=== PATIENT | female | born 1935 | race Caucasian/White ===

== ENCOUNTER → 2018-03-28 12:28 | Outpatient (CLI) | payer OTHER, SELFPAY ==
[2018-03-28 12:54] LABS: Add Manual Diff / Slide Review NO; Basophils Percent Auto 0.5 % (0-2); Eosinophils Percent Auto 1.3 % (2-4); Hemoglobin 13.3 g/dL (12.0-16.0); Lymphocytes Percent Auto 29.6 % (25-40); Mean Corpuscular HGB Conc 34.1 % (30-36); Mean Corpuscular Hemoglobin 32.7 PG (26-34); Mean Corpuscular Volume 95.9 fL (80-100); Monocytes Percent Auto 9.9 % (3-14); Neutrophils Absolute Auto 3600 /uL (3000-5900); Neutrophils Percent Auto 58.7 % (50-75); Platelet Count 241 X10^3/uL (150-400); Red Blood Cell Count 4.06 X10^6/uL (4.0-5.2); Red Cell Distribution Width 13.9 % (11.6-14.8); White Blood Cell Count 6.1 X10^3/uL (4.5-11.0)
[2018-03-28 12:57] LABS: Alanine Aminotransferase 25 IU/L (9-52); Albumin 4.3 g/dL (3.5-5.0); Albumin Globulin Ratio 1.3 (1.0-2.8); Alkaline Phosphatase 89 U/L (38-126); Aspartate Aminotransferase 22 IU/L (14-36); Bilirubin Total 0.4 mg/dL (0.2-1.3); Blood Urea Nitrogen 27 mg/dL (7-17); Calcium 9.9 mg/dL (8.4-10.2); Carbon Dioxide 32 mmol/L (22-32); Chloride 104 mmol/L (98-107); Globulin 3.4 g/dL (1.7-4.1); Glucose 102 mg/dL (80-110); HEMOLYSIS < 15 (0-50); Potassium 5.2 mmol/L (3.4-5.1); Sodium 144 mmol/L (137-145); Total Protein 7.7 g/dL (6.3-8.2)
[2018-03-28 13:58] LABS: Thyroid Stimulating Hormone 2.31 uIU/mL (0.47-4.68)
== END ==
PROVIDERS: Family Provider Family Medicine; PCP Family Medicine; Visit Provider Internal Medicine
DX: K92.1 Melena (principal); R53.1 Weakness; R03.0 Elevated blood-pressure reading, without diagnosis of hypertension
CPT/HCPCS: 36415; 80053; 84443; 85025

== ENCOUNTER → 2018-04-04 16:51 | Outpatient (CLI) | payer OTHER, SELFPAY ==
[2018-04-04 19:26] LABS: Occult Blood 1 Negative (Negative)
[2018-04-04 19:27] LABS: Occult Blood 2 Negative (Negative); Occult Blood 3 Negative (Negative)
== END ==
PROVIDERS: PCP Family Medicine; Visit Provider Internal Medicine
DX: R53.1 Weakness (principal); K92.1 Melena
CPT/HCPCS: 82270

== ENCOUNTER 2018-08-29 14:44 | Emergency (ER) | payer OTHER, SELFPAY ==
[2018-08-29 14:46] VITALS: BP 135/80; PULSE 67; RESP 16; O2SAT 98; BMI 31.5
--- NOTE | 2018-08-29 14:51 | DI.RAD.S_ITS ---
PROCEDURE: XR SHOULDER LT MIN 2V INDICATIONS: injury and pain. TECHNIQUE: 3 views of the shoulder were acquired. COMPARISON: [facility], CT, CHEST ABDOMEN PELVIS WITH CONTRAST, 03/09/2008, 8:51. [facility], CR, CHEST 1 VIEW, 03/18/2011, 22:22. [facility], CR, CHEST 1 VIEW, 07/24/2013, 11:22. FINDINGS: Bones: There is a long-standing structural abnormality at the left shoulder with shortening of the left clavicle with a superior angulation of the left clavicle interfacing with a cephalad directed coracoid process either representing a congenital anomaly versus sequela of old trauma. No suspicious bony lesions. Visualized ribs appear intact. Soft tissues: No suspicious soft tissue calcifications. IMPRESSION: No acute trauma found. 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 Dictated by: Mil Mandel M.D. on 08/29/2018 at 15:31 Approved by: Mil Mandel M.D. on 08/29/2018 at 15:34
--- NOTE | 2018-08-29 15:40 | ED.FALL ---
HPI - Fall General Chief Complaint: Fall Stated Complaint: Fall last Weds, hit head Time Seen by Provider: 08/29/18 15:29 Source: patient Mode of arrival: ambulatory Limitations: no limitations History of Present Illness HPI Narrative: Patient is an 82-year-old female here for evaluation of left shoulder injury. She states that she fell several days ago while walking up flight of stairs caring a couple cans of food. She states she just lost her balance and fell back and landed on her left shoulder. States she did not hit her head. No loss of consciousness. She is not on anticoagulation. She reports that she was able to get up afterwards and walk around. Since then she has had pain in her left shoulder. 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 She states that she has no numbness or tingling left upper extremity just that she has difficulty lifting her left arm. Related Data Home Medications Medication Instructions Recorded Confirmed acyclovir 400 mg tablet 400 mg PO BID 02/11/18 07/28/18 cholecalciferol (vitamin D3) 2,000 2,000 unit PO DAILY 03/28/18 07/28/18 unit capsule prednisolone acetate 1 % eye EYE-RIGHT ml 03/28/18 07/28/18 drops,suspension Previous Rx's Medication Instructions Recorded triamcinolone acetonide 0.1 % 1 applictn TOP DAILY #30 gram 04/07/18 topical cream docusate sodium 100 mg capsule 100 mg PO BID #60 cap 04/10/18 polyethylene glycol 3350 17 gram 17 gram PO DAILY #30 each 04/10/18 oral powder packet Allergies Allergy/AdvReac Type Severity Reaction Status Date / Time No Known Drug Allergies Allergy Unknown Verified 08/29/18 14:46 Review of Systems Constitutional Denies fever(s), Reports frequent falls and Denies headache(s) ENT Ears, Nose, Mouth, and Throat: Denies dysphagia, Denies vertigo, Denies dizziness and Denies headache(s) Cardiovascular Denies chest pain and Denies dyspnea Respiratory Denies dyspnea Gastrointestinal Gastrointestinal: Denies abdominal pain, Denies change in bowel habits and Denies dysphagia Genitourinary Denies dysuria Musculoskeletal Denies tingling Comments: Does report bilateral lower extremity weakness but this is not new Integumentary/Breasts Denies lesions and Denies rash Neurologic Denies vertigo, Denies dizziness, Reports frequent falls, Denies headache(s), Denies tingling and Denies paresthesias Hematologic/Lymphatic Denies easy bleeding Exam Initial Vital Signs Initial Vital Signs: Vital Signs Pulse Rate 67 08/29/18 14:46 Respiratory Rate 16 08/29/18 14:46 Blood Pressure 135/80 08/29/18 14:46 Pulse Oximetry 98 08/29/18 14:46 Const General: cooperative, healthy appearing, comfortable, well developed, well groomed and No acute distress Orientation: alert, awake and oriented x3 HENMT Head: normal to inspection, normocephalic and atraumatic Eyes Pupils: PERRL Resp Effort & Inspection: normal respiratory effort Auscultation: clear to auscultation bilaterally Cardio Rate: regular rate Rhythm: regular rhythm Pulses: radial pulses present GI Inspection: non-distended Palpation: soft, No firm and No tender Back/Spine/Pelvis Cervical Spine: No cervical spinal tenderness and No step off deformity Skin Lesions: no lesions Rashes: no rashes Neuro Cognition: normal cognition Speech: speech normal Gait: normal gait Sensory Exam: no sensory deficits noted Extrem Other: Left wrist left elbow unremarkable. Patient with minimal tenderness to palpation over the left shoulder. Does have some tenderness to palpation over the supraspinatus muscle of the left upper back. Passively patient has no pain with range of motion left shoulder. She is unable to hold her arm at a 90 degree angle. Has a very difficult time abducting her arm. PFSH Medical History Abnormality of heart beat (Chronic 2013) Frequent UTI (Chronic 2011) Urinary incontinence (Chronic 2009) Anemia (Resolved 1979) Cataract (Resolved 2014) Chicken pox (Resolved) Colon polyps (Resolved 2013) Fibroids (Resolved 1974) Fractures (Resolved 1966) History of heavy periods (Resolved 1972) Measles (Resolved) Mononucleosis (Resolved 1958) Mumps (Resolved) Rubella (Resolved) Ulcerative colitis (Resolved) Surgical History Anesthesia (Resolved) History of bilateral tubal ligation (Resolved 1962) History of cataract removal with insertion of prosthetic lens (Resolved 2014) Status post appendectomy (Resolved 1962) Status post breast biopsy (Resolved) Status post colonoscopy (Resolved 08/26/14) Status post right oophorectomy (Resolved 1979) Status post vaginal hysterectomy (Resolved 1979) Family History Brother Renal cancer Father Heart disease Hypertension Grandfather Stroke Mother Colon cancer Grandmother Cancer Stroke Sister Parkinson's disease Grandmother Pneumonia Family/Other Leukemia Social History Smoking Status: Never smoker Course Orders Ordered: ED Orders 08/29/18 14:51 XR shoulder LT min 2V Stat Vital Signs - 8 hr 08/29/18 14:46 Pulse Rate 67 Respiratory Rate 16 Blood Pressure 135/80 Pulse Oximetry 98 MDM - Fall Imaging Data X-ray left shoulder: Radiologist's impression: [address] [address] XRay Report Signed Patient: Katherin Parker [facility]#: [id number] : 5Acct:[id number] Age/Sex: 82 / FDate of Service: 08/29/18 Loc: ED Accession Number: [id number] Procedure: XR shoulder LT min 2V Ordering Provider: Angel Luis Figueroa D.O. PROCEDURE: XR SHOULDER LT MIN 2V INDICATIONS: injury and pain. TECHNIQUE: 3 views of the shoulder were acquired. COMPARISON: [facility], CT, CHEST ABDOMEN PELVIS WITH CONTRAST, 03/09/2008, 8:51. [facility], CR, CHEST 1 VIEW, 03/18/2011, 22:22. [facility], CR, CHEST 1 VIEW, 07/24/2013, 11:22. FINDINGS: Bones: There is a long-standing structural abnormality at the left shoulder with shortening of the left clavicle with a superior angulation of the left clavicle interfacing with a cephalad directed coracoid process either representing a congenital anomaly versus sequela of old trauma. No suspicious bony lesions. Visualized ribs appear intact. Soft tissues: No suspicious soft tissue calcifications. IMPRESSION: No acute trauma found. 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 Dictated by: Mil Mandel M.D. on 08/29/2018 at 15:31 Approved by: Mil Mandel M.D. on 08/29/2018 at 15:[address] [facility] Narrative Medical decision making narrative: No acute fractures on the x-ray the left shoulder. Patient is neurovascularly intact. Does not appear to be any other injury from the fall 4 days ago. Will hold on any further radiologic studies. Patient does have a difficult time holding her arm at a 90 degree angle and starting with abduction of the left arm. She does have tenderness palpation over the supraspinatus muscle. I suspect a rotator cuff injury. No indication to emergently contact Orthopedics. She was given exercises that she could do to try to prevent frozen shoulder. She instructed she needed to contact her primary care doctor to discuss further evaluation to include possible physical therapy and MRI. Patient was given return precautions. Her is at bedside for these discussions. They expressed understanding and agreement this plan. Discharge Plan Departure Patient Disposition: Home Clinical Impression: Injury of left shoulder Discharge Date/Time: 08/29/18 16:22 Interventions: ED Discharge Assessment Last Done: 08/29/18 16:22 Instructions: DI for Rotator Cuff Injury Activity Restrictions/Additional Instructions: after you're exam today have a strong suspicion that you have a rotator cuff injury of your left shoulder. I do recommend that you contact your primary care doctor to discuss the indications for a referral to have an MRI and/or evaluation by physical therapy. You are only limited in your activity by the discomfort that you are having. I do recommend that you try to stay as mobile as possible to avoid stiffening of the left shoulder. Return to the emergency department for any new or worsening symptoms Prescriptions: No Action acyclovir 400 mg tablet 400 mg PO BID RF: 0 triamcinolone acetonide 0.1 % cream 1 applictn TOP DAILY Qty: 30 RF: 0 polyethylene glycol 3350 [Miralax] 17 gram powder in packet 17 gram PO DAILY Qty: 30 RF: 6 docusate sodium [Dulcolax Stool Softener (dss)] 100 mg capsule 100 mg PO BID Qty: 60 RF: 6 cholecalciferol (vitamin D3) 2,000 unit capsule 2,000 unit PO DAILY RF: 0 prednisolone acetate 1 % drops,suspension EYE-RIGHT RF: 0
== END 2018-08-29 16:22 | disposition home or self-care (01) ==
PROVIDERS: Emergency Provider Emergency Medicine; PCP Family Medicine
DX: S49.92XA Unspecified injury of left shoulder and upper arm, initial encounter (principal); W01.0XXA Fall on same level from slipping, tripping and stumbling without subsequent striking against object, initial encounter
CPT/HCPCS: 73030; 99282; 99283

== ENCOUNTER → 2018-09-06 12:38 | Outpatient (CLI) | payer OTHER, SELFPAY ==
--- NOTE | 2018-09-06 12:40 | DI.MRI.S_ITS ---
PROCEDURE: MR SHOULDER LT WO CON INDICATIONS: left shoulder injury/pain TECHNIQUE: Noncontrast oblique coronal T2 fast spin echo with fat saturation, oblique sagittal T1 spin echo and T2 fast spin echo with fat saturation, axial T1 spin echo and T2 fast spin echo with fat saturation through the shoulder. COMPARISON: None. FINDINGS: Image quality: Excellent. Rotator cuff: There is full-thickness rupture of distal supraspinatus and anterior to mid fibers of infraspinatus tendon at their insertions on the greater tuberosity of humeral head with approximately 2.9 cm medial retraction of torn tendon fibers to the level of acromioclavicular joint. Tendinosis and moderately articular surface partial-thickness tear involving the posterior fibers of distal infraspinatus is seen. Tendinosis and low to moderate grade intrasubstance partial-thickness tear involving distal subscapularis is seen. Sagittal images demonstrate moderate supraspinatus and infraspinatus muscle atrophy. Bones and bursae: No bone marrow contusions or fractures. 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 Mild to moderate glenohumeral joint osteophytes is also seen. The acromion demonstrates conventional anatomy, without an os acromiale. Moderate amount of glenohumeral joint effusion a subacromial subdeltoid bursal fluid is noted. No gross loose body. Capsule and soft tissues: In the absence of intra-articular contrast, there is suggestion of focal superior anterior labral tear at 12 to 1:00 position. The glenohumeral ligaments appear intact. The long head of the biceps tendon demonstrates normal location and morphology. The rotator interval appears normal, without fibrosis. The coracohumeral ligament is normal in thickness. IMPRESSION: 1. Full-thickness rupture of distal supraspinatus and anterior to mid fibers of distal infraspinatus at their insertions on greater tuberosity of humeral head with 2.9 cm medial retraction of torn tendon fibers to the level of acromioclavicular joint. Tendinosis and moderate grade articular surface partial-thickness tear involving posterior fibers of distal supraspinatus. Tendinosis and moderate grade intrasubstance partial-thickness involving distal subscapularis. 2. Moderate supraspinatus and infraspinatus muscle atrophy. 3. 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 Moderate amount of joint effusion, no gross loose body. 4. Suggestion of focal superior anterior labral tear at 12 to 1:00 position. Dictated by: Barney Tse M.D. on 09/08/2018 at 8:09 Approved by: Barney Tse M.D. on 09/08/2018 at 8:13
== END ==
PROVIDERS: PCP Family Medicine; Visit Provider Family Medicine
DX: S46.012A Strain of muscle(s) and tendon(s) of the rotator cuff of left shoulder, initial encounter (principal); M25.512 Pain in left shoulder; M19.012 Primary osteoarthritis, left shoulder; M25.412 Effusion, left shoulder
CPT/HCPCS: 73221

== ENCOUNTER 2018-10-25 10:40 | Emergency (ER) | payer OTHER, SELFPAY ==
[2018-10-25 10:46] VITALS: BP 182/117; PULSE 90; RESP 14; TEMP 36.7; O2SAT 99; BMI 31.1
[2018-10-25 11:46] LABS: Bacteria Urine Moderate (10-30); RBC Urine 1-5/HPF (0-5/HPF); WBC Urine >100/HPF (0-5/HPF)
[2018-10-25 11:47] LABS: Culture Indicated Urine Specimen Cultured
--- NOTE | 2018-10-25 12:13 | ED_ITS ---
HPI - Female Genitourinary <Wendy Gilbert PA-C - Last Filed: 10/25/18 17:10> General Chief complaint: Urogenital-Female Stated complaint: THINKS SHES HAVING A REACTION TO A MEDICATION Time Seen by Provider: 10/25/18 12:30 Source: patient Mode of arrival: ambulatory Limitations: no limitations History of Present Illness HPI Narrative: This 82-year-old female who has a history of recurrent UTI comes in today due to feeling like she has another 1. She states that she went to the walk-in clinic 5 days ago thinking that she might have the start of an infection because she had some intermittent dysuria, but states that her urinalysis was negative there. She states that over the last couple of days, she has had more persistent dysuria and also urinary urgency. She states that she thinks she might have had 1 episode of visible hematuria last night, but she had eaten beets the night before, so not sure whether related. No other episodes. She states her urine has looked cloudy. She denies vomiting or nausea. She denies new flank pain or fever. She states that this feels similar to her previous urinary infections. Related Data Home Medications Medication Instructions Recorded Confirmed acyclovir 400 mg tablet 400 mg PO BID 02/11/18 07/28/18 cholecalciferol (vitamin D3) 2,000 2,000 unit PO DAILY 03/28/18 07/28/18 unit capsule prednisolone acetate 1 % eye EYE-RIGHT ml 03/28/18 07/28/18 drops,suspension Previous Rx's Medication Instructions Recorded triamcinolone acetonide 0.1 % 1 applictn TOP DAILY #30 gram 04/07/18 topical cream docusate sodium 100 mg capsule 100 mg PO BID #60 cap 04/10/18 polyethylene glycol 3350 17 gram 17 gram PO DAILY #30 each 04/10/18 oral powder packet sulfamethoxazole-trimethoprim 1 tab PO BID 5 Days #10 tab 10/25/18 [Bactrim DS] Allergies Allergy/AdvReac Type Severity Reaction Status Date / Time No Known Drug Allergies Allergy Unknown Verified 10/25/18 10:52 Review of Systems <Wendy Gilbert PA-C - Last Filed: 10/25/18 17:10> Review of Systems ROS Unobtainable: All systems reviewed & are unremarkable except as noted in HPI and below Exam <ALFRED Servin Last Filed: 10/25/18 17:10> Narrative Exam Narrative: GENERAL APPEARANCE: Patient sitting comfortably, in no distress. LUNGS: Clear to auscultation bilaterally. HEART: Rate and rhythm regular without murmur, normal S1 and S2, no S3 or S4. ABDOMEN: Soft, NT, ND, +BS x 4 quadrants, no CVAT. EXTREMITIES: Trace bimalleolar edema bilaterally, no calf tenderness Initial Vital Signs Initial Vital Signs: Vital Signs Temperature 98.1 F 10/25/18 10:46 Pulse Rate 90 10/25/18 10:46 Respiratory Rate 14 10/25/18 10:46 Blood Pressure 182/117 H 10/25/18 10:46 Pulse Oximetry 99 10/25/18 10:46 <Angel Luis Figueroa DO - Last Filed: 10/25/18 17:39> Initial Vital Signs Initial Vital Signs: Vital Signs Temperature 98.1 F 10/25/18 10:46 Pulse Rate 90 10/25/18 10:46 Respiratory Rate 14 10/25/18 10:46 Blood Pressure 182/117 H 10/25/18 10:46 Pulse Oximetry 99 10/25/18 10:46 Course <ALFRED Servin Last Filed: 10/25/18 17:10> Orders Ordered: ED Orders 10/25/18 11:12 Urine Culture Stat Urine Microscopic Stat Vital Signs - 8 hr 10/25/18 10:46 10/25/18 13:21 Temperature 98.1 F Pulse Rate 90 68 Respiratory Rate 14 20 Blood Pressure 182/117 H 120/78 Pulse Oximetry 99 <DO Cindy Sotomayor Last Filed: 10/25/18 17:39> Orders Ordered: ED Orders 10/25/18 11:12 Urine Culture Stat Urine Microscopic Stat Vital Signs - 8 hr 10/25/18 10:46 10/25/18 13:21 Temperature 98.1 F Pulse Rate 90 68 Respiratory Rate 14 20 Blood Pressure 182/117 H 120/78 Pulse Oximetry 99 MDM - Female Genitourinary <ALFRED Servin Last Filed: 10/25/18 17:10> Lab Data Attestation: I reviewed the patient's lab results. Lab Results 10/25/18 Range/Units 11:12 Urine RBC 1-5/hpf (0-5/HPF) Urine WBC >100/hpf H (0-5/HPF) Urine Bacteria Moderate (10-30) H (None) Ur Culture Indicated? Specimen cultured Urine Dip Bedside Urine Glucose Negative Bedside Urine Bilirubin - Negative Bedside Urine Ketone - Negative Urine Specific [place] 1.010 Bedside Urine Occult Blood + Bedside Urine pH 6.0 Bedside Urine Protein - Negative Bedside Urine Urobilinogen - Negative Bedside Urine Nitrite - Negative Bedside Urine Leukocytes +++ 500 Esterase <Angel Luis Figueroa, DO - Last Filed: 10/25/18 17:39> Lab Data Lab Results 10/25/18 Range/Units 11:12 Urine RBC 1-5/hpf (0-5/HPF) Urine WBC >100/hpf H (0-5/HPF) Urine Bacteria Moderate (10-30) H (None) Ur Culture Indicated? Specimen cultured Urine Dip Bedside Urine Glucose Negative Bedside Urine Bilirubin - Negative Bedside Urine Ketone - Negative Urine Specific [place] 1.010 Bedside Urine Occult Blood + Bedside Urine pH 6.0 Bedside Urine Protein - Negative Bedside Urine Urobilinogen - Negative Bedside Urine Nitrite - Negative Bedside Urine Leukocytes +++ 500 Esterase Discharge Plan Departure Patient Disposition: Home Clinical Impression: Urinary tract infection Discharge Date/Time: 10/25/18 13:22 Interventions: ED Discharge Assessment Last Done: 10/25/18 13:21 Instructions: DI for Urinary Tract Infection (UTI) Activity Restrictions/Additional Instructions: Please return if you have any acutely worsening symptoms over the weekend such as new fever, vomiting, or new pain in your kidney areas. You should follow-up with your primary care provider after your infection is resolved to repeat a urinalysis since there was a little bit of blood in your urine and also possible blood that you saw at home. I have sent in a prescription for Bactrim (sulfa antibiotic) since you have taken this many times in the past. Your urine will be sent for culture and this should be back in a couple of days, so please be sure to call and follow up with your PCP if you are not feeling better in the next 2-3 days. You can take your urinary pain reliever that you already have at home (pyridium) if you need. Prescriptions: New sulfamethoxazole-trimethoprim [Bactrim DS] 800-160 mg tablet 1 tab PO BID 5 Days Qty: 10 RF: 0 No Action acyclovir 400 mg tablet 400 mg PO BID RF: 0 triamcinolone acetonide 0.1 % cream 1 applictn TOP DAILY Qty: 30 RF: 0 polyethylene glycol 3350 [Miralax] 17 gram powder in packet 17 gram PO DAILY Qty: 30 RF: 6 docusate sodium [Dulcolax Stool Softener (dss)] 100 mg capsule 100 mg PO BID Qty: 60 RF: 6 cholecalciferol (vitamin D3) 2,000 unit capsule 2,000 unit PO DAILY RF: 0 prednisolone acetate 1 % drops,suspension EYE-RIGHT RF: 0 Referrals: Armaan Evans MD [Primary Care Provider] - <Angel Luis Figueroa DO - Last Filed: 10/25/18 17:39> Cosign ED Attending Cosdipikaature Attestation: I was available for consultation during this patient's emergency department encounter
[2018-10-25 13:21] VITALS: BP 120/78; PULSE 68; RESP 20
== END 2018-10-25 13:22 | disposition home or self-care (01) ==
PROVIDERS: Emergency Medicine; Emergency Provider Internal Medicine; PCP Family Medicine
DX: N39.0 Urinary tract infection, site not specified (principal)
CPT/HCPCS: 81003; 81015; 87077; 87086; 87186; 99282; 99283

== ENCOUNTER → 2018-11-25 14:05 | Outpatient (CLI) | payer OTHER, SELFPAY ==
[2018-11-25 14:12] LABS: RBC Urine None Seen (0-5/HPF)
[2018-11-25 14:36] LABS: Bilirubin Urine UA NEGATIVE (NEGATIVE); Color Urine UA YELLOW; Glucose Urine UA NEGATIVE (Negative); Ketones Urine UA NEGATIVE (NEGATIVE); Leukocyte Esterase Urine UA 2+ (NEGATIVE); Nitrite Urine UA NEGATIVE (Negative); Occult Blood Urine UA NEGATIVE (Negative); Protein Urine UA NEGATIVE (Negative); Urobilinogen Urine UA 0.2 E.U./dL (0.2)
[2018-11-25 14:51] LABS: Appearance Urine UA Slightly Cloudy; Squamous Epithelial Cell Urine 0-1 /HPF; WBC Urine >100/HPF (0-5/HPF)
[2018-11-25 14:52] LABS: Amorphous Sediment Urine 1+; Bacteria Urine Few (2-10); Culture Indicated Urine Specimen Cultured; Mucus Urine 1+ (Negative)
== END ==
PROVIDERS: PCP Family Medicine; Visit Provider Family Medicine
DX: R30.0 Dysuria (principal)
CPT/HCPCS: 81001; 87077; 87086; 87186

== ENCOUNTER → 2019-01-15 08:10 | Outpatient (CLI) | payer OTHER, SELFPAY ==
--- NOTE | 2019-01-15 08:11 | DI.MRI.S_ITS ---
PROCEDURE: MR HEAD/BRAIN WO CON INDICATIONS: memory impairment TECHNIQUE: Non-contrast axial T1 spin echo, axial T2 fast spin echo, sagittal and axial FLAIR, coronal T2 fast spin echo, axial gradient echo, axial diffusion and ADC through the brain. COMPARISON: [facility], MR, STROKE PROTOCOL, 05/24/2017, 7:58. [facility], MR, BRAIN WITHOUT CONTRAST, 11/05/2014, 8:25. FINDINGS: Image quality: Excellent. CSF spaces: Ventricles appear symmetric in size and shape. Basal cisterns are patent. No extra-axial fluid collections. Brain: No intracranial bleeds or mass effects. There is cerebral volume loss for age. There are periventricular and deep white matter chronic small vessel ischemic changes. Brainstem appears normal. Diffusion-weighted images show no acute ischemic insults. No chronic ischemic insults. Normal intravascular flow voids are present. Skull and face: Calvarial bone marrow is normal in signal. Orbits are normal. Note is made of bilateral lens replacements. Sinuses: Sinuses and mastoids are clear. IMPRESSION: Normal intracranial study for age, with note made of brain parenchymal volume loss and chronic small vessel ischemic change. Dictated by: Brandyn Alexander M.D. on 01/15/2019 at 8:30 Approved by: Brandyn Alexander M.D. on 01/15/2019 at 8:32
== END ==
PROVIDERS: PCP Family Medicine; Visit Provider Family Medicine
DX: R41.3 Other amnesia (principal)
CPT/HCPCS: 70551

== ENCOUNTER → 2019-04-20 16:40 | Outpatient (CLI) | payer OTHER, SELFPAY ==
[2019-04-20 16:56] LABS: RBC Urine None Seen (0-5/HPF); WBC Urine None Seen (0-5/HPF)
[2019-04-20 18:07] LABS: Appearance Urine UA CLEAR; Bilirubin Urine UA NEGATIVE (NEGATIVE); Glucose Urine UA NEGATIVE (Negative); Ketones Urine UA NEGATIVE (NEGATIVE); Leukocyte Esterase Urine UA NEGATIVE (NEGATIVE); Nitrite Urine UA NEGATIVE (Negative); Occult Blood Urine UA NEGATIVE (Negative); Protein Urine UA NEGATIVE (Negative); Specific Gravity Urine UA <=1.005 (1.000-1.035); Urobilinogen Urine UA 0.2 E.U./dL (0.2); pH Urine UA 5.5 (4.5-8.0)
[2019-04-20 18:10] LABS: Color Urine UA Straw
[2019-04-20 18:26] LABS: Bacteria Urine Moderate (10-30); Culture Indicated Urine Cult Not Indicated
== END ==
PROVIDERS: PCP Family Medicine; Visit Provider Family Medicine
DX: R32 Unspecified urinary incontinence (principal); R39.15 Urgency of urination
CPT/HCPCS: 81001

== ENCOUNTER → 2019-04-22 10:40 | Outpatient (CLI) | payer OTHER, SELFPAY | PROVIDERS: PCP Family Medicine; Visit Provider Family Medicine | DX: R35.0 Frequency of micturition (principal); R82.90 Unspecified abnormal findings in urine | CPT/HCPCS: 87077; 87086; 87186 ==

== ENCOUNTER → 2019-08-12 13:12 | Outpatient (CLI) | payer OTHER, SELFPAY ==
[2019-08-12 14:04] LABS: Add Manual Diff / Slide Review NO; Basophils Absolute Auto 0 /uL (0-100); Basophils Percent Auto 0.6 % (0-2); Eosinophils Absolute Auto 200 /uL (0-450); Eosinophils Percent Auto 2.9 % (2-4); Hematocrit 39.3 % (36-46); Hemoglobin 13.1 g/dL (12.0-16.0); Lymphocytes Absolute Auto 2000 /uL (1100-4500); Lymphocytes Percent Auto 28.7 % (25-40); Mean Corpuscular HGB Conc 33.4 % (30-36); Mean Corpuscular Hemoglobin 31.1 PG (26-34); Mean Corpuscular Volume 93.3 fL (80-100); Monocytes Absolute Auto 600 /uL (0-900); Monocytes Percent Auto 8.4 % (3-14); Neutrophils Absolute Auto 4100 /uL (1500-7000); Neutrophils Percent Auto 59.4 % (50-75); Platelet Count 282 X10^3/uL (150-400); Red Blood Cell Count 4.21 X10^6/uL (4.0-5.2); Red Cell Distribution Width 12.4 % (11.6-14.8); White Blood Cell Count 6.9 X10^3/uL (4.5-11.0)
[2019-08-12 14:31] LABS: Alanine Aminotransferase 26 IU/L (<35); Albumin 4.2 g/dL (3.5-5.0); Albumin Globulin Ratio 1.4 (1.0-2.8); Alkaline Phosphatase 106 U/L (38-126); Aspartate Aminotransferase 35 IU/L (14-36); BUN Creatinine Ratio 28.9 (6-22); Bilirubin Total 0.7 mg/dL (0.2-1.3); Blood Urea Nitrogen 26 mg/dL (7-17); Calcium 9.8 mg/dL (8.4-10.2); Carbon Dioxide 28 mmol/L (22-32); Chloride 103 mmol/L (98-107); Cholesterol 206 mg/dL (140-199); Estimated Glomerular Filt Rate 59.7 mL/min (>60); Globulin 3.1 g/dL (1.7-4.1); Glucose 95 mg/dL (80-110); HDL Cholesterol 68 mg/dL (40-60); HEMOLYSIS 28 (0-50); LDL Cholesterol Calculated 116 mg/dL (<100); Potassium 4.4 mmol/L (3.4-5.1); Sodium 141 mmol/L (137-145); Total Protein 7.3 g/dL (6.3-8.2); Triglycerides 111 mg/dL (35-150)
[2019-08-12 15:00] LABS: Thyroid Stimulating Hormone 2.63 uIU/mL (0.47-4.68)
== END ==
PROVIDERS: Family Provider Family Medicine; PCP Family Medicine; Visit Provider Hospitalist
DX: R53.1 Weakness (principal)
CPT/HCPCS: 36415; 80053; 80061; 84443; 85025

== ENCOUNTER → 2019-08-26 09:02 | Outpatient (CLI) | payer OTHER, SELFPAY ==
--- NOTE | 2019-08-26 09:03 | DI.MRI.S_ITS ---
PROCEDURE: MR STROKE Pre- and post-contrast brain MRI, non-contrast brain MR angiogram, pre- and postcontrast neck MR angiogram INDICATIONS: slurred speech , aspiration TECHNIQUE: Brain: Noncontrast axial T1 spin echo, axial T2 fast spin echo, sagittal and axial FLAIR, coronal T2 fast spin echo, axial gradient echo, axial diffusion and ADC through the brain. After the administration of contrast, axial 3D VIBE of the cranial vasculature and brain. Brain MRA: Non-contrast 3-D time of flight MR angiogram, with multiple obpmhgx-nwjonqond-mpdfkubpzu (MIP) reformats performed. Neck MRA: Axial and sagittal TruFISP through the neck. Coronal dynamic MR angiogram during administration of contrast in the arterial and venous phases, with 3-dimenstional etdlreh-zkkxeayqb-gorewqviat (MIP) reformats constructed from subtraction images. COMPARISON: [facility], MR, MR HEAD/BRAIN WO CON, 01/15/2019, 8:27. [facility], MR, STROKE PROTOCOL, 05/24/2017, 7:58. [facility], MR, BRAIN WITHOUT CONTRAST, 11/05/2014, 8:25. FINDINGS: Image quality: Excellent. BRAIN: CSF spaces: Ventricles are normal in size and shape. Basal cisterns are patent. No extra-axial fluid collections. Brain: No intracranial bleeds or mass effects. Russell-white matter interface is normal. Diffusion weighted images show no acute ischemic insults. Brainstem appears normal. Normal intravascular flow voids are present. No abnormal intracranial enhancement. Skull and face: Calvarial marrow signal is normal. Orbits appear normal. Note is made of bilateral lens replacements. Sinuses: Sinuses and mastoids are clear. BRAIN MR ANGIOGRAM: Anterior circulation: Intracranial internal carotid arteries are normal in size and enhancement. There is a hypoplastic to left A1 segment, with a corresponding robust right A1 segment. This is considered to be a normal developmental variant of the [place], of typically no clinical consequence. The flow within the paired anterior cerebral arteries is otherwise normal and symmetric. The flow within the middle cerebral arteries is normal and symmetric. The anterior communicating artery is seen. No stenoses, occlusions, or aneurysms. Posterior circulation: The left vertebral artery is dominant to the right. The right vertebral artery largely terminates in the right posterior inferior cerebellar artery and does not clearly join with the left vertebral artery to form the basilar artery. There is a normal appearing basilar artery. There is a prominent right posterior communicating artery seen, with an accompanying diminutive right P1 segment. This is attributed to a type origin of the right posterior cerebral artery, which is considered to be a normal developmental variant of typically no clinical consequence. The flow within the posterior cerebral arteries is normal and symmetric. No stenoses, occlusions, or aneurysms. NECK MR ANGIOGRAM: Carotids: Great vessels demonstrate a conventional anatomy as they arise from the aortic arch. The origins of the common carotid arteries appear patent. However, there is at least 50% stenosis seen involving the origin of the left common carotid artery, as on series 32 images 54 and 55. The calibers and courses of both common carotid arteries are normal. The bifurcation regions appear normal bilaterally. The internal carotid arteries demonstrate normal course and caliber. Posterior circulation: The origins of the vertebral arteries appear patent. More superior portions of both vertebral arteries demonstrate normal course. The left vertebral artery is dominant to the right. The right vertebral artery largely terminates in the right posterior inferior cerebellar artery. It does not clearly join with the left vertebral artery to form the basilar artery. The basilar artery is unremarkable. Miscellaneous: Subclavian arteries appear patent. Pre-contrast images through the neck show no soft tissue abnormalities. IMPRESSION: BRAIN MRI: Generalized atrophy and chronic small vessel ischemic change can be seen. No findings of acute or subacute infarction can be seen. No masses or abnormal enhancement can be seen. BRAIN MR ANGIOGRAM: Stable intracranial MR angiogram, with note made of g[place] anomalies with a hypoplastic left A1 segment and a type origin of the right posterior cerebral artery. NECK MR ANGIOGRAM: There is at least a 50% stenosis involving the origin of the left common carotid artery. No hemodynamically significant stenosis of the internal carotid arteries can be seen. No significant vertebral artery abnormalities are seen. It is noted that the right vertebral artery largely terminates in the right posterior inferior cerebellar artery and does not clearly join with the left vertebral artery to form the basilar artery. Dictated by: Brandyn Alexander M.D. on 08/26/2019 at 9:45 Approved by: Brandyn Alexander M.D. on 08/26/2019 at 9:53
== END ==
PROVIDERS: PCP Family Medicine; Visit Provider Hospitalist
DX: R47.81 Slurred speech (principal); I65.22 Occlusion and stenosis of left carotid artery
CPT/HCPCS: 70548; 70553; A9579

== ENCOUNTER 2019-12-21 12:30 | Outpatient (RCR) | payer OTHER, SELFPAY ==
--- NOTE | 2019-08-24 13:43 | ST.OPIE ---
Visit Care Team Role Provider Type Armaan Evans MD Primary Care Provider Physician Specialty: Family Practice Address: [address] [place] [address], [id number] Email: [email or web address] Susie Altamirano MD Attending Provider Physician Specialty: Internal Medicine Address: [address] [place] [address], [id number] Email: Speech-Language Pathology Initial Evaluation FALAFEL CART COOK Clinical Swallow Evaluation Start: 08/24/19 10:17 Freq: Status: Active Protocol: Document 08/24/19 10:18 SHAWNEE (Rec: 08/24/19 10:29 [email or web address] [id number]) Clinical Swallow Evaluation Session Time Visit Start Time 10:30 Visit Stop Time 11:30 Total Visit Minutes 60 Visit Information Plan of Care Dates 08.24.19 - 11.24.18 Insurance Information Medicare Referral Referring Physician Dr. Susie Altamirano Reason for Referral Dysphagia, Slurred Speech Setting Assessment Location Outpatient Care Visit Type Note Type Initial Evaluation Next Note Type Next Note Type Treatment Note Patient Information Identification Type Name,ID Card History Pt is an 83-yr-old female with >3 mo hx of slurred speech and recent onset of coughing when swallowing liquids only, particularly water and hot tea . The pt has a daughter who has frontal temporal degeneration, Aphasia type. The pt expressed to Dr. Evans concern that she may have the same thing. MRI was performed on 01/15/19 secondary to this concern and complaints of memory decline. MRI revealed normal intracranial study for age, with note made of brain parenchymal volume loss and chronic small velles ischemic change. Due to extensive slurred speech, however, there is a question of a small stroke and another MRI is scheduled for 08.26.19. Pt was referred to Speech Pathology for further evaluation of both oral motor speech and swallow difficulties. Dr. Altamirano did recommend to pt at last clinic visit to consume nectar-thick liquids and employ chin tuck to reduce risk of aspiration. 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 She states that, as a result, her right eyelid does not open as much as her left eye, which was observed. Subjective Observations The pt arrived on time with her , who did not attend evaluation. Pt provided case history supplemental to medical records. Evaluation Liquids Trialed Thin,[place] Solids Trialed Puree,Mechanical Soft,Regular Administration Type Cup Single Sip,Cup Consecutive Sips,Self-Feeding Oral Impairment WFL Oral Strategies Upright at 90 degrees Oral Phase Comments Oral Peripheral Exam: Mild right side facial weakness characterized by reduced labial retraction/elevation and buccal tone. All other features were symmetrical. Pt has natural dentition with many capped molars, in good condition for age. Soft palate elevates upon phonation. Mildly reduced hyolaryngeal elevation/excursion upon palpation. Oral Phase: WNL. Addequate mastication, bolus formation and a/p propulsion. Swallow trigger appears timely. No oral residue observed with all trials. Pharyngeal Impairment Mildly Impaired Pharyngeal Strategies Sitting Upright (90 deg),Turn Head Right,Small Bites and Sips Pharyngeal Phase Comments Trials: Thin liquid in single sips with and without chin tuck and head turn to right; NTL in single and consecutive swallows without compensatory strategies; applesauce, diced fruit in nectar, and dry caro cracker, all without compensatory strategies. Pt exhibited immediate cough with thin liquid in 2/3 trials without use of compensatory strategies. No overt s/sx observed with thin liquids with use of chin tuck x2 and with head turn to right x4 trials, nor with single and consecutive sips of NTL, and all solid trials. Pt's voice remained constant throughout trials. Findings Dysphagia Type Mild Pharyngeal Dysphagia Rehabilitation Potential Excellent Impressions Pt presents with mild pharyngeal dysphagia characterized by coughing with thin liquids when no compensatory strategies are used. Given presence of mild facial droop and benefit from head turn to right with swallow, suspect pt may have had small stroke or TIA affecting muscle strength on right side. It will be good to have MRI performed this week to assess. The pt benefited from both chin tuck and head turn to right and performed strategies easily. She also benefited from thickening of liquids to nectar thickness. Recommended to pt either to consume NTLs or to employ chin tuck or right head turn if consuming thin liquids. Also recommended dysphagia therapy targeting strengthening of oral and pharyngeal muscles to reduce risk of aspiration and if possible, reduce facial weakness. The pt's oral motor speech was perceived to be mildly dysarthric, characterized by imprecise articulation and elongated vowels; however, she remained 100% intelligible throughout the evaluation and self-employed strategies such as slowing down her speech. She stated she also is better understood when facing her conversation partners, and so she attempts to do this. Feedback was provided RE these strategies as well as benefits of slightly exaggerating speech to improve both articulation and others' abilities to read her lips when she speaks. She verbalized understanding and agreement with this and also reported that her speech does not bother her, and improving it was not a goal of Speech Therapy for her. Finally, when asked about her memory and other cognitive- linguistic skills, the pt reported experiencing memory impairments that are normal for people her age, and expressed no significant concern. Therefore, it was agreed that Speech Pathology services would target only dysphagia at this time. Diet Recommendations Liquids Order Thin Diet Order Regular Medication Recommendations As Tolerated Comments Thin liquids with chin tuck or head turn to right; otherwise , [place]-thick Aspiration Precautions Recommended Precautions Upright at 90 Degrees,Small Bites/Sips,Chin Tuck,Right Head Turn Additional Precautions Single sips only if consuming thin liquids. Treatment Plan Placement Recommendations after Home Discharge Therapy Recommendations Continued education and training in compensatory swallow strategies; training in swallow exercises and establishment of HEP. Dysphagia Goals 1. The pt will use compensatory swallow strategies (i.e., single sips with chin tuck or head turn to right) when consuming thin liquids to reduce risk of aspiration and maintain least restrictive diet. 2. The pt will perform swallow exercises independently to increase strength, coordination, and ROM of swallow musculature to reduce risk of aspiration. 3. The pt will tolerate least restrictive diet without overt s/sx of aspiration.
--- NOTE | 2019-11-02 17:41 | ST.OPTN ---
Visit Care Team Role Provider Type Armaan Evans MD Primary Care Provider Physician Address: [address] [place] [address], [id number] Susie Altamirano MD Attending Provider Non-Staff Address: [address] [place] [address], [id number] FORMULA TECHNICIAN Treatment Note FORMULA TECHNICIAN Treatment Note Start: 08/24/19 10:17 Freq: Status: Active Protocol: Document 11/02/19 14:24 SHAWNEE (Rec: 11/02/19 14:25 [email or web address] [id number]) Speech Pathology Treatment Note Session Time Visit Start Time 13:30 Visit Stop Time 14:15 Total Visit Minutes 45 Visit Information Visit Number 12/[id number] Plan of Care Dates 08.24.19 - 11.24.18 Insurance Information Dysphagia, Slurred Speech Setting Treatment Setting Outpatient Care Visit Type Note Type Treatment Note Next Note Type Next Note Type Treatment Note General Information General Information Pt is an 83-yr-old female with >3 mo hx of slurred speech and recent onset of coughing when swallowing liquids only, particularly water and hot tea . The pt has a daughter who has frontal temporal degeneration, Aphasia type. The pt expressed to Dr. Evans concern that she may have the same thing. MRI was performed on 01/15/19 secondary to this concern and complaints of memory decline. MRI revealed normal intracranial study for age, with note made of brain parenchymal volume loss and chronic small velles ischemic change. Due to extensive slurred speech, however, there is a question of a small stroke and another MRI is scheduled for 08.26.19. Pt was referred to Speech Pathology for further evaluation of both oral motor speech and swallow difficulties. Dr. Altamirano did recommend to pt at last clinic visit to consume nectar-thick liquids and employ chin tuck to reduce risk of aspiration. 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 She states that, as a result, her right eyelid does not open as much as her left eye, which was observed. Subjective Observations/Patient Presentation Pt arrived with who did not attend session. She has not been seen since Sep 15 d/t clinician and pt illnesses. The pt reported having seen a Neurologist, who denied diagnosis of PSP d/t the pt's ability to move eyes and head in all directions and with normal eye gaze. She was unable to provide the pt with a definitive diagnosis for her symptoms. The pt reported inconsistent compliance with swallow HEP but did note significant reduction in coughing with oral intake, reduced to occasional events. Chief Complaint(s) Speech,Swallowing,Voice Additional Areas of Concern Vocal loudness Patient Knowledge/Awareness of FORMULA TECHNICIAN Role Good in Treatment Objective Short Term Goals Ongoping education and training in compensatory swallow strategies; training in swallow exercises and establishment of HEP. Evaluation of speech intelligibility/dysarthria symptoms. Goals to be determined pending results. Nursing Home Goals 1. The pt will use compensatory swallow strategies (i.e., single sips with chin tuck or head turn to right) when consuming thin liquids to reduce risk of aspiration and maintain least restrictive diet. 2. The pt will perform swallow exercises independently to increase strength, coordination, and ROM of swallow musculature to reduce risk of aspiration. 3. The pt will tolerate least restrictive diet without overt s/sx of aspiration. Treatment Activities The pt had questions related to swallow exercises and their functional purposes. Re- education was provided, both orally and with visual and animated demonstration aids. The pt was unable to perform Aman as prescribed; therefore, modifications to laryngeal elevation exercises were made including lifting and holding pieces of paper through straw to elicit hyolaryngeal elevation via sucking postures. Effortful swallow was added as exercise, and diadochokinetic tasks were added as oral motor/ speech articulation exercise. The pt performed or returned demonstration of all exercises and all questions were answered. Instructions for HEP were provided in writing. Assessment Patient Response to Treatment Good Rehab Potential Good Impairments Identified Dysarthria,Dysphagia Progress Towards Goals Good Progress Assessment of Overall Progress Improving Assessment of Improvement The pt is making progress with swallow safety, as demonstrated by reduced coughing with liquid intake. She has been inconsistent in HEP practice but verbalized understanding of importance and intention to increase consistency. She continues with mildly dysarthric speech, though remains 100% intelligible. Reviewed with Patient Goals,Progress Being Made,Home Exercise Program Patient/Caregiver Understanding Excellent Plan Treatment Emphasis Next Session Speech intelligibility and voice/loudness exercises Therapeutic Contents Client Education,Compensatory Swallowing Training,Home Exercise Program, Intelligibility,Oral Motor Training,Swallowing/Feeding, Voice Training Additional Areas of Treatment Considering family hx of PD and FTD, may consider LSVT- Loud tx Provided Patient/Caregiver Instruction Home Exercise Program,Plan of Care,Questions/Concerns Therapy Recommendations Continue with Current Program
--- NOTE | 2019-11-30 16:12 | ST.OPTN ---
Visit Care Team Role Provider Type Armaan Evans MD Primary Care Provider Physician Address: [address] [place] [address], [id number] Susie Altamirano MD Attending Provider Non-Staff Address: [address] [place] [address], [id number] IT CONSULTING DIRECTOR Treatment Note IT CONSULTING DIRECTOR Treatment Note Start: 08/24/19 10:17 Freq: Status: Active Protocol: Document 11/30/19 13:24 SHAWNEE (Rec: 11/30/19 16:12 [email or web address] [id number]) Speech Pathology Treatment Note Session Time Visit Start Time 13:30 Visit Stop Time 14:15 Total Visit Minutes 45 Visit Information Visit Number 01/14 Plan of Care Dates 11/30/19 - 02/21/20 Insurance Information Dysphagia, Slurred Speech Setting Treatment Setting Outpatient Care Visit Type Note Type Progress Note Next Note Type Next Note Type Treatment Note General Information General Information Pt is an 83-yr-old female with >3 mo hx of slurred speech and recent onset of coughing when swallowing liquids only, particularly water and hot tea . The pt has a daughter who has frontal temporal degeneration, Aphasia type. The pt expressed to Dr. Evans concern that she may have the same thing. MRI was performed on 01/15/19 secondary to this concern and complaints of memory decline. MRI revealed normal intracranial study for age, with note made of brain parenchymal volume loss and chronic small velles ischemic change. Due to extensive slurred speech, however, there is a question of a small stroke and another MRI is scheduled for 08.26.19. Pt was referred to Speech Pathology for further evaluation of both oral motor speech and swallow difficulties. Dr. Altamirano did recommend to pt at last clinic visit to consume nectar-thick liquids and employ chin tuck to reduce risk of aspiration. 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 She states that, as a result, her right eyelid does not open as much as her left eye, which was observed. UPDATE 11/02/19: The pt reported having seen a Neurologist, who denied diagnosis of PSP d/t the pt's ability to move eyes and head in all directions and with normal eye gaze. She was unable to provide the pt with a definitive diagnosis for her symptoms. Subjective Observations/Patient Presentation Pt arrived on time. Reported improved swallow with only occasional small coughs after large consumptions of thin liquids. Has no complaints with swallowing solids. States she is consuming all the foods/liquids she desires to, although she has not had alcohol or hot beverages since and fall, respecively, d/t swallow difficulties at those times. She reported performing swallow exercises once every 1 -2 days, not more because she forgets to. The pt also c/o running out of breath as she reads aloud each night. Chief Complaint(s) Speech,Swallowing,Voice Additional Areas of Concern Vocal loudness Patient Knowledge/Awareness of IT CONSULTING DIRECTOR Role Good in Treatment Objective Short Term Goals Ongoping education and training in compensatory swallow strategies; training in swallow exercises and establishment of HEP. Evaluation of speech intelligibility/dysarthria symptoms. Goals to be determined pending results. Manager Lighting Goals 1. The pt will use compensatory swallow strategies (i.e., single sips with chin tuck or head turn to right) when consuming thin liquids to reduce risk of aspiration and maintain least restrictive diet. 2. The pt will perform swallow exercises independently to increase strength, coordination, and ROM of swallow musculature to reduce risk of aspiration. 3. The pt will tolerate least restrictive diet without overt s/sx of aspiration. Treatment Activities Consulted with pt RE strategies to remember to complete swallow exercises. Agreed to placing written note on table next to her living room chair. Recommended she perform exercises during commercials while watching TV. She was agreeable to this. Assessed pt's swallow safety with trials of thin liquids taken in single and consecutive sips, applesauce with and without soda cracker added, diced peaches/mixed texture, and dry cracker with and without liquid wash. She exhibited minimal cough x1 upon speaking after swallowing consecutive sips of liquid. No other overt s/sx of aspiration were observed. Assessed pt's breath support for speech via sustained phonation (42.8 sec, WNL) and in conversation and reading tasks. Pt exhibited adequate breath for speech; however, reduced coordination on exhalation was observed as demonstrated by the pt consistently exhaling residual air during pauses in speech. This indicates that she has adequate breath but not using it efficiently, with the effect of sensing a shortness of breath. Skilled education and feedback was provided. Initiated training in breath support for optimal voicing and speech production. Educated pt in subsystems of voice and in need to reduce laryngeal tension for optimal voice. Trained pt in yawn sigh and then with extended phonation. Pt initially exhibited intermittent but frequent strain in voice over duration of phonation, which was nearly eliminated with use of yawn- sigh technique. Pt instructed to notice engagement of expiratory muscles while performing sustained phonation and reading tasks at home and to keep an open throat to avoid tense vocal quality. She verbalized understanding. Assessment Patient Response to Treatment Good Rehab Potential Good Impairments Identified Dysarthria,Dysphagia Progress Towards Goals Good Progress Assessment of Overall Progress Improving Assessment of Improvement The pt has made excellent progress with swallow safety and demonstrated WFL with oral trials today. Pt demonstrated MPT above normal limits (normal = 15-25 sec) but reduced control of breath for speech, exhibited by frequent release of residual breath at natural pauses in speech. Additionally , she exhibited frequent intermittent vocal strain in sustained phonation. She was receptive and responsive to education and initial training to reduce laryngeal tension and redirect power of voice to expiratory muscles. Needs reinforcement. Reviewed with Patient Goals,Progress Being Made,Home Exercise Program Patient/Caregiver Understanding Excellent Plan Comment 1x every 3 wks d/t pt travel distance Treatment Emphasis Next Session Speech intelligibility and voice/loudness exercises Therapeutic Contents Client Education,Compensatory Swallowing Training,Home Exercise Program, Intelligibility,Oral Motor Training,Swallowing/Feeding, Voice Training Additional Areas of Treatment Considering family hx of PD and FTD, may consider LSVT- Loud tx Provided Patient/Caregiver Instruction Home Exercise Program,Plan of Care,Questions/Concerns Therapy Recommendations Continue with Current Program
--- NOTE | 2019-12-21 14:30 | ST.OPTN ---
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 ENGINE OPERATOR Treatment Note Start: 08/24/19 10:17 Freq: Status: Active Protocol: Document 12/21/19 13:27 SHAWNEE (Rec: 12/21/19 13:31 [email or web address] [email or web address]) Speech Pathology Treatment Note Session Time Visit Start Time 12:42 Visit Stop Time 13:15 Total Visit Minutes 33 Visit Information Visit Number 02/[id number] Plan of Care Dates 11/30/19 - 02/21/20 Insurance Information Dysphagia, Slurred Speech Setting Treatment Setting Outpatient Care Visit Type Note Type Progress Note Next Note Type Next Note Type Treatment Note General Information General Information Pt is an 83-yr-old female with >3 mo hx of slurred speech and recent onset of coughing when swallowing liquids only, particularly water and hot tea . The pt has a daughter who has frontal temporal degeneration, Aphasia type. The pt expressed to Dr. Evans concern that she may have the same thing. MRI was performed on 01/15/19 secondary to this concern and complaints of memory decline. MRI revealed normal intracranial study for age, with note made of brain parenchymal volume loss and chronic small velles ischemic change. Due to extensive slurred speech, however, there is a question of a small stroke and another MRI is scheduled for 08.26.19. Pt was referred to Speech Pathology for further evaluation of both oral motor speech and swallow difficulties. Dr. Altamirano did recommend to pt at last clinic visit to consume nectar-thick liquids and employ chin tuck to reduce risk of aspiration. 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 She states that, as a result, her right eyelid does not open as much as her left eye, which was observed. UPDATE 11/02/19: The pt reported having seen a Neurologist, who denied diagnosis of PSP d/t the pt's ability to move eyes and head in all directions and with normal eye gaze. She was unable to provide the pt with a definitive diagnosis for her symptoms. Subjective Observations/Patient Presentation Pt arrived on time. Informed she and her have recently recovered from colds, during which she did not perform HEP tasks regularly. She now feels that her swallow has gotten worse with liquids , but states her speech has improved. After the last session, she gave a speech at her birthday libertarian and received feedback from a friend that she sounded back to normal. Chief Complaint(s) Speech,Swallowing,Voice Additional Areas of Concern Vocal loudness Patient Knowledge/Awareness of REFRIGERATION ENGINE OPERATOR Role Good in Treatment Objective Short Term Goals Ongoping education and training in compensatory swallow strategies; training in swallow exercises and establishment of HEP. Evaluation of speech intelligibility/dysarthria symptoms. Goals to be determined pending results. Alf Goals 1. The pt will use compensatory swallow strategies (i.e., single sips with chin tuck or head turn to right) when consuming thin liquids to reduce risk of aspiration and maintain least restrictive diet. 2. The pt will perform swallow exercises independently to increase strength, coordination, and ROM of swallow musculature to reduce risk of aspiration. 3. The pt will tolerate least restrictive diet without overt s/sx of aspiration. Treatment Activities Discussed with pt the likelihood of declined muscle strength and subsequent worsening of swallow function related to recent illness and decreased exercise. Pt agreed. Pt performed swallow exercises following written instructions. Pt performed diadochokinetic tasks with good precision and rhythm with exception of /t/, which was inconsistently precise. Trained pt in repetition of alveolar phonemes /t/, /d/, /l/, /s/, and /z/. Initially, pt engaged elevation and depression via jaw movements. Instructed pt to elevate tongue tip only and provided mirror for visual biofeedback, which was helpful . Exercises added to HEP tasks. Pt consumed 1 sip of thin water from cup at end of session, which resulted in mild cough. Assessment Patient Response to Treatment Good Rehab Potential Good Impairments Identified Dysarthria,Dysphagia Progress Towards Goals Good Progress Assessment of Overall Progress Improving Assessment of Improvement Cough with thin liquid noted. Pt demonstrating good understanding and ability to perform exercises. Speech noted to be imprecise with alveoler phonemes. HEP tasks addapted to include lingual elevation speech task exercises. Pt verbalized and demonstrated good understanding of all information and training. Reviewed with Patient Goals,Progress Being Made,Home Exercise Program Patient/Caregiver Understanding Excellent Plan Comment 1x every 3 wks d/t pt travel distance Treatment Emphasis Next Session Speech intelligibility and voice/loudness exercises Therapeutic Contents Client Education,Compensatory Swallowing Training,Home Exercise Program, Intelligibility,Oral Motor Training,Swallowing/Feeding, Voice Training Additional Areas of Treatment Considering family hx of PD and FTD, may consider LSVT- Loud tx Provided Patient/Caregiver Instruction Home Exercise Program,Plan of Care,Questions/Concerns Therapy Recommendations Continue with Current Program
--- NOTE | 2020-07-12 14:15 | ST.OPDS ---
Visit Care Team Role Provider Type Armaan Evans MD Primary Care Provider Physician Address: [address] [place] [address], [id number] Susie Altamirano MD Attending Provider Non-Staff Address: [address] [place] [address], [id number] TIMBER SPRINKLER Treatment Note TIMBER SPRINKLER Treatment Note Start: 08/24/19 10:17 Freq: Status: Active Protocol: Document 07/12/20 14:11 SHAWNEE (Rec: 07/12/20 14:14 [email or web address] [email or web address]) Speech Pathology Treatment Note Visit Information Plan of Care Dates 11/30/19 - 02/21/20 Insurance Information Dysphagia, Slurred Speech Setting Treatment Setting Outpatient Care Visit Type Note Type Discharge Summary General Information General Information Pt is an 83-yr-old female with >3 mo hx of slurred speech and recent onset of coughing when swallowing liquids only, particularly water and hot tea . The pt has a daughter who has frontal temporal degeneration, Aphasia type. The pt expressed to Dr. Evans concern that she may have the same thing. MRI was performed on 01/15/19 secondary to this concern and complaints of memory decline. MRI revealed normal intracranial study for age, with note made of brain parenchymal volume loss and chronic small velles ischemic change. Due to extensive slurred speech, however, there is a question of a small stroke and another MRI is scheduled for 08.26.19. Pt was referred to Speech Pathology for further evaluation of both oral motor speech and swallow difficulties. Dr. Altamirano did recommend to pt at last clinic visit to consume nectar-thick liquids and employ chin tuck to reduce risk of aspiration. 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 She states that, as a result, her right eyelid does not open as much as her left eye, which was observed. UPDATE 11/02/19: The pt reported having seen a Neurologist, who denied diagnosis of PSP d/t the pt's ability to move eyes and head in all directions and with normal eye gaze. She was unable to provide the pt with a definitive diagnosis for her symptoms. Subjective Observations/Patient Presentation Pt was last seen 12/21/19. Since then this outpatient clinic was temporarily closed d/t COVID-19 pandemic. Upon reopening, the pt expressed desire to delay return to skilled intervention and has not since pursued re- establishment of care. She will be discharged at this time. Chief Complaint(s) Speech,Swallowing,Voice Additional Areas of Concern Vocal loudness Objective Short Term Goals Ongoing education and training in compensatory swallow strategies; training in swallow exercises and establishment of HEP. Evaluation of speech intelligibility/dysarthria symptoms. Goals to be determined pending results. Penitentiary Goals 1. The pt will use compensatory swallow strategies (i.e., single sips with chin tuck or head turn to right) when consuming thin liquids to reduce risk of aspiration and maintain least restrictive diet. 2. The pt will perform swallow exercises independently to increase strength, coordination, and ROM of swallow musculature to reduce risk of aspiration. 3. The pt will tolerate least restrictive diet without overt s/sx of aspiration. Plan Therapy Recommendations Discharge from Speech Therapy
== END 2020-07-25 09:10 ==
LOC: SP 12:30
PROVIDERS: PCP Family Medicine; Visit Provider Hospitalist
DX: R13.10 Dysphagia, unspecified (principal); R47.81 Slurred speech
CPT/HCPCS: 92507; 92526; 92610

== ENCOUNTER → 2020-01-27 16:33 | Outpatient (CLI) | payer OTHER, SELFPAY ==
[2020-01-27 20:04] LABS: Blood Urea Nitrogen 27 mg/dL (7-17); Calcium 9.6 mg/dL (8.4-10.2); Carbon Dioxide 29 mmol/L (22-32); Chloride 104 mmol/L (98-107); Estimated Glomerular Filt Rate 48.2 mL/min (>60); Glucose 124 mg/dL (80-110); HEMOLYSIS < 15 (0-50); Potassium 4.2 mmol/L (3.4-5.1); Sodium 140 mmol/L (137-145)
== END ==
PROVIDERS: PCP Family Medicine; Referring Provider Family Medicine; Visit Provider Family Medicine
DX: N28.9 Disorder of kidney and ureter, unspecified (principal); R03.0 Elevated blood-pressure reading, without diagnosis of hypertension
CPT/HCPCS: 36415; 80048

== ENCOUNTER → 2020-04-20 15:07 | Outpatient (CLI) | payer OTHER, SELFPAY ==
--- NOTE | 2020-04-20 15:08 | DI.RAD.S_ITS ---
This blank DEXA report has been sent in error by the PACS system. The correct and complete report will be forthcoming in 1-2 days. Thank you for your patience and understanding. Dictated by: Michael Hathaway M.D. on 04/20/2020 at 15:51 Approved by: Michael Hathaway M.D. on 04/20/2020 at 15:52
== END ==
PROVIDERS: PCP Family Medicine; Referring Provider Family Medicine; Visit Provider Family Medicine
DX: M85.851 Other specified disorders of bone density and structure, right thigh (principal); Z78.0 Asymptomatic menopausal state
CPT/HCPCS: 77080

== ENCOUNTER → 2020-08-23 11:20 | Outpatient (CLI) | payer OTHER, SELFPAY ==
[2020-08-23 11:49] LABS: RBC Urine None Seen (0-5/HPF)
[2020-08-23 12:38] LABS: Bacteria Urine Many (>30); Culture Indicated Urine Specimen Cultured; WBC Urine 5-10/HPF (0-5/HPF)
== END ==
PROVIDERS: PCP Family Medicine; Referring Provider Family Medicine; Visit Provider Family Medicine
DX: R30.0 Dysuria (principal)
CPT/HCPCS: 81015; 87077; 87086; 87186

== ENCOUNTER 2020-08-27 16:03 | Emergency (ER) | payer OTHER, SELFPAY ==
[2020-08-27 16:13] VITALS: BP 197/86; PULSE 82; RESP 18; TEMP 36.6; O2SAT 98; BMI 31.8
--- NOTE | 2020-08-27 16:25 | ED.FEMALEGU ---
HPI - Female Genitourinary <Higinio Gordon TREMAINE - Last Filed: 08/27/20 20:05> General Chief complaint: Urogenital-Female Stated complaint: states UTI, feels weak, afraid its the medication Time Seen by Provider: 08/27/20 16:07 Source: patient Mode of arrival: Ambulatory Limitations: no limitations History of Present Illness HPI Narrative: This is a 84 year female, Nonsmoker, who thinks has a medical history significant for supranuclear palsy presents to ED with daughter with chief complain of generalized weakness after started antibiotic medication Septra DS and taken 3 doses so far for UTI. Patient reports she had odorous urine and urgency for about a month and had left a urine sample at the lab 3 days go. Daughter reports patient has history of frequent UTI but patient states this is her 1st UTI for this year. Patient reports had bed reaction after the Cipro with gait difficulty and this time she was prescribed with Septra DS. Patient denies any pain what so ever in chest, abdomen, flank. Patient denies nausea or vomiting. She denies fever or chills. Patient reports improving odorous urine at this time. Patient has some dysphagia and balance difficulty but this is not new and contributes to supranuclear palsy. Is not on blood thinner. Patient reports has been hydrating and eating well. Related Data Home Medications Medication Instructions Recorded Confirmed cholecalciferol (vitamin D3) 50 2,000 unit PO DAILY 03/28/18 04/05/20 mcg (2,000 unit) capsule melatonin 5 mg capsule 5 mg PO BEDTIME PRN cap 07/31/19 04/05/20 Previous Rx's Medication Instructions Recorded triamcinolone acetonide 0.1 % 1 applictn TOP DAILY #30 gram 04/07/18 topical cream In step wheeled walker with seat #1 ea 05/12/19 sulfamethoxazole 800 1 tab PO BID #20 tab 08/24/20 mg-trimethoprim 160 mg tablet cephalexin [Keflex] 250 mg PO Q8H #12 cap 08/27/20 Allergies Allergy/AdvReac Type Severity Reaction Status Date / Time ciprofloxacin [From Cipro] Allergy Severe Weakness Verified 08/27/20 16:17 sulfamethoxazole AdvReac Intermediate Weakness Verified 08/28/20 16:10 [From Septra] trimethoprim [From Septra] AdvReac Intermediate Weakness Verified 08/28/20 16:10 cherries Allergy Mild itching/swe Uncoded 04/05/20 16:45 lling Review of Systems <TREMAINE Deras - Last Filed: 08/27/20 20:05> Review of Systems Narrative: General: Reports generalized weakness. Denies fever, chills, malaise, sweats. HEENT: Denies sinus pain, ear pain, sore throat, difficulty swallowing, dizziness. Respiratory: Denies dyspnea, cough, wheezing, hemoptysis, sputum. Cardiovascular: Denies chest pain, palpitations, orthopnea, edema. Gastrointestinal: Denies nausea, vomiting, abdominal pain, diarrhea, constipation, melena. : Denies dysuria, frequency, incontinence, hematuria, urinary retention, (+)R urgency and improving odorous urine. Musculoskeletal: See HPI Skin: Denies rash, skin lesions, or other. Neurologic: See HPI Psychiatric: No concerning psychosocial issues. 12-point review of systems is negative except for those stated above. Patient History <TREMAINE Deras - Last Filed: 08/27/20 20:05> Medical History Abnormality of heart beat (2013) Anemia (1979) Cataract (2014) Chicken pox Colon polyps (2013) Fibroids (1974) Fractures (1966) Frequent UTI (2011) History of heavy periods (1972) Measles Mononucleosis (1958) Mumps Rubella Skin rash Ulcerative colitis Urinary incontinence (2009) Surgical History Anesthesia History of bilateral tubal ligation (1962) History of cataract removal with insertion of prosthetic lens (2014) Status post appendectomy (1962) Status post breast biopsy Status post colonoscopy (08/26/14) Status post right oophorectomy (1979) Status post vaginal hysterectomy (1979) Family History Brother Renal cancer Father Heart disease Hypertension Grandfather Stroke Mother Colon cancer Grandmother Cancer Stroke Sister Parkinson's disease Grandmother Pneumonia Family/Other Leukemia alcohol intake frequency: 0-2 drinks per day Substance Use Type: does not use Exam <TREMAINE Deras - Last Filed: 08/27/20 20:05> Narrative Exam Narrative: GEN: Alert, oriented x 3, well appearing and nourished, and in no acute distress. Head: Normal cephalic, atraumatic. No scalp or temporal tenderness, palpable mass or rash. EYES: No subconjunctival hemorrhage, exudate and sclera non-icteric EOMI. ENT: Hearing grossly intact. Airway patent. Neck: Trachea in midline. No JVD, non-tender without lymphadenopathy. No masses or thyroid megaly. Supple, non-tender and no meningeal signs. CARDIAC: Normal regular rate and rhythm without murmurs, gallops, or rubs. No chest wall tenderness. No peripheral edema, cyanosis or pallor. Capillary refill is less than 2 seconds. RESPIRATORY: Lungs are clear to auscultate bilaterally. No cough, wheezes, rales, or rhonchi. No stridor, respiratory distress, increase work of breathing, or accessary muscle used. ABD: Abdomen soft, nontender and non-distended. No guarding or rebound tenderness to palpate. Bowel sounds are normal in all 4 quadrants. There is no palpable masses or organomegaly. EXT: Full painless ROM of all extremities with no loss of sensation, strength, effusion or edema. SKIN: Warm, dry, normal color for patient. No erythema, lesions or rash over visible areas. BACK: Nontender without deformity or crepitance. No flank tenderness. NEUROLOGICAL: Alert and oriented to place, time and person. Sensation and motor function intact bilaterally. No facial droops, dysphasia. Right eyelid lagging but reports not new findings. PSYCHIATRIC: Good judgement and reason, without hallucinations, abnormal affect or abnormal behaviors during the examination. Patient is not suicidal. Initial Vital Signs Initial Vital Signs: Vital Signs Temperature 97.8 F 08/27/20 16:13 Pulse Rate 82 08/27/20 16:13 Respiratory Rate 18 08/27/20 16:13 Blood Pressure 197/86 H 08/27/20 16:13 Pulse Oximetry 98 08/27/20 16:13 <Angel Luis Figueroa DO - Last Filed: 08/29/20 07:24> Initial Vital Signs Initial Vital Signs: Vital Signs Temperature 97.8 F 08/27/20 16:13 Pulse Rate 82 08/27/20 16:13 Respiratory Rate 18 08/27/20 16:13 Blood Pressure 197/86 H 08/27/20 16:13 Pulse Oximetry 98 08/27/20 16:13 Scores <TREMAINE Deras - Last Filed: 08/27/20 20:05> GCS Kenan coma scale eye opening: Spontaneous Kenan coma scale verbal response: Orientated Kenan coma scale motor response: Obey commands [place] coma scale total score: 15 qSOFA Altered Mental Status (GCS <15): No Respiratory rate greater than/equal to 22: No Systolic blood pressure less than or equal to 100: No qSOFA Total: 0 0-1 Not High Risk 1-3 High risk Course <TREMAINE Deras - Last Filed: 08/27/20 20:05> Orders Ordered: Discontinued Medications Cefazolin Sodium (Cephalexin 250 Mg Prepack) 1 bottle MISC SEEINSTR ONE Stop: 08/27/20 18:26 Last Admin: 08/27/20 18:42 Dose: 250 mg Documented by: ELAINEN Sodium Chloride (Normal Saline 0.9%) 500 mls @ 1,000 mls/hr IV BOLUS ONE Stop: 08/27/20 17:38 Last Infusion: 08/27/20 18:15 Dose: 0 mls/hr Documented by: Admin: 08/27/20 17:22 Dose: 1,000 mls/hr Documented by: MELISSA Vital Signs Vital signs: Vital Signs - 8 hr 08/27/20 16:13 08/27/20 17:00 08/27/20 18:52 Temperature 97.8 F Pulse Rate 82 70 61 Respiratory Rate 18 14 Blood Pressure 197/86 H 160/73 H 178/84 H Pulse Oximetry 98 96 98 <Angel Luis Figueroa DO - Last Filed: 08/29/20 07:24> Orders Ordered: Discontinued Medications Cefazolin Sodium (Cephalexin 250 Mg Prepack) 1 bottle MISC SEEINSTR ONE Stop: 08/27/20 18:26 Last Admin: 08/27/20 18:42 Dose: 250 mg Documented by: StevenGELEYN Sodium Chloride (Normal Saline 0.9%) 500 mls @ 1,000 mls/hr IV BOLUS ONE Stop: 08/27/20 17:38 Last Infusion: 08/27/20 18:15 Dose: 0 mls/hr Documented by: Admin: 08/27/20 17:22 Dose: 1,000 mls/hr Documented by: MELISSA Vital Signs Vital signs: Vital Signs - 8 hr 08/27/20 16:13 08/27/20 17:00 08/27/20 18:52 Temperature 97.8 F Pulse Rate 82 70 61 Respiratory Rate 18 14 Blood Pressure 197/86 H 160/73 H 178/84 H Pulse Oximetry 98 96 98 MDM - Female Genitourinary <TREMAINE Deras - Last Filed: 08/27/20 20:05> Differential Diagnosis Differential diagnosis: Likely urinary tract infection and other (sepsis, electrolyte imbalance, medication side effects, acute kidney injury, kidney infection) Medical Records Attestation: I reviewed the patient's medical records. Lab Data Attestation: I reviewed the patient's lab results. Result diagrams: 08/27/20 16:35 08/27/20 16:35 Labs: Lab Results 08/27/20 08/27/20 08/27/20 Range/Units 16:35 16:35 16:35 WBC 6.2 (4.5-11.0) X10^3/uL RBC 4.23 (4.0-5.2) X10^6/uL Hgb 13.5 (12.0-16.0) g/dL Hct 39.9 (36-46) % MCV 94.3 (80-100) fL MCH 32.0 (26-34) PG MCHC 33.9 (30-36) % RDW 12.9 (11.6-14.8) % Plt Count 230 (150-400) X10^3/uL Neut % (Auto) 53.4 (50-75) % Lymph % (Auto) 33.6 (25-40) % Bailey % (Auto) 10.9 (3-14) % Eos % (Auto) 1.5 L (2-4) % Baso % (Auto) 0.6 (0-2) % Neut # (Auto) 3300 (7617-4681) /uL Lymph # (Auto) 2100 (1634-1208) /uL Bailey # (Auto) 700 (0-900) /uL Eos # (Auto) 100 (0-450) /uL Baso # (Auto) 0 (0-100) /uL Sodium 140 (137-145) mmol/L Potassium 4.6 (3.4-5.1) mmol/L Chloride 107 (98-107) mmol/L Carbon Dioxide 26 (22-32) mmol/L BUN 25 H (7-17) mg/dL Creatinine 1.33 H (0.52-1.04) mg/dL Estimated GFR 37.9 L (>60) mL/min BUN/Creatinine Ratio 18.8 (6-22) Glucose 112 H (80-110) mg/dL Lactate (0.7-2.1) mmol/L Calcium 9.8 (8.4-10.2) mg/dL Procalcitonin < 0.05 (<0.5) ng/mL 08/27/20 Range/Units 16:35 WBC (4.5-11.0) X10^3/uL RBC (4.0-5.2) X10^6/uL Hgb (12.0-16.0) g/dL Hct (36-46) % MCV (80-100) fL MCH (26-34) PG MCHC (30-36) % RDW (11.6-14.8) % Plt Count (150-400) X10^3/uL Neut % (Auto) (50-75) % Lymph % (Auto) (25-40) % Bailey % (Auto) (3-14) % Eos % (Auto) (2-4) % Baso % (Auto) (0-2) % Neut # (Auto) (8495-4987) /uL Lymph # (Auto) (1749-3579) /uL Bailey # (Auto) (0-900) /uL Eos # (Auto) (0-450) /uL Baso # (Auto) (0-100) /uL Sodium (137-145) mmol/L Potassium (3.4-5.1) mmol/L Chloride (98-107) mmol/L Carbon Dioxide (22-32) mmol/L BUN (7-17) mg/dL Creatinine (0.52-1.04) mg/dL Estimated GFR (>60) mL/min BUN/Creatinine Ratio (6-22) Glucose (80-110) mg/dL Lactate 1.3 (0.7-2.1) mmol/L Calcium (8.4-10.2) mg/dL Procalcitonin (<0.5) ng/mL MDM Narrative Medical decision making narrative: This is a 84 year female who presents to emergency with chief complain of generalize weakness after she started antibiotic medications Septra DS for urinary tract infection and completed 3 doses so far. Patient denies any pain. She denies fever or chills. She reports is able to tolerate fluids and food without nausea and vomiting. She is afebrile with slightly elevated blood pressure upon arrival to ED which trended down. Patient reports odorous urine and urinary urgency is improving. Urine culture test from 08/23/20 in EHR showed E-Coli >100,000. No leukocytosis with WBC of 6.2 without elevated lactate or procalcitonin. BMP indicates decreased kidney function test of Cr of 1.33 with eGFR of 37.9. Past kidney function test range from 0.9-1.20 with eGFR of 48.2-59.7 and last eGFR on 01/27/20 as 48.2. Patient was hydrated with 500 mL of normal saline bolus before discharged to home. Changed Septra DS to Keflex 250 mg tid for next 5 days which is sensitivity to E-Coli origin UTI and it does not require renal dosing with eGFR >30. The patient advised to follow-up with PCP for recheck on UTI symptoms and to monitor kidney function test. Advise patient to monitor blood pressure about twice around same time of the day and to keep a record of this and to discuss with her PCP since patient has slightly elevated blood pressure in ED. patient's BP initially was 197/86 and range to 160/73 without symptoms. Findings, treatment plan, return precautions were discussed with patient and she and daughter verbalized understanding in agreement with the treatment plan. <Angel Luis Figueroa, DO - Last Filed: 08/29/20 07:24> Lab Data Labs: Lab Results 08/27/20 08/27/20 08/27/20 Range/Units 16:35 16:35 16:35 WBC 6.2 (4.5-11.0) X10^3/uL RBC 4.23 (4.0-5.2) X10^6/uL Hgb 13.5 (12.0-16.0) g/dL Hct 39.9 (36-46) % MCV 94.3 (80-100) fL MCH 32.0 (26-34) PG MCHC 33.9 (30-36) % RDW 12.9 (11.6-14.8) % Plt Count 230 (150-400) X10^3/uL Neut % (Auto) 53.4 (50-75) % Lymph % (Auto) 33.6 (25-40) % Bailey % (Auto) 10.9 (3-14) % Eos % (Auto) 1.5 L (2-4) % Baso % (Auto) 0.6 (0-2) % Neut # (Auto) 3300 (5755-5085) /uL Lymph # (Auto) 2100 (9887-6110) /uL Bailey # (Auto) 700 (0-900) /uL Eos # (Auto) 100 (0-450) /uL Baso # (Auto) 0 (0-100) /uL Sodium 140 (137-145) mmol/L Potassium 4.6 (3.4-5.1) mmol/L Chloride 107 (98-107) mmol/L Carbon Dioxide 26 (22-32) mmol/L BUN 25 H (7-17) mg/dL Creatinine 1.33 H (0.52-1.04) mg/dL Estimated GFR 37.9 L (>60) mL/min BUN/Creatinine Ratio 18.8 (6-22) Glucose 112 H (80-110) mg/dL Lactate (0.7-2.1) mmol/L Calcium 9.8 (8.4-10.2) mg/dL Procalcitonin < 0.05 (<0.5) ng/mL 08/27/20 Range/Units 16:35 WBC (4.5-11.0) X10^3/uL RBC (4.0-5.2) X10^6/uL Hgb (12.0-16.0) g/dL Hct (36-46) % MCV (80-100) fL MCH (26-34) PG MCHC (30-36) % RDW (11.6-14.8) % Plt Count (150-400) X10^3/uL Neut % (Auto) (50-75) % Lymph % (Auto) (25-40) % Bailey % (Auto) (3-14) % Eos % (Auto) (2-4) % Baso % (Auto) (0-2) % Neut # (Auto) (5783-0041) /uL Lymph # (Auto) (7671-2107) /uL Bailey # (Auto) (0-900) /uL Eos # (Auto) (0-450) /uL Baso # (Auto) (0-100) /uL Sodium (137-145) mmol/L Potassium (3.4-5.1) mmol/L Chloride (98-107) mmol/L Carbon Dioxide (22-32) mmol/L BUN (7-17) mg/dL Creatinine (0.52-1.04) mg/dL Estimated GFR (>60) mL/min BUN/Creatinine Ratio (6-22) Glucose (80-110) mg/dL Lactate 1.3 (0.7-2.1) mmol/L Calcium (8.4-10.2) mg/dL Procalcitonin (<0.5) ng/mL Discharge Plan Departure Patient Disposition: Home Clinical Impression: Generalized weakness, Decreased renal function Instructions: DI for Urinary Tract Infection (UTI), DI for Muscle Weakness Activity Restrictions/Additional Instructions: You have been diagnosed with [generalize weakness likely from Septra DS medication side effect, decreased renal function, recent UTI. Normal electrolytes. Slightly decreased renal function from her baseline. No indications for severe infection.]. What to do: *Take your medications as directed. Please take Keflex 250 mg 3 times a day for next 5 days. You are discharged to home with prepack from ED and the rest of the medication prescription has been transmitted to [facility]. *Follow up with your primary care provider in 2-3 days, call for an appointment. Let them know you were seen in the ED and that we asked you to be seen in follow up. *Return to ED if you have any new, worsening, or concerning symptoms, such as [chest pain, difficulty breathing, fever, back pain, unable to tolerate fluids, or any acute concerns]. Prescriptions: New cephalexin [Keflex] 250 mg capsule 250 mg PO Q8H Qty: 12 RF: 0 No Action triamcinolone acetonide 0.1 % cream 1 applictn TOP DAILY Qty: 30 RF: 0 (DME) In step wheeled walker with seat Qty: 1 RF: 0 sulfamethoxazole-trimethoprim [Bactrim DS] 800-160 mg tablet 1 tab PO BID Qty: 20 RF: 0 cholecalciferol (vitamin D3) 2,000 unit capsule 2,000 unit PO DAILY RF: 0 melatonin 5 mg capsule 5 mg PO BEDTIME PRNRF: 0 Referrals: Armaan Evans MD [Primary Care Provider] - <Angel Luis Figueroa DO - Last Filed: 08/29/20 07:24> Cosign ED Attending Cosignature Attestation: Dr Figueroa Co-Sign Statement: I was available for consultation during this patient's emergency department visit. This chart is signed by myself for administrative purposes only. I did not have direct contact with this patient during this visit. They were seen independently by the APC.
[2020-08-27 16:42] LABS: Add Manual Diff / Slide Review NO; Basophils Absolute Auto 0 /uL (0-100); Basophils Percent Auto 0.6 % (0-2); Eosinophils Absolute Auto 100 /uL (0-450); Eosinophils Percent Auto 1.5 % (2-4); Hematocrit 39.9 % (36-46); Hemoglobin 13.5 g/dL (12.0-16.0); Lymphocytes Absolute Auto 2100 /uL (1100-4500); Lymphocytes Percent Auto 33.6 % (25-40); Mean Corpuscular HGB Conc 33.9 % (30-36); Mean Corpuscular Volume 94.3 fL (80-100); Monocytes Absolute Auto 700 /uL (0-900); Monocytes Percent Auto 10.9 % (3-14); Neutrophils Absolute Auto 3300 /uL (1500-7000); Neutrophils Percent Auto 53.4 % (50-75); Platelet Count 230 X10^3/uL (150-400); Red Blood Cell Count 4.23 X10^6/uL (4.0-5.2); Red Cell Distribution Width 12.9 % (11.6-14.8); White Blood Cell Count 6.2 X10^3/uL (4.5-11.0)
[2020-08-27 17:00] VITALS: BP 160/73; PULSE 70; O2SAT 96
[2020-08-27 17:03] LABS: BUN Creatinine Ratio 18.8 (6-22); Blood Urea Nitrogen 25 mg/dL (7-17); Calcium 9.8 mg/dL (8.4-10.2); Carbon Dioxide 26 mmol/L (22-32); Chloride 107 mmol/L (98-107); Estimated Glomerular Filt Rate 37.9 mL/min (>60); Glucose 112 mg/dL (80-110); HEMOLYSIS 37 (0-50); Potassium 4.6 mmol/L (3.4-5.1); Sodium 140 mmol/L (137-145)
[2020-08-27 17:04] LABS: Lactate (Lactic Acid) 1.3 mmol/L (0.7-2.1)
[2020-08-27] MEDS: SODIUM CHLORIDE 0.9% 500 ML 1000 ML IV (17:22)
[2020-08-27 17:32] LABS: Procalcitonin < 0.05 ng/mL (<0.5)
[2020-08-27] MEDS: cephALEXin 250 MG PREPACK 1 BOTTLE MISC (18:42)
[2020-08-27 18:52] VITALS: BP 178/84; PULSE 61; RESP 14; O2SAT 98
== END 2020-08-27 18:54 | disposition home or self-care (01) ==
PROVIDERS: Emergency Provider Nurse Practitioner Family; PCP Family Medicine
DX: R53.1 Weakness (principal); N28.9 Disorder of kidney and ureter, unspecified; R79.89 Other specified abnormal findings of blood chemistry
CPT/HCPCS: 36415; 80048; 83605; 84145; 85025; 99283

== ENCOUNTER 2020-11-03 15:23 | Emergency (ER) | payer OTHER, SELFPAY ==
[2020-11-03] VITALS (11 sets, daily range): BP systolic 161–213; BP diastolic 79–100; PULSE 58–74; RESP 14–24; TEMP 36.9; O2SAT 95–97; BMI 30.1
[2020-11-03 17:02] LABS: Add Manual Diff / Slide Review NO; Basophils Absolute Auto 0 /uL (0-100); Basophils Percent Auto 0.4 % (0-2); Eosinophils Absolute Auto 100 /uL (0-450); Hematocrit 41.8 % (36-46); Hemoglobin 13.6 g/dL (12.0-16.0); Lymphocytes Absolute Auto 2700 /uL (1100-4500); Lymphocytes Percent Auto 43.1 % (25-40); Mean Corpuscular HGB Conc 32.6 % (30-36); Mean Corpuscular Hemoglobin 30.7 PG (26-34); Mean Corpuscular Volume 94.1 fL (80-100); Monocytes Absolute Auto 600 /uL (0-900); Monocytes Percent Auto 9.3 % (3-14); Neutrophils Absolute Auto 2900 /uL (1500-7000); Neutrophils Percent Auto 46.2 % (50-75); Platelet Count 249 X10^3/uL (150-400); Red Blood Cell Count 4.44 X10^6/uL (4.0-5.2); Red Cell Distribution Width 12.8 % (11.6-14.8); White Blood Cell Count 6.2 X10^3/uL (4.5-11.0)
[2020-11-03 17:07] LABS: Blood Urea Nitrogen 24 mg/dL (7-17); Calcium 9.9 mg/dL (8.4-10.2); Carbon Dioxide 29 mmol/L (22-32); Chloride 106 mmol/L (98-107); Estimated Glomerular Filt Rate 55.2 mL/min (>60); Glucose 104 mg/dL (80-110); HEMOLYSIS 41 (0-50); Potassium 4.6 mmol/L (3.4-5.1); Sodium 140 mmol/L (137-145)
--- NOTE | 2020-11-03 17:11 | DI.CT.S_ITS ---
PROCEDURE: CT CERVICAL SPINE WO CON INDICATIONS: mild neck pain TECHNIQUE: Noncontrast 3 mm thick sections acquired from the skull base to the T4 level. Sagittal and coronal reformats were then constructed. For radiation dose reduction, the following was used: automated exposure control, adjustment of mA and/or kV according to patient size. COMPARISON: [facility], CT, CT HEAD/BRAIN WO CON, 11/03/2020, 17:34. FINDINGS: Image quality: Excellent. Bones: No fractures or dislocations. Visualized superior ribs are intact. Moderate degenerative change in the cervical spine. Multilevel anterolisthesis. Deformity of the left clavicle from prior injury. Soft tissues: Prevertebral soft tissues are normal in thickness. No paravertebral hematomas. No apical pneumothoraces. Interstitial thickening is seen at the lung apices. IMPRESSION: No acute osseous abnormality. Dictated by: Lalito Goldstein M.D. on 11/03/2020 at 18:02 Approved by: Lalito Goldstein M.D. on 11/03/2020 at 18:06
--- NOTE | 2020-11-03 17:11 | DI.RAD.S_ITS ---
PROCEDURE: XR CHEST 1V INDICATIONS: fall down stairs TECHNIQUE: One view of the chest was acquired. COMPARISON: [facility], CR, XR SHOULDER LT MIN 2V, 08/29/2018, 15:05. [facility], CR, CHEST 1 VIEW, 07/24/2013, 11:22. [facility], CR, CHEST 1 VIEW, 03/18/2011, 22:22. FINDINGS: Surgical changes and devices: None. Lungs and pleura: Similar increased interstitial markings bilaterally. Minimal streaky opacity at the left lung base. No consolidative opacity. No pleural effusions or pneumothorax. Mediastinum: Mediastinal contours appear unchanged. Heart size is normal. Bones and chest wall: No suspicious bony lesions. Suspect remote injury at the left clavicle which appears unchanged. Overlying soft tissues appear unremarkable. IMPRESSION: No obvious displaced rib fractures identified. Minimal streaky opacity at the left lung base. Favor atelectasis. Remote injury to the left clavicle is unchanged. Suspect underlying fibrosis or interstitial lung disease similar to the prior exam. Dictated by: Lalito Goldstein M.D. on 11/03/2020 at 17:25 Approved by: Lalito Goldstein M.D. on 11/03/2020 at 17:29
--- NOTE | 2020-11-03 17:11 | DI.CT.S_ITS ---
PROCEDURE: CT HEAD/BRAIN WO CON INDICATIONS: fall down stairs, mild neck pain TECHNIQUE: Noncontrast 4.5 mm thick angled axial sections acquired from the foramen magnum to the vertex, with coronal and sagittal reformats. For radiation dose reduction, the following was used: automated exposure control, adjustment of mA and/or kV according to patient size. COMPARISON: [facility], MR, MR STROKE, 08/26/2019, 9:14. FINDINGS: Image quality: Excellent. CSF spaces: Basal cisterns are patent. No extra-axial fluid collections. Ventricles are normal in size and shape. Brain: No midline shift. No intracranial masses or hemorrhage. No area of hypodensity in a large vascular distribution to suggest acute infarction. Periventricular hypodensity consistent with chronic microvascular ischemic change. Age-related parenchymal loss. Skull and face: Calvarium and visualized facial bones are intact, without suspicious lesions. Sinuses: Visualized sinuses and mastoids are clear. IMPRESSION: No acute intracranial abnormality. Dictated by: Lalito Goldstein M.D. on 11/03/2020 at 17:59 Approved by: Lalito Goldstein M.D. on 11/03/2020 at 18:02
--- NOTE | 2020-11-03 17:15 | ED_ITS ---
HPI - Fall General Chief Complaint: Trauma Stated Complaint: head injury s/p fall backwards Time Seen by Provider: 11/03/20 15:51 Source: patient Mode of arrival: Ambulatory Limitations: no limitations History of Present Illness HPI Narrative: This is an 84-year-old female who states that she was closing the door to house reaching for her walker when she lost her balance and fell down the stairs that are right next to her front door. Patient states she fell down approximately 8 stairs, she states she sort of summer salted and did hit her head. She also hit her left hip. She states that she has had some tightness in her neck. She denies any loss of consciousness. She felt dazed initially but does not currently. She also felt dizzy initially afterwards but denies any dizziness currently. She back pain. She does have some tightness in her neck. She denies any nausea, no vomiting, no vision changes. Denies any headache. No chest pain or shortness of breath. Patient denies any urinary incontinence. No other GI or urinary symptoms. She denies any numbness, tingling or weakness. She does have a little bit discomfort behind the left thigh. Patient states that she was able to ambulate with her walker afterwards. She currently denies any significant pain and defers any pain medication. She states she takes no medications regularly. No aspirin or other thinners. She has a history of fr equent UTIs. She has been told her blood pressure was high in the past but typically 140-150 and her primary care told her she did not tolerate blood pressure medications well so they were not currently treating her hypertension. She has had hysterectomy, unilateral oophorectomy, possible appendectomy, bilateral tubal as well as repair of rectal and cystocele. No tobacco, alcohol or illicit. Nathan was her primary care and she is reestablishing with one of the nurse practitioners in the same practice. Related Data Home Medications Medication Instructions Recorded Confirmed cholecalciferol (vitamin D3) 50 2,000 unit PO DAILY 03/28/18 09/06/20 mcg (2,000 unit) capsule melatonin 5 mg capsule 5 mg PO BEDTIME PRN cap 07/31/19 09/06/20 Previous Rx's Medication Instructions Recorded triamcinolone acetonide 0.1 % 1 applictn TOP DAILY #30 gram 04/07/18 topical cream In step wheeled walker with seat #1 ea 05/12/19 sulfamethoxazole 800 1 tab PO BID #20 tab 08/24/20 mg-trimethoprim 160 mg tablet nitrofurantoin macrocrystal 50 mg 50 mg PO BEDTIME #90 cap 09/06/20 capsule nitrofurantoin monohyd/m-cryst 100 mg PO BID #14 cap 11/03/20 [Macrobid] Allergies Allergy/AdvReac Type Severity Reaction Status Date / Time ciprofloxacin [From Cipro] Allergy Severe Weakness Verified 11/03/20 15:35 sulfamethoxazole AdvReac Intermediate Weakness Verified 11/03/20 15:35 [From Septra] trimethoprim [From ] AdvReac Intermediate Weakness Verified 11/03/20 15:35 cherries Allergy Mild itching/swe Uncoded 09/06/20 16:18 lling Review of Systems Review of Systems ROS Unobtainable: All systems reviewed & are unremarkable except as noted in HPI and below Patient History Medical History Abnormality of heart beat (2013) Anemia (1979) Cataract (2014) Chicken pox Colon polyps (2013) Fibroids (1974) Fractures (1966) Frequent UTI (2011) History of heavy periods (1972) Measles Mononucleosis (1958) Mumps Rubella Skin rash Ulcerative colitis Urinary incontinence (2009) Surgical History Anesthesia History of bilateral tubal ligation (1962) History of cataract removal with insertion of prosthetic lens (2014) Status post appendectomy (1962) Status post breast biopsy Status post colonoscopy (08/26/14) Status post right oophorectomy (1979) Status post vaginal hysterectomy (1979) Family History Brother Renal cancer Father Heart disease Hypertension Grandfather Stroke Mother Colon cancer Grandmother Cancer Stroke Sister Parkinson's disease Grandmother Pneumonia Family/Other Leukemia Social History Smoking Status: Never smoker Smoking Status: Never smoker alcohol intake frequency: 0-2 drinks per day Substance Use Type: does not use Exam Narrative Exam Narrative: GEN: Patient appears in mild distress. HEAD: No evidence of trauma, no raccoon/Sanders sign. NECK: Nontender, painless range of motion, trachea midline In negative for Nexus criteria, there is no mid line tenderness, distracting injury, altered mental status, neuro deficit, recent EtOH. EYES: PERRLA, EOMI ENT: External inspection normal, trachea is midline, TM's are normal no hemotypanum, Nares are clear, no septal hematoma, no dental or oral injury, airway is normal and with normal occlusion, No bony tenderness RESP: Chest is nontender and has symmetric movement, no ecchymosis, breath sounds are normal no crackles, wheezes or rales CVS: Heart sounds are normal, no murmur noted, No JVD. ABG/GI: Nontender, soft, normal bowel sounds, no distention, no organomegaly, pelvic rock is negative NEURO: Oriented AOx3, neuro is grossly intact, sensation and motor is normal all 4 extremities moving, cranial nerves II through XII are intact, GCS is 15 PSYCH: Normal mood and affect SKIN: Intact, warm and dry, no crepitus and without decubitus BACK: No CVA tenderness, no vertebral tenderness, no step-off's, no crepitus EXT: Atraumatic, hips are nontender, no pedal edema, normal color and temperature, normal range of motion of extremities with normal tendon exam, 2+ pulses in all four extremities Initial Vital Signs Initial Vital Signs: Vital Signs Temperature 98.4 F 11/03/20 15:30 Pulse Rate 74 11/03/20 15:30 Respiratory Rate 15 11/03/20 15:30 Blood Pressure 213/100 H 11/03/20 15:30 Pulse Oximetry 96 11/03/20 15:30 Scores GCS Kenan coma scale eye opening: Spontaneous Kenan coma scale verbal response: Orientated Lamar coma scale motor response: Obey commands Lamar coma scale total score: 15 Course Orders Ordered: ED Orders 11/03/20 15:37 Basic Metabolic Panel Stat Complete Blood Count AUTO DIFF Stat Troponin I Stat 11/03/20 17:11 CT cervical spine wo con Stat CT head/brain wo con Stat XR chest 1V Stat 11/03/20 18:14 Urine Microscopic Stat Vital Signs Vital signs: Vital Signs - 8 hr 11/03/20 15:30 11/03/20 16:10 11/03/20 16:15 Temperature 98.4 F Pulse Rate 74 67 62 Respiratory Rate 15 23 20 Blood Pressure 213/100 H 161/80 H Pulse Oximetry 96 96 95 11/03/20 16:30 Temperature Pulse Rate 60 Respiratory Rate 20 Blood Pressure 168/86 H Pulse Oximetry 96 - Fall Lab Data Attestation: I reviewed the patient's lab results. Result diagrams: 11/03/20 15:37 11/03/20 15:37 Labs: Lab Results 11/03/20 11/03/20 Range/Units 15:37 15:37 WBC 6.2 (4.5-11.0) X10^3/uL RBC 4.44 (4.0-5.2) X10^6/uL Hgb 13.6 (12.0-16.0) g/dL Hct 41.8 (36-46) % MCV 94.1 (80-100) fL MCH 30.7 (26-34) PG MCHC 32.6 (30-36) % RDW 12.8 (11.6-14.8) % Plt Count 249 (150-400) X10^3/uL Neut % (Auto) 46.2 L (50-75) % Lymph % (Auto) 43.1 H (25-40) % Charlton % (Auto) 9.3 (3-14) % Eos % (Auto) 1.0 L (2-4) % Baso % (Auto) 0.4 (0-2) % Neut # (Auto) 2900 (3890-4904) /uL Lymph # (Auto) 2700 (1976-5397) /uL Charlton # (Auto) 600 (0-900) /uL Eos # (Auto) 100 (0-450) /uL Baso # (Auto) 0 (0-100) /uL Sodium 140 (137-145) mmol/L Potassium 4.6 (3.4-5.1) mmol/L Chloride 106 (98-107) mmol/L Carbon Dioxide 29 (22-32) mmol/L BUN 24 H (7-17) mg/dL Creatinine 0.96 (0.52-1.04) mg/dL Estimated GFR 55.2 L (>60) mL/min BUN/Creatinine Ratio 25.0 H (6-22) Glucose 104 (80-110) mg/dL Calcium 9.9 (8.4-10.2) mg/dL Troponin I < 0.012 (0.01-0.034) ng/mL Urine Dip Bedside Urine Glucose Negative Bedside Urine Bilirubin - Negative Bedside Urine Ketone - Negative Urine Specific Marion 1.020 Bedside Urine Occult Blood - Negative Bedside Urine pH 6 Bedside Urine Protein - Negative Bedside Urine Urobilinogen - Negative Bedside Urine Nitrite + Positive Bedside Urine Leukocytes - Negative Esterase Imaging Data CT scan - head: Radiologist's Impression: [address] [id number] Scan ReportSigned Patient: Katherin Parker [facility]#: [id number]: 5Acct:[id number]/Sex: 84 / FDate of Service: 11/03/20Loc: EDAccession Number: [id number] Procedure: CT head/brain wo con Ordering Provider: Ellie Begum D.O. PROCEDURE: CT HEAD/BRAIN WO CON INDICATIONS: fall down stairs, mild neck pain TECHNIQUE: Noncontrast 4.5 mm thick angled axial sections acquired from the foramen magnum to the vertex, with coronal and sagittal reformats. For radiation dose reduction, the following was used: automated exposure control, adjustment of mA and/or kV according to patient size. COMPARISON: [facility], , MR STROKE, 08/26/2019, 9:14. FINDINGS: Image quality: Excellent. CSF spaces: Basal cisterns are patent. No extra-axial fluid collections. Ventricles are normal in size and shape. Brain: No midline shift. No intracranial masses or hemorrhage. No area of hypodensity in a large vascular distribution to suggest acute infarction. Periventricular hypodensity consistent with chronic microvascular ischemic change. Age-related parenchymal loss. Skull and face: Calvarium and visualized facial bones are intact, without suspicious lesions. Sinuses: Visualized sinuses and mastoids are clear. IMPRESSION: No acute intracranial abnormality. Dictated by: Lalito Goldstein M.D. on 11/03/2020 at 17:59 Approved by: Lalito Goldstein M.D. on 11/03/2020 at 18:02 CT - cervical spine: Radiologist's Impression: [address] [id number] Scan ReportSigned Patient: Katherin Parker AMR#: [id number]: 5Acct:[id number]/Sex: 84 / FDate of Service: 11/03/20Loc: EDAccession Number: [id number] Procedure: CT cervical spine wo con Ordering Provider: Ellie Begum D.O. PROCEDURE: CT CERVICAL SPINE WO CON INDICATIONS: mild neck pain TECHNIQUE: Noncontrast 3 mm thick sections acquired from the skull base to the T4 level. Sagittal and coronal reformats were then constructed. For radiation dose reduction, the following was used: automated exposure control, adjustment of mA and/or kV according to patient size. COMPARISON: [facility], CT, CT HEAD/BRAIN WO CON, 11/03/2020, 17:34. FINDINGS: Image quality: Excellent. Bones: No fractures or dislocations. Visualized superior ribs are intact. Moderate degenerative change in the cervical spine. Multilevel anterolisthesis. Deformity of the left clavicle from prior injury. Soft tissues: Prevertebral soft tissues are normal in thickness. No paravertebral hematomas. No apical pneumothoraces. Interstitial thickening is seen at the lung apices. IMPRESSION: No acute osseous abnormality. Dictated by: Lalito Goldstein M.D. on 11/03/2020 at 18:02 Approved by: Lalito Goldstein M.D. on 11/03/2020 at 18:06 Chest x-ray: Radiologist's Impression: [address] [id number] ReportSigned Patient: Katherin Parker [facility]#: [id number]: 5Acct:[id number]/Sex: 84 / FDate of Service: 11/03/20Loc: EDAccession Number: [id number] Procedure: XR chest 1V Ordering Provider: Ellie Begum D.O. PROCEDURE: XR CHEST 1V INDICATIONS: fall down stairs TECHNIQUE: One view of the chest was acquired. COMPARISON: [facility], CR, XR SHOULDER LT MIN 2V, 08/29/2018, 15:05. [facility], CR, CHEST 1 VIEW, 07/24/2013, 11:22. [facility], CR, CHEST 1 VIEW, 03/18/2011, 22:22. FINDINGS: Surgical changes and devices: None. Lungs and pleura: Similar increased interstitial markings bilaterally. Minimal streaky opacity at the left lung base. No consolidative opacity. No pleural effusions or pneumothorax. Mediastinum: Mediastinal contours appear unchanged. Heart size is normal. Bones and chest wall: No suspicious bony lesions. Suspect remote injury at the left clavicle which appears unchanged. Overlying soft tissues appear unremarkable. IMPRESSION: No obvious displaced rib fractures identified. Minimal streaky opacity at the left lung base. Favor atelectasis. Remote injury to the left clavicle is unchanged. Suspect underlying fibrosis or interstitial lung disease similar to the prior exam. Dictated by: Lalito Goldstein M.D. on 11/03/2020 at 17:25 Approved by: Lalito Goldstein M.D. on 11/03/2020 at 17:29 ECG Data Attestation: I personally reviewed and interpreted this ECG as follows: Interpretation: Sinus rhythm, rate of 67 PR164 QRS 82 and QTC of 429. No significant ST elevation depression. Patient has Q-wave in 3 and AVF. Patient has prior EKG from to 11/02/2018 which appears similar. MDM Narrative Medical decision making narrative: This is an 84-year-old female who comes to the emergency department with complaint of fall/somersault down 8 stairs in her home. Patient states immediately afterwards she felt slightly dizzy she denies loss of consciousness. She is not on thinners but based on the extremity of her age we discussed head CT and she describes some mild neck pain but no midline vertebral pain. CT of C-spine was included. These are both negative patient has some mild posterior thigh pain but has full range of motion. She ambulated immediately after the accident and defers any pain medication. She did have so me dizziness after the event but denies any continuing. Her EKG and labs appear to be reassured with no acute findings on chest x-ray. poc urine was positive for nitrates. Patient is most fully susceptible to all antibiotics on her prior microbiology from recent urine cultures. She states she tolerates macrobid without issue. Discharge Plan Departure Patient Disposition: Home Clinical Impression: Left thigh pain, Fall from ground level, UTI (urinary tract infection) Instructions: How to Prevent Falls Activity Restrictions/Additional Instructions: Follow up with your physician in the next week for recheck. You will likely be more sore tomorrow. I would recommend taking Tylenol up to a 1000 mg as needed for pain. Macrobid was sent to [facility] in [place] for your UTI, take twice daily x 7 days. You may continue any home supplements that you take. Your head CT and C-spine do not show any acute bleed or fracture. Return to the emergency department for severe headaches, altered mental status, new weakness, difficulty with speech, vision changes, new chest pain shortness of breath, severe neck or back pain, new numbness, tingling or weakness in your extremities or other new or concerning symptoms. Prescriptions: New nitrofurantoin monohyd/m-cryst [Macrobid] 100 mg capsule 100 mg PO BID Qty: 14 RF: 0 No Action triamcinolone acetonide 0.1 % cream 1 applictn TOP DAILY Qty: 30 RF: 0 (DME) In step wheeled walker with seat Qty: 1 RF: 0 sulfamethoxazole-trimethoprim [Bactrim DS] 800-160 mg tablet 1 tab PO BID Qty: 20 RF: 0 cholecalciferol (vitamin D3) 2,000 unit capsule 2,000 unit PO DAILY RF: 0 melatonin 5 mg capsule 5 mg PO BEDTIME PRNRF: 0 nitrofurantoin macrocrystal [Macrodantin] 50 mg capsule 50 mg PO BEDTIME Qty: 90 RF: 8 Referrals: Armaan Evans MD [Primary Care Provider] -
[2020-11-03 17:19] LABS: Troponin I < 0.012 ng/mL (0.01-0.034)
[2020-11-03 18:49] LABS: RBC Urine None Seen (0-5/HPF); WBC Urine None Seen (0-5/HPF)
[2020-11-03 19:16] LABS: Bacteria Urine Many (>30); Culture Indicated Urine Specimen Cultured
== END 2020-11-03 19:03 | disposition home or self-care (01) ==
PROVIDERS: Emergency Provider Emergency Medicine; PCP Family Medicine
DX: M79.652 Pain in left thigh (principal); N39.0 Urinary tract infection, site not specified; S09.90XA Unspecified injury of head, initial encounter; M54.2 Cervicalgia; M54.9 Dorsalgia, unspecified; W10.9XXA Fall (on) (from) unspecified stairs and steps, initial encounter
CPT/HCPCS: 36415; 70450; 71045; 72125; 80048; 81003; 81015; 84484; 85025; 87077; 87086; 87186; 93005; 99284

== ENCOUNTER → 2020-11-13 13:00 | Outpatient (CLI) | payer OTHER, SELFPAY | PROVIDERS: PCP Registered Nurse; Visit Provider Physician Assistant | DX: N39.0 Urinary tract infection, site not specified (principal) | CPT/HCPCS: 87077; 87086; 87186 ==

== ENCOUNTER → 2021-01-23 16:29 | Outpatient (CLI) | payer OTHER, SELFPAY ==
[2021-01-23 17:41] LABS: Appearance Urine UA CLEAR; Bilirubin Urine UA NEGATIVE (NEGATIVE); Color Urine UA YELLOW; Glucose Urine UA NEGATIVE (Negative); Ketones Urine UA NEGATIVE (NEGATIVE); Leukocyte Esterase Urine UA NEGATIVE (NEGATIVE); Nitrite Urine UA NEGATIVE (Negative); Occult Blood Urine UA NEGATIVE (Negative); Protein Urine UA NEGATIVE (Negative); Urobilinogen Urine UA 0.2 E.U./dL (0.2)
[2021-01-23 20:43] LABS: Bacteria Urine Few (2-10); Culture Indicated Urine Cult Not Indicated; RBC Urine 0-1/HPF (0-5/HPF); WBC Urine 0-1/HPF (0-5/HPF)
[2021-02-15 08:55] LABS: Fecal Immunochemical Test Negative (Negative)
== END ==
PROVIDERS: PCP Registered Nurse; Referring Provider Family Medicine; Visit Provider Family Medicine
DX: N39.0 Urinary tract infection, site not specified (principal)
CPT/HCPCS: 81001; 82274; 87077; 87086; 87186

== ENCOUNTER → 2021-02-13 13:13 | Outpatient (CLI) | payer OTHER, SELFPAY ==
--- NOTE | 2021-02-13 | DI.MG.S_ITS ---
BILATERAL DIGITAL SCREENING MAMMOGRAM 3D/2D WITH CAD: 02/13/2021 CLINICAL: Routine screening. Comparison is made to exam dated: 07/29/2013 [facility]. There are scattered fibroglandular elements in both breasts. Current study was also evaluated with a Computer Aided Detection (CAD) system. No significant masses, calcifications, or other findings are seen in either breast. There has been no significant interval change. IMPRESSION: NEGATIVE There is no mammographic evidence of malignancy. A 1 year screening mammogram is recommended. This exam was interpreted at Station ID: [id number]. NOTE: For mammograms, a report in lay terms will be sent to the patient. Approximately 15% of breast malignancies will not be visualized mammographically. In the management of a palpable breast mass, a negative mammogram must not discourage biopsy of a clinically suspicious lesion. Electronically Signed By: Dhiraj aguilera/min:02/13/2021 13:54:03 letter sent: Normal Exam ACR BI-RADS Category 1: Negative [id number]
== END ==
PROVIDERS: PCP Registered Nurse; Referring Provider Registered Nurse; Visit Provider Registered Nurse
DX: Z12.31 Encounter for screening mammogram for malignant neoplasm of breast (principal)
CPT/HCPCS: 77063; 77067

== ENCOUNTER 2021-03-11 01:17 | Emergency (ER) | payer OTHER, SELFPAY ==
[2021-03-11 01:23] VITALS: PULSE 79; RESP 35; O2SAT 95
--- NOTE | 2021-03-11 01:26 | ED.ARRPALP ---
HPI - Arrhythmia/Palpitations General Stated Complaint: Afib Time Seen by Provider: 03/11/21 01:20 Source: patient and EMS Mode of arrival: EMS Limitations: no limitations History of Present Illness HPI narrative: 85-year-old female nonsmoker with history of UTIs, dysphagia, memory impairment presents by EMS for evaluation of a few hours of palpitations. She states that she is very concerned that she has AFib, however she has never been diagnosed with that and EMS transmits a tracing with frequent PVCs only. She denies any symptoms other than palpitations. She is not dizzy nor weak or lightheaded. She denies any chest pain or shortness of breath. She denies nausea, vomiting or diarrhea. She denies any fever or chills. She denies any recent dietary or medicine change MD complaint: skipped beats and palpitations Onset (ago): hour(s) Duration: intermittent Severity: mild Context: occurred during rest Associated symptoms: denies other symptoms Related Data Home Medications Medication Instructions Recorded Confirmed cholecalciferol (vitamin D3) 50 2,000 unit PO DAILY 03/28/18 01/23/21 mcg (2,000 unit) capsule melatonin 5 mg capsule 5 mg PO BEDTIME PRN cap 07/31/19 01/23/21 Previous Rx's Medication Instructions Recorded triamcinolone acetonide 0.1 % 1 applictn TOP DAILY #30 gram 04/07/18 topical cream In step wheeled walker with seat #1 ea 05/12/19 estradiol 1 g VAGINAL 2XW #42.5 g 01/18/21 cephalexin 500 mg capsule 500 mg PO BEDTIME #60 cap 02/01/21 cephalexin 500 mg capsule 500 mg PO TID #15 caplet 02/01/21 Allergies Allergy/AdvReac Type Severity Reaction Status Date / Time ciprofloxacin [From Cipro] Allergy Severe Weakness Verified 01/23/21 16:05 sulfamethoxazole AdvReac Intermediate Weakness Verified 01/23/21 16:05 [From Septra] trimethoprim [From Septra] AdvReac Intermediate Weakness Verified 01/23/21 16:05 cherries Allergy Mild itching/swe Uncoded 01/18/21 15:05 lling Review of Systems Constitutional Constitutional: Denies chills, Denies fatigue, Denies fever(s), Denies frequent falls, Denies lethargy and Denies weakness Eyes Eyes: Denies change in vision, Denies eye discharge, Denies irritation and Denies loss of vision ENT Ears, Nose, Mouth, and Throat: Denies change in voice, Denies dizziness, Denies neck pain, Denies sore throat and Denies throat swelling Cardiovascular Cardiovascular: Denies chest pain, Denies irregular heart rhythm, Denies lightheadedness, Denies palpitations, Denies dyspnea, Denies dyspnea on exertion and Denies orthopnea Respiratory Respiratory: Denies cough, Denies dyspnea, Denies dyspnea on exertion and Denies wheezing Gastrointestinal Gastrointestinal: Denies abdominal pain, Denies change in bowel habits, Denies diarrhea, Denies nausea and Denies vomiting Musculoskeletal Musculoskeletal: Denies neck pain and Denies numbness Integumentary/Breasts Skin/Breast: Denies pruritus, Denies erythema, Denies rash and Denies wounds Neurologic Neurologic: Denies behavioral changes, Denies confusion, Denies dizziness, Denies frequent falls, Denies loss of vision, Denies numbness and Denies weakness Psychiatric Psychiatric: Denies anxiety, Denies behavioral changes, Denies confusion, Denies depression, Denies homicidal ideation and Denies suicidal ideation Endocrine Endocrine: Denies fatigue, Denies flushing and Denies palpitations Hematologic/Lymphatic Hematologic/Lymphatic: Denies easy bruising Allergic/Immunologic Allergic/Immunologic: Denies urticaria, Denies throat swelling and Denies wheezing Patient History Medical History Abnormality of heart beat (2013) Anemia (1979) Cataract (2014) Chicken pox Colon polyps (2013) Fibroids (1974) Fractures (1966) Frequent UTI (2011) History of heavy periods (1972) Measles Mixed incontinence Mononucleosis (1958) Mumps Postmenopausal atrophic vaginitis Recurrent UTI (urinary tract infection) Rubella Skin rash Ulcerative colitis Urinary incontinence (2009) Surgical History Anesthesia H/O breast biopsy H/O tubal ligation H/O: hysterectomy History of appendectomy History of bilateral tubal ligation (1962) History of cataract removal with insertion of prosthetic lens (2014) History of knee replacement Status post appendectomy (1962) Status post breast biopsy Status post colonoscopy (08/26/14) Status post right oophorectomy (1979) Status post vaginal hysterectomy (1979) Family History Brother Renal cancer Father Heart disease Hypertension Grandfather Stroke Mother Colon cancer Grandmother Cancer Stroke Sister Parkinson's disease Grandmother Pneumonia Family/Other Leukemia Son Blood disease Social History marital status: details: Only 5 living children number of children: 6 Smoking Status: Never smoker alcohol intake: never caffeine: No Smoking Status: Never smoker alcohol intake frequency: 0-2 drinks per day Substance Use Type: does not use Exam Narrative Exam Narrative: GENERAL: [85] year old patient appears stated age. Well-developed patient, in mild distress. HEAD: Atraumatic. Normocephalic. EYES: Pupils equal round and reactive. Extraocular motions intact. No scleral icterus. No injection or drainage. ENT: Nose without bleeding, purulent drainage. Throat without erythema, tonsillar hypertrophy or exudate. Airway patent. NECK: Trachea midline. Non tender CARDIOVASCULAR: Regular rate and rhythm without murmurs, gallops, or rubs. RESPIRATORY: Clear to auscultation. Breath sounds equal bilaterally. No wheezes, rales, or rhonchi. GASTROINTESTINAL: Abdomen soft, non-tender, nondistended. EXTREMITIES: No edema or joint tenderness. BACK: Nontender without deformity or crepitance. No flank tenderness. NEURO: AOx3. SKIN: No rash or erythema of visible areas Initial Vital Signs Initial Vital Signs: Vital Signs Temperature 97.8 F 03/11/21 01:36 Pulse Rate 72 03/11/21 01:36 Respiratory Rate 20 03/11/21 01:36 Blood Pressure 155/73 H 03/11/21 01:36 Pulse Oximetry 98 03/11/21 01:36 Course Orders Ordered: ED Orders 03/11/21 01:25 Basic Metabolic Panel Stat Complete Blood Count AUTO DIFF Stat Magnesium Stat Thyroid Stimulating Hormone Stat Troponin & CK Cardiac Panel Stat EKG-12 Lead Stat Sodium Chloride (Normal Saline 0.9%) 1,000 mls @ 150 mls/hr IV CONT ARTURO Vital Signs Vital signs: Vital Signs - 8 hr 03/11/21 01:36 Temperature 97.8 F Pulse Rate 72 Respiratory Rate 20 Blood Pressure 155/73 H Pulse Oximetry 98 MDM - Arrhythmia/Palpitations Lab Data Result diagrams: 03/11/21 01:30 03/11/21 01:30 ECG Data Interpretation: EKG is normal sinus rhythm rate [74] and free of any signs of ischemia, few PVCs. No ST segmental elevation or depression. No T wave inversions Discharge Plan Departure Patient Disposition: Home Clinical Impression: Premature ventricular contraction Instructions: Premature Ventricular Beats Activity Restrictions/Additional Instructions: *You have been diagnosed with [palpitations due to PVCs] *What to do: *Please continue to take your regular medications as directed. [ ] New medication prescriptions sent to your pharmacy: [ ] [ ] New medication written as a paper prescription [ x] No new medications given *Please follow up with your primary care provider in 2-3 days, call for an appointment. Let them know you were seen in the Emergency Department and that we ask that you be seen in follow up. We will electronically transmit a record of today's note if your PCP is in our system *If you do not have a primary care provider please contact the [facility] Resource line at [phone]. They will ask some questions about your medical history and help get you set up with a doctor in the community. *Return to Emergency Department if you should have any new, worsening or concerning symptoms, such as [fever greater than 101 F, shaking chills, worsening pain, persistent vomiting or other bothersome symptoms] Prescriptions: No Action triamcinolone acetonide 0.1 % cream 1 applictn TOP DAILY Qty: 30 RF: 0 (DME) In step wheeled walker with seat Qty: 1 RF: 0 cephalexin 500 mg capsule 500 mg PO TID Qty: 15 RF: 0 cephalexin 500 mg capsule 500 mg PO BEDTIME Qty: 60 RF: 0 cholecalciferol (vitamin D3) 2,000 unit capsule 2,000 unit PO DAILY RF: 0 melatonin 5 mg capsule 5 mg PO BEDTIME PRNRF: 0 estradiol [Estrace] 0.01 % (0.1 mg/gram) cream 1 g vaginal 2XW Qty: 42.5 RF: 3 Referrals: Sherlyn Avalos ARNP [Primary Care Provider] -
[2021-03-11 01:30] VITALS: BP 155/73; PULSE 71; RESP 25; O2SAT 95
[2021-03-11 01:36] VITALS: BP 155/73; PULSE 72; RESP 20; TEMP 36.6; O2SAT 98; BMI 30.9
[2021-03-11] MEDS: SODIUM CHLORIDE 0.9% 1,000 ML 150 ML IV (01:44)
[2021-03-11 01:47] LABS: Hematocrit 39.5 % (36-46); Hemoglobin 13.1 g/dL (12.0-16.0); Mean Corpuscular HGB Conc 33.2 % (30-36); Mean Corpuscular Hemoglobin 31.3 PG (26-34); Platelet Count 218 X10^3/uL (150-400); Red Cell Distribution Width 12.5 % (11.6-14.8); White Blood Cell Count 7.2 X10^3/uL (4.5-11.0)
[2021-03-11 01:48] LABS: Blood Urea Nitrogen 26 mg/dL (7-17); Calcium 9.5 mg/dL (8.4-10.2); Carbon Dioxide 28 mmol/L (22-32); Chloride 104 mmol/L (98-107); Creatine Kinase 51 U/L (30-135); Estimated Glomerular Filt Rate 50.2 mL/min (>60); Glucose 102 mg/dL (80-110); HEMOLYSIS < 15 (0-50); Magnesium 2.2 mg/dL (1.6-2.3); Potassium 4.3 mmol/L (3.4-5.1); Sodium 139 mmol/L (137-145)
[2021-03-11 01:53] LABS: Add Manual Diff / Slide Review YES
[2021-03-11 02:00] VITALS: BP 148/75; PULSE 67; RESP 28; O2SAT 94
[2021-03-11 02:00] LABS: Troponin I < 0.012 ng/mL (0.01-0.034)
[2021-03-11 02:47] LABS: Thyroid Stimulating Hormone 5.68 uIU/mL (0.47-4.68)
[2021-03-11 03:44] LABS: Neutrophils Absolute Manual 3960 /uL (3000-5900); RBC Morphology Normal Morphology; Total Cells Counted 100
== END 2021-03-11 02:24 | disposition home or self-care (01) ==
PROVIDERS: Emergency Provider Emergency Medicine; PCP Registered Nurse
DX: I49.3 Ventricular premature depolarization (principal)
CPT/HCPCS: 36415; 80048; 82550; 83735; 84443; 84484; 85007; 85025; 93005; 99284

== ENCOUNTER 2021-03-11 22:52 | Emergency (ER) | payer OTHER, SELFPAY ==
[2021-03-11 23:00] VITALS: BP 186/86; PULSE 88; RESP 16; TEMP 36.6; O2SAT 97; BMI 30.9
--- NOTE | 2021-03-11 23:11 | ED.ARRPALP ---
HPI - Arrhythmia/Palpitations General Chief Complaint: Arrhythmia/Palpitations Stated Complaint: heart problems Time Seen by Provider: 03/11/21 23:05 Source: patient Mode of arrival: Wheelchair Limitations: no limitations History of Present Illness HPI narrative: 85-year-old woman with a history of memory impairment, frequent UTIs and evaluation for palpitations within the last 24 hours in the emergency department presents again with concerns for palpitations. Workup last night was reassuring. She was noted to have frequent PVCs. She woke up this morning and continued to be quite bothered by the PVCs and on arrival in the emergency room was in bigeminy a good portion of the time. She noticed that the palpitations were more severe when she was quiet and lying down to sleep for rest. Did not cause any pain, diaphoresis or dyspnea. 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 Related Data Home Medications Medication Instructions Recorded Confirmed cholecalciferol (vitamin D3) 50 2,000 unit PO DAILY 03/28/18 01/23/21 mcg (2,000 unit) capsule melatonin 5 mg capsule 5 mg PO BEDTIME PRN cap 07/31/19 01/23/21 Previous Rx's Medication Instructions Recorded triamcinolone acetonide 0.1 % 1 applictn TOP DAILY #30 gram 04/07/18 topical cream In step wheeled walker with seat #1 ea 05/12/19 estradiol 1 g VAGINAL 2XW #42.5 g 01/18/21 cephalexin 500 mg capsule 500 mg PO BEDTIME #60 cap 02/01/21 cephalexin 500 mg capsule 500 mg PO TID #15 caplet 02/01/21 metoprolol tartrate 25 mg PO BID PRN #60 tab 03/12/21 Allergies Allergy/AdvReac Type Severity Reaction Status Date / Time ciprofloxacin [From Cipro] Allergy Severe Weakness Verified 01/23/21 16:05 sulfamethoxazole AdvReac Intermediate Weakness Verified 01/23/21 16:05 [From Septra] trimethoprim [From ] AdvReac Intermediate Weakness Verified 01/23/21 16:05 cherries Allergy Mild itching/swe Uncoded 01/18/21 15:05 lling Review of Systems Review of Systems Narrative: Remainder of complete review of systems is otherwise unremarkable except for that included in the HPI. Patient History Medical History Anemia (1979) Cataract (2014) Chicken pox Colon polyps (2013) Fibroids (1974) Fractures (1966) Frequent UTI (2011) History of heavy periods (1972) Measles Mixed incontinence Mononucleosis (1958) Mumps Postmenopausal atrophic vaginitis Premature ventricular contraction Recurrent UTI (urinary tract infection) Rubella Skin rash Ulcerative colitis Urinary incontinence (2009) Surgical History Anesthesia H/O breast biopsy H/O tubal ligation H/O: hysterectomy History of appendectomy History of bilateral tubal ligation (1962) History of cataract removal with insertion of prosthetic lens (2014) History of knee replacement Status post appendectomy (1962) Status post breast biopsy Status post colonoscopy (08/26/14) Status post right oophorectomy (1979) Status post vaginal hysterectomy (1979) Family History Brother Renal cancer Father Heart disease Hypertension Grandfather Stroke Mother Colon cancer Grandmother Cancer Stroke Sister Parkinson's disease Grandmother Pneumonia Family/Other Leukemia Son Blood disease Social History marital status: details: Only 5 living children number of children: 6 Smoking Status: Never smoker alcohol intake: never caffeine: No Smoking Status: Never smoker alcohol intake frequency: 0-2 drinks per day Substance Use Type: does not use Exam Narrative Exam Narrative: General: Healthy appearing, in no acute distress. Well-nourished well-developed HEENT: Moist mucous membranes, normal sclera with reactive pupils, Neck: No JVD, supple Respiratory: Lungs are clear to auscultation, no wheezing no rales no rhonchi. Full and symmetrical air movement Cardiac: Regular rate and rhythm with an occasional irregular beat, no murmurs no bruits Abdomen: Soft, nontender, good bowel tones, no flank pain Skin: Warm and dry, no rashes Neurologic: Grossly neurologically intact with no obvious asymmetries or abnormalities Extremities: No trauma, well perfused Psych: Cooperative, appropriate insight and affect Initial Vital Signs Initial Vital Signs: Vital Signs Temperature 97.8 F 03/11/21 23:00 Pulse Rate 88 03/11/21 23:00 Respiratory Rate 16 03/11/21 23:00 Blood Pressure 186/86 H 03/11/21 23:00 Pulse Oximetry 97 03/11/21 23:00 Course Orders Ordered: ED Orders 03/11/21 23:25 Complete Blood Count AUTO DIFF Stat Comprehensive Metabolic Panel Stat Magnesium Stat Troponin I Stat Discontinued Medications Sodium Chloride (Normal Saline 0.9%) 1,000 mls @ 500 mls/hr IV BOLUS ONE Stop: 03/12/21 01:13 Last Infusion: 03/12/21 00:30 Dose: 0 mls/hr Documented by: Admin: 03/11/21 23:46 Dose: 500 mls/hr Documented by: YOLETTE Metoprolol Tartrate (Metoprolol Ir 25 Mg Tablet) 25 mg PO NOW ONE Stop: 03/11/21 23:15 Last Admin: 03/11/21 23:42 Dose: 25 mg Documented by: YOLETTE Vital Signs Vital signs: Vital Signs - 8 hr 03/11/21 23:00 03/12/21 00:14 Temperature 97.8 F Pulse Rate 88 67 Respiratory Rate 16 14 Blood Pressure 186/86 H 154/69 H Pulse Oximetry 97 98 MDM - Arrhythmia/Palpitations Medical Records Attestation: I reviewed the patient's medical records. Lab Data Attestation: I reviewed the patient's lab results. Result diagrams: 03/11/21 23:25 03/11/21 23:25 Labs: Lab Results 03/11/21 03/11/21 Range/Units 23:25 23:25 WBC 7.7 (4.5-11.0) X10^3/uL RBC 4.28 (4.0-5.2) X10^6/uL Hgb 13.5 (12.0-16.0) g/dL Hct 40.4 (36-46) % MCV 94.3 (80-100) fL MCH 31.6 (26-34) PG MCHC 33.5 (30-36) % RDW 12.7 (11.6-14.8) % Plt Count 202 (150-400) X10^3/uL Neut % (Auto) 57.6 (50-75) % Lymph % (Auto) 30.0 (25-40) % [place] % (Auto) 10.6 (3-14) % Eos % (Auto) 1.4 L (2-4) % Baso % (Auto) 0.4 (0-2) % Neut # (Auto) 4400 (4546-1594) /uL Lymph # (Auto) 2300 (3982-9299) /uL [place] # (Auto) 800 (0-900) /uL Eos # (Auto) 100 (0-450) /uL Baso # (Auto) 0 (0-100) /uL Sodium 141 (137-145) mmol/L Potassium 4.1 (3.4-5.1) mmol/L Chloride 105 (98-107) mmol/L Carbon Dioxide 30 (22-32) mmol/L BUN 26 H (7-17) mg/dL Creatinine 1.14 H (0.52-1.04) mg/dL Estimated GFR 45.2 L (>60) mL/min BUN/Creatinine Ratio 22.8 H (6-22) Glucose 146 H (80-110) mg/dL Calcium 9.6 (8.4-10.2) mg/dL Magnesium 2.1 (1.6-2.3) mg/dL Total Bilirubin 0.4 (0.2-1.3) mg/dL AST 28 (14-36) IU/L ALT 20 (<35) IU/L Alkaline Phosphatase 109 (38-126) U/L Troponin I < 0.012 (0.01-0.034) ng/mL Total Protein 7.6 (6.3-8.2) g/dL Albumin 4.0 (3.5-5.0) g/dL Globulin 3.6 (1.7-4.1) g/dL Albumin/Globulin Ratio 1.1 (1.0-2.8) ECG Data Interpretation: Sinus rhythm at a rate of 85 Frequent PVCs with extended periods of bigeminy No ischemic changes MDM Narrative Medical decision making narrative: 85-year-old woman presents with continued palpitations. All other symptoms are associated with PVCs and she is having them frequently enough that much of the time she is in bigeminy. Lab work last night was unremarkable and again tonight is also unremarkable. TSH is reassuring. No evidence of congestive heart failure or myocardial infarction. No evidence for infection for clinical suggestion of pulmonary embolism. In the emergency department today she is given 25 mg of oral metoprolol with significant decrease in the frequency of PVCs and almost complete resolution of the sensation of palpitations. When over the use of metoprolol and recommended as needed use for symptomatic PVCs up to 25 mg b.i.d.. Did encourage her to follow-up with her primary care physician within the next week to make sure that she was tolerating this medication well and no additional issues were identified. Discharge Plan Departure Patient Disposition: Home Clinical Impression: Frequent PVCs Instructions: Premature Ventricular Beats Activity Restrictions/Additional Instructions: Thank you for coming in tonight There is no evidence of a heart attack, kidney problems, liver functions, infection or other life-threatening issue. You are having very frequent premature ventricular contractions(PVCs). While this can be very annoying, it is not life-threatening In the emergency room you were given 25 mg of metoprolol and that significantly decreased this sensation and also the frequency of the PVCs. A prescription for this was transmitted to [employer] for you to brain picker tomorrow Metoprolol is a heart rate and a blood pressure medication. You can use this small dose up to twice a day as needed for the symptomatic palpitations. Please do follow-up with your primary care physician within a week or so to make sure that this medication is working for you. If you have worsening symptoms or concerns, please feel free to return to the ER Prescriptions: New metoprolol tartrate 25 mg tablet 25 mg PO BID PRN (Reason: symptomatic palpitations) Qty: 60 RF: 0 No Action triamcinolone acetonide 0.1 % cream 1 applictn TOP DAILY Qty: 30 RF: 0 (DME) In step wheeled walker with seat Qty: 1 RF: 0 cephalexin 500 mg capsule 500 mg PO TID Qty: 15 RF: 0 cephalexin 500 mg capsule 500 mg PO BEDTIME Qty: 60 RF: 0 cholecalciferol (vitamin D3) 2,000 unit capsule 2,000 unit PO DAILY RF: 0 melatonin 5 mg capsule 5 mg PO BEDTIME PRNRF: 0 estradiol [Estrace] 0.01 % (0.1 mg/gram) cream 1 g vaginal 2XW Qty: 42.5 RF: 3 Referrals: Sherlyn Avalos ARNP [Primary Care Provider] -
[2021-03-11 23:41] LABS: Alanine Aminotransferase 20 IU/L (<35); Albumin Globulin Ratio 1.1 (1.0-2.8); Alkaline Phosphatase 109 U/L (38-126); Aspartate Aminotransferase 28 IU/L (14-36); BUN Creatinine Ratio 22.8 (6-22); Bilirubin Total 0.4 mg/dL (0.2-1.3); Blood Urea Nitrogen 26 mg/dL (7-17); Calcium 9.6 mg/dL (8.4-10.2); Carbon Dioxide 30 mmol/L (22-32); Chloride 105 mmol/L (98-107); Estimated Glomerular Filt Rate 45.2 mL/min (>60); Globulin 3.6 g/dL (1.7-4.1); Glucose 146 mg/dL (80-110); HEMOLYSIS < 15 (0-50); Magnesium 2.1 mg/dL (1.6-2.3); Potassium 4.1 mmol/L (3.4-5.1); Sodium 141 mmol/L (137-145); Total Protein 7.6 g/dL (6.3-8.2)
[2021-03-11 23:42] LABS: Add Manual Diff / Slide Review NO; Basophils Absolute Auto 0 /uL (0-100); Basophils Percent Auto 0.4 % (0-2); Eosinophils Absolute Auto 100 /uL (0-450); Eosinophils Percent Auto 1.4 % (2-4); Hematocrit 40.4 % (36-46); Hemoglobin 13.5 g/dL (12.0-16.0); Lymphocytes Absolute Auto 2300 /uL (1100-4500); Mean Corpuscular HGB Conc 33.5 % (30-36); Mean Corpuscular Hemoglobin 31.6 PG (26-34); Mean Corpuscular Volume 94.3 fL (80-100); Monocytes Absolute Auto 800 /uL (0-900); Monocytes Percent Auto 10.6 % (3-14); Neutrophils Absolute Auto 4400 /uL (1500-7000); Neutrophils Percent Auto 57.6 % (50-75); Platelet Count 202 X10^3/uL (150-400); Red Blood Cell Count 4.28 X10^6/uL (4.0-5.2); Red Cell Distribution Width 12.7 % (11.6-14.8); White Blood Cell Count 7.7 X10^3/uL (4.5-11.0)
[2021-03-11] MEDS: METOPROLOL IR 25 MG TABLET PO (23:42)
[2021-03-11] MEDS: SODIUM CHLORIDE 0.9% 1,000 ML 500 ML IV (23:46)
[2021-03-11 23:52] LABS: Troponin I < 0.012 ng/mL (0.01-0.034)
[2021-03-12 00:14] VITALS: BP 154/69; PULSE 67; RESP 14; O2SAT 98
--- NOTE | 2021-03-14 10:41 | PC.NURSE ---
late entry: Instructed by Capri Kitchen to place late entry regarding pts post discharge fall. After discharge, pt was standing at the end of her bed with her cane and at her side. I left the room to get a wheel chair, I returned to find the pt on the floor. I got the TUBE BENDERGm Marie to help me get her in the chair. I did a head to toe exam with no findings and asked three separate times if she wanted the Dr to check her out. Pt refused to have the Dr look her over and she was wheeled out to her car and assisted to the back seat.
== END 2021-03-12 00:26 | disposition home or self-care (01) ==
PROVIDERS: Emergency Provider Emergency Medicine; PCP Registered Nurse
DX: I49.3 Ventricular premature depolarization (principal)
CPT/HCPCS: 36415; 80048; 80053; 82550; 83735; 84443; 84484; 85007; 85025; 93005; 96360; 96361; 99284

== ENCOUNTER → 2021-03-17 14:01 | Outpatient (CLI) | payer OTHER, SELFPAY ==
[2021-03-17 15:13] LABS: Free T3, Triiodothyronine Free 3.45 pg/mL (2.77-5.27); Free T4, Direct Thyroxine 1.01 ng/dL (0.78-2.19)
[2021-03-17 15:27] LABS: Thyroid Stimulating Hormone 2.56 uIU/mL (0.47-4.68)
== END ==
PROVIDERS: PCP Registered Nurse; Referring Provider Registered Nurse; Visit Provider Registered Nurse
DX: R89.9 Unspecified abnormal finding in specimens from other organs, systems and tissues (principal)
CPT/HCPCS: 36415; 84439; 84443; 84481

== ENCOUNTER → 2021-04-06 14:40 | Outpatient (CLI) | payer OTHER, SELFPAY ==
[2021-04-06 16:54] LABS: Alanine Aminotransferase 20 IU/L (<35); Albumin 4.2 g/dL (3.5-5.0); Albumin Globulin Ratio 1.3 (1.0-2.8); Alkaline Phosphatase 94 U/L (38-126); Aspartate Aminotransferase 29 IU/L (14-36); BUN Creatinine Ratio 21.8 (6-22); Bilirubin Total 0.5 mg/dL (0.2-1.3); Blood Urea Nitrogen 22 mg/dL (7-17); Calcium 9.6 mg/dL (8.4-10.2); Carbon Dioxide 30 mmol/L (22-32); Chloride 105 mmol/L (98-107); Globulin 3.2 g/dL (1.7-4.1); Glucose 84 mg/dL (80-110); HEMOLYSIS < 15 (0-50); Potassium 4.2 mmol/L (3.4-5.1); Sodium 141 mmol/L (137-145); Total Protein 7.4 g/dL (6.3-8.2)
== END ==
PROVIDERS: PCP Registered Nurse; Referring Provider Registered Nurse; Visit Provider Registered Nurse
DX: R60.0 Localized edema (principal)
CPT/HCPCS: 36415; 80053

== ENCOUNTER 2021-05-19 17:18 | Emergency (ER) | payer OTHER, SELFPAY ==
[2021-05-19] VITALS (10 sets, daily range): BP systolic 174–199; BP diastolic 83–94; PULSE 48–64; RESP 16; TEMP 35.7; O2SAT 96–98; BMI 31.5
--- NOTE | 2021-05-19 23:48 | ED_ITS ---
HPI - Wound/Laceration General Chief Complaint: Wound/Laceration Stated Complaint: Huge Abrasion on Bum Fall, Infection Time Seen by Provider: 05/19/21 23:42 Source: patient Mode of arrival: Wheelchair Limitations: no limitations History of Present Illness HPI narrative: Patient is a 85-year-old female who presents with left buttock injury 4 days ago. She said that she was trying to sit down in her wheelchair o alley is a knob on her wheelchair that cut through her pants underpants and her skin. She was doing okay but somebody look at it today and it was more red is actually quite bruised. She is not on any blood thinners. She has been able to ambulate as normal but it does hurt. No other injury during the fall Related Data Home Medications Medication Instructions Recorded Confirmed cholecalciferol (vitamin D3) 50 2,000 unit PO DAILY 03/28/18 04/20/21 mcg (2,000 unit) capsule melatonin 5 mg capsule 5 mg PO BEDTIME PRN cap 07/31/19 04/20/21 Previous Rx's Medication Instructions Recorded In step wheeled walker with seat #1 ea 05/12/19 estradiol (Estrace) 1 g VAGINAL 2XW #42.5 g 01/18/21 metoprolol tartrate 25 mg tablet 25 mg PO BID PRN #60 tab 03/12/21 cephalexin 500 mg capsule 500 mg PO BID 7 Days #14 cap 05/20/21 Allergies Allergy/AdvReac Type Severity Reaction Status Date / Time ciprofloxacin [From Cipro] Allergy Severe Weakness Verified 05/19/21 17:25 sulfamethoxazole AdvReac Intermediate Weakness Verified 05/19/21 17:25 [From Septra] trimethoprim [From Septra] AdvReac Intermediate Weakness Verified 05/19/21 17:25 cherries Allergy Mild itching/swe Uncoded 03/17/21 13:35 lling Review of Systems Review of Systems Narrative: GENERAL: Denies chills, fatigue, malaise, fever, sweats, travel HEENT: Denies sinus pain, ear pain, sore throat, difficulty swallowing, neck pain RESPIRATORY: Denies dyspnea, cough, wheezing, hemoptysis, sputum. CARDIOVASCULAR: Denies chest pain, palpitations, orthopnea, edema GASTROINTESTINAL: Denies nausea, vomiting, abdominal pain, diarrhea, constipation, melena. : Denies dysuria, frequency, incontinence, hematuria, urinary retention, flank pain. MUSCULOSKELETAL: Denies weakness, joint pain, or bony pain SKIN: See HPI NEUROLOGIC: Denies weakness, dizziness, headache, numbness, change in speech, confusion PSYCHIATRIC: No concerning psychosocial issues. 12 point review of systems is negative except for those stated above and HPI Patient History Medical History Abnormal laboratory test Anemia (1979) Cataract (2014) Chicken pox Colon polyps (2013) Edema of both lower legs Fatigue Fibroids (1974) Fractures (1966) Frequent UTI (2011) History of heavy periods (1972) Measles Mixed incontinence Mononucleosis (1958) Mumps Postmenopausal atrophic vaginitis Premature ventricular contraction Recurrent UTI (urinary tract infection) Rubella Skin rash Ulcerative colitis Urinary incontinence (2009) Surgical History Anesthesia H/O breast biopsy H/O tubal ligation H/O: hysterectomy History of appendectomy History of bilateral tubal ligation (1962) History of cataract removal with insertion of prosthetic lens (2014) History of knee replacement Status post appendectomy (1962) Status post breast biopsy Status post colonoscopy (08/26/14) Status post right oophorectomy (1979) Status post vaginal hysterectomy (1979) Family History Brother Renal cancer Father Heart disease Hypertension Grandfather Stroke Mother Colon cancer Grandmother Cancer Stroke Sister Parkinson's disease Grandmother Pneumonia Family/Other Leukemia Son Blood disease Social History marital status: details: Only 5 living children number of children: 6 Smoking Status: Never smoker alcohol intake: never caffeine: No Smoking Status: Never smoker alcohol intake frequency: 0-2 drinks per day Substance Use Type: does not use Exam Initial Vital Signs Initial Vital Signs: Vital Signs Temperature 96.2 F L 05/19/21 17:25 Pulse Rate 54 L 05/19/21 17:25 Respiratory Rate 16 05/19/21 17:25 Blood Pressure 174/83 H 05/19/21 17:25 Pulse Oximetry 96 05/19/21 17:25 GENERAL: Alert very pleasant 85-year-old female CARDIOVASCULAR: peripheral pulses in tact, cap refill <2 sec RESPIRATORY: No respiratory distress, speaks in full sentences without difficulty [ABDOMEN: Soft, nontender, no guarding or rebound] EXTREMITIES: Normal range of motion, no clubbing or edema. Neurovascularly intact NEUROLOGICAL: Cranial nerves II through XII grossly intact. Normal gait and speech. SKIN: Left buttock quite lateral is a contusion that seems to be healing in the center of that there is erythema with approximately 4x1 cm abrasion no drainage. There is another small area that is about 1 cm x 1 cm also no drainage Course Orders Ordered: Discontinued Medications Cefazolin Sodium (Cephalexin 250 Mg Prepack) 1 bottle MISC SEEINSTR ONE Stop: 05/20/21 00:06 Last Admin: 05/20/21 00:12 Dose: 1 bottle Documented by: BRITT Vital Signs Vital signs: Vital Signs - 8 hr 05/19/21 22:12 05/19/21 22:13 05/19/21 22:30 Pulse Rate 59 L 50 L Blood Pressure 196/86 H Pulse Oximetry 98 98 97 05/19/21 22:31 05/19/21 23:00 05/19/21 23:01 Pulse Rate 52 L 48 L 48 L Blood Pressure 191/88 H 176/88 H Pulse Oximetry 98 97 98 05/19/21 23:30 05/19/21 23:51 05/19/21 23:56 Pulse Rate 56 L 64 Blood Pressure 199/94 H Pulse Oximetry 96 98 Discharge Plan Departure Patient Disposition: Home Clinical Impression: Abrasion of skin Cellulitis Qualifiers: Site of cellulitis: buttock Qualified Code(s): L03.317 - Cellulitis of buttock Instructions: Cellulitis Activity Restrictions/Additional Instructions: *You have been diagnosed with cellulitis skin abrasion *What to do: At this time he may change the bandage every 2-3 days. Please continue to monitor for worsening redness or pain. Is antibiotic causes constipation please take a stool softener *Continue to take medications as directed Keflex 500 mg twice a day for 7--> SENT TO [facility] *Follow up with your primary care provider in 2-3 days *Return to ER if you should have increasing redness pus or drainage swelling or any new, worsening or concerning symptoms Prescriptions: New cephalexin 500 mg capsule 500 mg PO BID 7 Days Qty: 14 RF: 0 No Action (DME) In step wheeled walker with seat Qty: 1 RF: 0 cholecalciferol (vitamin D3) 2,000 unit capsule 2,000 unit PO DAILY RF: 0 melatonin 5 mg capsule 5 mg PO BEDTIME PRNRF: 0 metoprolol tartrate 25 mg tablet 25 mg PO BID PRN (Reason: symptomatic palpitations) Qty: 60 RF: 0 estradiol [Estrace] 0.01 % (0.1 mg/gram) cream 1 g vaginal 2XW Qty: 42.5 RF: 3 Referrals: Sherlyn Avalos ARNP [Primary Care Provider] -
[2021-05-20] MEDS: cephALEXin 250 MG PREPACK 1 BOTTLE MISC (00:12)
== END 2021-05-20 00:17 | disposition home or self-care (01) ==
PROVIDERS: Emergency Provider Emergency Medicine; PCP Registered Nurse
DX: L03.317 Cellulitis of buttock (principal); S30.810A Abrasion of lower back and pelvis, initial encounter; W19.XXXA Unspecified fall, initial encounter
CPT/HCPCS: 99282; 99283

== ENCOUNTER → 2021-06-05 12:51 | Outpatient (CLI) | payer OTHER, SELFPAY | PROVIDERS: PCP Registered Nurse; Visit Provider Physician Assistant | DX: N39.0 Urinary tract infection, site not specified (principal) | CPT/HCPCS: 87077; 87086; 87185; 87186 ==

== ENCOUNTER 2021-06-22 14:16 | Emergency (ER) | payer OTHER, SELFPAY ==
[2021-06-22 14:23] VITALS: BP 161/110; PULSE 78; RESP 12; TEMP 36.4; O2SAT 97; BMI 31.5
[2021-06-22 16:17] VITALS: PULSE 64; O2SAT 97
[2021-06-22 16:18] VITALS: BP 171/79; PULSE 64; O2SAT 97
[2021-06-22 16:30] VITALS: PULSE 64; O2SAT 98
[2021-06-22 17:00] VITALS: PULSE 67; O2SAT 98
--- NOTE | 2021-06-22 17:01 | ED.FEMALEGU ---
HPI - Female Genitourinary <Gurjit Russell PA-C - Last Filed: 06/22/21 18:51> General Chief complaint: Urogenital-Female Stated complaint: pain in right kidney Time Seen by Provider: 06/22/21 16:15 Source: patient Mode of arrival: Ambulatory History of Present Illness HPI Narrative: Katherin presents today with chief complaint of pink urine and right sided abdominal discomfort that started yesterday afternoon and resolved this morning. She has had previous urinary tract infections but states that this felt different. She denies any burning with urination, increased frequency urination, nausea, vomiting, constipation, diarrhea, fever, rash or any other acute concerns or complaints at this time. Related Data Home Medications Medication Instructions Recorded Confirmed cholecalciferol (vitamin D3) 50 2,000 unit PO DAILY 03/28/18 06/05/21 mcg (2,000 unit) capsule melatonin 5 mg capsule 5 mg PO BEDTIME PRN cap 07/31/19 06/05/21 Previous Rx's Medication Instructions Recorded In step wheeled walker with seat #1 ea 05/12/19 estradiol (Estrace) 1 g VAGINAL 2XW #42.5 g 01/18/21 metoprolol tartrate 25 mg tablet 25 mg PO BID PRN #60 tab 03/12/21 Allergies Allergy/AdvReac Type Severity Reaction Status Date / Time ciprofloxacin [From Cipro] Allergy Severe Weakness Verified 06/05/21 13:05 sulfamethoxazole AdvReac Intermediate Weakness Verified 06/05/21 13:05 [From Septra] trimethoprim [From Septra] AdvReac Intermediate Weakness Verified 06/05/21 13:05 cherries Allergy Mild itching/swe Uncoded 06/05/21 13:05 lling Review of Systems <Gurjit Russell PA-C - Last Filed: 06/22/21 18:51> Review of Systems Narrative: As per HPI Patient History <Gurjit Russell PA-C - Last Filed: 06/22/21 18:51> Medical History Abnormal laboratory test Anemia (1979) Cataract (2014) Chicken pox Colon polyps (2013) Edema of both lower legs Fatigue Fibroids (1974) Fractures (1966) Frequent UTI (2011) History of heavy periods (1972) Measles Mixed incontinence Mononucleosis (1959) Mumps Postmenopausal atrophic vaginitis Premature ventricular contraction Recurrent UTI (urinary tract infection) Rubella Skin rash Ulcerative colitis Urinary incontinence (2009) Surgical History Anesthesia H/O breast biopsy H/O tubal ligation H/O: hysterectomy History of appendectomy History of bilateral tubal ligation (1962) History of cataract removal with insertion of prosthetic lens (2014) History of knee replacement Status post appendectomy (1962) Status post breast biopsy Status post colonoscopy (08/26/14) Status post right oophorectomy (1979) Status post vaginal hysterectomy (1979) Family History Brother Renal cancer Father Heart disease Hypertension Grandfather Stroke Mother Colon cancer Grandmother Cancer Stroke Sister Parkinson's disease Grandmother Pneumonia Family/Other Leukemia Son Blood disease alcohol intake frequency: holidays/special occasions only Substance Use Type: does not use Exam <Gurjit Russell PA-C - Last Filed: 06/22/21 18:51> Narrative Exam Narrative: Exam Narrative: Const General: cooperative, healthy appearing, comfortable, no acute distress, well developed and well groomed Nutritional Appearance: average body habitus Orientation: alert and oriented x3 HENMT Head: normal to inspection and atraumatic Ears: hearing grossly normal bilaterally Nose: external nose normal and nares normal Face and sinus: normal facial exam Neck Neck: normal visual inspection and supple Resp Effort & Inspection: normal respiratory effort, able to speak in complete sentences, no audible wheezes, not labored, no nasal flaring and no respiratory distress, clear to auscultation bilaterally GI Nondistended, normal bowel sounds, nontender to palpation, no masses noted No CVA tenderness noted. Neuro General: alert, oriented x3, FWW assisted gait, tone normal and moves all extremities Cognition: normal cognition Speech: speech normal Gait: FWW assisted gait Psych Appearance: grossly normal and well kempt Mental Status: mental status grossly normal Speech and Movement: speech and movement normal Mood: congruent mood Affect: normal affect Initial Vital Signs Initial Vital Signs: Vital Signs Temperature 97.6 F 06/22/21 14:23 Pulse Rate 78 06/22/21 14:23 Respiratory Rate 12 06/22/21 14:23 Blood Pressure 161/110 H 06/22/21 14:23 Pulse Oximetry 97 06/22/21 14:23 <Ellie Begum DO - Last Filed: 06/23/21 08:41> Initial Vital Signs Initial Vital Signs: Vital Signs Temperature 97.6 F 06/22/21 14:23 Pulse Rate 78 06/22/21 14:23 Respiratory Rate 12 06/22/21 14:23 Blood Pressure 161/110 H 06/22/21 14:23 Pulse Oximetry 97 06/22/21 14:23 Course <Gurjit Russell PA-C - Last Filed: 06/22/21 18:51> Vital Signs Vital signs: Vital Signs - 8 hr 06/22/21 14:23 06/22/21 16:17 06/22/21 16:18 Temperature 97.6 F Pulse Rate 78 64 64 Respiratory Rate 12 Blood Pressure 161/110 H 171/79 H Pulse Oximetry 97 97 97 06/22/21 16:30 06/22/21 17:00 06/22/21 17:22 Temperature 97.7 F Pulse Rate 64 67 70 Respiratory Rate 16 Blood Pressure 160/71 H Pulse Oximetry 98 98 98 <Ellie Begum DO - Last Filed: 06/23/21 08:41> Vital Signs Vital signs: Vital Signs - 8 hr 06/22/21 14:23 06/22/21 16:17 06/22/21 16:18 Temperature 97.6 F Pulse Rate 78 64 64 Respiratory Rate 12 Blood Pressure 161/110 H 171/79 H Pulse Oximetry 97 97 97 06/22/21 16:30 06/22/21 17:00 06/22/21 17:22 Temperature 97.7 F Pulse Rate 64 67 70 Respiratory Rate 16 Blood Pressure 160/71 H Pulse Oximetry 98 98 98 MDM - Female Genitourinary <ALFRED Roman Last Filed: 06/22/21 18:51> Lab Data Labs: Urine Dip Bedside Urine Glucose Negative Bedside Urine Bilirubin - Negative Bedside Urine Ketone - Negative Urine Specific [place] 1.015 Bedside Urine Occult Blood - Negative Bedside Urine pH 6.0 Bedside Urine Protein - Negative Bedside Urine Urobilinogen - Negative Bedside Urine Nitrite - Negative Bedside Urine Leukocytes - Negative Esterase MDM Narrative Medical decision making narrative: Kathleens symptoms have resolved at this time. She has a normal urinalysis. I offered further diagnostics at this time but patient is declining and is wishing to go home. I think that this is appropriate at this time. I considered AAA but her symptoms were mild yesterday and this morning. It came on gradually and not suddenly. She has no known history of AAA. Given her symptoms of subjective hematuria and right flank pain, kidney stone was heavily considered. She denies any history of kidney stones but her symptomatology suggest that this could be the etiology of her symptoms. Return precautions were extensively discussed and patient verbalizes understanding and agrees to plan. <Ellie Begum DO - Last Filed: 06/23/21 08:41> Lab Data Labs: Urine Dip Bedside Urine Glucose Negative Bedside Urine Bilirubin - Negative Bedside Urine Ketone - Negative Urine Specific [place] 1.015 Bedside Urine Occult Blood - Negative Bedside Urine pH 6.0 Bedside Urine Protein - Negative Bedside Urine Urobilinogen - Negative Bedside Urine Nitrite - Negative Bedside Urine Leukocytes - Negative Esterase Discharge Plan Departure Patient Disposition: Home Clinical Impression: Acute right flank pain Activity Restrictions/Additional Instructions: It was very nice to meet you this afternoon. Your evaluation, although incomplete, is reassuring. If you experience worsening abdominal pain, lightheadedness, weakness, fever or any other acute concerns or complaints do not hesitate to return for re-evaluation. Thank you Gurjit Russell PA-C Prescriptions: No Action (DME) In step wheeled walker with seat Qty: 1 RF: 0 cholecalciferol (vitamin D3) 2,000 unit capsule 2,000 unit PO DAILY RF: 0 melatonin 5 mg capsule 5 mg PO BEDTIME PRNRF: 0 metoprolol tartrate 25 mg tablet 25 mg PO BID PRN (Reason: symptomatic palpitations) Qty: 60 RF: 0 estradiol [Estrace] 0.01 % (0.1 mg/gram) cream 1 g vaginal 2XW Qty: 42.5 RF: 3 Referrals: Sherlyn Avalos ARNP [Primary Care Provider] - <Ellie Begum DO - Last Filed: 06/23/21 08:41> Cosign ED Attending Cosignature Attestation: I was immediately available in the department for consultation. Documentation has been reviewed.
[2021-06-22 17:22] VITALS: BP 160/71; PULSE 70; RESP 16; TEMP 36.5; O2SAT 98
== END 2021-06-22 17:23 | disposition home or self-care (01) ==
PROVIDERS: Emergency Provider Physician Assistant; PCP Registered Nurse
DX: R10.9 Unspecified abdominal pain (principal)
CPT/HCPCS: 81003; 99282

== ENCOUNTER → 2021-08-11 15:46 | Outpatient (CLI) | payer OTHER, SELFPAY | PROVIDERS: PCP Registered Nurse; Visit Provider Nurse Practitioner | DX: N39.0 Urinary tract infection, site not specified (principal) | CPT/HCPCS: 87077; 87086; 87186 ==

== ENCOUNTER 2021-09-13 10:29 | Emergency (ER) | payer OTHER, SELFPAY ==
[2021-09-13] VITALS (9 sets, daily range): BP systolic 133–178; BP diastolic 64–106; PULSE 51–71; RESP 16–24; TEMP 36.6; O2SAT 95–99; BMI 31.5
--- NOTE | 2021-09-13 10:39 | DI.RAD.S_ITS ---
PROCEDURE: XR CHEST 1V INDICATIONS: chest pain TECHNIQUE: One view of the chest was acquired. COMPARISON: [facility], CR, XR CHEST 1V, 11/03/2020, 17:19. FINDINGS: Surgical changes and devices: None. Lungs and pleura: Again noted are chronic appearing interstitial prominence unchanged from prior study. No focal infiltrate. No pleural effusions or pneumothorax. Mediastinum: Tortuous thoracic aorta is seen. Heart size is mildly enlarged. Bones and chest wall: No suspicious bony lesions. Overlying soft tissues appear unremarkable. IMPRESSION: Suggestion of chronic interstitial lung disease unchanged from prior study. No focal infiltrate, pleural effusion or pneumothorax. Dictated by: Barney Tse M.D. on 09/13/2021 at 10:55 Approved by: Barney Tse M.D. on 09/13/2021 at 10:56
[2021-09-13 11:13] LABS: Add Manual Diff / Slide Review NO; Basophils Absolute Auto 0 /uL (0-100); Basophils Percent Auto 0.4 % (0-2); Eosinophils Absolute Auto 100 /uL (0-450); Eosinophils Percent Auto 1.3 % (2-4); Hematocrit 40.1 % (36-46); Hemoglobin 13.4 g/dL (12.0-16.0); Lymphocytes Absolute Auto 2300 /uL (1100-4500); Lymphocytes Percent Auto 37.9 % (25-40); Mean Corpuscular HGB Conc 33.3 % (30-36); Mean Corpuscular Hemoglobin 31.4 PG (26-34); Mean Corpuscular Volume 94.4 fL (80-100); Monocytes Absolute Auto 600 /uL (0-900); Monocytes Percent Auto 9.7 % (3-14); Neutrophils Absolute Auto 3100 /uL (1500-7000); Neutrophils Percent Auto 50.7 % (50-75); Platelet Count 204 X10^3/uL (150-400); Red Blood Cell Count 4.25 X10^6/uL (4.0-5.2); Red Cell Distribution Width 12.6 % (11.6-14.8); White Blood Cell Count 6.1 X10^3/uL (4.5-11.0)
[2021-09-13 11:22] LABS: Alanine Aminotransferase 17 IU/L (<35); Albumin 4.2 g/dL (3.5-5.0); Albumin Globulin Ratio 1.2 (1.0-2.8); Alkaline Phosphatase 95 U/L (38-126); Aspartate Aminotransferase 24 IU/L (14-36); BUN Creatinine Ratio 19.2 (6-22); Bilirubin Total 0.5 mg/dL (0.2-1.3); Blood Urea Nitrogen 20 mg/dL (7-17); Calcium 9.5 mg/dL (8.4-10.2); Carbon Dioxide 30 mmol/L (22-32); Chloride 105 mmol/L (98-107); Creatine Kinase 49 U/L (30-135); Estimated Glomerular Filt Rate 50.2 mL/min (>60); Globulin 3.4 g/dL (1.7-4.1); Glucose 102 mg/dL (80-110); HEMOLYSIS < 15 (0-50); Lipase 157 U/L (23-300); Potassium 4.4 mmol/L (3.4-5.1); Sodium 140 mmol/L (137-145); Total Protein 7.6 g/dL (6.3-8.2)
[2021-09-13 11:23] LABS: Magnesium 2.1 mg/dL (1.6-2.3)
[2021-09-13 11:34] LABS: Troponin I < 0.012 ng/mL (0.01-0.034)
--- NOTE | 2021-09-13 12:02 | ED_ITS ---
HPI - Arrhythmia/Palpitations General Chief Complaint: Arrhythmia/Palpitations Stated Complaint: Hx of irreg heart beats/dizzy/slow hrt today Time Seen by Provider: 09/13/21 10:57 Source: patient Mode of arrival: Wheelchair Limitations: no limitations History of Present Illness HPI narrative: 85-year-old female comes in with complaint of weird rhythms. 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 She checked her heart rate at home it was 42. She called for an appointment and they told her to come to the ER. She felt a little lightheaded this morning but does not at this time. No syncope. She has had her heart do this before. She has had Holter is but it has been sometime. She denies chest pain, shortness of breath, diaphoresis, nausea vomiting, diarrhea constipation or sweating. She has been prescribed metoprolol for PVCs but has not taken it for 2 or 3 months. She states she is supposed to take it when she has frequent PVCs. She does not take any other daily medications. She had hysterectomy. No allergies. Patient would like to return home and feels much better at this time. Related Data Home Medications Medication Instructions Recorded Confirmed cholecalciferol (vitamin D3) 50 2,000 unit PO DAILY 03/28/18 06/29/21 mcg (2,000 unit) capsule melatonin 5 mg capsule 5 mg PO BEDTIME PRN cap 07/31/19 06/29/21 Previous Rx's Medication Instructions Recorded In step wheeled walker with seat #1 ea 05/12/19 estradiol (Estrace) 1 g VAGINAL 2XW #42.5 g 01/18/21 metoprolol tartrate 25 mg tablet 25 mg PO BID PRN #60 tab 03/12/21 Allergies Allergy/AdvReac Type Severity Reaction Status Date / Time ciprofloxacin [From Cipro] Allergy Severe Weakness Verified 06/29/21 16:18 sulfamethoxazole AdvReac Intermediate Weakness Verified 06/29/21 16:18 [From Septra] trimethoprim [From Septra] AdvReac Intermediate Weakness Verified 06/29/21 16:18 cherries Allergy Mild itching/swe Uncoded 06/29/21 16:18 lling Review of Systems Review of Systems ROS Unobtainable: All systems reviewed & are unremarkable except as noted in HPI and below Patient History Medical History Abnormal laboratory test Anemia (1979) Cataract (2014) Chicken pox Colon polyps (2013) Edema of both lower legs Fatigue Fibroids (1974) Fractures (1966) Frequent UTI (2011) History of heavy periods (1972) Measles Mixed incontinence Mononucleosis (1958) Mumps Postmenopausal atrophic vaginitis Premature ventricular contraction Recurrent UTI (urinary tract infection) Rubella Skin rash Ulcerative colitis Urinary incontinence (2009) Surgical History Anesthesia H/O breast biopsy H/O tubal ligation H/O: hysterectomy History of appendectomy History of bilateral tubal ligation (1962) History of cataract removal with insertion of prosthetic lens (2014) History of knee replacement Status post appendectomy (1962) Status post breast biopsy Status post colonoscopy (08/26/14) Status post right oophorectomy (1979) Status post vaginal hysterectomy (1979) Family History Brother Renal cancer Father Heart disease Hypertension Grandfather Stroke Mother Colon cancer Grandmother Cancer Stroke Sister Parkinson's disease Grandmother Pneumonia Family/Other Leukemia Son Blood disease Social History marital status: details: Only 5 living children number of children: 6 Smoking Status: Never smoker alcohol intake: never caffeine: No Smoking Status: Never smoker alcohol intake frequency: holidays/special occasions only Substance Use Type: does not use Exam Narrative Exam Narrative: GENERAL: Alert and oriented x three, elderly female in mild distress. HEENT: Head normocephalic, atraumatic, EOMI, pupils reactive, face symmetric, moist mucous membranes NECK: Supple, full range of motion CARDIOVASCULAR: Regular rate and rhythm without murmurs, rubs or gallops. No JVD. No swelling bilateral lower extremities. RESPIRATORY: Breath sounds equal bilaterally, no wheezes rales or rhonchi. ABDOMEN: Soft, nontender. Normoactive bowel sounds all 4 quadrants. No guarding or rebound, rigidity, no mass : No CVA tenderness EXTREMITIES: Normal range of motion, no clubbing or edema. Neurovascularly intact NEUROLOGICAL: Cranial nerves II through XII grossly intact. Moving all extremities SKIN: Warm, dry, no petechiae, no rashes or lesions. Initial Vital Signs Initial Vital Signs: Vital Signs Temperature 97.8 F 09/13/21 10:39 Pulse Rate 51 L 09/13/21 10:39 Respiratory Rate 16 09/13/21 10:39 Blood Pressure 135/81 09/13/21 10:39 Pulse Oximetry 97 09/13/21 10:39 Course Orders Ordered: ED Orders 09/13/21 10:39 XR chest 1V Stat EKG-12 Lead Stat 09/13/21 11:00 Complete Blood Count AUTO DIFF Stat Comprehensive Metabolic Panel Stat Lipase Stat Magnesium Stat Thyroid Stimulating Hormone Stat Troponin & CK Cardiac Panel Stat Vital Signs Vital signs: Vital Signs - 8 hr 09/13/21 11:00 09/13/21 11:30 09/13/21 11:31 Pulse Rate 66 61 60 Respiratory Rate 22 17 20 Blood Pressure 178/78 H 141/74 H Pulse Oximetry 98 96 96 09/13/21 12:00 09/13/21 12:30 09/13/21 13:00 Pulse Rate 59 L 58 L 58 L Respiratory Rate 18 21 22 Blood Pressure 155/70 H 133/64 Pulse Oximetry 96 95 97 09/13/21 13:01 Pulse Rate 57 L Respiratory Rate 24 Blood Pressure 147/68 H Pulse Oximetry 96 MDM - Arrhythmia/Palpitations Lab Data Result diagrams: 09/13/21 11:00 09/13/21 11:00 Labs: Lab Results 09/13/21 09/13/21 09/13/21 Range/Units 11:00 11:00 11:00 WBC 6.1 (4.5-11.0) X10^3/uL RBC 4.25 (4.0-5.2) X10^6/uL Hgb 13.4 (12.0-16.0) g/dL Hct 40.1 (36-46) % MCV 94.4 (80-100) fL MCH 31.4 (26-34) PG MCHC 33.3 (30-36) % RDW 12.6 (11.6-14.8) % Plt Count 204 (150-400) X10^3/uL Neut % (Auto) 50.7 (50-75) % Lymph % (Auto) 37.9 (25-40) % [place] % (Auto) 9.7 (3-14) % Eos % (Auto) 1.3 L (2-4) % Baso % (Auto) 0.4 (0-2) % Neut # (Auto) 3100 (2260-5846) /uL Lymph # (Auto) 2300 (4108-0708) /uL [place] # (Auto) 600 (0-900) /uL Eos # (Auto) 100 (0-450) /uL Baso # (Auto) 0 (0-100) /uL Sodium 140 (137-145) mmol/L Potassium 4.4 (3.4-5.1) mmol/L Chloride 105 (98-107) mmol/L Carbon Dioxide 30 (22-32) mmol/L BUN 20 H (7-17) mg/dL Creatinine 1.04 (0.52-1.04) mg/dL Estimated GFR 50.2 L (>60) mL/min BUN/Creatinine Ratio 19.2 (6-22) Glucose 102 (80-110) mg/dL Calcium 9.5 (8.4-10.2) mg/dL Magnesium 2.1 (1.6-2.3) mg/dL Total Bilirubin 0.5 (0.2-1.3) mg/dL AST 24 (14-36) IU/L ALT 17 (<35) IU/L Alkaline Phosphatase 95 (38-126) U/L Total Creatine Kinase 49 (30-135) U/L CK-MB (CK-2) TNP CK-MB (CK-2) Rel Index TNP Troponin I < 0.012 (0.01-0.034) ng/mL Total Protein 7.6 (6.3-8.2) g/dL Albumin 4.2 (3.5-5.0) g/dL Globulin 3.4 (1.7-4.1) g/dL Albumin/Globulin Ratio 1.2 (1.0-2.8) Lipase 157 (23-300) U/L TSH (0.47-4.68) uIU/mL 09/13/21 Range/Units 11:00 WBC (4.5-11.0) X10^3/uL RBC (4.0-5.2) X10^6/uL Hgb (12.0-16.0) g/dL Hct (36-46) % MCV (80-100) fL MCH (26-34) PG MCHC (30-36) % RDW (11.6-14.8) % Plt Count (150-400) X10^3/uL Neut % (Auto) (50-75) % Lymph % (Auto) (25-40) % [place] % (Auto) (3-14) % Eos % (Auto) (2-4) % Baso % (Auto) (0-2) % Neut # (Auto) (8281-8518) /uL Lymph # (Auto) (8176-1165) /uL [place] # (Auto) (0-900) /uL Eos # (Auto) (0-450) /uL Baso # (Auto) (0-100) /uL Sodium (137-145) mmol/L Potassium (3.4-5.1) mmol/L Chloride (98-107) mmol/L Carbon Dioxide (22-32) mmol/L BUN (7-17) mg/dL Creatinine (0.52-1.04) mg/dL Estimated GFR (>60) mL/min BUN/Creatinine Ratio (6-22) Glucose (80-110) mg/dL Calcium (8.4-10.2) mg/dL Magnesium (1.6-2.3) mg/dL Total Bilirubin (0.2-1.3) mg/dL AST (14-36) IU/L ALT (<35) IU/L Alkaline Phosphatase (38-126) U/L Total Creatine Kinase (30-135) U/L CK-MB (CK-2) CK-MB (CK-2) Rel Index Troponin I (0.01-0.034) ng/mL Total Protein (6.3-8.2) g/dL Albumin (3.5-5.0) g/dL Globulin (1.7-4.1) g/dL Albumin/Globulin Ratio (1.0-2.8) Lipase (23-300) U/L TSH 3.34 (0.47-4.68) uIU/mL Imaging Data Chest x-ray: Radiologist's Impresson: [address] [address] XRay Report Signed Patient: Katherin Parker MR#: [id number] : 1935 Acct:[id number] Age/Sex: 85 / F Date of Service: 09/13/21 Loc: ED Accession Number: [id number] ?? Procedure: XR chest 1V Ordering Provider: Ellie Begum D.O. PROCEDURE:? XR CHEST 1V ? INDICATIONS:? chest pain ? TECHNIQUE:? One view of the chest was acquired.? ? COMPARISON:? [facility], , XR CHEST 1V, 11/03/2020, 17:19. ? FINDINGS:? ? Surgical changes and devices:? None.? ? Lungs and pleura:? Again noted are chronic appearing interstitial prominence unchanged from prior study.? No focal infiltrate.? No pleural effusions or pneumothorax.? ? Mediastinum:? Tortuous thoracic aorta is seen.? Heart size is mildly enlarged. ? Bones and chest wall:? No suspicious bony lesions.? Overlying soft tissues appear unremarkable.? ? IMPRESSION:? Suggestion of chronic interstitial lung disease unchanged from prior study.? No focal infiltrate, pleural effusion or pneumothorax. ? ? Dictated by: Barney Tse M.D. on 09/13/2021 at 10:55 ? ? Approved by: Barney Tse M.D. on 09/13/2021 at 10:56?? ECG Data Attestation: I personally reviewed and interpreted this ECG as follows: Prior ECG tracings: available for review Interpretation: Sinus rhythm frequent PVCs, rate of 76 NC 158 QRS [address] QTC [address] No acute [address] elevation depression. MDM Narrative Medical decision making narrative: Patient with frequent PVC she did have full rhythm at 1 point but has been persistently in the 60s to 70s since. Patient's lab, EKG and imaging do not show any other acute new changes she has had PVCs in the past and even been on metoprolol for this. She does not have any symptoms currently and has not had any significant persistent changes. She would like to return home. We discussed she does need follow-up she should avoid using her beta-hue. Please note upon discharge her clinical impression had accidentally had foul- smelling urine clicked and this was removed as this was not a formal diagnosis intended for the patient. Discharge Plan Departure Patient Disposition: Home Clinical Impression: Frequent PVCs Instructions: Premature Ventricular Beats Activity Restrictions/Additional Instructions: Follow-up with your physician. You have had multiple PVCs here in the department or extra beats. You did have an episode or your heart rate dropped down to the 30s or 40s but does not appear to be any other arrhythmias. Your labs and findings today otherwise are reassuring but I recommend having a Holter monitor or ZIO patch. Do not take your beta-hue/metoprolol. This will slow down her heart rate. Please return for fevers, chest pain, shortness of breath, syncope, recurrent or persistent ?weird with them? or other concerning changes or new swelling in your extremities Prescriptions: No Action (DME) In step wheeled walker with seat Qty: 1 0RF Dose Instruction: As directed Rx Instructions: Use wheeled walker with ambulation. cholecalciferol (vitamin D3) 2,000 unit capsule 2,000 unit PO DAILY 0RF melatonin 5 mg capsule 5 mg PO BEDTIME PRN0RF metoprolol tartrate 25 mg tablet 25 mg PO BID PRN (Reason: symptomatic palpitations) Qty: 60 0RF estradiol [Estrace] 0.01 % (0.1 mg/gram) cream 1 g vaginal 2XW Qty: 42.5 3RF Rx Instructions: Insert 1 g intravaginally at HS x 12 days, then 1 g intravaginally 2 times per week at HS as directed. Referrals: Sherlyn Avalos ARNP [Primary Care Provider] -
[2021-09-13 12:09] LABS: Thyroid Stimulating Hormone 3.34 uIU/mL (0.47-4.68)
== END 2021-09-13 13:30 | disposition home or self-care (01) ==
PROVIDERS: Emergency Provider Emergency Medicine; PCP Registered Nurse
DX: I49.3 Ventricular premature depolarization (principal)
CPT/HCPCS: 36415; 71045; 80053; 82550; 83690; 83735; 84443; 84484; 85025; 93005; 93010; 99283; 99284

== ENCOUNTER → 2021-11-11 14:05 | Outpatient (CLI) | payer OTHER, SELFPAY | PROVIDERS: PCP Registered Nurse; Visit Provider Physician Assistant | DX: R30.0 Dysuria (principal) | CPT/HCPCS: 87077; 87086; 87186 ==

== ENCOUNTER → 2021-12-20 15:23 | Outpatient (CLI) | payer OTHER, SELFPAY | PROVIDERS: PCP Nurse Practitioner; Visit Provider Physician Assistant | DX: N34.3 Urethral syndrome, unspecified (principal) | CPT/HCPCS: 87077; 87086; 87186 ==

== ENCOUNTER → 2022-01-15 13:10 | Outpatient (CLI) | payer OTHER, SELFPAY ==
--- NOTE | 2022-01-15 13:12 | DI.CT.S_ITS ---
PROCEDURE: CT KIDNEY URETER BLADDER (KUB) INDICATIONS: Kidney stone TECHNIQUE: Axial sections were acquired from the lung bases to the pubic symphysis. Coronal and sagittal reformats were performed. For radiation dose reduction, the following was used: automated exposure control, adjustment of mA and/or kV according to patient size. COMPARISON: None. FINDINGS: Image quality: Excellent. Lung bases: Peripheral fibrotic changes in the lung bases. Heart size is normal. Solid organs: Liver: The liver has no mass or intrahepatic biliary ductal dilatation. No intrahepatic biliary ductal dilatation. Biliary: The gallbladder has multiple gallstones. No mild pericholecystic fluid, gallbladder wall thickening, or surrounding inflammatory change. Pancreas: The pancreas has no mass or ductal dilatation. There is no surrounding inflammation. Spleen: Normal size. There are no masses. Adrenals: No hypertrophy or nodules. Kidneys: No obstructive calculus or hydronephrosis. No solid mass. No cystic mass. Peritoneum and bowel: The distal esophagus and stomach are normal. The small bowel has a normal caliber and appearance. The terminal ileum is normal. The large bowel has diverticulosis with no evidence of diverticulitis. The appendix is normal. No free fluid or air. Nodes and vessels: No retroperitoneal or mesenteric adenopathy by size criteria. Aorta and inferior vena cava are normal in size. The aorta has atherosclerotic calcifications. Miscellaneous: No abdominal wall mass or hernia. PELVIS: Genitourinary: The bladder has no wall thickening or mass. No bladder calcifications. Bones: There are multilevel degenerative changes. Degenerative disc disease is seen in the lumbar spine. No vertebral body compression fractures. IMPRESSION: 1. No nephroureterolithiasis. No hydronephrosis. 2. Cholelithiasis with no evidence of cholecystitis. 3. Diverticulosis with no evidence of diverticulitis. Dictated by: Zay Esparza M.D. on 01/15/2022 at 14:32 Approved by: Zay Esparza M.D. on 01/15/2022 at 14:37
== END ==
PROVIDERS: PCP Nurse Practitioner; Referring Provider Specialist; Visit Provider Specialist
DX: N20.0 Calculus of kidney (principal); K80.20 Calculus of gallbladder without cholecystitis without obstruction; K57.90 Diverticulosis of intestine, part unspecified, without perforation or abscess without bleeding
CPT/HCPCS: 74176

== ENCOUNTER 2022-04-08 20:12 | Emergency (ER) | payer OTHER, SELFPAY ==
[2022-04-08] VITALS (9 sets, daily range): BP systolic 166–193; BP diastolic 75–99; PULSE 75–88; RESP 16–33; TEMP 36.7; O2SAT 94–98; BMI 31.3
[2022-04-08 21:01] LABS: Appearance Urine UA CLEAR; Bilirubin Urine UA NEGATIVE (NEGATIVE); Color Urine UA YELLOW; Glucose Urine UA NEGATIVE (Negative); Ketones Urine UA NEGATIVE (NEGATIVE); Leukocyte Esterase Urine UA NEGATIVE (NEGATIVE); Nitrite Urine UA NEGATIVE (Negative); Occult Blood Urine UA NEGATIVE (Negative); Protein Urine UA NEGATIVE (Negative); Urobilinogen Urine UA 0.2 E.U./dL (0.2)
[2022-04-08 21:02] LABS: pH Urine UA 5.5 (4.5-8.0)
[2022-04-08 21:15] LABS: COVID19 -Nasal RAPID Negative (Negative)
[2022-04-08 21:21] LABS: Bacteria Urine None Seen; Culture Indicated Urine Cult Not Indicated; RBC Urine None Seen (0-5/HPF); Squamous Epithelial Cell Urine 0-1 /HPF (0-5/HPF); WBC Urine None Seen (0-5/HPF)
[2022-04-08 22:45] LABS: Add Manual Diff / Slide Review NO; Basophils Absolute Auto 0 /uL (0-100); Basophils Percent Auto 0.3 % (0-2); Eosinophils Absolute Auto 400 /uL (0-450); Eosinophils Percent Auto 4.9 % (2-4); Hematocrit 38.9 % (36-46); Hemoglobin 13.3 g/dL (12.0-16.0); Lymphocytes Absolute Auto 1900 /uL (1100-4500); Lymphocytes Percent Auto 22.2 % (25-40); Mean Corpuscular HGB Conc 34.2 % (30-36); Mean Corpuscular Hemoglobin 31.5 PG (26-34); Mean Corpuscular Volume 92.1 fL (80-100); Monocytes Absolute Auto 700 /uL (0-900); Monocytes Percent Auto 8.8 % (3-14); Neutrophils Absolute Auto 5400 /uL (1500-7000); Neutrophils Percent Auto 63.8 % (50-75); Platelet Count 268 X10^3/uL (150-400); Red Blood Cell Count 4.23 X10^6/uL (4.0-5.2); Red Cell Distribution Width 12.6 % (11.6-14.8); White Blood Cell Count 8.5 X10^3/uL (4.5-11.0)
[2022-04-08 22:46] LABS: INR 1.1 (0.9-1.3); Prothrombin Time 11.7 SECONDS (10.1-12.7)
[2022-04-08 22:49] LABS: PTT Partial Thromboplastin Tim 37 SECONDS (26.4-36.2)
[2022-04-08 22:50] LABS: Alanine Aminotransferase 16 IU/L (<35); Albumin 4.3 g/dL (3.5-5.0); Albumin Globulin Ratio 1.2 (1.0-2.8); Alkaline Phosphatase 103 U/L (38-126); Aspartate Aminotransferase 23 IU/L (14-36); BUN Creatinine Ratio 19.8 (6-22); Bilirubin Total 0.4 mg/dL (0.2-1.3); Blood Urea Nitrogen 18 mg/dL (7-17); Calcium 8.9 mg/dL (8.4-10.2); Carbon Dioxide 25 mmol/L (22-32); Chloride 100 mmol/L (98-107); Estimated Glomerular Filt Rate > 60 mL/min (>60); Globulin 3.7 g/dL (1.7-4.1); Glucose 162 mg/dL (80-110); HEMOLYSIS < 15 (0-50); Lipase 158 U/L (23-300); Potassium 4.1 mmol/L (3.4-5.1); Sodium 135 mmol/L (137-145)
--- NOTE | 2022-04-08 22:53 | PC.NURSE ---
Pt currently denies any pain or nausea, family states that they brought her in because they live far away and were concerned she has been having on and off abdominal pain.
--- NOTE | 2022-04-08 23:31 | ED.ABDPAIN ---
HPI - Abdominal Pain General Chief Complaint: Abdominal Pain Stated Complaint: ABD PAIN 3 DAYS Time Seen by Provider: 04/08/22 22:50 History of Present Illness HPI narrative: 86-year-old female nonsmoker with history of hypertension, difficulty swelling liquids, chronic venous insufficiency, edema bilateral lower extremities, dysphagia presents with family in the chief complaint of episodes left-sided abdominal pain off and on for the past few days. She has had decreased bowel movements and states that those that she produces have been very hard. She denies any nausea or vomiting. She has had no fever or chills. She denies any change in diet or medications. She denies any obvious provocation or palliation and states the pain seems to come and go with a mind of its own but is not been present for the duration of her visit. She routinely takes antibiotics for the prevention of urinary tract infection. Related Data Home Medications Medication Instructions Recorded Confirmed cholecalciferol (vitamin D3) 50 2,000 unit PO DAILY 03/28/18 03/01/22 mcg (2,000 unit) capsule ascorbate calcium (vitamin C) 500 500 mg PO DAILY 09/20/21 03/01/22 mg tablet cranberry 500 mg capsule 500 mg PO BID 09/20/21 03/01/22 d-mannose 500 mg capsule mg PO 09/20/21 03/01/22 melatonin 5 mg capsule mg PO .HS 01/17/22 03/01/22 Previous Rx's Medication Instructions Recorded In step wheeled walker with seat #1 ea 05/12/19 methenamine hippurate 1 gram 0.5 g PO BID #90 tabs 09/20/21 tablet (Hiprex) cephalexin 250 mg capsule 250 mg PO BEDTIME #90 caps 01/04/22 estradiol 0.01% (0.1 mg/gram) See Rx Instructions .Route 02/05/22 vaginal cream .COMPLEX #42.5 grams Allergies Allergy/AdvReac Type Severity Reaction Status Date / Time ciprofloxacin [From Cipro] Allergy Severe Weakness Verified 03/01/22 13:57 sulfamethoxazole AdvReac Intermediate Weakness Verified 03/01/22 13:57 [From ] trimethoprim [From ] AdvReac Intermediate Weakness Verified 03/01/22 13:57 cherries Allergy Mild itching/swe Uncoded 03/01/22 13:57 lling Review of Systems Review of Systems Narrative: GENERAL: Denies chills, fatigue, malaise, fever, sweats. HEENT: Denies sinus pain, ear pain, sore throat, difficulty swallowing, dizziness. RESPIRATORY: Denies dyspnea, cough, wheezing, hemoptysis, sputum. CARDIOVASCULAR: Denies chest pain, palpitations, orthopnea, edema, GASTROINTESTINAL: See HPI : Denies dysuria, frequency, incontinence, hematuria, urinary retention. MUSCULOSKELETAL: denies weakness, joint pain, or bony pain SKIN: Denies rash, skin lesions, or other NEUROLOGIC: Denies weakness, headache, numbness, change in speech, confusion, seizures, incoordination. PSYCHIATRIC: No concerning psychosocial issues. 12 point review of systems is negative except for those stated above Patient History Medical History Anemia (1979) Cardiac arrhythmia (05/08/16) Cataract (2014) Chicken pox Colon polyps (2013) Difficulty swallowing liquids Edema of both lower legs Facial cellulitis Family history of colon cancer Fatigue Fibroids (1974) Fractures (1966) Frequent UTI (2011) Herpes zoster acute retinal necrosis History of heavy periods (1972) Hoarseness or changing voice Hx of colonic polyp Hypertension Measles Mixed incontinence Mononucleosis (1958) Mumps Postmenopausal atrophic vaginitis Premature ventricular contraction Rectal leakage Recurrent UTI (urinary tract infection) Rubella Shingles outbreak Skin rash Ulcerative colitis Urinary incontinence (2009) Urinary tract infection Surgical History Anesthesia H/O breast biopsy H/O tubal ligation H/O: hysterectomy History of appendectomy History of bilateral tubal ligation (1962) History of cataract removal with insertion of prosthetic lens (2014) History of knee replacement Status post appendectomy (1962) Status post breast biopsy Status post colonoscopy (08/26/14) Status post right oophorectomy (1979) Status post vaginal hysterectomy (1979) Family History Brother Renal cancer Father Heart disease Hypertension Grandfather Stroke Mother Colon cancer Grandmother Cancer Stroke Sister Parkinson's disease Grandmother Pneumonia Family/Other Leukemia Son Blood disease Social History marital status: details: Only 5 living children number of children: 6 Smoking Status: Never smoker alcohol intake: never caffeine: No Smoking Status: Never smoker alcohol intake frequency: holidays/special occasions only Substance Use Type: does not use Exam Narrative Exam Narrative: GENERAL: [86] year old patient appears stated age. Well-developed patient, in mild distress. HEAD: Atraumatic. Normocephalic. EYES: Pupils equal round and reactive. Extraocular motions intact. No scleral icterus. No injection or drainage. ENT: Nose without bleeding, purulent drainage. Throat without erythema, tonsillar hypertrophy or exudate. Airway patent. NECK: Trachea midline. Non tender CARDIOVASCULAR: Regular rate and rhythm without murmurs, gallops, or rubs. RESPIRATORY: Clear to auscultation. Breath sounds equal bilaterally. No wheezes, rales, or rhonchi. GASTROINTESTINAL: Abdomen soft, non-tender, nondistended. Bowel sounds present in all 4 quadrants EXTREMITIES: No edema or joint tenderness. BACK: Nontender without deformity or crepitance. No flank tenderness. NEURO: AOx3. SKIN: No rash or erythema of visible areas Initial Vital Signs Initial Vital Signs: Vital Signs Temperature 98.1 F 04/08/22 20:30 Pulse Rate 88 04/08/22 20:30 Respiratory Rate 16 04/08/22 20:30 Blood Pressure 193/99 H 04/08/22 20:30 Pulse Oximetry 98 04/08/22 20:30 Oxygen Delivery Method 04/08/22 20:30 Course Orders Ordered: ED Orders 04/08/22 20:31 Urinalysis and Microscopic Stat 04/08/22 20:37 EKG-12 Lead Stat 04/08/22 20:40 COVID19 -Nasal RAPID/Pre-Proc Stat 04/08/22 22:23 BNP [NT-proBNP (BNP-Adult 18+)] Stat 04/08/22 22:25 Complete Blood Count AUTO DIFF Stat Comprehensive Metabolic Panel Stat Lipase Stat Partial Thromboplastin Time Stat Prothrombin Time INR Stat 04/08/22 23:40 XR acute abdomen series Stat Discontinued Medications Bisacodyl (Bisacodyl 10 Mg Supp) 10 mg PA NOW ONE Stop: 04/09/22 01:21 Vital Signs Vital signs: Vital Signs - 8 hr 04/08/22 20:30 04/08/22 22:18 04/08/22 22:20 Temperature 98.1 F Pulse Rate 88 85 83 Respiratory Rate 16 Blood Pressure 193/99 H Pulse Oximetry 98 95 Oxygen Delivery Method Room Air 04/08/22 22:30 04/08/22 22:38 04/08/22 22:38 Temperature Pulse Rate 79 77 Respiratory Rate 28 H Blood Pressure 178/84 H Pulse Oximetry 96 96 Oxygen Delivery Method 04/08/22 23:00 04/08/22 23:01 04/08/22 23:01 Temperature Pulse Rate 75 75 Respiratory Rate 28 H 28 H Blood Pressure 183/81 H Pulse Oximetry 94 94 Oxygen Delivery Method 04/08/22 23:30 04/08/22 23:31 04/08/22 23:31 Temperature Pulse Rate 76 75 Respiratory Rate 31 H 33 H Blood Pressure 166/75 H Pulse Oximetry 94 94 Oxygen Delivery Method Room Air MDM - Abdominal Pain Lab Data Result diagrams: 04/08/22 22:25 04/08/22 22:25 Labs: Lab Results 04/08/22 04/08/22 04/08/22 Range/Units 20:31 20:40 22:23 WBC (4.5-11.0) X10^3/uL RBC (4.0-5.2) X10^6/uL Hgb (12.0-16.0) g/dL Hct (36-46) % MCV (80-100) fL MCH (26-34) PG MCHC (30-36) % RDW (11.6-14.8) % Plt Count (150-400) X10^3/uL Neut % (Auto) (50-75) % Lymph % (Auto) (25-40) % [place] % (Auto) (3-14) % Eos % (Auto) (2-4) % Baso % (Auto) (0-2) % Neut # (Auto) (8383-9468) /uL Lymph # (Auto) (3734-7749) /uL [place] # (Auto) (0-900) /uL Eos # (Auto) (0-450) /uL Baso # (Auto) (0-100) /uL PT (10.1-12.7) SECONDS INR (0.9-1.3) APTT (26.4-36.2) SECONDS Sodium (137-145) mmol/L Potassium (3.4-5.1) mmol/L Chloride (98-107) mmol/L Carbon Dioxide (22-32) mmol/L BUN (7-17) mg/dL Creatinine (0.52-1.04) mg/dL Estimated GFR (>60) mL/min BUN/Creatinine Ratio (6-22) Glucose (80-110) mg/dL Calcium (8.4-10.2) mg/dL Total Bilirubin (0.2-1.3) mg/dL AST (14-36) IU/L ALT (<35) IU/L Alkaline Phosphatase (38-126) U/L NT-Pro-B Natriuret Pep 437 (<450) pg/mL Total Protein (6.3-8.2) g/dL Albumin (3.5-5.0) g/dL Globulin (1.7-4.1) g/dL Albumin/Globulin Ratio (1.0-2.8) Lipase (23-300) U/L Urine Color Yellow Urine Appearance Clear Urine pH 5.5 (4.5-8.0) Ur Specific [place] 1.010 (1.000-1.035) Urine Protein Negative (Negative) Urine Glucose (UA) Negative (Negative) g/dL Urine Ketones Negative (NEGATIVE) Urine Occult Blood Negative (Negative) Urine Nitrate Negative (Negative) Urine Bilirubin Negative (NEGATIVE) Urine Urobilinogen 0.2 (0.2) E.U./dL Ur Leukocyte Esterase Negative (NEGATIVE) Urine RBC None seen (0-5/HPF) Urine WBC None seen (0-5/HPF) Ur Squamous Epith Cells 0-1 /hpf (0-5/HPF) Urine Bacteria None seen (None) Ur Culture Indicated? Cult not indicated SARS-CoV-2 (PCR) Negative (Negative) 04/08/22 04/08/22 04/08/22 Range/Units 22:25 22:25 22:25 WBC 8.5 (4.5-11.0) X10^3/uL RBC 4.23 (4.0-5.2) X10^6/uL Hgb 13.3 (12.0-16.0) g/dL Hct 38.9 (36-46) % MCV 92.1 (80-100) fL MCH 31.5 (26-34) PG MCHC 34.2 (30-36) % RDW 12.6 (11.6-14.8) % Plt Count 268 (150-400) X10^3/uL Neut % (Auto) 63.8 (50-75) % Lymph % (Auto) 22.2 L (25-40) % [place] % (Auto) 8.8 (3-14) % Eos % (Auto) 4.9 H (2-4) % Baso % (Auto) 0.3 (0-2) % Neut # (Auto) 5400 (6637-0487) /uL Lymph # (Auto) 1900 (1397-2309) /uL [place] # (Auto) 700 (0-900) /uL Eos # (Auto) 400 (0-450) /uL Baso # (Auto) 0 (0-100) /uL PT 11.7 (10.1-12.7) SECONDS INR 1.1 (0.9-1.3) APTT 37 H (26.4-36.2) SECONDS Sodium 135 L (137-145) mmol/L Potassium 4.1 (3.4-5.1) mmol/L Chloride 100 (98-107) mmol/L Carbon Dioxide 25 (22-32) mmol/L BUN 18 H (7-17) mg/dL Creatinine 0.91 (0.52-1.04) mg/dL Estimated GFR > 60 (>60) mL/min BUN/Creatinine Ratio 19.8 (6-22) Glucose 162 H (80-110) mg/dL Calcium 8.9 (8.4-10.2) mg/dL Total Bilirubin 0.4 (0.2-1.3) mg/dL AST 23 (14-36) IU/L ALT 16 (<35) IU/L Alkaline Phosphatase 103 (38-126) U/L NT-Pro-B Natriuret Pep (<450) pg/mL Total Protein 8.0 (6.3-8.2) g/dL Albumin 4.3 (3.5-5.0) g/dL Globulin 3.7 (1.7-4.1) g/dL Albumin/Globulin Ratio 1.2 (1.0-2.8) Lipase 158 (23-300) U/L Urine Color Urine Appearance Urine pH (4.5-8.0) Ur Specific [place] (1.000-1.035) Urine Protein (Negative) Urine Glucose (UA) (Negative) g/dL Urine Ketones (NEGATIVE) Urine Occult Blood (Negative) Urine Nitrate (Negative) Urine Bilirubin (NEGATIVE) Urine Urobilinogen (0.2) E.U./dL Ur Leukocyte Esterase (NEGATIVE) Urine RBC (0-5/HPF) Urine WBC (0-5/HPF) Ur Squamous Epith Cells (0-5/HPF) Urine Bacteria (None) Ur Culture Indicated? SARS-CoV-2 (PCR) (Negative) Imaging Data Abdominal x-ray: Radiologist's Impression: Katherin Parker??86??F??1935 ? Allergy/Adv: ciprofloxacin, sulfamethoxazole, trimethoprim, [cherries] (More??) Close Chest/Abdomen X-ray (Signed) Sae Rutledge - 04/08/22 Abdomen/Pelvis CT (Signed) Zay Esparza - 01/15/22 Chest X-Ray (Signed) Barney Tse - 09/13/21 Mammogram Screening (Signed) Dhiraj Duran - 02/13/[address] (Signed) Call,Lalito - 11/03/20 Chest X-Ray (Signed) Call,Lalito - 11/03/[address] (Signed) Call,Lalito - 11/03/20 Bone Densitometry (Signed) Michael Hathaway - 04/20/20 DEXA Result 04/20/20 Brain MRI (Signed) Brandyn Alexander - 08/26/19 Brain MRI (Signed) Brandyn Alexander - 01/15/19 Shoulder MRI (Signed) Barney Tse - 09/06/18 Shoulder X-Ray (Signed) Mil Mandel - 08/29/18 Launch?[address] [address] XRay Report Signed Patient: Katherin Parker MR#: [id number] : 1935 Acct:[id number] Age/Sex: 86 / F Date of Service: 04/08/22 Loc: ED Accession Number: [id number] ?? Procedure: XR acute abdomen series Ordering Provider: Aly Conn D.O. PROCEDURE:? XR ACUTE ABDOMEN SERIES ? INDICATIONS:? decreased BM, left sided abdominal pain ? TECHNIQUE:? One view chest and two views of the abdomen were acquired.? ? COMPARISON:? [facility], CR, XR CHEST 1V, 09/13/2021, 10:45.? [facility], CT, CT KIDNEY URETER BLADDER (KUB), 01/15/2022, 13:37. ? FINDINGS:? ? Surgical changes and devices:? None.? ? Chest:? There are bilateral reticular interstitial opacities redemonstrated consistent with chronic interstitial lung disease.? No definite acute consolidation.? Heart size is normal.? No pleural effusions.? No pneumoperitoneum.? ? Abdomen:? Bowel gas pattern appears within normal limits.? Moderate stool distention throughout the colon may reflect constipation.? No suspicious calcifications.? ? Bones:? No suspicious bony lesions.? ? IMPRESSION:? ? 1. Moderate stool distention in the colon may reflect constipation.? No definite evidence of bowel obstruction. ? 2. Bilateral reticular interstitial opacities redemonstrated consistent with chronic interstitial lung disease. ? ? Dictated by: Sae Rutledge M.D. on 04/09/2022 at 0:33 ? ? Approved by: Sae Rutledge M.D. on 04/09/2022 at 0:35 ? MDM Narrative Medical decision making narrative: Multiple etiologies for patient's symptoms considered include, but not limited to: [Bowel obstruction versus kidney stone versus diverticulitis versus other Patient's symptoms improved over duration of stay with above-stated therapies. History, physical exam, labs, imaging, and response to therapies have been reassuring. Findings and discharge diagnosis discussed with patient/family followed by verbalization of understanding Return precautions discussed with patient/family whom verbalize understanding. Pain has been well controlled and patient is tolerating oral hydration. Discharge Plan Departure Patient Disposition: Home Clinical Impression: Abdominal pain, Constipation Instructions: DI for Constipation Activity Restrictions/Additional Instructions: *You have been diagnosed with [ abdominal pain due to constipation ] *What to do: *Take over the counter medications as directed: 1. Metamucil - bulk forming laxative adds fiber 2. Colace - softens your stool 3. Dulcolax Suppository - stimulates your bowels from the bottom *Follow up with your primary care provider in 2-3 days, call for appointment *Return to ER if you should have any new, worsening or concerning symptoms *Drink plenty of water and eat foods high in fiber *Try to be as active as possible, consider walking your dog daily Prescriptions: No Action (DME) In step wheeled walker with seat Qty: 1 0RF Dose Instruction: As directed Rx Instructions: Use wheeled walker with ambulation. estradiol 0.01 % (0.1 mg/gram) cream See Rx Instructions .ROUTE .COMPLEX Qty: 42.5 5RF Dose Instruction: INSERT 1 GRAM VAGINALLY AT BEDTIME FOR 12 DAYS, THEN 2 TIMES PER WEEK AT BEDTIME DIRECTED. Rx Instructions: INSERT 1 GRAM VAGINALLY AT BEDTIME 2 TIMES PER WEEK AT BEDTIME DIRECTED. cholecalciferol (vitamin D3) 2,000 unit capsule 2,000 unit PO DAILY melatonin 5 mg capsule PO .HS cephalexin 250 mg capsule 250 mg PO BEDTIME Qty: 90 0RF ascorbate calcium (vitamin C) 500 mg tablet 500 mg PO DAILY d-mannose 500 mg capsule PO cranberry 500 mg capsule 500 mg PO BID Rx Instructions: administer with meals methenamine hippurate [Hiprex] 1 gram tablet 0.5 g PO BID Qty: 90 3RF Rx Instructions: Take 1/2 tablet Hiprex with 500 mg vitamin-C twice daily as directed. Referrals: Zoe Parker ARNP [Primary Care Provider] -
--- NOTE | 2022-04-08 23:40 | DI.RAD.S_ITS ---
PROCEDURE: XR ACUTE ABDOMEN SERIES INDICATIONS: decreased BM, left sided abdominal pain TECHNIQUE: One view chest and two views of the abdomen were acquired. COMPARISON: [facility], CR, XR CHEST 1V, 09/13/2021, 10:45. [facility], CT, CT KIDNEY URETER BLADDER (KUB), 01/15/2022, 13:37. FINDINGS: Surgical changes and devices: None. Chest: There are bilateral reticular interstitial opacities redemonstrated consistent with chronic interstitial lung disease. No definite acute consolidation. Heart size is normal. No pleural effusions. No pneumoperitoneum. Abdomen: Bowel gas pattern appears within normal limits. Moderate stool distention throughout the colon may reflect constipation. No suspicious calcifications. Bones: No suspicious bony lesions. IMPRESSION: 1. Moderate stool distention in the colon may reflect constipation. No definite evidence of bowel obstruction. 2. Bilateral reticular interstitial opacities redemonstrated consistent with chronic interstitial lung disease. Dictated by: Sae Rutledge M.D. on 04/09/2022 at 0:33 Approved by: Sae Rutledge M.D. on 04/09/2022 at 0:35
[2022-04-09 00:04] LABS: NT-proBNP (BNP-Adult 18+) 437 pg/mL (<450)
[2022-04-09 01:26] VITALS: BP 168/72; PULSE 80; O2SAT 94
[2022-04-09] MEDS: BISACODYL 10 MG SUPP PR (01:26)
== END 2022-04-09 01:42 | disposition home or self-care (01) ==
PROVIDERS: Emergency Provider Emergency Medicine; PCP Nurse Practitioner
DX: R10.9 Unspecified abdominal pain (principal); K59.00 Constipation, unspecified; Z20.822 Contact with and (suspected) exposure to COVID-19
CPT/HCPCS: 74022; 80053; 81001; 83690; 83880; 85025; 85610; 85730; 87635; 93005; 93010; 99283; 99284; C9803

== ENCOUNTER 2022-04-24 23:16 | Emergency (ER) | payer OTHER, SELFPAY ==
--- NOTE | 2022-04-24 23:17 | DI.CT.S_ITS ---
PROCEDURE: CT HEAD/BRAIN WO CON INDICATIONS: fall, head injury TECHNIQUE: Noncontrast 4.5 mm thick angled axial sections acquired from the foramen magnum to the vertex, with coronal and sagittal reformats. For radiation dose reduction, the following was used: automated exposure control, adjustment of mA and/or kV according to patient size. COMPARISON: [facility], CT, CT HEAD/BRAIN WO CON, 11/03/2020, 17:34. FINDINGS: Image quality: Excellent. CSF spaces: Basal cisterns are patent. No extra-axial fluid collections. There is mild to moderate cerebral volume loss, with resultant ventricular and sulcal prominence. There is also cerebellar atrophy redemonstrated. Brain: No intracranial hemorrhage, mass, or mass effect. There are subcortical, periventricular and deep white matter hypodensities consistent with [id number] chronic small vessel ischemic changes. The shoemaker-white matter junction appears preserved. There is intracranial internal carotid artery atherosclerosis. Skull and face: Calvarium and visualized facial bones appear intact, without suspicious lesions. Sinuses: Visualized sinuses and mastoids are clear. IMPRESSION: 1. No acute intracranial abnormality. 2. Mild to moderate cerebral volume loss and chronic white matter small vessel ischemic changes. Dictated by: Sae Rutledge M.D. on 04/25/2022 at 0:15 Approved by: Sae Rutledge M.D. on 04/25/2022 at 0:17
[2022-04-24 23:18] VITALS: BP 217/144; PULSE 87; RESP 20; TEMP 36.6; O2SAT 97; BMI 31.3
--- NOTE | 2022-04-24 23:51 | ED.HEATRA ---
HPI - Head Injury General Chief complaint: Head Injury Stated complaint: GLF, head lac Time Seen by Provider: 04/24/22 23:17 Source: patient and EMS Mode of arrival: Ambulatory History of Present Illness HPI Narrative: 86-year-old female nonsmoker with history of hypertension, difficulty swelling liquids, chronic venous insufficiency, edema bilateral lower extremities, dysphagia presents by EMS for evaluation of a ground level fall resulting in head injury and scalp laceration. She states that she was ambulating and historically has trouble with balance and lost her step and fell, striking her head. She denies any loss of consciousness and has full recall. She denies the use of blood thinners, has no blurred vision or trouble with speech, she has no vomiting, neck pain, back pain or numbness, tingling or weakness. She denies any prodromal symptoms such as dizziness, weakness or lightheadedness. She denies any symptoms on arrival. Related Data Home Medications Medication Instructions Recorded Confirmed cholecalciferol (vitamin D3) 50 2,000 unit PO DAILY 03/28/18 03/01/22 mcg (2,000 unit) capsule ascorbate calcium (vitamin C) 500 500 mg PO DAILY 09/20/21 03/01/22 mg tablet cranberry 500 mg capsule 500 mg PO BID 09/20/21 03/01/22 d-mannose 500 mg capsule mg PO 09/20/21 03/01/22 melatonin 5 mg capsule mg PO .HS 01/17/22 03/01/22 Previous Rx's Medication Instructions Recorded In step wheeled walker with seat #1 ea 05/12/19 methenamine hippurate 1 gram 0.5 g PO BID #90 tabs 09/20/21 tablet (Hiprex) cephalexin 250 mg capsule 250 mg PO BEDTIME #90 caps 01/04/22 estradiol 0.01% (0.1 mg/gram) See Rx Instructions .Route 02/05/22 vaginal cream .COMPLEX #42.5 grams Allergies Allergy/AdvReac Type Severity Reaction Status Date / Time ciprofloxacin [From Cipro] Allergy Severe Weakness Verified 03/01/22 13:57 sulfamethoxazole AdvReac Intermediate Weakness Verified 03/01/22 13:57 [From Septra] trimethoprim [From Junra] AdvReac Intermediate Weakness Verified 03/01/22 13:57 cherries Allergy Mild itching/swe Uncoded 03/01/22 13:57 lling Review of Systems Review of Systems Narrative: GENERAL: Denies chills, fatigue, malaise, fever, sweats. HEENT: Denies sinus pain, ear pain, sore throat, difficulty swallowing, dizziness. RESPIRATORY: Denies dyspnea, cough, wheezing, hemoptysis, sputum. CARDIOVASCULAR: Denies chest pain, palpitations, orthopnea, edema, GASTROINTESTINAL: Denies nausea, vomiting, abdominal pain, diarrhea, constipation, melena. : Denies dysuria, frequency, incontinence, hematuria, urinary retention. MUSCULOSKELETAL: denies weakness, joint pain, or bony pain SKIN: See HPI NEUROLOGIC: Denies weakness, headache, numbness, change in speech, confusion, seizures, incoordination. PSYCHIATRIC: No concerning psychosocial issues. 12 point review of systems is negative except for those stated above Patient History Medical History Anemia (1979) Cardiac arrhythmia (05/08/16) Cataract (2014) Chicken pox Colon polyps (2013) Difficulty swallowing liquids Edema of both lower legs Facial cellulitis Family history of colon cancer Fatigue Fibroids (1974) Fractures (1966) Frequent UTI (2011) Herpes zoster acute retinal necrosis History of heavy periods (1972) Hoarseness or changing voice Hx of colonic polyp Hypertension Measles Mixed incontinence Mononucleosis (1958) Mumps Postmenopausal atrophic vaginitis Premature ventricular contraction Rectal leakage Recurrent UTI (urinary tract infection) Rubella Shingles outbreak Skin rash Ulcerative colitis Urinary incontinence (2009) Urinary tract infection Surgical History Anesthesia H/O breast biopsy H/O tubal ligation H/O: hysterectomy History of appendectomy History of bilateral tubal ligation (1962) History of cataract removal with insertion of prosthetic lens (2014) History of knee replacement Status post appendectomy (1962) Status post breast biopsy Status post colonoscopy (08/26/14) Status post right oophorectomy (1979) Status post vaginal hysterectomy (1979) Family History Brother Renal cancer Father Heart disease Hypertension Grandfather Stroke Mother Colon cancer Grandmother Cancer Stroke Sister Parkinson's disease Grandmother Pneumonia Family/Other Leukemia Son Blood disease Social History marital status: details: Only 5 living children number of children: 6 Smoking Status: Never smoker alcohol intake: never caffeine: No Smoking Status: Never smoker alcohol intake frequency: holidays/special occasions only Substance Use Type: does not use Exam Narrative Exam Narrative: GENERAL: [86] year old patient appears stated age. Well-developed patient, in mild distress. GCS 15 HEAD: 2.5cm laceration on left occiput, no active bleeding. No evidence of depressed skull fracture EYES: Pupils equal round and reactive. No hyphema Extraocular motions intact. No scleral icterus. No injection or drainage. ENT: Nose without bleeding, purulent drainage. Throat without erythema, tonsillar hypertrophy or exudate. Airway patent. NECK: Trachea midline. Non tender CARDIOVASCULAR: Regular rate and rhythm without murmurs, gallops, or rubs. RESPIRATORY: Clear to auscultation. Breath sounds equal bilaterally. No wheezes, rales, or rhonchi. GASTROINTESTINAL: Abdomen soft, non-tender, nondistended. EXTREMITIES: No edema or joint tenderness. BACK: Nontender without deformity or crepitance. No flank tenderness. NEURO: AOx3. SKIN: No rash or erythema of visible areas Initial Vital Signs Initial Vital Signs: Vital Signs Temperature 97.8 F 04/24/22 23:18 Pulse Rate 87 04/24/22 23:18 Respiratory Rate 20 04/24/22 23:18 Blood Pressure 217/144 H 04/24/22 23:18 Pulse Oximetry 97 04/24/22 23:18 Oxygen Delivery Method 04/24/22 23:18 Procedures Laceration Repair Laceration 1: Site: scalp Side (If applicable): left Size (cm): 2.5 Description: linear Depth: simple, single layer Local Anesthetic: lidocaine 1% and with epi Amount of anesthesia used (mL): 6 Pre-repair: wound explored, irrigated extensively, deep structures intact and cleansed with chlorhexadine Skin layer closed with: ariana Course Orders Ordered: ED Orders 04/24/22 23:17 CT head/brain wo con Stat Discontinued Medications Lidocaine/Epinephrine (Lidocaine 1% W/Epi) 1 ml SUBCUT NOW ONE Stop: 04/24/22 23:18 Vital Signs Vital signs: Vital Signs - 8 hr 07/19/22 23:18 Temperature 97.8 F Pulse Rate 87 Respiratory Rate 20 Blood Pressure 217/144 H Pulse Oximetry 97 Oxygen Delivery Method Room Air MDM - Head Injury Imaging Data CT scan - head: Radiologist's Impression: ? Chart Viewer Diagnostics Subcategory All Activity ??:?? All Time ??:?? All Subcategories Filter Laboratory Imaging Microbiology Pathology Blood Bank Tests Cardiovascular Other Specialty DATE TYPE STATUS REF RANGE/AUTHOR Hx 04/24/22 23:[address] Signed Sae Rutledge 04/08/22 23:40 Chest/Abdomen X-ray Signed Sae Rutledge 01/15/22 13:12 Abdomen/Pelvis CT Signed Zay Esparza 09/13/21 11:07 EKG Rpt. ? 09/13/21 10:39 Chest X-Ray Signed Barney Tse 02/13/21 00:00 Mammogram Screening Signed Dhiraj Duran 11/03/20 17:[address] Signed Call,Lalito 11/03/20 17:11 Chest X-Ray Signed Call,Lalito 11/03/20 17:[address] Signed Call,Lalito 11/03/20 09:43 EKG Rpt. ? 04/20/20 15:08 Bone Densitometry Signed Michael Hathaway 04/20/20 01:00 DEXA Result ? 08/26/19 09:03 Brain MRI Signed Brandyn Alexander 01/15/19 08:11 Brain MRI Signed Brandyn Alexander 09/06/18 12:40 Shoulder MRI Signed Barney Tse 08/29/18 14:51 Shoulder X-Ray Signed Mil Mandel 07/28/18 13:33 EKG Rpt. Katherin Li A ED 86, F?1935 MRN#? [id number] REG ER,?Main ED??R07?? 160.02cm 80.286kg BMI: 31.4kg/m? Head Injury Acc#? [id number] Resus Status Not Ordered No Hx Avail Special Indicators No Data to Display Home Meds Not Confirmed Prescription Monitoring Program MEDICATIONS (INSTRUCTIONS) LAST TAKEN Active ??ascorbate calcium (vitamin C) 500 mg tablet ??500 mgPODAILY ??cephalexin 250 mg capsule ??250 mgPOBEDTIME#90 caps ??cholecalciferol (vitamin D3) 50 mcg (2,000 unit) capsule ??2,000 unitPODAILY ??cranberry 500 mg capsule ??500 mgPOBID ??d-mannose 500 mg capsule ??mgPO ??estradiol 0.01% (0.1 mg/gram) vaginal cream ??See Rx Instructions ??melatonin 5 mg capsule ??mgPO.HS ??methenamine hippurate 1 gram tablet ??0.5 gPOBID#90 tabs DME/Medical Supplies ??In step wheeled walker with seat ?Not Included in Conflicts Allergies ciprofloxacin (From Cipro) Weakness sulfamethoxazole (From Septra) Weakness trimethoprim (From ) Weakness [cherries] itching/swelling Problems ? ONSET Hypertension Hoarseness or changing voice Difficulty swallowing liquids Foul smelling urine Olecranon bursitis Chronic venous insufficiency Fatigue Edema of both lower legs Mixed incontinence Recurrent UTI (urinary tract infection) Postmenopausal atrophic vaginitis Dysphagia Frequent UTI Urinary tract infection Skin rash Osteopenia Memory impairment Slurred speech Eczema Generalized weakness Elevated blood pressure reading Vital Signs 04/24/22 23:18 BP 217/144?H Pulse 87? Resp 20? Temp 97.8 F? O2 Sat 97? Delivery Room Air? Diagnostics Reports Katherin Parker A??86??F??1935 ? Allergy/Adv: ciprofloxacin, sulfamethoxazole, trimethoprim, [cherries] (More??) Close Head CT (Signed) Sae Rutledge - 04/24/22 Chest/Abdomen X-ray (Signed) Sae Rutledge - 04/08/22 Abdomen/Pelvis CT (Signed) Zay Esparza - 01/15/22 EKG Rpt. 09/13/21 Chest X-Ray (Signed) Barney Tse - 09/13/21 Mammogram Screening (Signed) Dhiraj Duran - 02/13/[address] (Signed) Call,Lalito - 11/03/20 Chest X-Ray (Signed) Call,Lalito - 11/03/[address] (Signed) Call, - 11/03/20 EKG Rpt. 11/03/20 Bone Densitometry (Signed) Michael Hathaway - 04/20/20 DEXA Result 04/20/20 Brain MRI (Signed) Brandyn Alexander - 08/26/19 Brain MRI (Signed) Brandyn Alexander - 01/15/19 Shoulder MRI (Signed) Barney Tse - 09/06/18 Shoulder X-Ray (Signed) Mil Mandel - 08/29/18 EKG Rpt. 07/28/18 Launch?Image [address] [address] [address] Scan Report Signed Patient: Katherin Parker MR#: [id number] : 1935 Acct:[id number] Age/Sex: 86 / F Date of Service: 04/24/22 Loc: ED Accession Number: [id number] ?? Procedure: CT head/brain wo con Ordering Provider: Aly Conn D.O. PROCEDURE:? CT HEAD/BRAIN WO CON ? INDICATIONS:? fall, head injury ? TECHNIQUE:? Noncontrast 4.5 mm thick angled axial sections acquired from the foramen magnum to the vertex, with coronal and sagittal reformats.? For radiation dose reduction, the following was used:? automated exposure control, adjustment of mA and/or kV according to patient size.? ? COMPARISON:? [facility], CT, CT HEAD/BRAIN WO CON, 11/03/2020, 17:34. ? FINDINGS:? Image quality:? Excellent.? ? CSF spaces:? Basal cisterns are patent.? No extra-axial fluid collections.? There is mild to moderate cerebral volume loss, with resultant ventricular and sulcal prominence.? There is also cerebellar atrophy redemonstrated.? ? Brain:? No intracranial hemorrhage, mass, or mass effect.? There are subcortical, periventricular and deep white matter hypodensities consistent with [id number] chronic small vessel ischemic changes.? The shoemaker-white matter junction appears preserved. ?There is intracranial internal carotid artery atherosclerosis.? ? Skull and face:? Calvarium and visualized facial bones appear intact, without suspicious lesions.? ? Sinuses:? Visualized sinuses and mastoids are clear.? ? IMPRESSION:? ? 1. No acute intracranial abnormality. ? 2. Mild to moderate cerebral volume loss and chronic white matter small vessel ischemic changes. ? ? Dictated by: Sae Rutledge M.D. on 04/25/2022 at 0:15 ? ? Approved by: Sae Rutledge M.D. on 04/25/2022 at 0:17 ? Discharge Plan Departure Patient Disposition: Home Clinical Impression: Laceration of occipital scalp Instructions: DI for Laceration Repair -- [place] Activity Restrictions/Additional Instructions: *You have been diagnosed with [ground level fall with scalp laceration. This has been repaired with ariana which will need to be taken out by your doctor in 5-[address] scan was unremarkable and showed no evidence of fracture or bleeding] *What to do: *Please continue to take your regular medications as directed. [ ] New medication prescriptions sent to your pharmacy: [ ] [ ] New medication written as a paper prescription [x ] No new medications given Please keep the wound clean and dry to the best of your ability. Please monitor for signs of infection such as redness to the skin or increasing pain. Have the ariana removed by your doctor in about 5-7 days. If you are unable to get into your doctor, we would be happy to remove the ariana in that same timeframe. *Return to Emergency Department if you should have any new, worsening or concerning symptoms, such as [fever greater than 101 F, shaking chills, worsening pain, persistent vomiting or other bothersome symptoms] Prescriptions: No Action (DME) In step wheeled walker with seat Qty: 1 0RF Dose Instruction: As directed Rx Instructions: Use wheeled walker with ambulation. estradiol 0.01 % (0.1 mg/gram) cream See Rx Instructions .ROUTE .COMPLEX Qty: 42.5 5RF Dose Instruction: INSERT 1 GRAM VAGINALLY AT BEDTIME FOR 12 DAYS, THEN 2 TIMES PER WEEK AT BEDTIME DIRECTED. Rx Instructions: INSERT 1 GRAM VAGINALLY AT BEDTIME 2 TIMES PER WEEK AT BEDTIME DIRECTED. cholecalciferol (vitamin D3) 2,000 unit capsule 2,000 unit PO DAILY melatonin 5 mg capsule PO .HS cephalexin 250 mg capsule 250 mg PO BEDTIME Qty: 90 0RF ascorbate calcium (vitamin C) 500 mg tablet 500 mg PO DAILY d-mannose 500 mg capsule PO cranberry 500 mg capsule 500 mg PO BID Rx Instructions: administer with meals methenamine hippurate [Hiprex] 1 gram tablet 0.5 g PO BID Qty: 90 3RF Rx Instructions: Take 1/2 tablet Hiprex with 500 mg vitamin-C twice daily as directed. Referrals: Zoe Parker ARNP [Primary Care Provider] -
[2022-04-25] VITALS: BP 177/95
[2022-04-25 01:33] VITALS: BP 201/95; PULSE 71; RESP 20; O2SAT 96
== END 2022-04-25 01:34 | disposition home or self-care (01) ==
PROVIDERS: Emergency Provider Emergency Medicine; PCP Nurse Practitioner
DX: S01.01XA Laceration without foreign body of scalp, initial encounter (principal); W18.30XA Fall on same level, unspecified, initial encounter
CPT/HCPCS: 12001; 70450; 99281; 99283

== ENCOUNTER → 2022-05-16 09:26 | Outpatient (CLI) | payer OTHER, SELFPAY | PROVIDERS: PCP Nurse Practitioner; Visit Provider Nurse Practitioner Family | DX: N39.0 Urinary tract infection, site not specified (principal) | CPT/HCPCS: 87077; 87086; 87186 ==

== ENCOUNTER 2022-06-01 05:28 | Emergency (ER) | payer OTHER, SELFPAY ==
[2022-06-01 05:32] VITALS: BP 190/84; PULSE 68; RESP 18; O2SAT 95; BMI 32.9
--- NOTE | 2022-06-01 05:39 | DI.CT.S_ITS ---
PROCEDURE: CT CERVICAL SPINE WO CON INDICATIONS: Fall/pain TECHNIQUE: Noncontrast 3 mm thick sections acquired from the skull base to the T4 level. Sagittal and coronal reformats were then constructed. For radiation dose reduction, the following was used: automated exposure control, adjustment of mA and/or kV according to patient size. COMPARISON: [facility], CT, CT CERVICAL SPINE WO CON, 11/03/2020, 17:34. FINDINGS: Image quality: Excellent. Bones: No fractures or dislocations. Visualized superior ribs are intact. Multilevel degenerative changes with degenerative disc disease at C5-6 and C6-7. Grade 1 anterolisthesis due to facet arthrosis at C6-7. Degenerative changes of the right temporomandibular joint. Soft tissues: Prevertebral soft tissues are normal in thickness. No paravertebral hematomas. No apical pneumothoraces. The lung apices demonstrate fibrotic changes in the lungs. IMPRESSION: No acute traumatic abnormality of the cervical spine. Dictated by: Zay Esparza M.D. on 06/01/2022 at 8:05 Approved by: Zay Esparza M.D. on 06/01/2022 at 8:08
--- NOTE | 2022-06-01 05:39 | DI.CT.S_ITS ---
PROCEDURE: CT FACIAL BONES WO CON INDICATIONS: Fall/pain TECHNIQUE: Noncontrast 2.5 mm thick axial images acquired from the mandible through the frontal sinuses, with coronal and sagittal reformatting. For radiation dose reduction, the following was used: automated exposure control, adjustment of mA and/or kV according to patient size. COMPARISON: None. FINDINGS: Image quality: Excellent. Bones and teeth: Orbital carter are intact. Sinus carter show no fracture or deformity. Nasal bones and septum are intact. Visualized portions of the mandible demonstrate no fractures or subluxation. Zygomatic arches are intact. Pterygoid plates are intact. Visualized portions of the skull base and auditory canals are intact. Sinuses: Paranasal sinuses are aerated, without fluid levels, mucosal thickening, or mucoceles. Mastoid air cells are aerated. Soft tissues: No edema, masses, or fluid collections. No enlarged lymph nodes. No soft tissue lacerations or debris. Vascular: Visualized vascular structures appear normal in the absence of contrast. Bony vascular foramina and canals are intact. IMPRESSION: No acute traumatic abnormality of the facial bones. Dictated by: Zay Esparza M.D. on 06/01/2022 at 8:01 Approved by: Zay Esparza M.D. on 06/01/2022 at 8:05
--- NOTE | 2022-06-01 05:39 | DI.CT.S_ITS ---
PROCEDURE: CT HEAD/BRAIN WO CON INDICATIONS: Fall/pain TECHNIQUE: Noncontrast 4.5 mm thick angled axial sections acquired from the foramen magnum to the vertex, with coronal and sagittal reformats. For radiation dose reduction, the following was used: automated exposure control, adjustment of mA and/or kV according to patient size. COMPARISON: [facility], CT, CT HEAD/BRAIN WO CON, 04/24/2022, 23:22. FINDINGS: Image quality: Excellent. CSF spaces: Basal cisterns are patent. No extra-axial fluid collections. The ventricles are symmetric in size and shape. Brain: No intracranial bleeds or masses. There is cerebral volume loss for age, with resultant ventricular and sulcal prominence. There are periventricular and deep white matter chronic small vessel ischemic changes. There is intracranial internal carotid artery atherosclerosis. Skull and face: Calvarium and visualized facial bones appear intact, without suspicious lesions. Sinuses: Visualized sinuses and mastoids are clear. IMPRESSION: 1. No acute intracranial abnormality. 2. Cerebral volume loss and small vessel ischemic changes. Dictated by: Zay Esparza M.D. on 06/01/2022 at 8:00 Approved by: Zay Esparza M.D. on 06/01/2022 at 8:05
--- NOTE | 2022-06-01 05:40 | ED_ITS ---
HPI - Fall <Fabrice Alatorre MD - Last Filed: 06/08/22 08:26> General Chief Complaint: Fall Stated Complaint: fall Time Seen by Provider: 06/01/22 05:39 Source: patient Mode of arrival: EMS History of Present Illness HPI Narrative: Patient brought in by ambulance from home. Patient had ground level fall while trying to get on the toilet this morning in the bathroom. Patient is not on any blood thinners. Patient states she was trying to sit down to the toilet however misjudged the distance and actually fell forward into the wall. Has swelling to the right forehead. No loss of consciousness. No vision changes. No neck pain. Denies denies any other pain below the head including neck shoulders hips knees ankles feet arms shoulders elbows wrists hands chest abdomen and back. Patient is awake alert oriented x4. Patient states in the last 2 weeks she did have another fall in the same bathroom walking into it and the lights were not on and she tripped on a box and struck her right periorbital area. She did not seen anybody for this.. She has healing bruise right supraorbital area and right cheek. Denies any recent illness. Again denies denies any pre event chest pain headache dizziness palpitations abdominal pain numbness tingling or weakness or any confusion before these events. Patient arrives with hard collar placed by EMS prior to arrival Related Data Home Medications Medication Instructions Recorded Confirmed cholecalciferol (vitamin D3) 50 2,000 unit PO DAILY 03/28/18 03/01/22 mcg (2,000 unit) capsule ascorbate calcium (vitamin C) 500 500 mg PO DAILY 09/20/21 03/01/22 mg tablet cranberry 500 mg capsule 500 mg PO BID 09/20/21 03/01/22 d-mannose 500 mg capsule mg PO 09/20/21 03/01/22 melatonin 5 mg capsule mg PO .HS 01/17/22 03/01/22 Previous Rx's Medication Instructions Recorded In step wheeled walker with seat #1 ea 05/12/19 methenamine hippurate 1 gram 0.5 g PO BID #90 tabs 09/20/21 tablet (Hiprex) cephalexin 250 mg capsule 250 mg PO BEDTIME #90 caps 01/04/22 estradiol 0.01% (0.1 mg/gram) See Rx Instructions .Route 02/05/22 vaginal cream .COMPLEX #42.5 grams walker with out wheels #1 ea 06/04/22 Allergies Allergy/AdvReac Type Severity Reaction Status Date / Time ciprofloxacin [From Cipro] Allergy Severe Weakness Verified 05/16/22 09:42 sulfamethoxazole AdvReac Intermediate Weakness Verified 05/16/22 09:42 [From Septra] trimethoprim [From Septra] AdvReac Intermediate Weakness Verified 05/16/22 09:42 cherries Allergy Mild itching/swe Uncoded 05/16/22 09:42 lling Review of Systems <Fabrice Alatorre MD - Last Filed: 06/08/22 08:26> Review of Systems Narrative: GENERAL: Denies chills, fatigue, malaise, fever, sweats. HEENT: Denies sinus pain, ear pain, sore throat RESPIRATORY: Denies dyspnea, cough CARDIOVASCULAR: Denies chest pain, palpitations GASTROINTESTINAL: Denies nausea, vomiting, abdominal pain : Denies dysuria, frequency, hematuria MUSCULOSKELETAL: Positive for muscle or bony pain SKIN: Denies rash, skin lesions NEUROLOGIC: Denies weakness, numbness ROS Unobtainable: All systems reviewed & are unremarkable except as noted in HPI and below Patient History <Fabrice Alatorre MD - Last Filed: 06/08/22 08:26> Medical History Anemia (1979) Cardiac arrhythmia (05/08/16) Cataract (2014) Chicken pox Colon polyps (2013) Difficulty swallowing liquids Edema of both lower legs Facial cellulitis Family history of colon cancer Fatigue Fibroids (1974) Fractures (1966) Frequent UTI (2011) Herpes zoster acute retinal necrosis History of heavy periods (1972) Hoarseness or changing voice Hx of colonic polyp Hypertension Measles Mixed incontinence Mononucleosis (1958) Mumps Postmenopausal atrophic vaginitis Premature ventricular contraction Rectal leakage Recurrent UTI (urinary tract infection) Rubella Shingles outbreak Skin rash Ulcerative colitis Urinary incontinence (2009) Urinary tract infection Surgical History Anesthesia H/O breast biopsy H/O tubal ligation H/O: hysterectomy History of appendectomy History of bilateral tubal ligation (1962) History of cataract removal with insertion of prosthetic lens (2014) History of knee replacement Status post appendectomy (1962) Status post breast biopsy Status post colonoscopy (08/26/14) Status post right oophorectomy (1979) Status post vaginal hysterectomy (1979) Family History Brother Renal cancer Father Heart disease Hypertension Grandfather Stroke Mother Colon cancer Grandmother Cancer Stroke Sister Parkinson's disease Grandmother Pneumonia Family/Other Leukemia Son Blood disease Social History marital status: details: Only 5 living children number of children: 6 Smoking Status: Never smoker alcohol intake: never caffeine: No Smoking Status: Never smoker alcohol intake frequency: holidays/special occasions only Substance Use Type: does not use Exam <Fabrice Alatorre MD - Last Filed: 06/08/22 08:26> Narrative Exam Narrative: GENERAL: in no distress, not toxic not dyspneic HEAD: Normocephalic. Nontender scalp, there is tenderness and edema to the right forehead. Skin intact EYES: Pupils equal round No scleral icterus. Healing right periorbital hematoma of the to yellowish color. EOMI ENT: Mucous membranes moist. NECK: Trachea midline. Patient has hard collar placed by EMS CARDIOVASCULAR: Regular rate and rhythm without murmurs RESPIRATORY: Clear to auscultation. Breath sounds equal bilaterally. No wheezes, rales, or rhonchi. GASTROINTESTINAL: Abdomen soft, non-tender EXTREMITIES: No gross deformities. Nontender bilateral shoulders elbows wrists hands pelvis hips knees and ankles BACK: No flank tenderness. NEURO: AOx4. SKIN: Warm and dry PSYCH: Not anxious, is cooperative Initial Vital Signs Initial Vital Signs: Vital Signs Pulse Rate 68 06/01/22 05:32 Respiratory Rate 18 06/01/22 05:32 Blood Pressure 190/84 H 06/01/22 05:32 Pulse Oximetry 95 06/01/22 05:32 Oxygen Delivery Method 06/01/22 05:32 <Ellie Begum DO - Last Filed: 06/01/22 10:49> Initial Vital Signs Initial Vital Signs: Vital Signs Pulse Rate 68 06/01/22 05:32 Respiratory Rate 18 06/01/22 05:32 Blood Pressure 190/84 H 06/01/22 05:32 Pulse Oximetry 95 06/01/22 05:32 Oxygen Delivery Method 06/01/22 05:32 Course <Fabrice Alatorre MD - Last Filed: 06/08/22 08:26> Course Course Narrative: No new issues during course of stay 7:00 a.m.. Sign out to Dr. Begum, radiographic images are still pending results. Pain is controlled. Patient is still in C-collar. Likely disposition for home Orders Ordered: ED Orders 06/01/22 05:39 CT cervical spine wo con Stat CT facial bones wo con Stat CT head/brain wo con Stat Reevaluation(s) Reevaluation #1: No new complaints. Resting comfortably and awaiting for images results. Time: 06:56 Vital Signs Vital signs: Vital Signs - 8 hr 06/01/22 05:32 Pulse Rate 68 Respiratory Rate 18 Blood Pressure 190/84 H Pulse Oximetry 95 Oxygen Delivery Method Room Air <Ellie Begum DO - Last Filed: 06/01/22 10:49> Orders Ordered: ED Orders 06/01/22 05:39 CT cervical spine wo con Stat CT facial bones wo con Stat CT head/brain wo con Stat Vital Signs Vital signs: Vital Signs - 8 hr 06/01/22 05:32 Pulse Rate 68 Respiratory Rate 18 Blood Pressure 190/84 H Pulse Oximetry 95 Oxygen Delivery Method Room Air MDM - Fall <Fabrice Alatorre MD - Last Filed: 06/08/22 08:26> Differential Diagnosis Differential diagnosis: Likely concussion without loss of consciousness and other (Forehead contusion facial contusion) <Ellie Begum DO - Last Filed: 06/01/22 10:49> Imaging Data CT scan - head: Radiologist's Impression: Katherin Parker??86??F??1935 ? Allergy/Adv: ciprofloxacin, sulfamethoxazole, trimethoprim, [cherries] (More??) Close Head CT (Signed) Zay Esparza - 06/01/[address] (Signed) Zay Esparza - 06/01/[address] (Signed) Zay Esparza - 06/01/[address] (Signed) Sae Rutledge - 04/24/22 Chest/Abdomen X-ray (Signed) Sae Rutledge - 04/08/22 Abdomen/Pelvis CT (Signed) ShemarZay ennis - 01/15/22 EKG Rpt. 09/13/21 Chest X-Ray (Signed) Barney Tse - 09/13/21 Mammogram Screening (Signed) Dhiraj Duran - 02/13/[address] (Signed) Call,Lalito - 11/03/20 Chest X-Ray (Signed) Call,Lalito - 11/03/[address] (Signed) Call, - 11/03/20 EKG Rpt. 11/03/20 Bone Densitometry (Signed) Michael Hathaway - 04/20/20 DEXA Result 04/20/20 Brain MRI (Signed) Brandyn Alexander - 08/26/19 Brain MRI (Signed) Brandyn Alexander - 01/15/19 Shoulder MRI (Signed) Barney Tse - 09/06/18 Shoulder X-Ray (Signed) Mil Mandel - 08/29/18 EKG Rpt. 07/28/18 Launch?[place] [address] CT Scan Report Signed Patient: Katherin Parker MR#: [id number] : 1935 Acct:[id number] Age/Sex: 86 / F Date of Service: 06/01/22 Loc: Accession Number: [id number] ?? Procedure: CT head/brain wo con Ordering Provider: Fabrice Alatorre MD PROCEDURE:? CT HEAD/BRAIN WO CON ? INDICATIONS:? Fall/pain ? TECHNIQUE:? Noncontrast 4.5 mm thick angled axial sections acquired from the foramen magnum to the vertex, with coronal and sagittal reformats.? For radiation dose reduction, the following was used:? automated exposure control, adjustment of mA and/or kV according to patient size.? ? COMPARISON:? [facility], CT, CT HEAD/BRAIN WO CON, 04/24/2022, 23:22. ? FINDINGS:? Image quality:? Excellent.? ? CSF spaces:? Basal cisterns are patent.? No extra-axial fluid collections.? The ventricles are symmetric in size and shape.? ? Brain:? No intracranial bleeds or masses.? There is cerebral volume loss for age, with resultant ventricular and sulcal prominence.? There are periventricular and deep white matter chronic small vessel ischemic changes.? There is intracranial internal carotid artery atherosclerosis.? ? Skull and face:? Calvarium and visualized facial bones appear intact, without suspicious lesions.? ? Sinuses:? Visualized sinuses and mastoids are clear.? ? IMPRESSION:? 1. No acute intracranial abnormality. 2. Cerebral volume loss and small vessel ischemic changes.? Dictated by: Zay Esparza M.D. on 06/01/2022 at 8:00 ? ? Approved by: Zay Esparza M.D. on 06/01/2022 at 8:05? CT - cervical spine: Radiologist's Impression: Close Head CT (Signed) Zay Esparza - 06/01/[address] (Signed) Zay Esparza - 06/01/[address] (Signed) Zay Esparza - 06/01/[address] (Signed) Sae Rutledge - 04/24/22 Chest/Abdomen X-ray (Signed) Sae Rutledge - 04/08/22 Abdomen/Pelvis CT (Signed) Zay Esparza - 01/15/22 EKG Rpt. 09/13/21 Chest X-Ray (Signed) Barney Tse - 09/13/21 Mammogram Screening (Signed) Dhiraj Duran - 02/13/[address] (Signed) Call,Lalito - 11/03/20 Chest X-Ray (Signed) Call,Lalito - 11/03/[address] (Signed) Call,Lalito - 11/03/20 EKG Rpt. 11/03/20 Bone Densitometry (Signed) Michael Hathaway - 04/20/20 DEXA Result 04/20/20 Brain MRI (Signed) Brandyn Alexander - 08/26/19 Brain MRI (Signed) Brandyn Alexander - 01/15/19 Shoulder MRI (Signed) Barney Tse - 09/06/18 Shoulder X-Ray (Signed) Mil Mandel - 08/29/18 EKG Rpt. 07/28/18 Launch?[address] [address] [address] Scan Report Signed Patient: Katherin Parker MR#: [id number] : 1935 Acct:[id number] Age/Sex: 86 / F Date of Service: 06/01/22 Loc: ED Accession Number: [id number] ?? Procedure: CT cervical spine wo con Ordering Provider: Fabrice Alatorre MD PROCEDURE:? CT CERVICAL SPINE WO CON ? INDICATIONS:? Fall/pain ? TECHNIQUE:? Noncontrast 3 mm thick sections acquired from the skull base to the T4 level.? Sagittal and coronal reformats were then constructed.? For radiation dose reduction, the following was used:? automated exposure control, adjustment of mA and/or kV according to patient size.? ? COMPARISON:? [facility], CT, CT CERVICAL SPINE WO CON, 11/03/2020, 17:34. ? FINDINGS:? Image quality:? Excellent.? ? Bones:? No fractures or dislocations.? Visualized superior ribs are intact.? Multilevel degenerative changes with degenerative disc disease at C5-6 and C6-7.? Grade 1 anterolisthesis due to facet arthrosis at C6-7.? Degenerative changes of the right temporomandibular joint. ? Soft tissues:? Prevertebral soft tissues are normal in thickness.? No paravertebral hematomas.? No apical pneumothoraces.? The lung apices demonstrate fibrotic changes in the lungs. ? ? IMPRESSION:? No acute traumatic abnormality of the cervical spine. ? Dictated by: Zay Esparza M.D. on 06/01/2022 at 8:05 ? ? Approved by: Zay Esparza M.D. on 06/01/2022 at 8:08?? CT facial: Radiologist's Impression: [place] [address] CT Scan Report Signed Patient: Katherin Parker MR#: [id number] : 1935 Acct:[id number] Age/Sex: 86 / F Date of Service: 06/01/22 Loc: ED Accession Number: [id number] ?? Procedure: CT facial bones wo con Ordering Provider: Fabrice Alatorre MD PROCEDURE:? CT FACIAL BONES WO CON ? INDICATIONS:? Fall/pain ? TECHNIQUE:? Noncontrast 2.5 mm thick axial images acquired from the mandible through the frontal sinuses, with coronal and sagittal reformatting.? For radiation dose reduction, the following was used:? automated exposure control, adjustment of mA and/or kV according to patient size.? ? COMPARISON:? None. ? FINDINGS:? Image quality:? Excellent.? ? Bones and teeth:? Orbital carter are intact.? Sinus carter show no fracture or deformity.? Nasal bones and septum are intact.? Visualized portions of the mandible demonstrate no fractures or subluxation.? Zygomatic arches are intact.? Pterygoid plates are intact.? Visualized portions of the skull base and auditory canals are intact.? ? Sinuses:? Paranasal sinuses are aerated, without fluid levels, mucosal thickening, or mucoceles.? Mastoid air cells are aerated.? ? Soft tissues:? No edema, masses, or fluid collections.? No enlarged lymph nodes.? No soft tissue lacerations or debris.? ? Vascular:? Visualized vascular structures appear normal in the absence of contrast.? Bony vascular foramina and canals are intact.? ? IMPRESSION:? No acute traumatic abnormality of the facial bones. ? ? Dictated by: Zay Esparza M.D. on 06/01/2022 at 8:01 ? ? Approved by: Zay Esparza M.D. on 06/01/2022 at 8:05?? [facility] Narrative Medical decision making narrative: 06/01/22 Mank: This is an 86-year-old female who is not anticoagulated signed out to myself by Dr. Alatorre for mechanical ground level fall. Patient was seen independently evaluated by myself. Patient had fall she did have a head injury and also states that she struck her face from a fall 2 weeks ago both times were on the way to the bathroom at nighttime without lights on. Patient had head CT, C-spine and facial bones obtained these were pending. Agree with exam above. CT imaging is negative with no acute fracture, bleed or emergent changes. Patient ambulated in the department and feels comfortable returning home. She already has some ideas about ways to help prevent falls in the future including using her lytes, putting a bedside commode in her bedroom which she already has but had moved up into her bedroom and we discussed using her walker at nighttime. Discharge Plan Departure Patient Disposition: Home Clinical Impression: Abrasion of forehead, Fall from ground level Instructions: How to Prevent Falls Activity Restrictions/Additional Instructions: Please follow-up with your physician if you find that you are urinating frequently throughout the night despite drinking most of her water in the morning they can refer you to urology to be checked for urinary retention. Please make sure you are turning on the lights before heading to the bathroom. Your idea about using bedside your commode in your bedroom is also an excellent idea. Please use your walker when ambulating as well. I hope you continue to feel better, please return for severe headaches, new neck or back pain, chest pain, new numbness or tingling, passing out, shortness of breath or other new or concerning symptoms. Prescriptions: No Action (DME) In step wheeled walker with seat Qty: 1 0RF Dose Instruction: As directed Rx Instructions: Use wheeled walker with ambulation. estradiol 0.01 % (0.1 mg/gram) cream See Rx Instructions .ROUTE .COMPLEX Qty: 42.5 5RF Dose Instruction: INSERT 1 GRAM VAGINALLY AT BEDTIME FOR 12 DAYS, THEN 2 TIMES PER WEEK AT BEDTIME DIRECTED. Rx Instructions: INSERT 1 GRAM VAGINALLY AT BEDTIME 2 TIMES PER WEEK AT BEDTIME DIRECTED. (DME) walker with out wheels See Rx Instructions .Route .MEDSUPPLY Qty: 1 0RF Rx Instructions: As directed cholecalciferol (vitamin D3) 2,000 unit capsule 2,000 unit PO DAILY melatonin 5 mg capsule PO .HS cephalexin 250 mg capsule 250 mg PO BEDTIME Qty: 90 0RF ascorbate calcium (vitamin C) 500 mg tablet 500 mg PO DAILY d-mannose 500 mg capsule PO cranberry 500 mg capsule 500 mg PO BID Rx Instructions: administer with meals methenamine hippurate [Hiprex] 1 gram tablet 0.5 g PO BID Qty: 90 3RF Rx Instructions: Take 1/2 tablet Hiprex with 500 mg vitamin-C twice daily as directed. Referrals: Zeo Parker ARNP [Primary Care Provider] - Visit Report Forms: Patient Portal/API
== END 2022-06-01 08:56 | disposition home or self-care (01) ==
PROVIDERS: Emergency Provider Emergency Medicine; PCP Nurse Practitioner
DX: S00.81XA Abrasion of other part of head, initial encounter (principal); W19.XXXA Unspecified fall, initial encounter
CPT/HCPCS: 70450; 70486; 72125; 99281; 99283

== ENCOUNTER → 2022-07-10 14:28 | Outpatient (CLI) | payer OTHER, SELFPAY ==
[2022-07-10 18:14] LABS: Appearance Urine UA CLEAR; Bilirubin Urine UA NEGATIVE (NEGATIVE); Color Urine UA YELLOW; Glucose Urine UA NEGATIVE (Negative); Ketones Urine UA NEGATIVE (NEGATIVE); Leukocyte Esterase Urine UA 1+ (NEGATIVE); Nitrite Urine UA NEGATIVE (Negative); Occult Blood Urine UA NEGATIVE (Negative); Protein Urine UA NEGATIVE (Negative); Specific Gravity Urine UA <=1.005 (1.000-1.035); Urobilinogen Urine UA 0.2 E.U./dL (0.2)
[2022-07-10 18:27] LABS: Bacteria Urine Many (>30); RBC Urine None Seen (0-5/HPF); WBC Urine 5-10/HPF (0-5/HPF)
[2022-07-10 18:28] LABS: Culture Indicated Urine Specimen Cultured
== END ==
PROVIDERS: PCP Nurse Practitioner; Referring Provider Specialist; Visit Provider Specialist
DX: N30.00 Acute cystitis without hematuria (principal); N39.0 Urinary tract infection, site not specified; N39.46 Mixed incontinence
CPT/HCPCS: 81001; 87077; 87086; 87186

== ENCOUNTER 2022-08-04 19:46 | Emergency (ER) | payer OTHER, SELFPAY ==
[2022-08-04 20:15] VITALS: BP 198/94; PULSE 97; RESP 18; TEMP 37.1; O2SAT 97; BMI 30.8
--- NOTE | 2022-08-04 20:21 | DI.CT.S_ITS ---
PROCEDURE: CT HEAD/BRAIN WO CON INDICATIONS: fell/hit head TECHNIQUE: Noncontrast 4.5 mm thick angled axial sections acquired from the foramen magnum to the vertex, with coronal and sagittal reformats. For radiation dose reduction, the following was used: automated exposure control, adjustment of mA and/or kV according to patient size. COMPARISON: [facility], CT, CT HEAD/BRAIN WO CON, 06/01/2022, 5:51. [facility], CT, CT HEAD/BRAIN WO CON, 04/24/2022, 23:22. FINDINGS: Image quality: Excellent. CSF spaces: Basal cisterns are patent. No extra-axial fluid collections. The ventricles are symmetric in size and shape. Brain: No intracranial bleeds or masses. There is cerebral volume loss for age, with resultant ventricular and sulcal prominence. There are periventricular and deep white matter chronic small vessel ischemic changes. There is intracranial internal carotid artery atherosclerosis. Skull and face: Calvarium and visualized facial bones appear intact, without suspicious lesions. Sinuses: Visualized sinuses and mastoids are clear. IMPRESSION: Moderate microvascular atherosclerotic change in the deep white matter of each hemisphere but no acute disease is found. Dictated by: Mil Mandel M.D. on 08/04/2022 at 21:36 Approved by: Mil Mandel M.D. on 08/04/2022 at 21:37
--- NOTE | 2022-08-04 20:21 | DI.CT.S_ITS ---
PROCEDURE: CT CERVICAL SPINE WO CON INDICATIONS: fell/hit head TECHNIQUE: Noncontrast 3 mm thick sections acquired from the skull base to the T4 level. Sagittal and coronal reformats were then constructed. For radiation dose reduction, the following was used: automated exposure control, adjustment of mA and/or kV according to patient size. COMPARISON: [facility], CT, CT CERVICAL SPINE WO CON, 06/01/2022, 5:51. [facility], CT, CT CERVICAL SPINE WO CON, 11/03/2020, 17:34. FINDINGS: Image quality: Excellent. Bones: No fractures or dislocations. Visualized superior ribs are intact. Soft tissues: Prevertebral soft tissues are normal in thickness. No paravertebral hematomas. No apical pneumothoraces. IMPRESSION: No trauma found. Dictated by: Mil Mandel M.D. on 08/04/2022 at 21:40 Approved by: Mil Mandel M.D. on 08/04/2022 at 21:41
--- NOTE | 2022-08-04 20:21 | DI.RAD.S_ITS ---
PROCEDURE: XR CHEST 1V INDICATIONS: chest pain TECHNIQUE: One view of the chest was acquired. COMPARISON: [facility], CR, XR CHEST 1V, 09/13/2021, 10:45. [facility], CR, XR CHEST 1V, 11/03/2020, 17:19. FINDINGS: Surgical changes and devices: None. Lungs and pleura: Lungs are abnormal with a chronic interstitial lung disease pattern. No pleural effusions or pneumothorax. Mediastinum: Mediastinal contours appear normal. Heart size is normal. Bones and chest wall: No suspicious bony lesions. Overlying soft tissues appear unremarkable. IMPRESSION: Chronic interstitial lung disease, stable over time from the comparison studies in 2020. Dictated by: Mil Mandel M.D. on 08/04/2022 at 21:28 Approved by: Mil Mandel M.D. on 08/04/2022 at 21:29
[2022-08-04 21:06] LABS: Add Manual Diff / Slide Review NO; Basophils Absolute Auto 0 /uL (0-100); Basophils Percent Auto 0.7 % (0-2); Eosinophils Absolute Auto 100 /uL (0-450); Eosinophils Percent Auto 1.8 % (2-4); Hematocrit 39.2 % (36-46); Hemoglobin 13.1 g/dL (12.0-16.0); Lymphocytes Absolute Auto 1900 /uL (1100-4500); Lymphocytes Percent Auto 33.5 % (25-40); Mean Corpuscular HGB Conc 33.5 % (30-36); Mean Corpuscular Hemoglobin 30.9 PG (26-34); Mean Corpuscular Volume 92.3 fL (80-100); Monocytes Absolute Auto 600 /uL (0-900); Monocytes Percent Auto 11.3 % (3-14); Neutrophils Absolute Auto 3000 /uL (1500-7000); Neutrophils Percent Auto 52.7 % (50-75); Platelet Count 233 X10^3/uL (150-400); Red Blood Cell Count 4.25 X10^6/uL (4.0-5.2); Red Cell Distribution Width 13.2 % (11.6-14.8); White Blood Cell Count 5.7 X10^3/uL (4.5-11.0)
[2022-08-04 21:12] LABS: Alanine Aminotransferase 20 IU/L (<35); Albumin 4.3 g/dL (3.5-5.0); Albumin Globulin Ratio 1.1 (1.0-2.8); Alkaline Phosphatase 99 U/L (38-126); Aspartate Aminotransferase 27 IU/L (14-36); BUN Creatinine Ratio 18.8 (6-22); Bilirubin Total 0.6 mg/dL (0.2-1.3); Blood Urea Nitrogen 18 mg/dL (7-17); Carbon Dioxide 28 mmol/L (22-32); Chloride 104 mmol/L (98-107); Creatine Kinase 54 U/L (30-135); Estimated Glomerular Filt Rate 57 mL/min (>60); Globulin 3.9 g/dL (1.7-4.1); Glucose 100 mg/dL (80-110); HEMOLYSIS 18 (0-50); Lipase 166 U/L (23-300); Magnesium 2.1 mg/dL (1.6-2.3); Potassium 4.2 mmol/L (3.4-5.1); Sodium 138 mmol/L (137-145); Total Protein 8.2 g/dL (6.3-8.2)
[2022-08-04 21:23] LABS: Troponin I < 0.012 ng/mL (0.01-0.034)
--- NOTE | 2022-08-04 22:30 | PC.NURSE ---
States that she fell recently and hit her head - states that she has had multiple falls in the past and that this is the first time she hit her head - concerned at this time - no concerns with mentation - also states that she feels like her heart is skipping a beat but that has been happening for a long while now - states that it comes and goes and does not come with any other s/sx
--- NOTE | 2022-08-04 22:30 | PC.NURSE ---
In room - evaluation complete - awaiting MD - no needs voiced
--- NOTE | 2022-08-04 23:15 | PC.NURSE ---
Resting quietly in NAD - no needs voiced - PWD - respirations equal and unlabored bilaterally - no changes in pt evaluation
[2022-08-05] VITALS: BP 167/85; PULSE 69; RESP 16; O2SAT 97
--- NOTE | 2022-08-05 | PC.NURSE ---
No changes in pt status at this time - awaiting results
--- NOTE | 2022-08-05 00:30 | PC.NURSE ---
In to recheck patient at this time - Resting quietly in NAD - no needs voiced - states that she is feeling better at this time - states that her heart skipping a beat is better then when she arrived - states that she is feeling good. No concerns voiced - alert and oriented - PWD with respirations equal and unlabored bilaterally - speaking in full clear sentences - conversing without concern
--- NOTE | 2022-08-05 00:40 | ED_ITS ---
HPI - Arrhythmia/Palpitations General Chief Complaint: Arrhythmia/Palpitations Stated Complaint: GLF LANDED ON HEAD... NO thinners Time Seen by Provider: 08/05/22 00:40 Source: patient Mode of arrival: Wheelchair Limitations: no limitations History of Present Illness HPI narrative: This is a 86-year-old female history of recurrent UTIs, hypertension and memory impairment with ground level fall yesterday on the 03 of August. Patient states last night she was walking with her walker she had food on the seat p ortion of her walker and an apple rolled off she went to try to catch it or grab it and fell on her buttocks and then her back and hit her head on the molding of the wall. She denies any headache, no neck or back pain, no chest pain, no shortness of breath, no nausea or vomiting no diarrhea constipation, she is chronic urinary incontinence. She does have some restless leg in her legs have felt twitchy but no new numbness, tingling or weakness. She states she is been ambulating normally since. She denies any aches or pains. She denies any anticoagulants, patient states she presented because she hit her head and thought she should be checked out. She states prior surgeries were knee surgeon hysterectomy. Her primary care Zoe parker. Related Data Home Medications Medication Instructions Recorded Confirmed cholecalciferol (vitamin D3) 50 2,000 unit PO DAILY 03/28/18 06/28/22 mcg (2,000 unit) capsule ascorbate calcium (vitamin C) 500 500 mg PO DAILY 09/20/21 06/28/22 mg tablet cranberry 500 mg capsule 500 mg PO BID 09/20/21 06/28/22 d-mannose 500 mg capsule mg PO 09/20/21 06/28/22 melatonin 5 mg capsule mg PO .HS 01/17/22 06/28/22 Previous Rx's Medication Instructions Recorded In step wheeled walker with seat #1 ea 05/12/19 methenamine hippurate 1 gram 0.5 g PO BID #90 tabs 09/20/21 tablet (Hiprex) estradiol 0.01% (0.1 mg/gram) See Rx Instructions .Route 02/05/22 vaginal cream .COMPLEX #42.5 grams walker with out wheels #1 ea 06/04/22 Disabled Parking Permit See Rx Instructions .Route 06/18/22 .COMPLEX #1 unit cephalexin 500 mg capsule 500 mg PO TID #75 caps 07/11/22 Allergies Allergy/AdvReac Type Severity Reaction Status Date / Time ciprofloxacin [From Cipro] Allergy Severe Weakness Verified 05/16/22 09:42 sulfamethoxazole AdvReac Intermediate Weakness Verified 05/16/22 09:42 [From Septra] trimethoprim [From Septra] AdvReac Intermediate Weakness Verified 05/16/22 09:42 cherries Allergy Mild itching/swe Uncoded 05/16/22 09:42 lling Review of Systems Review of Systems ROS Unobtainable: All systems reviewed & are unremarkable except as noted in HPI and below Patient History Medical History Anemia (1979) Cardiac arrhythmia (05/08/16) Cataract (2014) Chicken pox Colon polyps (2013) Difficulty swallowing liquids Edema of both lower legs Facial cellulitis Family history of colon cancer Fatigue Fibroids (1974) Fractures (1966) Frequent UTI (2011) Herpes zoster acute retinal necrosis History of heavy periods (1972) Hoarseness or changing voice Hx of colonic polyp Hypertension Measles Mixed incontinence Mononucleosis (1958) Mumps Postmenopausal atrophic vaginitis Premature ventricular contraction Rectal leakage Recurrent UTI (urinary tract infection) Rubella Shingles outbreak Skin rash Ulcerative colitis Urinary incontinence (2009) Urinary tract infection Surgical History Anesthesia H/O breast biopsy H/O tubal ligation H/O: hysterectomy History of appendectomy History of bilateral tubal ligation (1962) History of cataract removal with insertion of prosthetic lens (2014) History of knee replacement Status post appendectomy (1962) Status post breast biopsy Status post colonoscopy (08/26/14) Status post right oophorectomy (1979) Status post vaginal hysterectomy (1979) Family History Brother Renal cancer Father Heart disease Hypertension Grandfather Stroke Mother Colon cancer Grandmother Cancer Stroke Sister Parkinson's disease Grandmother Pneumonia Family/Other Leukemia Son Blood disease Social History marital status: details: Only 5 living children number of children: 6 Smoking Status: Never smoker alcohol intake: never caffeine: No Smoking Status: Never smoker alcohol intake frequency: holidays/special occasions only Substance Use Type: does not use Exam Narrative Exam Narrative: GENERAL: Alert and oriented x three, mild distress HEENT: Head normocephalic, atraumatic, EOMI, pupils reactive, face symmetric, moist mucous membranes NECK: Supple, full range of motion CARDIOVASCULAR: Regular rate and rhythm without murmurs, rubs or gallops. RESPIRATORY: Breath sounds equal bilaterally, no wheezes rales or rhonchi. ABDOMEN: Soft, nontender. Normoactive bowel sounds all 4 quadrants. No guarding or rebound, rigidity, no mass : No CVA tenderness BACK: No cervical, thoracic or lumbar vertebral point tenderness. Patient has normal range of motion. Muscle strength normal in upper and lower extremities. No obvious lacerations or bruising. Normal range of motion. EXTREMITIES: Normal range of motion, no clubbing or edema. Neurovascularly intact NEUROLOGICAL: Cranial nerves II through XII grossly intact. Moving all extremities SKIN: Warm, dry, no petechiae, no rashes or lesions. Initial Vital Signs Initial Vital Signs: Vital Signs Temperature 98.7 F 08/04/22 20:15 Pulse Rate 97 H 08/04/22 20:15 Respiratory Rate 18 08/04/22 20:15 Blood Pressure 198/94 H 08/04/22 20:15 Pulse Oximetry 97 08/04/22 20:15 Oxygen Delivery Method 08/04/22 20:[address] [address] Head Rule Age greater or equal to 65 years: Yes GCS [place] coma scale eye opening: Spontaneous [place] coma scale verbal response: Orientated [place] coma scale motor response: Obey commands [place] coma scale total score: 15 Nexus Score for C-Spine Focal Neurologic deficit present: No Midline spinal tenderness present: No Altered level of conciousness present: No Intoxication present: No Distracting Injury Present: No Nexus Criteria for C-spine: 0 Course Orders Ordered: ED Orders 08/04/22 20:21 CT cervical spine wo con Stat CT head/brain wo con Stat XR chest 1V Stat 08/04/22 20:48 Complete Blood Count AUTO DIFF Stat Comprehensive Metabolic Panel Stat Lipase Stat Magnesium Stat Troponin & CK Cardiac Panel Stat 08/04/22 20:56 EKG-12 Lead Routine Vital Signs Vital signs: Vital Signs - 8 hr 08/05/22 00:00 08/05/22 01:20 Pulse Rate 69 66 Respiratory Rate 16 18 Blood Pressure 167/85 H 173/83 H Pulse Oximetry 97 97 Oxygen Delivery Method Room Air Room Air MDM - Arrhythmia/Palpitations Lab Data Result diagrams: 08/04/22 20:48 08/04/22 20:48 Labs: Lab Results 08/04/22 08/04/22 Range/Units 20:48 20:48 WBC 5.7 (4.5-11.0) X10^3/uL RBC 4.25 (4.0-5.2) X10^6/uL Hgb 13.1 (12.0-16.0) g/dL Hct 39.2 (36-46) % MCV 92.3 (80-100) fL MCH 30.9 (26-34) PG MCHC 33.5 (30-36) % RDW 13.2 (11.6-14.8) % Plt Count 233 (150-400) X10^3/uL Neut % (Auto) 52.7 (50-75) % Lymph % (Auto) 33.5 (25-40) % Aiken % (Auto) 11.3 (3-14) % Eos % (Auto) 1.8 L (2-4) % Baso % (Auto) 0.7 (0-2) % Neut # (Auto) 3000 (2040-5699) /uL Lymph # (Auto) 1900 (8581-5397) /uL Aiken # (Auto) 600 (0-900) /uL Eos # (Auto) 100 (0-450) /uL Baso # (Auto) 0 (0-100) /uL Sodium 138 (137-145) mmol/L Potassium 4.2 (3.4-5.1) mmol/L Chloride 104 (98-107) mmol/L Carbon Dioxide 28 (22-32) mmol/L BUN 18 H (7-17) mg/dL Creatinine 0.96 (0.52-1.04) mg/dL Estimated GFR 57 L (>60) mL/min BUN/Creatinine Ratio 18.8 (6-22) Glucose 100 (80-110) mg/dL Calcium 9.0 (8.4-10.2) mg/dL Magnesium 2.1 (1.6-2.3) mg/dL Total Bilirubin 0.6 (0.2-1.3) mg/dL AST 27 (14-36) IU/L ALT 20 (<35) IU/L Alkaline Phosphatase 99 (38-126) U/L Total Creatine Kinase 54 (30-135) U/L CK-MB (CK-2) TNP CK-MB (CK-2) Rel Index TNP Troponin I < 0.012 (0.01-0.034) ng/mL Total Protein 8.2 (6.3-8.2) g/dL Albumin 4.3 (3.5-5.0) g/dL Globulin 3.9 (1.7-4.1) g/dL Albumin/Globulin Ratio 1.1 (1.0-2.8) Lipase 166 (23-300) U/L Imaging Data CT scan - head: Radiologist's Impresson: Close Head CT (Signed) Mil Mandel - 08/04/22 Chest X-Ray (Signed) Mil Mandel - 08/04/[address] (Signed) Mil Mandel - 08/04/[address] (Signed) Zay Esparza - 06/01/[address] (Signed) Zay Esparza - 06/01/[address] (Signed) Zay Esparza - 06/01/[address] (Signed) Sae Rutledge - 04/24/22 Chest/Abdomen X-ray (Signed) Sae Rutledge - 04/08/22 Abdomen/Pelvis CT (Signed) Zay Esparza - 01/15/22 EKG Rpt. 09/13/21 Chest X-Ray (Signed) Barney Tse - 09/13/21 Mammogram Screening (Signed) Dhiraj Duran - 02/13/[address] (Signed) Call,Lalito - 11/03/20 Chest X-Ray (Signed) Call,Lalito - 11/03/[address] (Signed) Call,Lalito - 11/03/20 EKG Rpt. 11/03/20 Bone Densitometry (Signed) Michael Hathaway - 04/20/20 DEXA Result 04/20/20 Brain MRI (Signed) Brandyn Alexander - 08/26/19 Brain MRI (Signed) Brandyn Alexander - 01/15/19 Shoulder MRI (Signed) Barney Tse - 09/06/18 Shoulder X-Ray (Signed) Mil Mandel - 08/29/18 EKG Rpt. 07/28/18 Launch?Image [address] [address] [address] Scan Report Signed Patient: Katherin Parker MR#: [id number] : 1935 Acct:[id number] Age/Sex: 86 / F Date of Service: 08/04/22 Loc: ED Accession Number: [id number] ?? Procedure: CT head/brain wo con Ordering Provider: Ellie Begum D.O. PROCEDURE:? CT HEAD/BRAIN WO CON ? INDICATIONS:? fell/hit head ? TECHNIQUE:? Noncontrast 4.5 mm thick angled axial sections acquired from the foramen magnum to the vertex, with coronal and sagittal reformats.? For radiation dose reduction, the following was used:? automated exposure control, adjustment of mA and/or kV according to patient size.? ? COMPARISON:? [facility], CT, CT HEAD/BRAIN WO CON, 06/01/2022, 5:51.? [facility], CT, CT HEAD/BRAIN WO CON, 04/24/2022, 23:22. ? FINDINGS:? Image quality:? Excellent.? ? CSF spaces:? Basal cisterns are patent.? No extra-axial fluid collections.? The ventricles are symmetric in size and shape.? ? Brain:? No intracranial bleeds or masses.? There is cerebral volume loss for age, with resultant ventricular and sulcal prominence.? There are periventricular and deep white matter chronic small vessel ischemic changes.? There is intracranial internal carotid artery atherosclerosis.? ? Skull and face:? Calvarium and visualized facial bones appear intact, without suspicious lesions.? ? Sinuses:? Visualized sinuses and mastoids are clear.? ? IMPRESSION:? Moderate microvascular atherosclerotic change in the deep white matter of each hemisphere but no acute disease is found. ? ? Dictated by: Mil Mandel M.D. on 08/04/2022 at 21:36 ? ? Approved by: Mil Mandel M.D. on 08/04/2022 at 21:37?? CT - cervical spine: Radiologist's Impresson: Close Head CT (Signed) Mil Mandel - 08/04/22 Chest X-Ray (Signed) Mil Mandel - 08/04/[address] (Signed) Mil Mandel - 08/04/[address] (Signed) Zay Esparza - 06/01/[address] (Signed) Zay Esparza - 06/01/[address] (Signed) Zay Esparza - 06/01/[address] (Signed) Sae Rutledge - 04/24/22 Chest/Abdomen X-ray (Signed) Sae Rutledge - 04/08/22 Abdomen/Pelvis CT (Signed) Zay Esparza - 01/15/22 EKG Rpt. 09/13/21 Chest X-Ray (Signed) Barney Tse - 09/13/21 Mammogram Screening (Signed) Dhiraj Duran - 02/13/[address] (Signed) Call,Lalito - 11/03/20 Chest X-Ray (Signed) Call,Lalito - 11/03/[address] (Signed) Call,Lalito - 11/03/20 EKG Rpt. 11/03/20 Bone Densitometry (Signed) Michael Hathaway - 04/20/20 DEXA Result 04/20/20 Brain MRI (Signed) Brandyn Alexander - 08/26/19 Brain MRI (Signed) Brandyn Alexander - 01/15/19 Shoulder MRI (Signed) Barney Tse - 09/06/18 Shoulder X-Ray (Signed) Mil Mandel - 08/29/18 EKG Rpt. 07/28/18 Launch?[place] [address] CT Scan Report Signed Patient: Katherin Parker MR#: [id number] : 1935 Acct:[id number] Age/Sex: 86 / F Date of Service: 08/04/22 Loc: ED Accession Number: [id number] ?? Procedure: CT cervical spine wo con Ordering Provider: Ellie Begum D.O. PROCEDURE:? CT CERVICAL SPINE WO CON ? INDICATIONS:? fell/hit head ? TECHNIQUE:? Noncontrast 3 mm thick sections acquired from the skull base to the T4 level.? Sagittal and coronal reformats were then constructed.? For radiation dose reduction, the following was used:? automated exposure control, adjustment of mA and/or kV according to patient size.? ? COMPARISON:? [facility], CT, CT CERVICAL SPINE WO CON, 06/01/2022, 5:51.? [facility], CT, CT CERVICAL SPINE WO CON, 11/03/2020, 17:34. ? FINDINGS:? Image quality:? Excellent.? ? Bones:? No fractures or dislocations.? Visualized superior ribs are intact.? ? Soft tissues:? Prevertebral soft tissues are normal in thickness.? No paravertebral hematomas.? No apical pneumothoraces.? ? ? IMPRESSION:? No trauma found. ? Dictated by: Mil Mandel M.D. on 08/04/2022 at 21:40 ? ? Approved by: Mil Mandel M.D. on 08/04/2022 at 21:41?? Chest x-ray: Radiologist's Impresson: Katherin Parker??86??F??1935 ? Allergy/Adv: ciprofloxacin, sulfamethoxazole, trimethoprim, [cherries] (More??) Close Head CT (Signed) Mil Mandel - 08/04/22 Chest X-Ray (Signed) Mil Mandel - 08/04/[address] (Signed) Mil Mandel - 08/04/[address] (Signed) Zay Esparza - 06/01/[address] (Signed) Zay Esparza - 06/01/[address] (Signed) Zay Esparza - 06/01/[address] (Signed) Sae Rutledge - 04/24/22 Chest/Abdomen X-ray (Signed) RutledgeSae shafer - 04/08/22 Abdomen/Pelvis CT (Signed) Zay Esparza - 01/15/22 EKG Rpt. 09/13/21 Chest X-Ray (Signed) Barney Tse - 09/13/21 Mammogram Screening (Signed) Dhiraj Duran - 02/13/[address] (Signed) Call,Lalito - 11/03/20 Chest X-Ray (Signed) Call,Lalito - 11/03/[address] (Signed) Call,Lalito - 11/03/20 EKG Rpt. 11/03/20 Bone Densitometry (Signed) RivasDurham - 04/20/20 DEXA Result 04/20/20 Brain MRI (Signed) Brandyn Alexander - 08/26/19 Brain MRI (Signed) Brandyn Alexander - 01/15/19 Shoulder MRI (Signed) DedrickBarney - 09/06/18 Shoulder X-Ray (Signed) Mil Mandel - 08/29/18 EKG Rpt. 07/28/18 Launch?Image [address] [address] XRay Report Signed Patient: Katherin Parker MR#: [id number] : 1935 Acct:[id number] Age/Sex: 86 / F Date of Service: 08/04/22 Loc: ED Accession Number: [id number] ?? Procedure: XR chest 1V Ordering Provider: Ellie Begum D.O. PROCEDURE:? XR CHEST 1V ? INDICATIONS:? chest pain ? TECHNIQUE:? One view of the chest was acquired.? ? COMPARISON:? [facility], CR, XR CHEST 1V, 09/13/2021, 10:45.? [facility], CR, XR CHEST 1V, 11/03/2020, 17:19. ? FINDINGS:? ? Surgical changes and devices:? None.? ? Lungs and pleura:? Lungs are abnormal with a chronic interstitial lung disease pattern.? No pleural effusions or pneumothorax.? ? Mediastinum:? Mediastinal contours appear normal.? Heart size is normal.? ? Bones and chest wall:? No suspicious bony lesions.? Overlying soft tissues appear unremarkable.? ? IMPRESSION:? Chronic interstitial lung disease, stable over time from the comparison studies in 2020.? ? ? Dictated by: Mil Mandel M.D. on 08/04/2022 at 21:28 ? ? Approved by: Mil Mandel M.D. on 08/04/2022 at 21:29?? ECG Data Attestation: I personally reviewed and interpreted this ECG as follows: Interpretation: Sinus rhythm, rate of 71 IA 166 QRS 86 and QTC 428. Q-wave in lead 3, no acute ST changes noted. MDM Narrative Medical decision making narrative: Pleasant 86-year-old female who presents with ground level fall yesterday no thinners but based on age head CT and C-spine were obtained as patient is high risk. Chest x-ray and lab workup were negative for acute changes. Patient states she does fall frequently and states this is not atypical she states she typically loses her balance. She states her home does not have a lot of drugs or cords easily tripped over. Patient ambulated into the emergency department today. Discharge Plan Departure Patient Disposition: Home Clinical Impression: Fall from ground level Instructions: How to Prevent Falls Activity Restrictions/Additional Instructions: Your imaging and labs today overall were reassuring. If you are home blood pressures are normal I would not start blood pressure medication unless they are elevated at home. I agree with the recommendations from your primary care provider Zoe parker about your blood pressure medicine. Please return for severe headaches, new neck or back pain, numbness, tingling weakness, chest pain or shortness of breath, altered mental status, persistent vomiting or other new or concerning changes. Prescriptions: No Action (DME) In step wheeled walker with seat Qty: 1 0RF Dose Instruction: As directed Rx Instructions: Use wheeled walker with ambulation. estradiol 0.01 % (0.1 mg/gram) cream See Rx Instructions .ROUTE .COMPLEX Qty: 42.5 5RF Dose Instruction: INSERT 1 GRAM VAGINALLY AT BEDTIME FOR 12 DAYS, THEN 2 TIMES PER WEEK AT BEDTIME DIRECTED. Rx Instructions: INSERT 1 GRAM VAGINALLY AT BEDTIME 2 TIMES PER WEEK AT BEDTIME DIRECTED. (DME) walker with out wheels See Rx Instructions .Route .MEDSUPPLY Qty: 1 0RF Rx Instructions: As directed Disabled Parking Permit See Rx Instructions .ROUTE .COMPLEX Qty: 1 0RF Rx Instructions: I find this patient to be medically disabled and qualify for disabled parking as indicated and signed on the accompanying disabled parking application for individuals. cephalexin 500 mg capsule 500 mg PO TID Qty: 75 0RF Rx Instructions: Take 1 capsule 3 times daily for 5 days, they 1 capsule at bedtime until edinson e. cholecalciferol (vitamin D3) 2,000 unit capsule 2,000 unit PO DAILY melatonin 5 mg capsule PO .HS ascorbate calcium (vitamin C) 500 mg tablet 500 mg PO DAILY d-mannose 500 mg capsule PO cranberry 500 mg capsule 500 mg PO BID Rx Instructions: administer with meals methenamine hippurate [Hiprex] 1 gram tablet 0.5 g PO BID Qty: 90 3RF Rx Instructions: Take 1/2 tablet Hiprex with 500 mg vitamin-C twice daily as directed. Referrals: Zoe Parker ARNP [Primary Care Provider] - Visit Report Forms: Patient Portal/API
[2022-08-05 01:20] VITALS: BP 173/83; PULSE 66; RESP 18; O2SAT 97
--- NOTE | 2022-08-05 01:24 | PC.NURSE ---
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
== END 2022-08-05 01:38 | disposition home or self-care (01) ==
PROVIDERS: Emergency Provider Emergency Medicine; PCP Nurse Practitioner
DX: S09.90XA Unspecified injury of head, initial encounter (principal); R07.9 Chest pain, unspecified; W18.30XA Fall on same level, unspecified, initial encounter
CPT/HCPCS: 36415; 70450; 71045; 72125; 80053; 82550; 83690; 83735; 84484; 85025; 93005; 99283; 99284

== ENCOUNTER → 2022-08-22 13:59 | Outpatient (CLI) | payer OTHER, SELFPAY ==
--- NOTE | 2022-09-06 14:19 | P.HOLT.S_ITS ---
Delivery Engineer Report Referral & Results Date Patient Seen: 08/22/22 Requesting provider: Zoe Parker Indication: Cardiac arrhythmia Duration of monitoring (days): 7 Diary information: There were 7 patient triggered events and 7 patient diary entries Patient triggered events were variably associated with (within 45 seconds) sinus rhythm and PVCs Patient diary events were variably associated with (within 45 seconds) sinus rhythm, PVCs, and SVT Data: Minimum heart rate identified was 50 beats per minute at 08:15 on 08/26/2022 Maximum sinus heart rate was 121 beats per minute at 20:23 on 08/27/2022 Maximum overall heart rate was 150 beats per minute at 22:44 on 08/26/2022 during a run of SVT Less than 1% of identified beats were supraventricular ectopic in origin which would classify them as rare Approximately 1.8% of identified beats were ventricular ectopic in origin which would classify them as occasional, and this included several runs of ventricular bigeminy and ventricular trigeminy that were several seconds in duration There were 13 runs of SVT the fastest being a 13.3 second run above rate of 150 beats per minute, this was also the longest run of SVT There were no pauses of 3 seconds or longer or episodes of atrial fibrillation identified on this study Impression: 7 day director of broadcast demonstrating occasional PVCs and very rare very brief runs of SVT as above Clinical correlation suggested
== END ==
PROVIDERS: PCP Nurse Practitioner; Referring Provider Nurse Practitioner; Visit Provider Nurse Practitioner
DX: R00.1 Bradycardia, unspecified (principal)
CPT/HCPCS: 93244

== ENCOUNTER 2022-09-06 18:02 | Emergency (ER) | payer OTHER, SELFPAY ==
[2022-09-06] VITALS (8 sets, daily range): BP systolic 173–190; BP diastolic 78–95; PULSE 64–119; RESP 18–29; TEMP 35.9; O2SAT 95–98; BMI 30.9
--- NOTE | 2022-09-06 19:52 | DI.CT.S_ITS ---
PROCEDURE: CT HEAD/BRAIN WO CON INDICATIONS: fell, 48 hrs ago, head discomfort and confusion TECHNIQUE: Noncontrast 4.5 mm thick angled axial sections acquired from the foramen magnum to the vertex, with coronal and sagittal reformats. For radiation dose reduction, the following was used: automated exposure control, adjustment of mA and/or kV according to patient size. COMPARISON: [facility], CT, CT HEAD/BRAIN WO CON, 08/04/2022, 21:18. FINDINGS: Image quality: Excellent. CSF spaces: Basal cisterns are patent. No extra-axial fluid collections. There is mild overall cerebral volume loss, with resultant ventricular and sulcal prominence. There is also moderate cerebellar atrophy in the posterior fossa. Brain: No intracranial hemorrhage, mass, or mass effect. There are subcortical, periventricular and deep white matter hypodensities consistent with mild to moderate chronic small vessel ischemic changes. The shoemaker-white matter junction appears preserved. There is intracranial internal carotid artery atherosclerosis. Skull and face: Calvarium and visualized facial bones appear intact, without suspicious lesions. Sinuses: Visualized sinuses and mastoids are clear. IMPRESSION: 1. No acute intracranial abnormality. 2. Mild overall cerebral volume loss with moderate cerebellar atrophy in the posterior fossa. 3. Mild to moderate chronic white matter small vessel ischemic changes. Dictated by: Sae Rutledge M.D. on 09/06/2022 at 21:36 Approved by: Sae Rutledge M.D. on 09/06/2022 at 21:38
--- NOTE | 2022-09-06 19:54 | ED_ITS ---
HPI - Fall General Chief Complaint: Fall Stated Complaint: Fell Saturday, Hit head Time Seen by Provider: 09/06/22 19:45 Source: patient Mode of arrival: Ambulatory History of Present Illness HPI Narrative: 86-year-old woman with minimal chronic medical history however looking over her medical records it does appear that she is having an increasing number of falls. She lives with and is the primary caregiver for her 65-year-old daughter with frontotemporal dementia. On 09/04 she was leaning forward and adjusting a blanket over her daughter when she lost her balance fell forward landing on her forehead has a minor abrasion over the right side of the bridge of her nose from her glasses. There was no loss of consciousness, she was able to get up off the floor without difficulty. She did not feel that she had any significant symp toms that warranted emergency evaluation at that time. Over the last 48 hours she is having an increase in sensation of fullness and tightness as if she is wearing a hat centered over the midportion of her forehead. She feels that her ?brain is not working as well?. She does not describe fevers, coughing, significant headaches, no nausea no vomiting. She has no neck pain no musculoskeletal complaints, no abdominal pain and no dysuria. Related Data Home Medications Medication Instructions Recorded Confirmed cholecalciferol (vitamin D3) 50 2,000 unit PO DAILY 03/28/18 08/08/22 mcg (2,000 unit) capsule ascorbate calcium (vitamin C) 500 500 mg PO DAILY 09/20/21 08/08/22 mg tablet cranberry 500 mg capsule 500 mg PO BID 09/20/21 08/08/22 d-mannose 500 mg capsule mg PO 09/20/21 08/08/22 melatonin 5 mg capsule mg PO .HS 01/17/22 08/08/22 Previous Rx's Medication Instructions Recorded In step wheeled walker with seat #1 ea 05/12/19 methenamine hippurate 1 gram 0.5 g PO BID #90 tabs 09/20/21 tablet (Hiprex) estradiol 0.01% (0.1 mg/gram) See Rx Instructions .Route 02/05/22 vaginal cream .COMPLEX #42.5 grams walker with out wheels #1 ea 06/04/22 Disabled Parking Permit See Rx Instructions .Route 06/18/22 .COMPLEX #1 unit cephalexin 500 mg capsule 500 mg PO TID #75 caps 07/11/22 Allergies Allergy/AdvReac Type Severity Reaction Status Date / Time ciprofloxacin [From Cipro] Allergy Severe Weakness Verified 08/08/22 15:56 sulfamethoxazole AdvReac Intermediate Weakness Verified 08/08/22 15:56 [From Septra] trimethoprim [From Septra] AdvReac Intermediate Weakness Verified 08/08/22 15:56 cherries Allergy Mild itching/swe Uncoded 08/08/22 15:56 lling Review of Systems Review of Systems Narrative: Remainder of complete review of systems is otherwise unremarkable except for that included in the HPI. Patient History Medical History Anemia (1979) Cardiac arrhythmia (05/08/16) Cataract (2014) Chicken pox Colon polyps (2013) Difficulty swallowing liquids Edema of both lower legs Facial cellulitis Family history of colon cancer Fatigue Fibroids (1974) Fractures (1966) Frequent UTI (2011) Herpes zoster acute retinal necrosis History of heavy periods (1972) Hoarseness or changing voice Hx of colonic polyp Hypertension Measles Mixed incontinence Mononucleosis (1958) Mumps Postmenopausal atrophic vaginitis Premature ventricular contraction Rectal leakage Recurrent UTI (urinary tract infection) Rubella Shingles outbreak Skin rash Ulcerative colitis Urinary incontinence (2009) Urinary tract infection Surgical History Anesthesia H/O breast biopsy H/O tubal ligation H/O: hysterectomy History of appendectomy History of bilateral tubal ligation (1962) History of cataract removal with insertion of prosthetic lens (2014) History of knee replacement Status post appendectomy (1962) Status post breast biopsy Status post colonoscopy (08/26/14) Status post right oophorectomy (1979) Status post vaginal hysterectomy (1979) Family History Brother Renal cancer Father Heart disease Hypertension Grandfather Stroke Mother Colon cancer Grandmother Cancer Stroke Sister Parkinson's disease Grandmother Pneumonia Family/Other Leukemia Son Blood disease Social History marital status: details: Only 5 living children number of children: 6 Smoking Status: Never smoker alcohol intake: never caffeine: No Smoking Status: Never smoker alcohol intake frequency: holidays/special occasions only Substance Use Type: does not use Exam Initial Vital Signs Initial Vital Signs: Vital Signs Temperature 96.7 F L 09/06/22 18:05 Pulse Rate 74 09/06/22 18:05 Respiratory Rate 18 09/06/22 18:05 Blood Pressure 190/92 H 09/06/22 18:05 Pulse Oximetry 96 09/06/22 18:05 Oxygen Delivery Method 09/06/22 18:05 General: Frail but in no acute distress. Able to give a complete and coherent history. Well-nourished well-developed HEENT: Moist mucous membranes, normal sclera with reactive pupils, head is atraumatic, normocephalic. No tenderness with skull manipulation. Neck: No JVD, supple, no cervical spine tenderness to palpation Respiratory: Lungs are clear to auscultation, no wheezing no rales no rhonchi. Full and symmetrical air movement Cardiac: Regular rate and rhythm no murmurs no bruits Abdomen: Soft, nontender, good bowel tones, no flank pain Skin: Warm and dry, no rashes Neurologic: Somewhat slowed but otherwise Grossly neurologically intact with no obvious asymmetries or abnormalities Extremities: No trauma, well perfused Psych: Cooperative, appropriate insight and affect Course Orders Ordered: ED Orders 09/06/22 19:35 Complete Blood Count AUTO DIFF Stat Comprehensive Metabolic Panel Stat 09/06/22 19:52 CT head/brain wo con Stat Vital Signs Vital signs: Vital Signs - 8 hr 09/06/22 18:05 Temperature 96.7 F L Pulse Rate 74 Respiratory Rate 18 Blood Pressure 190/92 H Pulse Oximetry 96 Oxygen Delivery Method Room Air MDM - Fall Lab Data Result diagrams: 09/06/22 19:35 09/06/22 19:35 Labs: Lab Results 09/06/22 09/06/22 Range/Units 19:35 19:35 WBC 7.6 (4.5-11.0) X10^3/uL RBC 4.32 (4.0-5.2) X10^6/uL Hgb 13.2 (12.0-16.0) g/dL Hct 40.5 (36-46) % MCV 93.7 (80-100) fL MCH 30.6 (26-34) PG MCHC 32.6 (30-36) % RDW 13.1 (11.6-14.8) % Plt Count 236 (150-400) X10^3/uL Neut % (Auto) 55.7 (50-75) % Lymph % (Auto) 32.0 (25-40) % [place] % (Auto) 9.6 (3-14) % Eos % (Auto) 2.1 (2-4) % Baso % (Auto) 0.6 (0-2) % Neut # (Auto) 4200 (3224-1358) /uL Lymph # (Auto) 2400 (6915-4463) /uL [place] # (Auto) 700 (0-900) /uL Eos # (Auto) 200 (0-450) /uL Baso # (Auto) 0 (0-100) /uL Sodium 140 (137-145) mmol/L Potassium 4.3 (3.4-5.1) mmol/L Chloride 104 (98-107) mmol/L Carbon Dioxide 29 (22-32) mmol/L BUN 22 H (7-17) mg/dL Creatinine 1.17 H (0.52-1.04) mg/dL Estimated GFR 45 L (>60) mL/min BUN/Creatinine Ratio 18.8 (6-22) Glucose 94 (80-110) mg/dL Calcium 9.2 (8.4-10.2) mg/dL Total Bilirubin 0.6 (0.2-1.3) mg/dL AST 26 (14-36) IU/L ALT 20 (<35) IU/L Alkaline Phosphatase 102 (38-126) U/L Total Protein 7.8 (6.3-8.2) g/dL Albumin 4.2 (3.5-5.0) g/dL Globulin 3.6 (1.7-4.1) g/dL Albumin/Globulin Ratio 1.2 (1.0-2.8) Imaging Data CT scan - head: Radiologist's Impression: FINDINGS:? Image quality:? Excellent.? ? CSF spaces:? Basal cisterns are patent.? No extra-axial fluid collections.? There is mild overall cerebral volume loss, with resultant ventricular and sulcal prominence.? There is also moderate cerebellar atrophy in the posterior fossa. ? Brain:? No intracranial hemorrhage, mass, or mass effect.? There are subcor tical, periventricular and deep white matter hypodensities consistent with mild to moderate chronic small vessel ischemic changes.? The shoemaker-white matter junction appears preserved. ?There is intracranial internal carotid artery atherosclerosis.? ? Skull and face:? Calvarium and visualized facial bones appear intact, without suspicious lesions.? ? Sinuses:? Visualized sinuses and mastoids are clear.? ? IMPRESSION:? ? 1. No acute intracranial abnormality. ? 2. Mild overall cerebral volume loss with moderate cerebellar atrophy in the posterior fossa. ? 3. Mild to moderate chronic white matter small vessel ischemic changes. ? ? Dictated by: Sae Rutledge M.D. on 09/06/2022 at 21:36 ? ? MDM Narrative Medical decision making narrative: 86-year-old woman with fall 48 hours ago mild concussion syndrome with negative head CT and negative lab workup. The fall was described as entirely mechanical which seems very consistent with presentation and overall exam. At this point I am not finding any evidence of stroke, TIA, intracranial hemorrhage, significant musculoskeletal injuries, infection, anemia or alternate explanations for her fall that would require further workup or hospitalization. All findings reviewed with the patient, questions are answered and she is safe for discharge home Discharge Plan Departure Patient Disposition: Home Clinical Impression: Fall Qualifiers: Encounter type: initial encounter Qualified Code(s): W19.XXXA - Unspecified fa ll, initial encounter Concussion Qualifiers: Encounter type: initial encounter Loss of consciousness presence/duration: without LOC Qualified Code(s): S06.0X0A - Concussion without loss of consc iousness, initial encounter Instructions: DI for Concussion Activity Restrictions/Additional Instructions: Thank you for coming in today There is no bleeding in your brain, there is no sign of a stroke or mini stroke. Your lab work and remainder of exam are very reassuring. You do have a concussion from your fall and I suspect that is what is causing that cap like feeling. It is okay for you to go home and rest over the next couple of days. You do not need to restrict eating or limit activities. If you find that you are getting worse or develop any new symptoms, please feel free to return to the emergency department for further evaluation. Prescriptions: No Action (DME) In step wheeled walker with seat Qty: 1 0RF Dose Instruction: As directed Rx Instructions: Use wheeled walker with ambulation. estradiol 0.01 % (0.1 mg/gram) cream See Rx Instructions .ROUTE .COMPLEX Qty: 42.5 5RF Dose Instruction: INSERT 1 GRAM VAGINALLY AT BEDTIME FOR 12 DAYS, THEN 2 TIMES PER WEEK AT BEDTIME DIRECTED. Rx Instructions: INSERT 1 GRAM VAGINALLY AT BEDTIME 2 TIMES PER WEEK AT BEDTIME DIRECTED. (DME) walker with out wheels See Rx Instructions .Route .MEDSUPPLY Qty: 1 0RF Rx Instructions: As directed Disabled Parking Permit See Rx Instructions .ROUTE .COMPLEX Qty: 1 0RF Rx Instructions: I find this patient to be medically disabled and qualify for disabled parking as indicated and signed on the accompanying disabled parking application for individuals. cephalexin 500 mg capsule 500 mg PO TID Qty: 75 0RF Rx Instructions: Take 1 capsule 3 times daily for 5 days, they 1 capsule at bedtime until gone. cholecalciferol (vitamin D3) 2,000 unit capsule 2,000 unit PO DAILY melatonin 5 mg capsule PO .HS ascorbate calcium (vitamin C) 500 mg tablet 500 mg PO DAILY d-mannose 500 mg capsule PO cranberry 500 mg capsule 500 mg PO BID Rx Instructions: administer with meals methenamine hippurate [Hiprex] 1 gram tablet 0.5 g PO BID Qty: 90 3RF Rx Instructions: Take 1/2 tablet Hiprex with 500 mg vitamin-C twice daily as directed. Referrals: Zoe Parker ARNP [Primary Care Provider] -
[2022-09-06 20:07] LABS: Add Manual Diff / Slide Review NO; Basophils Absolute Auto 0 /uL (0-100); Basophils Percent Auto 0.6 % (0-2); Eosinophils Absolute Auto 200 /uL (0-450); Eosinophils Percent Auto 2.1 % (2-4); Hematocrit 40.5 % (36-46); Hemoglobin 13.2 g/dL (12.0-16.0); Lymphocytes Absolute Auto 2400 /uL (1100-4500); Mean Corpuscular HGB Conc 32.6 % (30-36); Mean Corpuscular Hemoglobin 30.6 PG (26-34); Mean Corpuscular Volume 93.7 fL (80-100); Monocytes Absolute Auto 700 /uL (0-900); Monocytes Percent Auto 9.6 % (3-14); Neutrophils Absolute Auto 4200 /uL (1500-7000); Neutrophils Percent Auto 55.7 % (50-75); Platelet Count 236 X10^3/uL (150-400); Red Blood Cell Count 4.32 X10^6/uL (4.0-5.2); Red Cell Distribution Width 13.1 % (11.6-14.8); White Blood Cell Count 7.6 X10^3/uL (4.5-11.0)
[2022-09-06 20:13] LABS: Alanine Aminotransferase 20 IU/L (<35); Albumin 4.2 g/dL (3.5-5.0); Albumin Globulin Ratio 1.2 (1.0-2.8); Alkaline Phosphatase 102 U/L (38-126); Aspartate Aminotransferase 26 IU/L (14-36); BUN Creatinine Ratio 18.8 (6-22); Bilirubin Total 0.6 mg/dL (0.2-1.3); Blood Urea Nitrogen 22 mg/dL (7-17); Calcium 9.2 mg/dL (8.4-10.2); Carbon Dioxide 29 mmol/L (22-32); Chloride 104 mmol/L (98-107); Estimated Glomerular Filt Rate 45 mL/min (>60); Globulin 3.6 g/dL (1.7-4.1); Glucose 94 mg/dL (80-110); HEMOLYSIS 22 (0-50); Potassium 4.3 mmol/L (3.4-5.1); Sodium 140 mmol/L (137-145); Total Protein 7.8 g/dL (6.3-8.2)
== END 2022-09-06 22:14 | disposition home or self-care (01) ==
PROVIDERS: Emergency Provider Emergency Medicine; PCP Nurse Practitioner
DX: S06.0X0A Concussion without loss of consciousness, initial encounter (principal); W18.30XA Fall on same level, unspecified, initial encounter
CPT/HCPCS: 70450; 80053; 85025; 99283; 99284

== ENCOUNTER 2022-09-18 16:04 | Observation (INO) | payer OTHER, SELFPAY ==
[2022-09-18] VITALS (15 sets, daily range): BP systolic 167–193; BP diastolic 77–94; PULSE 47–71; RESP 15–26; TEMP 35.6; O2SAT 95–98; BMI 30.9
--- NOTE | 2022-09-18 16:19 | DI.RAD.S_ITS ---
PROCEDURE: XR CHEST 1V INDICATIONS: chest pain TECHNIQUE: One view of the chest was acquired. COMPARISON: [facility], CR, XR CHEST 1V, 09/13/2021, 10:45. [facility], CR, XR CHEST 1V, 08/04/2022, 21:02. FINDINGS: Surgical changes and devices: None. Lungs and pleura: Lungs are clear of acute opacities. Bilateral lung interstitial prominence with peripheral predominance is stable compared to prior study. No pleural effusions or pneumothorax. Mediastinum: Prominence of the right paratracheal mediastinum and right hilum. Heart size is normal. Bones and chest wall: No suspicious bony lesions. Overlying soft tissues appear unremarkable. IMPRESSION: Right paratracheal and right hilar prominence concerning for mediastinal mass. Recommend CT scan of the chest with contrast for additional evaluation. Dictated by: Izabella Becerra MD, PhD on 09/18/2022 at 16:50 Approved by: Izabella Becerra MD, PhD on 09/18/2022 at 16:51
[2022-09-18 16:50] LABS: Add Manual Diff / Slide Review NO; Basophils Absolute Auto 0 /uL (0-100); Basophils Percent Auto 0.5 % (0-2); Eosinophils Absolute Auto 100 /uL (0-450); Eosinophils Percent Auto 1.7 % (2-4); Hematocrit 38.9 % (36-46); Lymphocytes Absolute Auto 2100 /uL (1100-4500); Lymphocytes Percent Auto 36.5 % (25-40); Mean Corpuscular HGB Conc 33.5 % (30-36); Mean Corpuscular Hemoglobin 31.2 PG (26-34); Mean Corpuscular Volume 93.1 fL (80-100); Monocytes Absolute Auto 500 /uL (0-900); Monocytes Percent Auto 9.4 % (3-14); Neutrophils Absolute Auto 3000 /uL (1500-7000); Neutrophils Percent Auto 51.9 % (50-75); Platelet Count 237 X10^3/uL (150-400); Red Blood Cell Count 4.18 X10^6/uL (4.0-5.2); Red Cell Distribution Width 13.2 % (11.6-14.8); White Blood Cell Count 5.8 X10^3/uL (4.5-11.0)
[2022-09-18 17:03] LABS: Alanine Aminotransferase 19 IU/L (<35); Albumin 4.2 g/dL (3.5-5.0); Albumin Globulin Ratio 1.1 (1.0-2.8); Alkaline Phosphatase 88 U/L (38-126); Aspartate Aminotransferase 24 IU/L (14-36); BUN Creatinine Ratio 22.4 (6-22); Bilirubin Total 0.6 mg/dL (0.2-1.3); Blood Urea Nitrogen 24 mg/dL (7-17); Calcium 9.4 mg/dL (8.4-10.2); Carbon Dioxide 27 mmol/L (22-32); Chloride 105 mmol/L (98-107); Creatine Kinase 42 U/L (30-135); Estimated Glomerular Filt Rate 50 mL/min (>60); Globulin 3.8 g/dL (1.7-4.1); Glucose 102 mg/dL (80-110); HEMOLYSIS < 15 (0-50); Lipase 161 U/L (23-300); Magnesium 2.1 mg/dL (1.6-2.3); Potassium 4.3 mmol/L (3.4-5.1); Prothrombin Time 11.6 SECONDS (10.1-12.7); Sodium 140 mmol/L (137-145)
[2022-09-18 17:05] LABS: PTT Partial Thromboplastin Tim 34 SECONDS (26-36)
[2022-09-18 17:14] LABS: Troponin I < 0.012 ng/mL (0.01-0.034)
--- NOTE | 2022-09-18 23:07 | DI.CT.S_ITS ---
PROCEDURE: CT CHEST WO CON INDICATIONS: Lung mass TECHNIQUE: Noncontrast 5 mm thick sections acquired from the pulmonary apices to the posterior costophrenic angles. 1 mm lung window, 5 mm thick coronal and sagittal and 7 mm axial MIP reformats were then acquired. For radiation dose reduction, the following was used: automated exposure control, adjustment of mA and/or kV according to patient size. COMPARISON: [facility], CR, XR CHEST 1V, 09/18/2022, 16:33. [facility], CT, CT ANGIO HEAD AND NECK, 09/18/2022, 23:18. FINDINGS: Image quality: Excellent. Lower Neck: No lymphadenopathy by size criteria. Thyroid: Visualized thyroid demonstrates no discrete nodules. Axillae: No lymphadenopathy by size criteria. Chest Wall: Unremarkable. Bones: Visualized osseous structures demonstrate no suspicious lesions. Lungs and Airways: There are bilateral peripheral subpleural reticulation and indistinct ground-glass opacities with a basilar predominance. There is mild traction bronchiectasis also demonstrated with a basilar predominance. The findings are consistent with chronic interstitial lung disease. No definite honeycombing. No acute consolidation. There is a nodular opacity peripherally in the right middle lobe measuring up to 0.8 cm on series 7, image 155 likely representing scarring. The trachea and central airways are patent. Pleura: No pneumothorax or pleural effusions. Heart: Heart size is borderline enlarged. No pericardial effusion. Thoracic Vessels: There is mild aneurysmal dilatation of the ascending thoracic aorta which measures up to 4.1 cm. The aortic arch and descending aorta are normal in caliber. Mediastinum and Cynthia: No lymphadenopathy by size criteria. No discrete mediastinal or hilar mass identified. Esophagus: No wall thickening. No hiatal hernia. Abdomen: Visualized upper abdominal solid organs and bowel loops appear normal in the absence of contrast. IMPRESSION: 1. 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 2. No mediastinal or hilar mass identified. Dictated by: Sae Rutledge M.D. on 09/19/2022 at 1:11 Approved by: Sae Rutledge M.D. on 09/19/2022 at 1:17
--- NOTE | 2022-09-18 23:07 | DI.CT.S_ITS ---
PROCEDURE: CT ANGIO HEAD AND NECK INDICATIONS: Altered mental status/vision changes TECHNIQUE: Pre-contrast 4.5 mm thick sections acquired from the foramen magnum to the vertex. After the administration of intravenous contrast, 1 mm thick sections acquired from the aortic arch through the [place] of [place]. Post-contrast 4.5 mm thick sections then re-acquired from the foramen magnum to the vertex. 3-dimensional powripx-pkgktyafn-yflyyhtuzy (MIP) and/or volume rendering reformats were acquired of the central intracranial vasculature and neck separately. For radiation dose reduction, the following was used: automated exposure control, adjustment of mA and/or kV according to patient size. COMPARISON: [facility], MR, MR STROKE, 08/26/2019, 9:14. [facility], CT, CT HEAD/BRAIN WO CON, 08/04/2022, 21:18. [facility], CT, CT HEAD/BRAIN WO CON, 09/06/2022, 19:57. FINDINGS: Image quality: There is metallic streak artifact secondary to patient's dental hardware. BRAIN: CSF spaces: Basal cisterns are patent. No extra-axial fluid collections. There is mild overall cerebral volume loss, with resultant ventricular and sulcal prominence. Moderate cerebellar volume loss redemonstrated in the posterior fossa Brain: No intracranial hemorrhage, mass, or mass effect. There are subcortical, periventricular and deep white matter hypodensities consistent with moderate chronic small vessel ischemic changes. The shoemaker-white matter junction appears preserved. No abnormal intracranial enhancement. Skull and face: Calvarium and facial bones appear intact, without suspicious lesions. Orbits appear normal. Sinuses: Sinuses and mastoids are clear. HEAD CT ANGIOGRAPHY: Anterior circulation: Intracranial internal carotid arteries are normal in size and appear patent bilaterally. The paired anterior cerebral arteries appear patent bilaterally. There is an absent A1 segment of the left anterior cerebral artery redemonstrated, likely representing a developmental variant. The remainder of the left anterior cerebral artery supplied by the posterior communicating artery from the right. The anterior communicating artery also appears patent. The middle cerebral arteries appear patent bilaterally. No high-grade stenosis, occlusion, or filling defects. No cerebral aneurysms identified. Posterior circulation: The visualized vertebral arteries demonstrate a left dominant vertebrobasilar system with a diminutive right vertebral artery. The right vertebral artery appears to terminate in a posterior inferior cerebellar artery, consistent with an anatomic variant. The basilar artery is supplied by the left vertebral artery and appears patent along its course. The posterior cerebral arteries appear patent bilaterally, with persistent circulation on the right. The right posterior cerebral artery supplied by a posterior communicating artery. No high-grade stenosis, occlusion, or filling defects. No cerebral aneurysms identified. NECK CT ANGIOGRAPHY: Carotid system: The great vessels demonstrate a conventional anatomy as they arise from the aortic arch. The origins of the common carotid arteries appear patent. The common carotid arteries demonstrate normal caliber and courses. The bifurcation regions are both widely patent. The internal carotid arteries demonstrate normal calibers and courses. Posterior circulation: The origins of the vertebral arteries both appear patent. There is a left dominant vertebrobasilar system with a diminutive right vertebral artery. The vertebral arteries appear patent bilaterally. Soft tissues: Visualized lungs demonstrate bilateral reticular opacities peripherally in the lungs suggestive of chronic interstitial lung disease. Bones: No suspicious bony lesions. Visualized cervical spine demonstrates straightening of the cervical lordosis. There is multilevel degenerative disc disease and facet joint arthropathy. IMPRESSION: 1. No acute intracranial abnormality. 2. Mild overall cerebral volume loss and moderate cerebellar volume loss. 3. Moderate chronic white matter small vessel ischemic changes. 4. No high-grade stenosis or occlusion of the central intracranial arteries. 5. No high-grade stenosis or occlusion of the head and neck arteries. Any quantitative measurements of stenosis were performed using NASCET criteria. Dictated by: Sae Rutledge M.D. on 09/19/2022 at 0:45 Approved by: Sae Rutledge M.D. on 09/19/2022 at 0:55
--- NOTE | 2022-09-18 23:08 | ED.NEUROSD ---
HPI - Neuro Symptoms/Deficit General Chief Complaint: Dizziness Stated Complaint: VISUAL CHANGES, DIZZINESS, HEADACHE Time Seen by Provider: 09/18/22 22:52 Source: patient Mode of arrival: Ambulatory History of Present Illness HPI Narrative: Patient seen here 2 weeks ago for concussion. Has been doing well. Today between 3:00 p.m. and 4:00 p.m. she had episode of dizziness and visual distortion. She states she was trying to read a television sent and with the tele prompted her the letters were missing on the sentences. She tried reading a discharge instruction papers from her head injury and was unable to read it. She states she usually can read very well. These symptoms have resolved. No slurred speech facial droop or unilateral weakness. She did see her family doctor after the concussion. Medication for blood pressure has been changed. She was added metoprolol because her heart rate was high and her blood pressure was high. This was done in the last week. On Anticoagulants: No Related Data Home Medications Medication Instructions Recorded Confirmed cholecalciferol (vitamin D3) 50 2,000 unit PO 3XW 03/28/18 09/19/22 mcg (2,000 unit) capsule ascorbate calcium (vitamin C) 500 500 mg PO BID 09/20/21 09/19/22 mg tablet cranberry 500 mg capsule 1,000 mg PO BID 09/20/21 09/19/22 d-mannose 500 mg capsule mg PO 09/20/21 08/08/22 melatonin 5 mg capsule mg PO BEDTIME 01/17/22 08/08/22 cephalexin 500 mg capsule 500 mg PO BEDTIME 09/19/22 09/19/22 lisinopril 5 mg tablet 5 mg PO BEDTIME 09/19/22 09/19/22 Previous Rx's Medication Instructions Recorded In step wheeled walker with seat #1 ea 05/12/19 methenamine hippurate 1 gram 0.5 g PO BID #90 tabs 09/20/21 tablet (Hiprex) estradiol 0.01% (0.1 mg/gram) See Rx Instructions .Route 02/05/22 vaginal cream .COMPLEX #42.5 grams walker with out wheels #1 ea 06/04/22 Disabled Parking Permit See Rx Instructions .Route 06/18/22 .COMPLEX #1 unit metoprolol succinate 25 mg 25 mg PO DAILY #90 tabs 09/12/22 tablet,extended release 24 hr Allergies Allergy/AdvReac Type Severity Reaction Status Date / Time ciprofloxacin [From Cipro] Allergy Severe Weakness Verified 09/18/22 16:15 sulfamethoxazole AdvReac Intermediate Weakness Verified 09/18/22 16:15 [From Septra] trimethoprim [From Septra] AdvReac Intermediate Weakness Verified 09/18/22 16:15 cherries Allergy Mild itching/swe Uncoded 09/12/22 10:51 lling Review of Systems Review of Systems Narrative: GENERAL: negative chills, fatigue, malaise, fever, sweats. HEENT: negative sinus pain, ear pain, sore throat RESPIRATORY: negative dyspnea, cough CARDIOVASCULAR: negative chest pain, palpitations GASTROINTESTINAL: negative nausea, vomiting, abdominal pain : negative dysuria, frequency, hematuria MUSCULOSKELETAL: negative muscle or bony pain SKIN: negative rash, skin lesions NEUROLOGIC: negative weakness, numbness, positive vision changes, positive dizziness ROS Unobtainable: All systems reviewed & are unremarkable except as noted in HPI and below Hematologic/Lymphatic On Anticoagulants: No Patient History Medical History Anemia (1979) Cardiac arrhythmia (05/08/16) Cataract (2014) Chicken pox Colon polyps (2013) Difficulty swallowing liquids Edema of both lower legs Facial cellulitis Family history of colon cancer Fatigue Fibroids (1974) Fractures (1966) Frequent UTI (2011) Herpes zoster acute retinal necrosis History of heavy periods (1972) Hoarseness or changing voice Hx of colonic polyp Hypertension Measles Mixed incontinence Mononucleosis (1958) Mumps Postmenopausal atrophic vaginitis Premature ventricular contraction Rectal leakage Recurrent UTI (urinary tract infection) Rubella Shingles outbreak Skin rash Ulcerative colitis Urinary incontinence (2009) Urinary tract infection Surgical History Anesthesia H/O breast biopsy H/O tubal ligation H/O: hysterectomy History of appendectomy History of bilateral tubal ligation (1962) History of cataract removal with insertion of prosthetic lens (2014) History of knee replacement Status post appendectomy (1962) Status post breast biopsy Status post colonoscopy (08/26/14) Status post right oophorectomy (1979) Status post vaginal hysterectomy (1979) Family History Brother Renal cancer Father Heart disease Hypertension Grandfather Stroke Mother Colon cancer Grandmother Cancer Stroke Sister Parkinson's disease Grandmother Pneumonia Family/Other Leukemia Son Blood disease Daughter Frontotemporal dementia Social History marital status: details: Only 5 living children number of children: 6 household members: children Smoking Status: Never smoker alcohol intake: current caffeine: No Smoking Status: Never smoker alcohol intake frequency: holidays/special occasions only Substance Use Type: does not use Exam Narrative Exam Narrative: GENERAL: in no distress, not toxic not dyspneic HEAD: Normocephalic. EYES: Pupils equal round No scleral icterus. ENT: Mucous membranes moist. NECK: Trachea midline. CARDIOVASCULAR: Regular rate and rhythm without murmurs RESPIRATORY: Clear to auscultation. Breath sounds equal bilaterally. No wheezes, rales, or rhonchi. GASTROINTESTINAL: Abdomen soft, non-tender EXTREMITIES: No gross deformities. BACK: No flank tenderness. NEURO: AOx4. Clear speech no facial droop light touch intact bilateral face hands and legs with strong equal wet inspector optical glass. Finger-nose intact. Negative pronator drift. SKIN: Warm and dry PSYCH: Not anxious, is cooperative Initial Vital Signs Initial Vital Signs: Vital Signs Temperature 96.0 F L 09/18/22 16:16 Pulse Rate 61 09/18/22 16:16 Respiratory Rate 15 09/18/22 16:16 Blood Pressure 193/81 H 09/18/22 16:16 Pulse Oximetry 97 09/18/22 16:16 Oxygen Delivery Method 09/18/22 16:16 Scores NIH Stroke Scale Level of Conciousness: Alert, keenly responsive Ask month/age: Answers both questions correctly. Open/close eyes, close hand: Performs both tasks correctly Best gaze horizontal: Normal Visual palm: No visual loss Facial palsy: Normal symetrical movement Left arm drift: No drift for full 10 sec Right arm drift: No drift for full 10 sec Left leg drift: No drift for full 5 sec Right leg drift: No drift for full 5 sec Limb ataxia: Absent Sensory on face/arms/legs: Normal, no sensory loss Best language: No aphasia, normal Dysarthria: Normal Extinction or inattention: No abnormality Total NIH Stroke scale score: 0 Course Course Course Narrative: No new issues during course of stay Decision to Admit Date: 09/18/22 Decision to Admit time: 23:11 Orders Ordered: ED Orders 09/18/22 23:07 CT angio head and neck Stat CT chest wo con Stat 09/19/22 00:30 COVID19 -Nasal RAPID/Pre-Proc Stat Acetaminophen (Acetaminophen 325 Mg Tablet) 650 mg PO Q6H PRN PRN Reason: Fever/Mild Pain (1-3) Aspirin (Aspirin Ec 81 Mg Tablet) 81 mg PO DAILY [facility] Atorvastatin Calcium (Atorvastatin 20 Mg Tablet) 80 mg PO BEDTIME [facility] Clopidogrel Bisulfate (Clopidogrel 75 Mg Tablet) 75 mg PO DAILY [facility] Enoxaparin Sodium (Enoxaparin 40 Mg/0.4 Ml Syringe) 40 mg SUBCUT DAILY [facility] Labetalol HCl (Labetalol 20 Mg/4 Ml Syringe) 5 mg IV Q4HR PRN PRN Reason: Hypertensive Emergency Metoprolol Succinate (Metoprolol Er 25 Mg Tablet) 25 mg PO DAILY [facility] Naloxone HCl (Naloxone 0.4 Mg/Ml Vial) 0.2 mg IV Q2MIN PRN PRN Reason: Opiate Reversal Ondansetron HCl (Ondansetron 4 Mg/2 Ml Inj) 4 mg IV Q6HR PRN PRN Reason: Nausea And Vomiting Sodium Chloride (Sodium Chloride 0.9% Flush) 10 ml IV PRN PRN PRN Reason: Flush Sodium Chloride (Sodium Chloride 0.9% Flush) 10 ml IV BID [facility] Reevaluation(s) Reevaluation #1: Reviewed results with patient. Likely TIA. She does agree. She is never had this event before. Agrees for admit Time: 23:11 Consultations Consultation #1: Spoke with hospitalist, Marie Urrutia, will admit patient. Time: 02:10 Vital Signs Vital signs: Vital Signs - 8 hr 09/18/22 23:00 09/18/22 23:01 09/18/22 23:01 Pulse Rate 57 L 62 Respiratory Rate 26 H 20 Blood Pressure 189/94 H Pulse Oximetry 96 96 Oxygen Delivery Method Room Air 09/19/22 01:13 09/18/22 23:48 09/19/22 00:00 Pulse Rate 68 71 50 L Respiratory Rate Blood Pressure 189/94 H Pulse Oximetry 94 95 96 Oxygen Delivery Method Room Air 09/19/22 00:30 09/19/22 01:00 09/19/22 01:30 Pulse Rate 51 L 62 50 L Respiratory Rate 23 Blood Pressure Pulse Oximetry 96 95 97 Oxygen Delivery Method 09/19/22 02:00 Pulse Rate 53 L Respiratory Rate 20 Blood Pressure Pulse Oximetry 96 Oxygen Delivery Method MDM - Neuro Symptoms/Deficit Differential Diagnosis Differential diagnosis: Likely delirium, cerebrovascular accident and transient cerebral ischemia Lab Data Result diagrams: 09/18/22 16:37 09/19/22 05:34 Labs: Lab Results 09/18/22 09/18/22 09/18/22 Range/Units 16:37 16:37 16:37 WBC 5.8 (4.5-11.0) X10^3/uL RBC 4.18 (4.0-5.2) X10^6/uL Hgb 13.0 (12.0-16.0) g/dL Hct 38.9 (36-46) % MCV 93.1 (80-100) fL MCH 31.2 (26-34) PG MCHC 33.5 (30-36) % RDW 13.2 (11.6-14.8) % Plt Count 237 (150-400) X10^3/uL Neut % (Auto) 51.9 (50-75) % Lymph % (Auto) 36.5 (25-40) % [place] % (Auto) 9.4 (3-14) % Eos % (Auto) 1.7 L (2-4) % Baso % (Auto) 0.5 (0-2) % Neut # (Auto) 3000 (4639-9343) /uL Lymph # (Auto) 2100 (7269-8183) /uL [place] # (Auto) 500 (0-900) /uL Eos # (Auto) 100 (0-450) /uL Baso # (Auto) 0 (0-100) /uL PT 11.6 (10.1-12.7) SECONDS INR 1.0 (0.9-1.3) APTT 34 (26-36) SECONDS Sodium 140 (137-145) mmol/L Potassium 4.3 (3.4-5.1) mmol/L Chloride 105 (98-107) mmol/L Carbon Dioxide 27 (22-32) mmol/L BUN 24 H (7-17) mg/dL Creatinine 1.07 H (0.52-1.04) mg/dL Estimated GFR 50 L (>60) mL/min BUN/Creatinine Ratio 22.4 H (6-22) Glucose 102 (80-110) mg/dL Calcium 9.4 (8.4-10.2) mg/dL Magnesium 2.1 (1.6-2.3) mg/dL Total Bilirubin 0.6 (0.2-1.3) mg/dL AST 24 (14-36) IU/L ALT 19 (<35) IU/L Alkaline Phosphatase 88 (38-126) U/L Total Creatine Kinase 42 (30-135) U/L CK-MB (CK-2) TNP CK-MB (CK-2) Rel Index TNP Troponin I < 0.012 (0.01-0.034) ng/mL Total Protein 8.0 (6.3-8.2) g/dL Albumin 4.2 (3.5-5.0) g/dL Globulin 3.8 (1.7-4.1) g/dL Albumin/Globulin Ratio 1.1 (1.0-2.8) Lipase 161 (23-300) U/L SARS-CoV-2 (PCR) (Negative) 09/19/22 Range/Units 00:30 WBC (4.5-11.0) X10^3/uL RBC (4.0-5.2) X10^6/uL Hgb (12.0-16.0) g/dL Hct (36-46) % MCV (80-100) fL MCH (26-34) PG MCHC (30-36) % RDW (11.6-14.8) % Plt Count (150-400) X10^3/uL Neut % (Auto) (50-75) % Lymph % (Auto) (25-40) % [place] % (Auto) (3-14) % Eos % (Auto) (2-4) % Baso % (Auto) (0-2) % Neut # (Auto) (4984-1648) /uL Lymph # (Auto) (7486-9888) /uL [place] # (Auto) (0-900) /uL Eos # (Auto) (0-450) /uL Baso # (Auto) (0-100) /uL PT (10.1-12.7) SECONDS INR (0.9-1.3) APTT (26-36) SECONDS Sodium (137-145) mmol/L Potassium (3.4-5.1) mmol/L Chloride (98-107) mmol/L Carbon Dioxide (22-32) mmol/L BUN (7-17) mg/dL Creatinine (0.52-1.04) mg/dL Estimated GFR (>60) mL/min BUN/Creatinine Ratio (6-22) Glucose (80-110) mg/dL Calcium (8.4-10.2) mg/dL Magnesium (1.6-2.3) mg/dL Total Bilirubin (0.2-1.3) mg/dL AST (14-36) IU/L ALT (<35) IU/L Alkaline Phosphatase (38-126) U/L Total Creatine Kinase (30-135) U/L CK-MB (CK-2) CK-MB (CK-2) Rel Index Troponin I (0.01-0.034) ng/mL Total Protein (6.3-8.2) g/dL Albumin (3.5-5.0) g/dL Globulin (1.7-4.1) g/dL Albumin/Globulin Ratio (1.0-2.8) Lipase (23-300) U/L SARS-CoV-2 (PCR) Negative (Negative) Imaging Data Chest x-ray: Radiologist's Impression: [address] [address] XRay Report Signed Patient: Katherin Parker MR#: [id number] : 1935 Acct:[id number] Age/Sex: 86 / F Date of Service: 09/18/22 Loc: ED Accession Number: [id number] ?? Procedure: XR chest 1V Ordering Provider: Suzy Randolph D.O. PROCEDURE:? XR CHEST 1V ? INDICATIONS:? chest pain ? TECHNIQUE:? One view of the chest was acquired.? ? COMPARISON:? [facility], CR, XR CHEST 1V, 09/13/2021, 10:45.? [facility], CR, XR CHEST 1V, 08/04/2022, 21:02. ? FINDINGS:? ? Surgical changes and devices:? None.? ? Lungs and pleura:? Lungs are clear of acute opacities.? Bilateral lung interstitial prominence with peripheral predominance is stable compared to prior study.? No pleural effusions or pneumothorax.? ? Mediastinum:? Prominence of the right paratracheal mediastinum and right hilum.? Heart size is normal.? ? Bones and chest wall:? No suspicious bony lesions.? Overlying soft tissues appear unremarkable.? ? IMPRESSION:? Right paratracheal and right hilar prominence concerning for mediastinal mass.? Recommend CT scan of the chest with contrast for additional evaluation. ? ? Dictated by: Izabella Becerra MD, PhD on 09/18/2022 at 16:50 ? ? Approved by: Izabella Becerra MD, PhD on 09/18/2022 at 16:51 ? CTA - brain/neck: Radiologist's Impression: [address] [address] [address] Scan Report Signed Patient: Katherin Parker MR#: [id number] : 1935 Acct:[id number] Age/Sex: 86 / F Date of Service: 09/18/22 Loc: ED Accession Number: [id number] ?? Procedure: CT angio head and neck Ordering Provider: Fabrice Alatorre MD PROCEDURE:? CT ANGIO HEAD AND NECK ? INDICATIONS:? Altered mental status/vision changes ? TECHNIQUE:? Pre-contrast 4.5 mm thick sections acquired from the foramen magnum to the vertex.? After the administration of intravenous contrast, 1 mm thick sections acquired from the aortic arch through the [place] of [place].? Post-contrast 4.5 mm thick sections then re-acquired from the foramen magnum to the vertex.? 3-dimensional mzqbiqt-ghxhhuhvk-ewqiusrzkw (MIP) and/or volume rendering reformats were acquired of the central intracranial vasculature and neck separately. For radiation dose reduction, the following was used:? automated exposure control, adjustment of mA and/or kV according to patient size.? ? COMPARISON:? [facility], MR, MR STROKE, 08/26/2019, 9:14.? [facility], CT, CT HEAD/BRAIN WO CON, 08/04/2022, 21:18.? [facility], CT, CT HEAD/BRAIN WO CON, 09/06/2022, 19:57. ? FINDINGS:? Image quality:? There is metallic streak artifact secondary to patient's dental hardware. ? BRAIN:? CSF spaces:? Basal cisterns are patent.? No extra-axial fluid collections.? There is mild overall cerebral volume loss, with resultant ventricular and sulcal prominence.? Moderate cerebellar volume loss redemonstrated in the posterior fossa ? Brain:? No intracranial hemorrhage, mass, or mass effect.? There are subcortical, periventricular and deep white matter hypodensities consistent with moderate chronic small vessel ischemic changes.? The shoemaker-white matter junction appears preserved.? No abnormal intracranial enhancement.? ? Skull and face:? Calvarium and facial bones appear intact, without suspicious lesions.? Orbits appear normal.? ? Sinuses:? Sinuses and mastoids are clear.? ? HEAD CT ANGIOGRAPHY:? Anterior circulation:? Intracranial internal carotid arteries are normal in size and appear patent bilaterally.? The paired anterior cerebral arteries appear patent bilaterally.? There is an absent A1 segment of the left anterior cerebral artery redemonstrated, likely representing a developmental variant.? The remainder of the left anterior cerebral artery supplied by the posterior communicating artery from the right.? The anterior communicating artery also appears patent. The middle cerebral arteries appear patent bilaterally.? No high-grade stenosis, occlusion, or filling defects.? No cerebral aneurysms identified. ? Posterior circulation:? The visualized vertebral arteries demonstrate a left dominant vertebrobasilar system with a diminutive right vertebral artery.? The right vertebral artery appears to terminate in a posterior inferior cerebellar artery, consistent with an anatomic variant.? The basilar artery is supplied by the left vertebral artery and appears patent along its course.? The posterior cerebral arteries appear patent bilaterally, with persistent circulation on the right.? The right posterior cerebral artery supplied by a posterior communicating artery.? No high-grade stenosis, occlusion, or filling defects.? No cerebral aneurysms identified. ? NECK CT ANGIOGRAPHY:? Carotid system:? The great vessels demonstrate a conventional anatomy as they arise from the aortic arch.? The origins of the common carotid arteries appear patent.? The common carotid arteries demonstrate normal caliber and courses.? The bifurcation regions are both widely patent.? The internal carotid arteries demonstrate normal calibers and courses.? ? Posterior circulation:? The origins of the vertebral arteries both appear patent.? There is a left dominant vertebrobasilar system with a diminutive right vertebral artery.? The vertebral arteries appear patent bilaterally. ? Soft tissues:? Visualized lungs demonstrate bilateral reticular opacities peripherally in the lungs suggestive of chronic interstitial lung disease. ? Bones:? No suspicious bony lesions.? Visualized cervical spine demonstrates straightening of the cervical lordosis.? There is multilevel degenerative disc disease and facet joint arthropathy.? ? ? IMPRESSION:? ? 1. No acute intracranial abnormality. ? 2. Mild overall cerebral volume loss and moderate cerebellar volume loss. ? 3. Moderate chronic white matter small vessel ischemic changes. ? 4. No high-grade stenosis or occlusion of the central intracranial arteries. ? 5. No high-grade stenosis or occlusion of the head and neck arteries.? ? Any quantitative measurements of stenosis were performed using NASCET criteria.? ? ? Dictated by: Sae Rutledge M.D. on 09/19/2022 at 0:45 ? ? Approved by: Sae Rutledge M.D. on 09/19/2022 at 0:55 ? CT scan - chest: Radiologist's Impression: [place] [address] CT Scan Report Signed Patient: Katherin Parker MR#: [id number] : 1935 Acct:[id number] Age/Sex: 86 / F Date of Service: 09/18/22 Loc: ED Accession Number: [id number] ?? Procedure: CT chest wo con Ordering Provider: Fabrice Alatorre MD PROCEDURE:? CT CHEST WO CON ? INDICATIONS:? Lung mass ? TECHNIQUE: Noncontrast 5 mm thick sections acquired from the pulmonary apices to the posterior costophrenic angles.? 1 mm lung window, 5 mm thick coronal and sagittal and 7 mm axial MIP reformats were then acquired.? For radiation dose reduction, the following was used:? automated exposure control, adjustment of mA and/or kV according to patient size.? ? COMPARISON:? [facility], CR, XR CHEST 1V, 09/18/2022, 16:33.? [facility], CT, CT ANGIO HEAD AND NECK, 09/18/2022, 23:18. ? FINDINGS:? Image quality:? Excellent.? ? Lower Neck: No lymphadenopathy by size criteria. Thyroid:? Visualized thyroid demonstrates no discrete nodules. Axillae: No lymphadenopathy by size criteria. Chest Wall:? Unremarkable.? Bones: Visualized osseous structures demonstrate no suspicious lesions. ? Lungs and Airways:? There are bilateral peripheral subpleural reticulation and indistinct ground-glass opacities with a basilar predominance.? There is mild traction bronchiectasis also demonstrated with a basilar predominance.? The findings are consistent with chronic interstitial lung disease.? No definite honeycombing.? No acute consolidation.? There is a nodular opacity peripherally in the right middle lobe measuring up to 0.8 cm on series 7, image 155 likely representing scarring.? The trachea and central airways are patent. Pleura: No pneumothorax or pleural effusions.? ? Heart: Heart size is borderline enlarged.? No pericardial effusion. Thoracic Vessels:? 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 The aortic arch and descending aorta are normal in caliber. Mediastinum and [place]: No lymphadenopathy by size criteria.? No discrete mediastinal or hilar mass identified. Esophagus: No wall thickening. No hiatal hernia. ? Abdomen:? Visualized upper abdominal solid organs and bowel loops appear normal in the absence of contrast.? ? IMPRESSION:? ? 1. 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 ? 2. No mediastinal or hilar mass identified.? ? ? Dictated by: Sae Rutledge M.D. on 09/19/2022 at 1:11 ? ? Approved by: Sae Rutledge M.D. on 09/19/2022 at 1:17 ? ECG Data Interpretation: Sinus rhythm rate [address] elevation or depression MDM Narrative Medical decision making narrative: Appropriate for admission for TIA. Symptoms have resolved. No tPA as symptoms have resolved. Patient also outside window for any any intervention at this time for tPA. Discharge Plan Departure Patient Disposition: Admitted as Observation Clinical Impression: Transient cerebral ischemia Admit Date/Time: 09/19/22 02:13 Admit Provider: Mine Urrutia
[2022-09-19] VITALS (9 sets, daily range): BP systolic 159–189; BP diastolic 75–94; PULSE 50–68; RESP 16–23; TEMP 35.9–36.2; O2SAT 94–100; BMI 31.0
[2022-09-19 01:36] LABS: COVID19 -Nasal RAPID Negative (Negative)
--- NOTE | 2022-09-19 02:30 | DI.MRI.S_ITS ---
PROCEDURE: MR HEAD/BRAIN WO CON INDICATIONS: Visual changes TECHNIQUE: Non-contrast axial T1 spin echo, axial T2 fast spin echo, sagittal and axial FLAIR, coronal T2 fast spin echo, axial gradient echo, axial diffusion and ADC through the brain. COMPARISON: [facility], CT, CT ANGIO HEAD AND NECK, 09/18/2022, 23:18. FINDINGS: Image quality: Excellent. CSF spaces: Ventricles appear symmetric in size and shape. Basal cisterns are patent. No extra-axial fluid collections. Brain: No intracranial bleeds or mass effects. There is cerebral volume loss for age. There are moderate periventricular and deep white matter chronic small vessel ischemic changes. Brainstem appears normal. Diffusion-weighted images show no acute ischemic insults. No chronic ischemic insults. Normal intravascular flow voids are present. Skull and face: Calvarial bone marrow is normal in signal. Orbits are normal. Sinuses: Sinuses and mastoids are clear. IMPRESSION: 1. Age-related volume loss and moderate small vessel ischemic change. 2. No evidence acute stroke, hemorrhage, or mass. No evidence of acute intracranial process. Dictated by: Michael Hathaway M.D. on 09/19/2022 at 8:27 Approved by: Michael Hathaway M.D. on 09/19/2022 at 8:29
--- NOTE | 2022-09-19 02:35 | DI.ECHO.S_ITS ---
[facility] +---------+ : : [address] : : : : [id number] : : : : Phone: [phone]+ Echocardiogram Report + + :Name: JAY TINSLEY Study Date: 09/19/2022 Height: 63 in : :[facility] ReadingLocation: Weight: 175 lb : : Gender: Female BSA: 1.8 m2 : :: 1935 Age: 86 yrs BP: 189/94 mmHg: :Reason For Study: TIA : :Ordering Physician: Silvia TYformed By: Judy Phillips : :Referring: CARLOS TY : + + Interpretation Summary 1) Normal left ventricular thickness, size, wall motion, and systolic function (EF 55-60%). 2) Normal right ventricular size and function. 3) There is mild to moderate aortic regurgitation. 4) No prior Echo available for comparison. Procedure: A two-dimensional transthoracic echocardiogram with color flow and Doppler was performed. The study quality was technically adequate. There is no prior echocardiogram noted for this patient. The patient was in sinus bradycardia with heart rates between 54-60 bpm during the exam. Left Ventricle: The left ventricle is normal in size and wall thickness. The ejection fraction is estimated to be 55-60%. Left ventricular systolic function appears normal without focal wall motion abnormalities. Diastolic parameters suggest a relaxation abnormality of the left ventricle, consistent with probable normal filling pressures. Right Ventricle: The right ventricle is normal in size and function. Atria: The left atrial size is normal. Right atrial size is normal. There is no Doppler evidence for an interatrial shunt. Mitral Valve: There is mild mitral annular calcification. The mitral valve leaflets appear mildly thickened, but open well. There is mild mitral regurgitation. Aortic Valve: The aortic valve is trileaflet. The aortic valve opens well. There is no aortic valve stenosis. There is mild to moderate aortic regurgitation. Tricuspid Valve: The tricuspid valve is normal in structure and function. There is mild tricuspid regurgitation. The right ventricular systolic pressure is estimated to be at least 36 mmHg based on an estimated right atrial pressure of 3 mm Hg. Pulmonic Valve: The pulmonic valve leaflets are thin and pliable; valve motion is normal. There is mild pulmonic regurgitation. Great Vessels: The aortic root is normal size. The dimensions of the ascending aorta are normal. The IVC is of normal diameter and collapses greater than 50% with a sniff. This suggests a low right atrial pressure of 3 mm Hg. Pericardium/ Pleura There is no pericardial effusion. There is no pleural effusion. MMode/2D Measurements & Calculations LVIDd: 4.2 cm LVOT diam: 2.1 cm LVIDs: 2.8 cm Ao root diam: 3.3 cm FS: 32.1 % asc Aorta Diam: 3.6 cm IVSd: 0.92 cm Ao Arch Diam (Prox Trans): 3.2 cm LVPWd: 0.94 cm LV johnson. diameter/BSA (cm/m^2): 2.3 LV sys. diameter/BSA (cm/m^2): 1.6 LA A2 area: 19.1 cm2 RA long axis: 4.5 cm LA A4 area: 15.0 cm2 RA area: 13.3 cm2 LA length (vol): 5.5 cm RA vol: 33.2 ml LA vol: 44.4 ml RA : 18.2 ml/m2 LA vol index: 24.3 ml/m2 IVC diam: 1.7 cm RVD1 (basal): 3.3 cm RVD2 (mid): 2.5 cm TAPSE: 1.8 cm Doppler Measurements & Calculations Ao V2 max: 133.8 cm/sec LVOT Max Bean: 103.5 cm/sec Ao V2 mean: 88.8 cm/sec LV V1 max P.3 mmHg Ao max P.2 mmHg LV V1 VTI: 22.0 cm Ao mean P.6 mmHg CATA(I,D): 2.4 cm2 Ao V2 VTI: 30.8 cm CATA(V,D): 2.6 cm2 sev ratio: 0.72 CATA indexed to BSA (cm^2/m^2): 1.3 AI P1/2t: 662.0 msec AI dec slope: 186.4 cm/sec2 MV E max bean: 59.4 cm/sec TR max bean: 275.8 cm/sec MV A max bean: 95.4 cm/sec TR max P.5 mmHg MV E/A: 0.62 PA V2 max: 75.4 cm/sec Med Peak E' Bean: 4.6 cm/sec PA V2 mean: 49.9 cm/sec E/E' med: 13.0 PA mean P.1 mmHg Lat Peak E' Bean: 5.3 cm/sec PA pr(Accel): 37.9 mmHg E/E' lat: 11.2 E/e' average: 12.1 MV dec time: 0.24 sec SV(LVOT): 72.9 ml Reading Physician:11:14 AM
--- NOTE | 2022-09-19 04:11 | PC.ADMIT ---
[address] [facility] Admission Note: The patient,Katherin Parker,86 y/o, was given written information regarding hospital policies, unit procedures and contact persons. Patient's smoking status: Never smoker. Vital Signs - 8 hr 09/18/22 20:30 09/18/22 20:31 09/18/22 20:31 Pulse Rate 50 L 53 L Respiratory Rate 21 20 Blood Pressure 167/77 H Pulse Oximetry 98 98 Oxygen Delivery Method Room Air Room Air 09/18/22 21:00 09/18/22 21:01 09/18/22 21:01 Pulse Rate 47 L 47 L Respiratory Rate 16 17 Blood Pressure 176/78 H Pulse Oximetry 97 97 Oxygen Delivery Method Room Air 09/18/22 21:30 09/18/22 21:31 09/18/22 21:31 Pulse Rate 55 L 51 L Respiratory Rate 24 22 Blood Pressure 178/80 H Pulse Oximetry 98 97 Oxygen Delivery Method Room Air 09/18/22 22:00 09/18/22 22:01 09/18/22 22:01 Pulse Rate 48 L 49 L Respiratory Rate 22 22 Blood Pressure 177/79 H Pulse Oximetry 97 96 Oxygen Delivery Method Room Air Room Air 09/18/22 22:30 09/18/22 22:31 09/18/22 22:31 Pulse Rate 49 L 48 L Respiratory Rate 22 22 Blood Pressure 184/79 H Pulse Oximetry 96 96 Oxygen Delivery Method Room Air Room Air 09/18/22 23:00 09/18/22 23:01 09/18/22 23:01 Pulse Rate 57 L 62 Respiratory Rate 26 H 20 Blood Pressure 189/94 H Pulse Oximetry 96 96 Oxygen Delivery Method Room Air 09/19/22 01:13 09/19/22 02:29 09/18/22 23:48 Pulse Rate 68 55 L 71 Respiratory Rate 18 Blood Pressure 189/94 H 178/76 H Pulse Oximetry 94 100 95 Oxygen Delivery Method Room Air 09/19/22 00:00 09/19/22 00:30 09/19/22 01:00 Pulse Rate 50 L 51 L 62 Respiratory Rate Blood Pressure Pulse Oximetry 96 96 95 Oxygen Delivery Method 09/19/22 01:30 09/19/22 02:00 09/19/22 04:06 Pulse Rate 50 L 53 L Respiratory Rate 23 20 Blood Pressure Pulse Oximetry 97 96 Oxygen Delivery Method Room Air Patient admitted to room 211 per wheelchair from ER. Reports having had difficulty with reading words on TV screen and dizziness. Had concussion 2 weeks ago so was concerned for symptoms related to that so came to ER to be assessed and was determined to have had a TIA. Currently all symptoms have resolved and NIH = 0. Breath sounds CTA with RA sat of 98%. HRR w/telemetry reading of SB w/1st degree AVB. BP elevated at 167/80. Denies nausea. BT present and abdomen is soft. Denies dysuria, frequency or urgency but does have some incontinence and wears a pad. Is able to turn herself in bed. Up to bathroom with 1 assist + walker; is unsteady on her feet. Bilateral calf SCD's applied. Fall risk score is high and bed alarm is activated. Oriented to bed controls and call light as well as plan of care.
--- NOTE | 2022-09-19 04:25 | PM.HP.1 ---
History of Present Illness History of Present Illness Date Patient Seen: 09/19/22 Time Patient Seen: 03:30 Chief complaint: VISUAL CHANGES, DIZZINESS, HEADACHE Narrative: Katherin Parker is an 86 y.o. female with multiple medical problems and multiple surgeries, presented with complaints of visual changes that occurred at about 3:24 p.m. the afternoon of September 18. She was watching TV and unable to read the captions. She stated that they looked ?weird? she stated it was not blurry but she was not able to comprehend what they said. Her daughter has a caregiver and was with the patient at the time, assisted her in obtaining discharge instructions regarding her concussion that she had and was seen for on September 12. She states that she was not able to understand the directions that were provided to her. She also stated that she felt unsteady on her feet and dizzy. She has always had a gait abnormality since about 2013 when she noticed she could not walk in a straight line. Apparently last week she was started on lisinopril 5 mg daily and then this past Saturday was started on metoprolol 25 mg p.o. daily. She does have left sided hand shaking, she denies any current headache, difficulty swallowing, chest pain, shortness in breath, she does have chronic urinary incontinence over the past several years, denies any diarrhea or constipation, denies any numbing and tingling of her upper lower extremities. Her symptoms seemed to resolve while she was in the emergency department. She was able to crop picker a box of Kleenex and read the fine print on the bottom of the box and understand what it said. Head CT and CT of the head and neck noted no acute intracranial abnormality with mild overall cerebral volume loss and moderate cerebellar volume loss and also noted moderate chronic white matter small-vessel ischemic changes with no high-grade stenosis or occlusion of the central intracranial arteries or the head and neck arteries. She is afebrile, her blood pressure has been elevated it is currently 178/76 heart rate 55, respiratory 18, oxygen saturation of 100% on room air she weighs 79.5 kg with a BMI of 31. CBC is unremarkable, coagulation studies are normal, she has a slight creatinine bump of 1.07 however it has been higher in the past GFR is 50 and the rest of her labs are within normal limits. COVID-19 PCR is negative. Patient History Medical History Anemia (1979) Cardiac arrhythmia (05/08/16) Cataract (2014) Chicken pox Colon polyps (2013) Difficulty swallowing liquids Edema of both lower legs Facial cellulitis Family history of colon cancer Fatigue Fibroids (1974) Fractures (1966) Frequent UTI (2011) Herpes zoster acute retinal necrosis History of heavy periods (1972) Hoarseness or changing voice Hx of colonic polyp Hypertension Measles Mixed incontinence Mononucleosis (1958) Mumps Postmenopausal atrophic vaginitis Premature ventricular contraction Rectal leakage Recurrent UTI (urinary tract infection) Rubella Shingles outbreak Skin rash Ulcerative colitis Urinary incontinence (2009) Urinary tract infection Surgical History Anesthesia H/O breast biopsy H/O tubal ligation H/O: hysterectomy History of appendectomy History of bilateral tubal ligation (1962) History of cataract removal with insertion of prosthetic lens (2014) History of knee replacement Status post appendectomy (1962) Status post breast biopsy Status post colonoscopy (08/26/14) Status post right oophorectomy (1979) Status post vaginal hysterectomy (1979) Family & Social History Family History Brother Renal cancer Father Heart disease Hypertension Grandfather Stroke Mother Colon cancer Grandmother Cancer Stroke Sister Parkinson's disease Grandmother Pneumonia Family/Other Leukemia Son Blood disease Daughter Frontotemporal dementia Social History: household members children Prior Living Arrangements House Safety & Behavioral: Feels Safe in Current Yes Environment Been Physically Hurt or No Threatened By a Person Tobacco & Substance use: Smoking Status Never smoker alcohol intake current alcohol intake frequency holiday/special occasion Substance Use Type does not use Meds Home Medications and Allergies Home Medications Medication Instructions Recorded Confirmed Type cholecalciferol (vitamin D3) 50 2,000 unit PO 3XW 03/28/18 09/19/22 History mcg (2,000 unit) capsule In step wheeled walker with seat #1 ea 05/12/19 08/08/22 Rx ascorbate calcium (vitamin C) 500 500 mg PO BID 09/20/21 09/19/22 History mg tablet cranberry 500 mg capsule 1,000 mg PO BID 09/20/21 09/19/22 History d-mannose 500 mg capsule mg PO 09/20/21 08/08/22 History methenamine hippurate 1 gram 0.5 g PO BID #90 tabs 09/20/21 09/19/22 Rx tablet (Hiprex) melatonin 5 mg capsule mg PO BEDTIME 01/17/22 08/08/22 History estradiol 0.01% (0.1 mg/gram) See Rx Instructions .Route 02/05/22 09/19/22 Rx vaginal cream .COMPLEX #42.5 grams walker with out wheels #1 ea 06/04/22 08/08/22 Rx Disabled Parking Permit See Rx Instructions .Route 06/18/22 08/08/22 Rx .COMPLEX #1 unit metoprolol succinate 25 mg 25 mg PO DAILY #90 tabs 09/12/22 09/19/22 Rx tablet,extended release 24 hr cephalexin 500 mg capsule 500 mg PO BEDTIME 09/19/22 09/19/22 History lisinopril 5 mg tablet 5 mg PO BEDTIME 09/19/22 09/19/22 History Allergies Allergy/AdvReac Type Severity Reaction Status Date / Time ciprofloxacin [From Cipro] Allergy Severe Weakness Verified 09/18/22 16:15 sulfamethoxazole AdvReac Intermediate Weakness Verified 09/18/22 16:15 [From Septra] trimethoprim [From Septra] AdvReac Intermediate Weakness Verified 09/18/22 16:15 cherries Allergy Mild itching/swe Uncoded 09/12/22 10:51 lling Review of Systems Review of Systems ROS: Yes All systems reviewed with the patient and are negative except as otherwise documented Exam Vital Signs (past 8 hours): - 09/18/22 20:30 09/18/22 20:31 09/18/22 20:31 Pulse Rate 50 L 53 L Respiratory Rate 21 20 Blood Pressure 167/77 H Pulse Oximetry 98 98 Oxygen Delivery Method Room Air Room Air 09/18/22 21:00 09/18/22 21:01 09/18/22 21:01 Pulse Rate 47 L 47 L Respiratory Rate 16 17 Blood Pressure 176/78 H Pulse Oximetry 97 97 Oxygen Delivery Method Room Air 09/18/22 21:30 09/18/22 21:31 09/18/22 21:31 Pulse Rate 55 L 51 L Respiratory Rate 24 22 Blood Pressure 178/80 H Pulse Oximetry 98 97 Oxygen Delivery Method Room Air 09/18/22 22:00 09/18/22 22:01 09/18/22 22:01 Pulse Rate 48 L 49 L Respiratory Rate 22 22 Blood Pressure 177/79 H Pulse Oximetry 97 96 Oxygen Delivery Method Room Air Room Air 09/18/22 22:30 09/18/22 22:31 09/18/22 22:31 Pulse Rate 49 L 48 L Respiratory Rate 22 22 Blood Pressure 184/79 H Pulse Oximetry 96 96 Oxygen Delivery Method Room Air Room Air 09/18/22 23:00 09/18/22 23:01 09/18/22 23:01 Pulse Rate 57 L 62 Respiratory Rate 26 H 20 Blood Pressure 189/94 H Pulse Oximetry 96 96 Oxygen Delivery Method Room Air 09/19/22 01:13 09/19/22 02:29 09/18/22 23:48 Pulse Rate 68 55 L 71 Respiratory Rate 18 Blood Pressure 189/94 H 178/76 H Pulse Oximetry 94 100 95 Oxygen Delivery Method Room Air 09/19/22 00:00 09/19/22 00:30 09/19/22 01:00 Pulse Rate 50 L 51 L 62 Respiratory Rate Blood Pressure Pulse Oximetry 96 96 95 Oxygen Delivery Method 09/19/22 01:30 09/19/22 02:00 09/19/22 04:06 Pulse Rate 50 L 53 L Respiratory Rate 23 20 Blood Pressure Pulse Oximetry 97 96 Oxygen Delivery Method Room Air Oxygen Delivery Method Room Air Narrative Exam Narrative: Gen: Alert, oriented, well-developed 88 y.o. female, NAD HEENT: normocephalic, atraumatic, conjunctiva clear, sclera non-icteric, oral mucosa pink and moist Neck: supple, full ROM, no JVD, trachea is midline Resp: Lungs CTA, non-labored breathing CV: RRR, no murmur or rubs Abd: soft, non-tender, normoactive BTs Skin: no lesions or rashes, dry and intact Neuro: Alert and oriented X 4 w/no focal deficits. Speech clear and coherent. Extremities: left handed, left hand and wrist shaking, moves all 4 extremities, is ambulatory, negative Hiwot?s sign Psyche: normal mood and affect. Objective Labs Result Diagrams: 09/18/22 16:37 09/18/22 16:37 Labs: Laboratory Results - last 24 hr 09/18/22 09/18/2222 16:37 16:37 16:37 WBC 5.8 RBC 4.18 Hgb 13.0 Hct 38.9 MCV 93.1 MCH 31.2 MCHC 33.5 RDW 13.2 Plt Count 237 Neut % (Auto) 51.9 Lymph % (Auto) 36.5 [place] % (Auto) 9.4 Eos % (Auto) 1.7 L Baso % (Auto) 0.5 Neut # (Auto) 3000 Lymph # (Auto) 2100 [place] # (Auto) 500 Eos # (Auto) 100 Baso # (Auto) 0 PT 11.6 INR 1.0 APTT 34 Sodium 140 Potassium 4.3 Chloride 105 Carbon Dioxide 27 BUN 24 H Creatinine 1.07 H Estimated GFR 50 L BUN/Creatinine Ratio 22.4 H Glucose 102 Calcium 9.4 Magnesium 2.1 Total Bilirubin 0.6 AST 24 ALT 19 Alkaline Phosphatase 88 Total Creatine Kinase 42 CK-MB (CK-2) TNP CK-MB (CK-2) Rel Index TNP Troponin I < 0.012 Total Protein 8.0 Albumin 4.2 Globulin 3.8 Albumin/Globulin Ratio 1.1 Lipase 161 SARS-CoV-2 (PCR) 09/19/22 00:30 WBC RBC Hgb Hct MCV MCH MCHC RDW Plt Count Neut % (Auto) Lymph % (Auto) [place] % (Auto) Eos % (Auto) Baso % (Auto) Neut # (Auto) Lymph # (Auto) [place] # (Auto) Eos # (Auto) Baso # (Auto) PT INR APTT Sodium Potassium Chloride Carbon Dioxide BUN Creatinine Estimated GFR BUN/Creatinine Ratio Glucose Calcium Magnesium Total Bilirubin AST ALT Alkaline Phosphatase Total Creatine Kinase CK-MB (CK-2) CK-MB (CK-2) Rel Index Troponin I Total Protein Albumin Globulin Albumin/Globulin Ratio Lipase SARS-CoV-2 (PCR) Negative Assessment & Plan Assessment & Plan narrative: Kayleigh Parker is admitted for further workup of a TIA or stroke TIA, acute Cardiac telemetry NIH score greater than 5 [X]no, NIH scoring and neuro checks q 4 hours Dual antiplatelet therapy: Yes[X] initiate dual antiplatelet therapy with clopidogrel 75 mg p.o. daily and aspirin 81 mg p.o. daily MR stroke scheduled for 09/19 Complete Echo with bubble study for 09/19 PT/OT/ST evaluation Hypertension, acute with an admission bp of [], present on admission Allow for permissive hypertension of 220/110 HR 60 to allow for brain perfusion Allow for permissive hypertension for brain profusion of a systolic of 220 and a diastolic of 105. IV labetolol if his systolic exceeds 220 or diastolic greater than 105. HLD Fasting lipid panel, pending for 0500 labs Atorvastatin 40 mg po at bedtime Risk stratification Fasting lipid panel pending for the morning A1c is pending VTE Prophylaxis: Wells risk score 0 [X]Enoxaparin 40 mg subQ once daily Bilateral SCDs Patient is placed into observation as her stay is not expected to exceed 2 midnights. FEN: IV fluids: saline lock, diet: heart healthy, labs: CBC, C/BMP, liver enzymes, Mag, PT/INR Consultants None Dispo: probable d/c to home Code status: Full code as discussed with the patient who did not identify a DPOA [X] I have utilized all available immediate resources to obtain, update, or review of the patient's current medications VTE Deep Vein Thrombosis/Pulmonary Embolism Present on Admission: No MIPS - Admit I confirm the patient?s Advance Care Plan is present, Code status is documented, Surrogate decision maker is in patient?s record: Yes MIPS - DC The patient has current or prior documentation of left ventricular ejection fraction (LVEF) less than 40%, or moderate or severely depressed left ventricular systolic function.: No COVID-19 COVID-19 status: Negative Result date/Date tested (Pos, Neg/Pending): 09/19/22 Quality VTE Deep Vein Thrombosis/Pulmonary Embolism Present on Admission: No
[2022-09-19 06:29] LABS: Alanine Aminotransferase 19 IU/L (<35); Albumin 3.8 g/dL (3.5-5.0); Albumin Globulin Ratio 1.1 (1.0-2.8); Alkaline Phosphatase 90 U/L (38-126); Aspartate Aminotransferase 24 IU/L (14-36); BUN Creatinine Ratio 21.4 (6-22); Bilirubin Total 0.6 mg/dL (0.2-1.3); Blood Urea Nitrogen 21 mg/dL (7-17); Calcium 9.2 mg/dL (8.4-10.2); Carbon Dioxide 30 mmol/L (22-32); Chloride 104 mmol/L (98-107); Cholesterol 215 mg/dL (140-199); Estimated Glomerular Filt Rate 56 mL/min (>60); Globulin 3.5 g/dL (1.7-4.1); Glucose 94 mg/dL (80-110); HDL Cholesterol 57 mg/dL (40-60); HEMOLYSIS < 15 (0-50); LDL Cholesterol Calculated 138 mg/dL (<100); Sodium 142 mmol/L (137-145); Total Protein 7.3 g/dL (6.3-8.2); Triglycerides 99 mg/dL (35-150)
[2022-09-19 06:59] LABS: Thyroid Stimulating Hormone 4.71 uIU/mL (0.47-4.68)
[2022-09-19] MEDS: SODIUM CHLORIDE 0.9% FLUSH 10 ML IV (10:30)
[2022-09-19] MEDS: ENOXAPARIN 40 MG/0.4 ML SYRINGE SUBCUT (10:30)
[2022-09-19] MEDS: ASPIRIN EC 81 MG TABLET PO (10:30)
--- NOTE | 2022-09-19 10:58 | ST.IPSCREEN ---
Pt was reclined in bed speaking on the phone when NEUROPSYCHOLOGY DIRECTOR arrived. Her speech was slow, but 100% intelligible, both to NEUROPSYCHOLOGY DIRECTOR and person with whom she was speaking. She ended the phone call and agreed to participate in speech and swallow screen. Pt reported ongoing speech and swallowing difficulties for at least the past 5 years, for which she received treatment through Outpatient Speech Therapy. She discontinued therapy due to transportation limitations and has been receiving in-home therapy since discharge. Pt recounted and performed strategies and exercises provided to her to help with swallowing and speech. Completed OME. Pt presented with symmetrical structures at rest and in motion. Tongue, lip, and jaw strength and ROM were WNL. Structure and function of oral mechanism appears WNL for the purposes of speech and swallowing. Pt reported her speech and swallowing are consistent with her baseline function. Receptive language was WNL, both written and spoken. Discharging from speech therapy as pt is functioning at her baseline level.
--- NOTE | 2022-09-19 11:43 | OT.IP.EVAL ---
Past Medical History (Last Reviewed 09/19/22 @ 04:38 by TREMAINE Dale) Anemia (1979) Cardiac arrhythmia (05/08/16) Cataract (2014) Chicken pox Colon polyps (2013) Difficulty swallowing liquids Edema of both lower legs Facial cellulitis Family history of colon cancer Fatigue Fibroids (1974) Fractures (1966) Frequent UTI (2011) Herpes zoster acute retinal necrosis History of heavy periods (1972) Hoarseness or changing voice Hx of colonic polyp Hypertension Measles Mixed incontinence Mononucleosis (1958) Mumps Postmenopausal atrophic vaginitis Premature ventricular contraction Rectal leakage Recurrent UTI (urinary tract infection) Rubella Shingles outbreak Skin rash Ulcerative colitis Urinary incontinence (2009) Urinary tract infection Surgical History (Last Reviewed 09/19/22 @ 04:38 by TREMAINE Dale) Anesthesia H/O breast biopsy H/O tubal ligation H/O: hysterectomy History of appendectomy History of bilateral tubal ligation (1962) History of cataract removal with insertion of prosthetic lens (2014) History of knee replacement Status post appendectomy (1962) Status post breast biopsy Status post colonoscopy (08/26/14) Status post right oophorectomy (1979) Status post vaginal hysterectomy (1979) Occupational Therapy Inpatient Evaluation/Re-Eval M1 PT/OT-IP Prior Functional Status Start: 09/19/22 12:40 Freq: NEEDED Status: Discharge Protocol: Document 09/19/22 11:50 AB (Rec: 09/19/22 12:56 AB [id number]) Medical Review Prior Functional Status Medical History Reviewed Yes Communication able to make needs known Mobility and Gait pt stated that she is modified independent with all mobilities and ambulation using a U walker Social History Household Members children Living Arrangements House Number of Floors (Floors) Two Floors Number of Stairs To Enter/Railing? pt stays on main level of the house has 3 platform steps to enter the house Home Environment High Toilet,Walk in Shower Home Equipment Shower Seat with Backrest,Hand Held Shower Additional Social History Comment pt lives with her daughter but daughter will not be able to assist pt; pt's daughter has a degenerative disease and has caregivers that comes in to assist her pt stated that her other daughters occasionally assist with house chores; also order meals for her pt also stated that she currently has [facility] for PT M2 OT-IP Current Condition Start: 09/19/22 14:17 Freq: Status: Discharge Protocol: Document 09/19/22 10:52 [facility] (Rec: 09/19/22 14:53 [facility] [id number]) Occupational Therapy Current Condition Current Condition Evaluation Date 09/19/22 Treatment Diagnosis Possible TIA Diagnosis Onset Date 09/19/22 M3 OT- IP Subjective and Pain Start: 09/19/22 14:17 Freq: Status: Discharge Protocol: Document 09/19/22 10:52 [facility] (Rec: 09/19/22 14:53 [facility] [id number]) OT- Subjective Occupational Therapy Visit Type Type Initial Evaluation Visit Start Time 10:52 Visit Stop Time 11:43 Total Visit Minutes 51 Occupational Therapy Visit Comments Patient Comments Pt agreed to get up. Patient/Caregiver Goals To go home. OT Pain Assessment Pain When Pain Assessed At Rest Pain Present Pain Present Denied Pain M4 OT- IP ADL's Start: 09/19/22 14:17 Freq: Status: Discharge Protocol: Document 09/19/22 10:52 [facility] (Rec: 09/19/22 14:53 [facility] [id number]) OT [id number] Comments OT Self-Feeding Comments Not at meal time. OT ADL-Grooming General Evaluation Grooming Ability Independent Comments OT Grooming Comments Pt able to online trader front of the sink for grooming needs. OT ADL-Oral Care General Eval Oral Care Ability Independent Comments Oral Care Comments Pt able to online trader front of the sink for oral care needs. OT ADL-Dressing General Eval Lower Body Dressing Ability Independent Comments OT Dressing Comments Pt able to breezy/doff her shoes /socks with increased time. OT ADL-Toileting Comments OT Toileting Comments Pt not having to go at this time. OT ADL-Bathing Comments OT Bathing Comments Pt has a shower chair and HHSP at home. M5 OT- IP IADL's Start: 09/19/22 14:17 Freq: Status: Discharge Protocol: Document 09/19/22 10:52 [facility] (Rec: 09/19/22 14:53 [facility] [id number]) OT-Instrumental Activities of Daily Living Home Safety Awareness Ability to Problem Solve Emergency Able to Problem Solve Situations Home Safety Comments Pt has good safety awareness for all needs. Medication Management Medication Management No Deficits Identified Money Management Money Management No Deficits Identified Meal Preparation Meal Preparation Comments Pt will benefit from assist. Bleach Liquor Maker Bleach Liquor Maker Comments Pt will benefit from assist. M6 OT- IP Functional Cognition Start: 09/19/22 14:17 Freq: Status: Discharge Protocol: Document 09/19/22 10:52 [facility] (Rec: 09/19/22 14:53 [facility] [id number]) Cognitive Factors Limiting Selfcare Function Cognitive Ability Level of Alertness Alert Patient Orientation Name,Age,Birthday,Month,Date, Year,Day of Week,Place, Situation Attention Span Ability Capable of Focused Attention, Capable of Sustained Attention Ability to Follow Commands Able to Follow One Step Commands Safety Awareness Underestimates Need for Assistance Cognitive Comments Cognitive Assessment Comments Pt able to follow commands for all ADL and mobility needs. Pt states at times is a little forgetful and lacks on her safety awareness which have resulted in falls at home- 3 falls in the past 6 months. OT- Vision and Hearing OT- Hearing Assessment OT- Hearing Assessment WFL OT- Vision Assessment Visual Acuity Glasses All The Time Visual Attentiveness WFL Occular Pursuits WFL Visual Convergence WFL Visual Avila WFL Diplopia Absent Visual Spacial Neglect Not Applicable M7 OT- IP Mobility and Balance Start: 09/19/22 14:17 Freq: Status: Discharge Protocol: Document 09/19/22 10:52 [facility] (Rec: 09/19/22 14:53 [facility] [id number]) OT- Bed Mobility Assessment Supine to Sit Supine to Sit Assist Independent OT-Transfer Assessment Sit to and From Stand Sit to and from Stand Standby Assistance Transfers Transfer Ability Standby Assistance,Contact Guard Assistance Technique Transfer Destination Bed,Chair Devices Transfer Assistive Devices Gait Belt,Front Wheeled Walker Comments Mobility Comments Pt a little unsteady on her feet and at times needing CGA while walking with the FWW. Pt has a U-step at home which pt is more used to using. OT- Balance Assessment Sitting Balance and Reactions Static Sitting Balance Ability Normal Dynamic Sitting Balance Ability Good Standing Balance and Reactions Static Standing Balance Ability Fair Dynamic Standing Balance Ability Fair Comments Other Balance Tests/Deviations/Treatment with FWW use : M8 OT- IP Objective Assessments Start: 09/19/22 14:17 Freq: Status: Discharge Protocol: Document 09/19/22 10:52 [facility] (Rec: 09/19/22 14:53 [facility] [id number]) OT Gross Range of Motion Upper Extremity Range of Motion Assessment Left Impaired ROM Impairments Left shoulder flexion limited at end ROM. OT Strength Comments Strength Comments BUE strength 4-/5 OT- Coordination Assessment Comments Coordination Comments increased time lightly more for left hand versus right OT Sensation Assessment Comments Summary Comments Intact for light touch M9 OT- IP Assessment and Plan Start: 09/19/22 14:17 Freq: Status: Discharge Protocol: Document 09/19/22 10:52 [facility] (Rec: 09/19/22 14:53 [facility] [id number]) OT Summary Assessment and Plan Potential Rehabilitation Potential Good Analytic Complexity at Evaluation Low Summary OT Impairments Strength,Balance,Coordination, Functional Mobility,Dressing, Toileting,Bathing,Toilet Transfers,Shower Transfers, Activity Tolerance Progress Towards Goals Progressing Toward Goals Assessment Summary Pt low complexity and main barrier is decreased balance however per pt has poor balance prior and has been working with home health PT. Pt would initially benefit from increased assist at home and continuation of home health PT. Goals Toileting Goal Independent Bathing Goal Independent Toilet Transfer Goal Independent Shower Transfer Goal Independent Days to Meet Goals 7 Frequency of Treatment Frequency Of Treatment Once a Day Treatment Plan OT Treatment Plan ADL Training,Functional Mobility,Patient/Family Education,Discharge Planning Discharge Recommendations OT Discharge Recommendations Home with Assistance,Home Health Transportation Needs at Discharge Private Vehicle
--- NOTE | 2022-09-19 11:50 | PT.IIE ---
Surgical History (Last Reviewed 09/19/22 @ 04:38 by TREMAINE Dale) Anesthesia H/O breast biopsy H/O tubal ligation H/O: hysterectomy History of appendectomy History of bilateral tubal ligation (1962) History of cataract removal with insertion of prosthetic lens (2014) History of knee replacement Status post appendectomy (1962) Status post breast biopsy Status post colonoscopy (08/26/14) Status post right oophorectomy (1979) Status post vaginal hysterectomy (1979) Medical History (Last Reviewed 09/19/22 @ 04:38 by TREMAINE Dale) Anemia (1979) Cardiac arrhythmia (05/08/16) Cataract (2014) Chicken pox Colon polyps (2013) Difficulty swallowing liquids Edema of both lower legs Facial cellulitis Family history of colon cancer Fatigue Fibroids (1974) Fractures (1966) Frequent UTI (2011) Herpes zoster acute retinal necrosis History of heavy periods (1972) Hoarseness or changing voice Hx of colonic polyp Hypertension Measles Mixed incontinence Mononucleosis (1958) Mumps Postmenopausal atrophic vaginitis Premature ventricular contraction Rectal leakage Recurrent UTI (urinary tract infection) Rubella Shingles outbreak Skin rash Ulcerative colitis Urinary incontinence (2009) Urinary tract infection Physical Therapy Inpatient Evaluation/Re-Eval M1 PT/OT-IP Prior Functional Status Start: 09/19/22 12:40 Freq: NEEDED Status: Active Protocol: Document 09/19/22 11:50 AB (Rec: 09/19/22 12:56 AB [id number]) Medical Review Prior Functional Status Medical History Reviewed Yes Communication able to make needs known Mobility and Gait pt stated that she is modified independent with all mobilities and ambulation using a U walker Social History Household Members children Living Arrangements House Number of Floors (Floors) Two Floors Number of Stairs To Enter/Railing? pt stays on main level of the house has 3 platform steps to enter the house Home Environment High Toilet,Walk in Shower Home Equipment Shower Seat with Backrest,Hand Held Shower Additional Social History Comment pt lives with her daughter but daughter will not be able to assist pt; pt's daughter has a degenerative disease and has caregivers that comes in to assist her pt stated that her other daughters occasionally assist with house chores; also order meals for her pt also stated that she currently has [facility] for PT M2 PT-IP Current Condition Start: 09/19/22 12:40 Freq: NEEDED Status: Active Protocol: Document 09/19/22 11:50 AB (Rec: 09/19/22 12:56 AB [id number]) Physical Therapy Current Condition Current Condition Evaluation Date 09/19/22 Treatment Diagnosis TIA; difficulty in walking Onset Date 09/19/22 M3 PT-IP Subjective Start: 09/19/22 12:40 Freq: NEEDED Status: Active Protocol: Document 09/19/22 11:50 AB (Rec: 09/19/22 12:56 AB [id number]) Subjective Physical Therapy Visit Type Type Initial Evaluation Visit Start Time 11:50 Visit Stop Time 12:25 Total Visit Minutes 35 Number of POOL LIFEGUARD Visits 0 Physical Therapy Visit Comments Patient Comments agreeable to do PT Therapy Pain Assessment Pain Present Pain Present Denied Pain M4 PT-IP Mobility and Gait Start: 09/19/22 12:40 Freq: NEEDED Status: Active Protocol: Document 09/19/22 11:50 AB (Rec: 09/19/22 12:56 AB [id number]) PT-Bed Mobility Assessment Supine to Sit Supine to Sit Standby Assistance Sit to Supine Sit to Supine Standby Assistance PT-Transfer Assessment Sit to and From Stand Sit to and from Stand Standby Assistance,Contact Guard Assistance Equipment Transfer Assistive Device Gait Belt,Front Wheeled Walker Orthotic/Prosthetic Devices or Brace: No Transfers Transfer Destination Bed Transfer Technique ambulated Transfer Ability Level of Assist Standby Assistance,Contact Guard Assistance,1 Person Assistance,Use of Upper Extremities Comments Mobility Comments pt sitting on chair. educated on use of FWW. completed sit to stand SBA and ambulated in room using FWW SBA to occasionally CGA. presents with increase trunk flexion, R LE tends to cross midline with increase ER. educated pt on posture and increase awareness of COG and to increase step width. pt ambulated to EOB. completed sit <> supine SBA. pt agreed to do stairs. ambulated using FWW SBA to CGA. completed up/ down platform step using FWW CGA. repeated x 2 sets. ambulated back to the room using FWW. increase stooped posture towards end of ambulation with slower pacing. positioned on the chair. call light and table placed within reach. Gait Assessment Gait Gait Assistance Required: Standby Assistance,Contact Guard Assist Distance (Feet) 40 Able to Maintain Weight Bearing Status Yes During Gait Assistive Devices Assistive Device Gait Belt,Front Wheeled Walker Orthotic/Prosthetic Devices or Brace: No Gait Deviations General Gait Pattern Decreased Stride Length, Decreased Feet Clearance, Flexed Trunk,Step-to Gait Factors Limiting Gait Function Factors Limiting Gait Function Decreased Activity Tolerance, Decreased Strength,Limited Range of Motion,Poor Balance, Poor Safety Awareness Stair Climbing Assessment Evaluation Level of Assist On Stairs Contact Guard Assistance Devices Stair Climbing Assistive Devices Front Wheel Walker Technique/Endurance Stair Climbing Direction Ascend and Descend Stair Climbing Technique Step to Step Number of Steps Climbed 1 Query Text: Stair Climbing Set # Repetitions (reps) 2 PT-Balance Assessment Sitting Balance and Reactions Static Sitting Balance Ability Normal Dynamic Sitting Balance Ability Good Standing Balance and Reactions Static Standing Balance Ability Fair Dynamic Standing Balance Ability Fair Device Used FWW M5 PT-IP Objective Assessments Start: 09/19/22 12:40 Freq: NEEDED Status: Active Protocol: Document 09/19/22 11:50 AB (Rec: 09/19/22 12:56 [email or web address] Orientation Orientation/Cognition Level of Alertness Alert Orientation Name Language Function Ability No Deficits Noted Safety Awareness Understands Safety Issues Memory Description No Deficits Noted Gross Range of Motion Lower Extremity ROM Assessment Within Functional Limits Strength Lower Extremity Strength Assessment Within Functional Limits Sensation Assessment Sensation Gross Sensation WNL Muscle Tone Muscle Tone WNL Yes M6 PT-IP Treatment Start: 09/19/22 12:40 Freq: NEEDED Status: Active Protocol: Document 09/19/22 11:50 AB (Rec: 09/19/22 12:56 AB [id number]) Physical Therapy Treatment Education Education Provided Safety M7 PT-IP Assessment and Plan Start: 09/19/22 12:40 Freq: NEEDED Status: Active Protocol: Document 09/19/22 11:50 AB (Rec: 09/19/22 12:56 AB [id number]) PT Summary Assessment and Plan Potential Rehabilitation Potential Good Status of Condition at Evaluation Stable Summary Impairments Pain,ROM,Strength,Balance, Coordination,Sensation,Tone, Cognition,Bed Mobility, Transfers,Gait,Activity Tolerance Assessment Summary pt requiring SBA to CGA with mobility using a FWW. Pt uses a U walker at home. pt plans to go home and will continue with services. Goals Bed Mobility Goal Independent Transfer Goal Independent,Front Wheeled Walker Gait Goal Independent,Four Wheel Walker Gait Distance 200 Other Goals improve ambulation using U walker mod I 200 ft Days to Meet Goals 5 Frequency of Treatment Frequency Of Treatment Once a Day Treatment Plan Physical Therapy Treatment Plan Bed Mobility Training,Transfer Training,Gait Training, Therapeutic Exercise,Balance Retraining,Discharge Planning, Hot or Cold Pack,Neuromuscular Re-ed,Coordination Retraining ,Manual Therapy Recommendations To Nursing Amount of Assist Needed 1 Person Assist Discharge Recommendations PT Discharge Recommendations Home with Assistance,Home Health Transportation Needs at Discharge Private Vehicle
--- NOTE | 2022-09-19 14:54 | CM.DANOTE ---
Patient is an 86 yo female who was admitted on 09/19/22 today for TIA r/o. Pt has [facility] and her PCP is Zoe Parker. EMR was reviewed. Per MD, pt with TIA r/o and had negative MRI and to work with PT/OT and then can likely d/c home later today. Per PT/OT, pt seems back to baseline and lives with her Dtr and has other local family support and recommend return home with family and [facility]. Per MD, pt stable for d/c back home and no identified barriers to discharge. Due to triage needs and no d/c needs identified, no bedside assessment completed at this time. SW faxed [facility] pt's clinicals and d/c summary along with Resume Orders. Plan: Patient to d/c home via Dtr POV today and [facility]. No further SW needs at this time. HANK Mchugh Discharge Planning/Care Management Advanced directive, confirm from FAMILY Start: 09/19/22 02:59 Freq: Q24H Status: Discharge Protocol: Document 09/19/22 08:26 BT (Rec: 09/19/22 08:29 BT [id number]) Advance Directive, confirm on record Time 08:26 Person contacted pt Copy received No
--- NOTE | 2022-09-19 20:30 | PM.DS.1 ---
History of Present Illness History of Present Illness Date Patient Seen: 09/19/22 Time Patient Seen: 03:30 Chief complaint: VISUAL CHANGES, DIZZINESS, HEADACHE Narrative: Katherin Parker is an 86 y.o. female with multiple medical problems and multiple surgeries, presented with complaints of visual changes that occurred at about 3:24 p.m. the afternoon of September 18. She was watching TV and unable to read the captions. She stated that they looked ?weird? she stated it was not blurry but she was not able to comprehend what they said. Her daughter has a caregiver and was with the patient at the time, assisted her in obtaining discharge instructions regarding her concussion that she had and was seen for on September 12. She states that she was not able to understand the directions that were provided to her. She also stated that she felt unsteady on her feet and dizzy. She has always had a gait abnormality since about 2013 when she noticed she could not walk in a straight line. Apparently last week she was started on lisinopril 5 mg daily and then this past Saturday was started on metoprolol 25 mg p.o. daily. She does have left sided hand shaking, she denies any current headache, difficulty swallowing, chest pain, shortness in breath, she does have chronic urinary incontinence over the past several years, denies any diarrhea or constipation, denies any numbing and tingling of her upper lower extremities. Her symptoms seemed to resolve while she was in the emergency department. 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 Head CT and CT of the head and neck noted no acute intracranial abnormality with mild overall cerebral volume loss and moderate cerebellar volume loss and also noted moderate chronic white matter small-vessel ischemic changes with no high-grade stenosis or occlusion of the central intracranial arteries or the head and neck arteries. She is afebrile, her blood pressure has been elevated it is currently 178/76 heart rate 55, respiratory 18, oxygen saturation of 100% on room air she weighs 79.5 kg with a BMI of 31. CBC is unremarkable, coagulation studies are normal, she has a slight creatinine bump of 1.07 however it has been higher in the past GFR is 50 and the rest of her labs are within normal limits. COVID-19 PCR is negative. Discharge Providers Provider Date of admission: 09/19/22 02:13 Discharge Date: 09/19/22 Primary care physician: TREMAINE Manning Consults: 09/19/22 02:30 Consult to Discharge Planning Routine Comment: Consult to Occupational Therapy Evaluate & Treat Comment: Physician Instructions: Evaluate and treat Consult to Physical Therapy Evaluate & Treat Comment: Physician Instructions: Evaluate and Treat Consult to Speech Therapy Evaluate & Treat Comment: Physician Instructions: Evaluate and treat 09/19/22 14:32 Consult to Home Health Routine Comment: TIA r/o Reason For Exam: Resume Sig HH for discharge to home Discharge provider: Ascencion Rodrigues DO Summary Hospital Course Discharge Diagnosis: TIA HLD HTN Hospital Course: Patient admitted for a possible TIA with visual changes and dizziness. These resolved during admission. All workup was reassuring and no stroke was seen on MRI. Echo was normal. Placed on baby aspirin daily as well as a statin and discharged home. Time Spent with Patient Time spent: Greater than 30 minutes Exam Vital Signs (past 8 hours): Oxygen Delivery Method Room Air Oxygen Flow Rate 0 Narrative Exam Narrative: Gen: Alert, oriented, well-developed 88 y.o. female, NAD HEENT: normocephalic, atraumatic, conjunctiva clear, sclera non-icteric, oral mucosa pink and moist Neck: supple, full ROM, no JVD, trachea is midline Resp: Lungs CTA, non-labored breathing CV: RRR, no murmur or rubs Abd: soft, non-tender, normoactive BTs Skin: no lesions or rashes, dry and intact Neuro: Alert and oriented X 4 w/no focal deficits. Speech clear and coherent. Extremities: left handed, left hand and wrist shaking, moves all 4 extremities, is ambulatory, negative Hiwot?s sign Psyche: normal mood and affect. Objective Labs Result Diagrams: 09/18/22 16:37 09/19/22 05:34 [facility] Medical History Anemia (1979) Cardiac arrhythmia (05/08/16) Cataract (2014) Chicken pox Colon polyps (2013) Difficulty swallowing liquids Edema of both lower legs Facial cellulitis Family history of colon cancer Fatigue Fibroids (1974) Fractures (1966) Frequent UTI (2011) Herpes zoster acute retinal necrosis History of heavy periods (1972) Hoarseness or changing voice Hx of colonic polyp Hypertension Measles Mixed incontinence Mononucleosis (1958) Mumps Postmenopausal atrophic vaginitis Premature ventricular contraction Rectal leakage Recurrent UTI (urinary tract infection) Rubella Shingles outbreak Skin rash Ulcerative colitis Urinary incontinence (2009) Urinary tract infection Surgical History Anesthesia H/O breast biopsy H/O tubal ligation H/O: hysterectomy History of appendectomy History of bilateral tubal ligation (1962) History of cataract removal with insertion of prosthetic lens (2014) History of knee replacement Status post appendectomy (1962) Status post breast biopsy Status post colonoscopy (08/26/14) Status post right oophorectomy (1979) Status post vaginal hysterectomy (1979) Family History Brother Renal cancer Father Heart disease Hypertension Grandfather Stroke Mother Colon cancer Grandmother Cancer Stroke Sister Parkinson's disease Grandmother Pneumonia Family/Other Leukemia Son Blood disease Daughter Frontotemporal dementia Social History marital status: details: Only 5 living children number of children: 6 household members: children Smoking Status: Never smoker alcohol intake: current caffeine: No Discharge Plan Discharge Plan Patient Disposition: Home Provider Discharge Comment: You were admitted for a possible TIA. All of your workup was reassuring and no stroke was seen on your MRI. Your heart ultrasound (echo) also looked good. You will now need to take a baby aspirin daily as well as a statin for your cholesterol to prevent future TIA's. Continue all your other meds as previously taken. Discharge orders & Medications Prescriptions: New atorvastatin 40 mg tablet 40 mg PO BEDTIME Qty: 90 0RF aspirin 81 mg Tablet,Delayed Release (Dr/Ec) 81 mg PO DAILY Qty: 90 0RF Continued (DME) In step wheeled walker with seat Qty: 1 0RF Dose Instruction: As directed Rx Instructions: Use wheeled walker with ambulation. estradiol 0.01 % (0.1 mg/gram) cream See Rx Instructions .ROUTE .COMPLEX Qty: 42.5 5RF Dose Instruction: INSERT 1 GRAM VAGINALLY AT BEDTIME FOR 12 DAYS, THEN 2 TIMES PER WEEK AT BEDTIME DIRECTED. Rx Instructions: INSERT 1 GRAM VAGINALLY AT BEDTIME 2 TIMES PER WEEK AT BEDTIME DIRECTED. (DME) walker with out wheels See Rx Instructions .Route .MEDSUPPLY Qty: 1 0RF Rx Instructions: As directed Disabled Parking Permit See Rx Instructions .ROUTE .COMPLEX Qty: 1 0RF Rx Instructions: I find this patient to be medically disabled and qualify for disabled parking as indicated and signed on the accompanying disabled parking application for individuals. cholecalciferol (vitamin D3) 2,000 unit capsule 2,000 unit PO 3XW metoprolol succinate 25 mg tablet extended release 24 hr 25 mg PO DAILY Qty: 90 3RF Rx Instructions: Take 1 tab daily to help prevent elevated heart rate melatonin 5 mg capsule PO BEDTIME lisinopril 5 mg Tablet 5 mg PO BEDTIME Rx Instructions: hold if BP < 130 cephalexin 500 mg capsule 500 mg PO BEDTIME Rx Instructions: Take 1 capsule 3 times daily for 5 days, they 1 capsule at bedtime until gone. (has 10 pills left) ascorbate calcium (vitamin C) 500 mg tablet 500 mg PO BID d-mannose 500 mg capsule PO cranberry 500 mg capsule 1,000 mg PO BID Rx Instructions: administer with meals methenamine hippurate [Hiprex] 1 gram tablet 0.5 g PO BID Qty: 90 3RF Rx Instructions: Take 1/2 tablet Hiprex with 500 mg vitamin-C twice daily as directed. Follow up/Referrals: Zoe Parker ARNP [Primary Care Provider] - Visit Report/Discharge Packet Instructions: DI for Transient Ischemic Attack Discharge Data Primary Care Provider: Zoe Parker Attending Provider: Mine Urrutia VTE Deep Vein Thrombosis/Pulmonary Embolism Present on Admission: No
== END 2022-09-19 14:48 | disposition home or self-care (01) ==
LOC: ED 23:12 → AC 09-19 02:14
PROVIDERS: Emergency Medicine; Admitting Provider Nurse Practitioner Family; Emergency Provider Emergency Medicine; PCP Nurse Practitioner; Visit Provider Nurse Practitioner Family
DX: R42 Dizziness and giddiness (principal); H53.9 Unspecified visual disturbance; R29.700 NIHSS score 0; I10 Essential (primary) hypertension; E78.5 Hyperlipidemia, unspecified; Z20.822 Contact with and (suspected) exposure to COVID-19
CPT/HCPCS: 36415; 70496; 70498; 70551; 71045; 71250; 80053; 80061; 82550; 83036; 83690; 83735; 84443; 84484; 85025; 85610; 85730; 87635; 93005; 93010; 93306; 96372; 97161; 97165; 97530; 99284; C9803; G0378; J1650; Q9967

== ENCOUNTER → 2022-12-24 11:59 | Outpatient (CLI) | payer OTHER, SELFPAY ==
[2022-09-19 02:45] VITALS: BMI 31.0
[2022-12-24 12:59] LABS: BUN Creatinine Ratio 22.7 (6-22); Blood Urea Nitrogen 27 mg/dL (7-17); Calcium 9.4 mg/dL (8.4-10.2); Carbon Dioxide 28 mmol/L (22-32); Chloride 104 mmol/L (98-107); Estimated Glomerular Filt Rate 44 mL/min (>60); Glucose 103 mg/dL (80-110); HEMOLYSIS < 15 (0-50); Potassium 4.5 mmol/L (3.4-5.1); Sodium 139 mmol/L (137-145)
== END ==
PROVIDERS: PCP Nurse Practitioner; Referring Provider Internal Medicine Cardiovascular Disease; Visit Provider Internal Medicine Cardiovascular Disease
DX: I10 Essential (primary) hypertension (principal)
CPT/HCPCS: 36415; 80048

== ENCOUNTER 2023-02-06 23:33 | Emergency (ER) | payer OTHER, SELFPAY ==
[2022-09-19 02:45] VITALS: BMI 31.0
[2023-02-06 23:40] VITALS: BP 146/92; PULSE 82; RESP 16; TEMP 36.9; O2SAT 98
--- NOTE | 2023-02-07 02:05 | DI.CT.S_ITS ---
PROCEDURE: CT CERVICAL SPINE WO CON INDICATIONS: headache, fall on asa TECHNIQUE: Noncontrast 3 mm thick sections acquired from the skull base to the T4 level. Sagittal and coronal reformats were then constructed. For radiation dose reduction, the following was used: automated exposure control, adjustment of mA and/or kV according to patient size. COMPARISON: [facility], CT, CT CERVICAL SPINE WO CON, 08/04/2022, 21:18. FINDINGS: Image quality: Excellent. Bones: No fractures or dislocations. Grade 1 anterolisthesis of C6-C7 and C7-T1. Degenerative disc disease, moderate at C3-C4, C5-C6 and C6-C7, mild at C2-C3 and C4-C5. Moderate bilateral facet arthropathy at C4-C5, C5-C6 and C6-C7. Severe atlantoaxial joint degeneration. Visualized superior ribs are intact. Soft tissues: Prevertebral soft tissues are normal in thickness. No paravertebral hematomas. No apical pneumothoraces. IMPRESSION: 1. No cervical spine fractures. 2. Degenerative changes as described. No significant discrepancy with the marketing professional radiology preliminary report. Dictated by: Cole Staley M.D. on 02/07/2023 at 7:53 Approved by: Cole Staley M.D. on 02/07/2023 at 7:55
--- NOTE | 2023-02-07 02:05 | DI.CT.S_ITS ---
PROCEDURE: CT HEAD/BRAIN WO CON INDICATIONS: headache, fall on asa TECHNIQUE: Noncontrast 4.5 mm thick angled axial sections acquired from the foramen magnum to the vertex, with coronal and sagittal reformats. For radiation dose reduction, the following was used: automated exposure control, adjustment of mA and/or kV according to patient size. COMPARISON: [facility], MR, MR HEAD/BRAIN WO CON, 09/19/2022, 7:41. [facility], CT, CT HEAD/BRAIN WO CON, 09/06/2022, 19:57. FINDINGS: Image quality: Excellent. CSF spaces: Basal cisterns are patent. No extra-axial fluid collections. The ventricles are symmetric in size and shape. Brain: No intracranial bleeds or masses. There is stable cerebral volume with resultant ventricular and sulcal prominence, most pronounced in cerebella. There are periventricular and deep white matter chronic small vessel ischemic changes. There is intracranial internal carotid artery atherosclerosis. Skull and face: Calvarium and visualized facial bones appear intact, without suspicious lesions. Sinuses: Visualized sinuses and mastoids are clear. IMPRESSION: 1. No acute intracranial abnormalities. 2. Cerebral volume loss and chronic microvascular ischemic changes. Dictated by: Cole Staley M.D. on 02/07/2023 at 7:50 Approved by: Cole Staley M.D. on 02/07/2023 at 7:52
[2023-02-07 02:57] VITALS: PULSE 74; O2SAT 96
[2023-02-07 03:00] VITALS: PULSE 70; O2SAT 96
[2023-02-07 03:30] VITALS: PULSE 68; RESP 20; O2SAT 96
[2023-02-07 04:00] VITALS: PULSE 72; O2SAT 95
[2023-02-07 04:02] VITALS: BP 119/58; PULSE 76; O2SAT 96
[2023-02-07 04:30] VITALS: PULSE 72; O2SAT 96
--- NOTE | 2023-02-07 05:34 | ED_ITS ---
HPI - Fall General Chief Complaint: Fall Stated Complaint: GLF Time Seen by Provider: 02/07/23 02:05 Source: patient Mode of arrival: EMS Limitations: no limitations History of Present Illness HPI Narrative: This is a 87-year-old female comes emergency department with complaint of hitting her head. Patient states she loses her balance sometimes she lost her balance fell backwards in her head on a wall. She states there is a little bump. She states her neck is a little sore but she can move it fine. She does take aspirin 81 mg daily. She states she has chronic balance issues does sometimes fall. She states she just sort of tripped or lost her balance. She denies any new numbness, tingling or weakness she denies any fevers or chills, no chest pain or shortness of breath, no nausea or vomiting. She states she would a little bit a headache immediately afterwards but it is doing better. She denies any loss of bowel or bladder control, no other GI or urinary symptoms. Related Data Home Medications Medication Instructions Recorded Confirmed cholecalciferol (vitamin D3) 50 2,000 unit PO 3XW 03/28/18 01/07/23 mcg (2,000 unit) capsule ascorbate calcium (vitamin C) 500 500 mg PO BID 09/20/21 01/07/23 mg tablet cranberry 500 mg capsule 1,000 mg PO BID 09/20/21 01/07/23 d-mannose 500 mg capsule mg PO 09/20/21 01/07/23 melatonin 5 mg capsule mg PO BEDTIME 01/17/22 01/07/23 spironolactone 25 mg tablet 12.5 mg PO DAILY 01/07/23 01/07/23 Previous Rx's Medication Instructions Recorded In step wheeled walker with seat #1 ea 05/12/19 estradiol 0.01% (0.1 mg/gram) See Rx Instructions .Route 02/05/22 vaginal cream .COMPLEX #42.5 grams walker with out wheels #1 ea 06/04/22 Disabled Parking Permit See Rx Instructions .Route 06/18/22 .COMPLEX #1 unit methenamine hippurate 1 gram 0.5 g PO BID #90 tabs 11/13/22 tablet (Hiprex) aspirin 81 mg tablet,delayed 81 mg PO DAILY #90 tabs 12/17/22 release atorvastatin 40 mg tablet 40 mg PO BEDTIME #90 tabs 12/17/22 lisinopril 20 mg tablet 10 mg PO DAILY #45 tabs 01/07/23 Allergies Allergy/AdvReac Type Severity Reaction Status Date / Time ciprofloxacin [From Cipro] Allergy Severe Weakness Verified 01/07/23 12:21 sulfamethoxazole AdvReac Intermediate Weakness Verified 01/07/23 12:21 [From Septra] trimethoprim [From Septra] AdvReac Intermediate Weakness Verified 01/07/23 12:21 cherries Allergy Mild itching/swe Uncoded 01/07/23 12:21 lling Review of Systems Review of Systems ROS Unobtainable: All systems reviewed & are unremarkable except as noted in HPI and below Patient History Medical History Anemia (1979) Cardiac arrhythmia (05/08/16) Cataract (2014) Chicken pox Colon polyps (2013) Difficulty swallowing liquids Edema of both lower legs Facial cellulitis Family history of colon cancer Fatigue Fibroids (1974) Fractures (1966) Frequent UTI (2011) Herpes zoster acute retinal necrosis History of heavy periods (1972) Hoarseness or changing voice Hx of colonic polyp Hyperlipidemia Hypertension Measles Mixed incontinence Mononucleosis (1958) Mumps Postmenopausal atrophic vaginitis Premature ventricular contraction Rectal leakage Recurrent UTI (urinary tract infection) Rubella Shingles outbreak Skin rash Ulcerative colitis Urinary incontinence (2009) Urinary tract infection Surgical History Anesthesia H/O breast biopsy H/O tubal ligation H/O: hysterectomy History of appendectomy History of bilateral tubal ligation (1962) History of cataract removal with insertion of prosthetic lens (2014) History of knee replacement Status post appendectomy (1962) Status post breast biopsy Status post colonoscopy (08/26/14) Status post right oophorectomy (1979) Status post vaginal hysterectomy (1979) Family History Brother Renal cancer Father Heart disease Hypertension Grandfather Stroke Mother Colon cancer Grandmother Cancer Stroke Sister Parkinson's disease Grandmother Pneumonia Family/Other Leukemia Son Blood disease Daughter Frontotemporal dementia Social History marital status: details: Only 5 living children number of children: 6 household members: children Smoking Status: Never smoker alcohol intake: current caffeine: No Smoking Status: Never smoker alcohol intake frequency: holidays/special occasions only Substance Use Type: does not use Exam Narrative Exam Narrative: GEN: Patient appears in mild distress. HEAD: No evidence of trauma other than hematoma over the right parietal scalp, no raccoon/Sanders sign. NECK: Nontender, painless range of motion, trachea midline Negative for Nexus criteria, no midline line tenderness, distracting injury, altered mental status, neuro deficit, recent EtOH. EYES: PERRLA, EOMI ENT: External inspection normal, trachea is midline, no hemotypanum, Nares are clear, no septal hematoma, no dental or oral injury, airway is normal and with normal occlusion, No bony tenderness RESP: Chest is nontender and has symmetric movement, no ecchymosis, breath sounds are normal no crackles, wheezes or rales CVS: Heart sounds are normal, no murmur noted, No JVD. ABG/GI: Nontender, soft, normal bowel sounds, no distention, no organomegaly, pelvic rock is negative NEURO: Oriented AOx3, neuro is grossly intact, sensation and motor is normal all 4 extremities moving, cranial nerves II through XII are intact, GCS is 15 PSYCH: Normal mood and affect SKIN: Intact, warm and dry, no crepitus and without decubitus BACK: No CVA tenderness, no vertebral tenderness, no step-off's, no crepitus EXT: Atraumatic, hips are nontender, no pedal edema, normal color and temperature, normal range of motion of extremities with normal tendon exam, 2+ pulses in all four extremities Initial Vital Signs Initial Vital Signs: Vital Signs Temperature 98.5 F 02/06/23 23:40 Pulse Rate 82 02/06/23 23:40 Respiratory Rate 16 02/06/23 23:40 Blood Pressure 146/92 H 02/06/23 23:40 Pulse Oximetry 98 02/06/23 23:40 Oxygen Delivery Method Room Air 02/06/23 23:40 Course Orders Ordered: ED Orders 02/07/23 02:05 CT cervical spine wo con Stat CT head/brain wo con Stat Vital Signs Vital signs: Vital Signs - 8 hr 02/06/23 23:40 02/07/23 02:57 02/07/23 03:00 Temperature 98.5 F Pulse Rate 82 74 70 Respiratory Rate 16 Blood Pressure 146/92 H Pulse Oximetry 98 96 96 Oxygen Delivery Method Room Air 02/07/23 03:30 Temperature Pulse Rate 68 Respiratory Rate 20 Blood Pressure Pulse Oximetry 96 Oxygen Delivery Method Room Air MDM - Fall Imaging Data CT scan - head: Radiologist's Impression: No fracture, degenerative changes C4-5 bilaterally and left C6-7. CT - cervical spine: Radiologist's Impression: No acute abnormality generalized involutional changes of the brain without particularly prominent atrophic changes of cerebellar hemispheres, stable. MDM Narrative Medical decision making narrative: This is an 87-year-old female who comes to the emergency department with co mplaint of ground level fall patient states she has chronic balance issues lost her balance and fell over. No acute neurologic changes. She does have a small hematoma on her scalp she does take aspirin daily so head CT and C-spine were obtained as patient is quite elderly. These show some degenerative changes but no fracture, bleed or other changes. Patient does not have any other symptoms currently, denies any other issues and feels appropriate that she does not require additional workup at this time. Patient would like to return home. Discharge Plan Departure Patient Disposition: Home Clinical Impression: Fall, Hematoma of scalp Instructions: How to Prevent Falls Activity Restrictions/Additional Instructions: Please follow-up for recheck. Your imaging today shows some arthritic or degenerative changes but no fractures, bleeds or breaks. You can take up to a 1000 mg every 6 hours as needed for pain. Please return for new or worsening headaches, new or worsening neck pain, numbness, tingling weakness, chest pain, shortness of breath, vomiting, changes in mental status or other new or concerning changes. Prescriptions: No Action (DME) In step wheeled walker with seat Qty: 1 0RF Dose Instruction: As directed Rx Instructions: Use wheeled walker with ambulation. estradiol 0.01 % (0.1 mg/gram) cream See Rx Instructions .ROUTE .COMPLEX Qty: 42.5 5RF Dose Instruction: INSERT 1 GRAM VAGINALLY AT BEDTIME FOR 12 DAYS, THEN 2 TIMES PER WEEK AT BEDTIME DIRECTED. Rx Instructions: INSERT 1 GRAM VAGINALLY AT BEDTIME 2 TIMES PER WEEK AT BEDTIME DIRECTED. (DME) walker with out wheels See Rx Instructions .Route .MEDSUPPLY Qty: 1 0RF Rx Instructions: As directed Disabled Parking Permit See Rx Instructions .ROUTE .COMPLEX Qty: 1 0RF Rx Instructions: I find this patient to be medically disabled and qualify for disabled parking as indicated and signed on the accompanying disabled parking application for individuals. methenamine hippurate [Hiprex] 1 gram tablet 0.5 g PO BID Qty: 90 0RF Rx Instructions: Take 1/2 tablet Hiprex with 500 mg vitamin-C twice daily as directed. aspirin 81 mg tablet,delayed release (DR/EC) 81 mg PO DAILY Qty: 90 3RF atorvastatin 40 mg tablet 40 mg PO BEDTIME Qty: 90 3RF cholecalciferol (vitamin D3) 2,000 unit capsule 2,000 unit PO 3XW spironolactone 25 mg tablet 12.5 mg PO DAILY Patient Comments: take 1/2 tablet by mouth once daily lisinopril 20 mg tablet 10 mg PO DAILY Qty: 45 3RF Rx Instructions: Take 1/2 tab daily for blood pressure, goal between 110-140 systolic. HOLD if under 110 systolic. melatonin 5 mg capsule PO BEDTIME ascorbate calcium (vitamin C) 500 mg tablet 500 mg PO BID d-mannose 500 mg capsule PO cranberry 500 mg capsule 1,000 mg PO BID Rx Instructions: administer with meals Referrals: Zoe Parker ARNP [Primary Care Provider] - Stand Alone Forms: Patient Portal/API
== END 2023-02-07 06:31 | disposition home or self-care (01) ==
PROVIDERS: Emergency Provider Emergency Medicine; PCP Nurse Practitioner
DX: S00.03XA Contusion of scalp, initial encounter (principal); W18.30XA Fall on same level, unspecified, initial encounter
CPT/HCPCS: 70450; 72125; 99281; 99284

== ENCOUNTER → 2023-05-14 15:46 | Outpatient (CLI) | payer OTHER, SELFPAY ==
[2023-03-06 12:55] VITALS: BMI 31.0
[2023-05-14 16:34] LABS: BUN Creatinine Ratio 23.4 (6-22); Blood Urea Nitrogen 22 mg/dL (7-17); Calcium 9.4 mg/dL (8.4-10.2); Carbon Dioxide 27 mmol/L (22-32); Chloride 101 mmol/L (98-107); Estimated Glomerular Filt Rate 58 mL/min (>60); Glucose 83 mg/dL (80-110); Sodium 136 mmol/L (137-145)
[2023-05-14 16:39] LABS: HEMOLYSIS 83 (0-50); Potassium 5.5 mmol/L (3.4-5.1)
[2023-05-14 17:03] LABS: TSH w/ Reflex to FT4 3.01 uIU/mL (0.47-4.68)
== END ==
PROVIDERS: PCP Nurse Practitioner; Referring Provider Nurse Practitioner; Visit Provider Nurse Practitioner
DX: R53.1 Weakness (principal); I10 Essential (primary) hypertension
CPT/HCPCS: 80048; 84443

== ENCOUNTER → 2023-05-20 16:04 | Outpatient (CLI) | payer OTHER, SELFPAY ==
[2023-03-06 12:55] VITALS: BMI 31.0
[2023-05-20 16:45] LABS: Bilirubin Urine UA NEGATIVE (NEGATIVE); Color Urine UA YELLOW; Glucose Urine UA NEGATIVE (Negative); Ketones Urine UA NEGATIVE (NEGATIVE); Leukocyte Esterase Urine UA 2+ (NEGATIVE); Nitrite Urine UA NEGATIVE (Negative); Occult Blood Urine UA NEGATIVE (Negative); Protein Urine UA NEGATIVE (Negative); Specific Gravity Urine UA <=1.005 (1.000-1.035); Urobilinogen Urine UA 0.2 E.U./dL (0.2)
[2023-05-20 16:48] LABS: Appearance Urine UA Slightly Cloudy
[2023-05-20 16:54] LABS: BUN Creatinine Ratio 21.3 (6-22); Blood Urea Nitrogen 23 mg/dL (7-17); Calcium 9.4 mg/dL (8.4-10.2); Carbon Dioxide 26 mmol/L (22-32); Chloride 100 mmol/L (98-107); Estimated Glomerular Filt Rate 49 mL/min (>60); Glucose 120 mg/dL (80-110); HEMOLYSIS < 15 (0-50); Sodium 134 mmol/L (137-145)
[2023-05-20 16:55] LABS: Bacteria Urine Few (2-10); Culture Indicated Urine Specimen Cultured; RBC Urine None Seen (0-5/HPF); Squamous Epithelial Cell Urine None Seen (0-5/HPF); WBC Urine 30-100/HPF (0-5/HPF)
== END ==
PROVIDERS: PCP Nurse Practitioner; Referring Provider Family Medicine; Visit Provider Family Medicine
DX: E87.5 Hyperkalemia (principal); R30.0 Dysuria
CPT/HCPCS: 80048; 81001; 87077; 87086; 87186

== ENCOUNTER → 2023-06-15 14:16 | Outpatient (CLI) | payer OTHER, SELFPAY ==
[2023-03-06 12:55] VITALS: BMI 31.0
== END ==
PROVIDERS: PCP Nurse Practitioner; Visit Provider Registered Nurse
DX: N39.0 Urinary tract infection, site not specified (principal)
CPT/HCPCS: 87077; 87086; 87186

== ENCOUNTER → 2023-07-11 12:08 | Outpatient (CLI) | payer OTHER, SELFPAY ==
[2023-03-06 12:55] VITALS: BMI 31.0
--- NOTE | 2023-07-11 12:09 | DI.CT.S_ITS ---
PROCEDURE: CT KIDNEY URETER BLADDER (KUB) INDICATIONS: Urine issues, kidney issues TECHNIQUE: Axial sections were acquired from the lung bases to the pubic symphysis. Coronal and sagittal reformats were performed. For radiation dose reduction, the following was used: automated exposure control, adjustment of mA and/or kV according to patient size. COMPARISON: [facility], CT, CT KIDNEY URETER BLADDER (KUB), 01/15/2022, 13:37. FINDINGS: Image quality: Excellent. Lung bases: Similar fibrotic changes. No pleural effusion. Calcified granuloma. Heart: Heart size is prominent. URINARY: Right Kidney: No stones or hydronephrosis. Right Ureter: No hydroureter. Left Kidney: No stones or hydronephrosis. Left Ureter: No hydroureter. Bladder: Normal wall thickness. No stones. ABDOMEN: Liver: Unremarkable. Gallbladder: Multiple gallstones. Biliary ducts: No biliary ductal dilatation is seen. Possible stone in the cystic duct measuring 0.3 cm, (2/), unchanged. Are terminal leak, this could represent a vascular calcification within the hepatic artery. Pancreas: Unremarkable. Spleen: Unremarkable. Adrenal Glands: Unremarkable. Stomach and Bowel: Stomach, small bowel loops, and colon are unremarkable. Small duodenal diverticulum. Diverticulosis. No diverticulitis. Peritoneum: No abnormal intraperitoneal fluid. No free air. Ventral Wall: No hernia. Abdominal Nodes: No enlarged retroperitoneal or mesenteric lymph nodes. Vessels: Aorta and inferior vena cava are normal in size. PELVIS: Pelvic Organs: Uterus is absent. Pelvic Nodes: Unremarkable. Miscellaneous: No inguinal hernias are seen. Bones: No suspicious osseous lesion. Multilevel DDD. IMPRESSION: No hydronephrosis. No kidney stones. Gallstones. Dictated by: Lalito Goldstein M.D. on 07/11/2023 at 14:46 Approved by: Lalito Goldstein M.D. on 07/11/2023 at 14:53
== END ==
PROVIDERS: PCP Nurse Practitioner; Referring Provider Specialist; Visit Provider Specialist
DX: E87.5 Hyperkalemia (principal); I10 Essential (primary) hypertension; K80.20 Calculus of gallbladder without cholecystitis without obstruction; Z87.440 Personal history of urinary (tract) infections
CPT/HCPCS: 74176

== ENCOUNTER → 2023-07-30 13:27 | Outpatient (CLI) | payer OTHER, SELFPAY ==
[2023-03-06 12:55] VITALS: BMI 31.0
[2023-07-30 14:43] LABS: Add Manual Diff / Slide Review NO; Basophils Absolute Auto 0 /uL (0-100); Basophils Percent Auto 0.6 % (0-2); Eosinophils Absolute Auto 100 /uL (0-450); Eosinophils Percent Auto 1.2 % (2-4); Hemoglobin 12.5 g/dL (12.0-16.0); Lymphocytes Absolute Auto 2000 /uL (1100-4500); Lymphocytes Percent Auto 29.9 % (25-40); Mean Corpuscular HGB Conc 33.9 % (30-36); Mean Corpuscular Hemoglobin 31.6 PG (26-34); Mean Corpuscular Volume 93.4 fL (80-100); Monocytes Absolute Auto 800 /uL (0-900); Monocytes Percent Auto 12.6 % (3-14); Neutrophils Absolute Auto 3700 /uL (1500-7000); Neutrophils Percent Auto 55.7 % (50-75); Platelet Count 211 X10^3/uL (150-400); Red Blood Cell Count 3.96 X10^6/uL (4.0-5.2); Red Cell Distribution Width 12.3 % (11.6-14.8); White Blood Cell Count 6.6 X10^3/uL (4.5-11.0)
[2023-07-30 15:17] LABS: Alanine Aminotransferase 22 IU/L (<35); Albumin 4.1 g/dL (3.5-5.0); Albumin Globulin Ratio 1.4 (1.0-2.8); Alkaline Phosphatase 107 U/L (38-126); Aspartate Aminotransferase 23 IU/L (14-36); BUN Creatinine Ratio 29.4 (6-22); Bilirubin Total 0.6 mg/dL (0.2-1.3); Blood Urea Nitrogen 32 mg/dL (7-17); Calcium 9.9 mg/dL (8.4-10.2); Carbon Dioxide 24 mmol/L (22-32); Chloride 102 mmol/L (98-107); Estimated Glomerular Filt Rate 49 mL/min (>60); Glucose 95 mg/dL (80-110); HEMOLYSIS < 15 (0-50); Potassium 4.7 mmol/L (3.4-5.1); Sodium 135 mmol/L (137-145); Total Protein 7.1 g/dL (6.3-8.2)
[2023-07-30 16:17] LABS: Folate 8.5 ng/mL (2.76-20.0); Vitamin B12 774 pg/mL (239-931)
== END ==
PROVIDERS: PCP Nurse Practitioner; Referring Provider Physician Assistant; Visit Provider Physician Assistant
DX: R54 Age-related physical debility (principal)
CPT/HCPCS: 36415; 80053; 82607; 82746; 85025

== ENCOUNTER → 2023-09-26 13:01 | Outpatient (CLI) | payer OTHER, SELFPAY ==
[2023-03-06 12:55] VITALS: BMI 31.0
== END ==
PROVIDERS: PCP Nurse Practitioner; Visit Provider Specialist
DX: Z87.440 Personal history of urinary (tract) infections (principal)
CPT/HCPCS: 87077; 87086; 87186

== ENCOUNTER → 2023-11-04 12:29 | Outpatient (CLI) | payer OTHER, SELFPAY ==
[2023-03-06 12:55] VITALS: BMI 31.0
--- NOTE | 2023-11-04 12:35 | DI.RAD.S_ITS ---
PROCEDURE: XR CHEST 2V INDICATIONS: FAM TECHNIQUE: 2 views of the chest were acquired. COMPARISON: [facility], CR, XR CHEST 1V, 08/04/2022, 21:02. CT, CT CHEST WO CON, 09/18/2022, 23:18. [facility], CR, XR CHEST 1V, 09/18/2022, 16:33. FINDINGS: Surgical changes and devices: None. Lungs and pleura: Chronic bilateral interstitial infiltrates and pulmonary fibrosis. Lungs are clear. No pleural effusions or pneumothorax. Mediastinum: Mediastinal contours are normal. Heart size is normal. Bones and chest wall: No suspicious bony abnormalities. Soft tissues appear unremarkable. IMPRESSION: Chronic bilateral interstitial infiltrates and pulmonary fibrosis, suggesting interstitial lung disease. No focal consolidation. Dictated by: Cole Staley M.D. on 11/04/2023 at 16:53 Approved by: Cole Staley M.D. on 11/04/2023 at 16:54
[2023-11-04 14:09] LABS: Hematocrit 37.7 % (36-46); Hemoglobin 12.4 g/dL (12.0-16.0); Mean Corpuscular HGB Conc 32.8 % (30-36); Mean Corpuscular Hemoglobin 31.3 PG (26-34); Mean Corpuscular Volume 95.4 fL (80-100); Platelet Count 276 X10^3/uL (150-400); Red Blood Cell Count 3.95 X10^6/uL (4.0-5.2); Red Cell Distribution Width 13.2 % (11.6-14.8); White Blood Cell Count 8.6 X10^3/uL (4.5-11.0)
[2023-11-04 14:19] LABS: BUN Creatinine Ratio 28.1 (6-22); Blood Urea Nitrogen 32 mg/dL (7-17); Calcium 9.8 mg/dL (8.4-10.2); Carbon Dioxide 28 mmol/L (22-32); Chloride 104 mmol/L (98-107); Estimated Glomerular Filt Rate 46 mL/min (>60); Glucose 93 mg/dL (80-110); HEMOLYSIS < 15 (0-50); Potassium 4.6 mmol/L (3.4-5.1); Sodium 138 mmol/L (137-145)
[2023-11-04 14:25] LABS: NT-proBNP (BNP-Adult 18+) 1300 pg/mL (<450)
== END ==
LOC: RAD 12:33
PROVIDERS: PCP Nurse Practitioner; Referring Provider Internal Medicine Cardiovascular Disease; Visit Provider Internal Medicine Cardiovascular Disease
DX: J84.10 Pulmonary fibrosis, unspecified (principal); R06.09 Other forms of dyspnea
CPT/HCPCS: 36415; 71046; 80048; 83880; 85027

== ENCOUNTER → 2023-11-11 13:29 | Outpatient (CLI) | payer OTHER, SELFPAY ==
[2023-03-06 12:55] VITALS: BMI 31.0
--- NOTE | 2023-11-11 13:31 | DI.CT.S_ITS ---
PROCEDURE: CT CHEST HIGH RESOLUTION INDICATIONS: Other forms of dyspnea TECHNIQUE: Noncontrast 1.0 and 5.0 mm thick contiguous axial sections from the pulmonary apex to the posterior costophrenic angles, with 7 mm thick coronal and sagittal MIP reformats. 1 mm thick dynamic expiratory images acquired through the upper, mid, and lower lungs. 1.0 mm thick axial sections acquired from the sayra to the posterior costophrenic angles in the prone end-inspiration position. For radiation dose reduction, the following was used: automated exposure control, adjustment of mA and/or kV according to patient size. COMPARISON: [facility], CT, CT CHEST WO [facility], 09/18/2022, 23:18. FINDINGS: Image quality: Diagnostic. Lower Neck: No enlarged lymph nodes. Thyroid: No thyroid nodules which require sonographic follow up, per consensus guidelines. Axillae: No enlarged lymph nodes. Chest Wall: Unremarkable. Bones: Unremarkable. Lungs and Pleura: No pneumothorax or pleural effusions. Basilar predominant interstitial lung disease, with bronchiectasis, no ground-glass, no air trapping, no honeycombing. Heart: Heart size is mildly enlarged. No pericardial effusion. Thoracic Vessels: dilated main pulmonary artery, measuring 3.3 cm. Mediastinum and Cynthia: No enlarged lymph nodes. Esophagus: No wall thickening. No hiatal hernia. Upper Abdomen: Visualized upper abdomen solid organs and bowel loops appear normal. 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 Differential includes fibrotic NSIP or CTD ILD. Pulmonary hypertension. Dictated by: Juan Raltiff M.D. on 11/11/2023 at 14:41 Approved by: Juan Ratliff M.D. on 11/11/2023 at 14:49
== END ==
LOC: CT 13:29
PROVIDERS: PCP Nurse Practitioner; Referring Provider Internal Medicine Cardiovascular Disease; Visit Provider Internal Medicine Cardiovascular Disease
DX: I27.20 Pulmonary hypertension, unspecified (principal); R06.09 Other forms of dyspnea
CPT/HCPCS: 71250

== ENCOUNTER → 2023-11-27 12:04 | Outpatient (CLI) | payer OTHER, SELFPAY ==
[2023-03-06 12:55] VITALS: BMI 31.0
[2023-11-28 22:42] LABS: CCP Antibodies IgG/IgA 6 units (0-19)
[2023-12-02 20:54] LABS: ANA Screen, IFA Negative (.)
== END ==
PROVIDERS: PCP Nurse Practitioner; Referring Provider Internal Medicine Critical Care Medicine; Visit Provider Internal Medicine Critical Care Medicine
DX: J84.10 Pulmonary fibrosis, unspecified (principal); J84.9 Interstitial pulmonary disease, unspecified; J96.11 Chronic respiratory failure with hypoxia
CPT/HCPCS: 36415; 86038; 86200; 99214

== ENCOUNTER → 2024-01-01 11:24 | Outpatient (CLI) | payer OTHER, SELFPAY ==
[2023-03-06 12:55] VITALS: BMI 31.0
[2024-01-01 16:06] LABS: Alanine Aminotransferase 25 IU/L (<35); Albumin Globulin Ratio 1.3 (1.0-2.8); Alkaline Phosphatase 98 U/L (38-126); Aspartate Aminotransferase 27 IU/L (14-36); BUN Creatinine Ratio 31.5 (6-22); Blood Urea Nitrogen 41 mg/dL (7-17); Calcium 9.9 mg/dL (8.4-10.2); Carbon Dioxide 30 mmol/L (22-32); Chloride 105 mmol/L (98-107); Cholesterol 123 mg/dL (140-199); Estimated Glomerular Filt Rate 39 mL/min (>60); Globulin 3.1 g/dL (1.7-4.1); Glucose 103 mg/dL (80-110); HDL Cholesterol 52 mg/dL (40-60); HEMOLYSIS < 15 (0-50); LDL Cholesterol Calculated 48 mg/dL (<100); Potassium 4.9 mmol/L (3.4-5.1); Sodium 141 mmol/L (137-145); Total Protein 7.1 g/dL (6.3-8.2); Triglycerides 116 mg/dL (35-150)
== END ==
PROVIDERS: PCP Nurse Practitioner; Referring Provider Nurse Practitioner; Visit Provider Nurse Practitioner
DX: E78.5 Hyperlipidemia, unspecified (principal); I10 Essential (primary) hypertension; Z79.899 Other long term (current) drug therapy
CPT/HCPCS: 36415; 80053; 80061

== ENCOUNTER → 2024-02-18 16:20 | Outpatient (CLI) | payer OTHER, SELFPAY ==
[2023-03-06 12:55] VITALS: BMI 31.0
[2024-02-18 17:56] LABS: Alanine Aminotransferase 26 IU/L (<35); Albumin 4.6 g/dL (3.5-5.0); Albumin Globulin Ratio 1.4 (1.0-2.8); Alkaline Phosphatase 100 U/L (38-126); Aspartate Aminotransferase 27 IU/L (14-36); BUN Creatinine Ratio 26.3 (6-22); Bilirubin Total 0.9 mg/dL (0.2-1.3); Blood Urea Nitrogen 35 mg/dL (7-17); Calcium 9.9 mg/dL (8.4-10.2); Carbon Dioxide 27 mmol/L (22-32); Chloride 104 mmol/L (98-107); Estimated Glomerular Filt Rate 38 mL/min (>60); Globulin 3.4 g/dL (1.7-4.1); Glucose 96 mg/dL (80-110); HEMOLYSIS < 15 (0-50); Magnesium 2.3 mg/dL (1.6-2.3); Potassium 4.5 mmol/L (3.4-5.1); Sodium 139 mmol/L (137-145)
== END ==
PROVIDERS: PCP Nurse Practitioner; Referring Provider Nurse Practitioner; Visit Provider Nurse Practitioner
DX: E78.5 Hyperlipidemia, unspecified (principal); E87.5 Hyperkalemia; N18.30 Chronic kidney disease, stage 3 unspecified
CPT/HCPCS: 36415; 80053; 83735

== ENCOUNTER 2024-04-01 14:45 | Emergency (ER) | payer OTHER, SELFPAY ==
[2023-03-06 12:55] VITALS: BMI 31.0
[2024-04-01] VITALS (8 sets, daily range): BP systolic 110–128; BP diastolic 54–61; PULSE 64–73; RESP 16–28; TEMP 36.8; O2SAT 92–97; BMI 30.4
[2024-04-01 15:20] LABS: Add Manual Diff / Slide Review NO; Basophils Absolute Auto 100 /uL (0-100); Basophils Percent Auto 0.3 % (0-2); Eosinophils Absolute Auto 0 /uL (0-450); Hematocrit 35.3 % (36-46); Hemoglobin 11.8 g/dL (12.0-16.0); Lymphocytes Absolute Auto 1200 /uL (1100-4500); Lymphocytes Percent Auto 6.3 % (25-40); Mean Corpuscular HGB Conc 33.5 % (30-36); Mean Corpuscular Hemoglobin 31.5 PG (26-34); Monocytes Absolute Auto 900 /uL (0-900); Monocytes Percent Auto 4.5 % (3-14); Neutrophils Absolute Auto 17600 /uL (1500-7000); Neutrophils Percent Auto 88.9 % (50-75); Platelet Count 238 X10^3/uL (150-400); Red Blood Cell Count 3.76 X10^6/uL (4.0-5.2); Red Cell Distribution Width 13.4 % (11.6-14.8); White Blood Cell Count 19.8 X10^3/uL (4.5-11.0)
--- NOTE | 2024-04-01 15:24 | ED.GENADULT ---
HPI - General Adult General Chief complaint: Fever Stated complaint: 103.1 fever Time Seen by Provider: 04/01/24 14:51 Source: patient Mode of arrival: Wheelchair History of Present Illness HPI narrative: Patient is an 88-year-old female. States that she felt somewhat weak last evening but otherwise felt at her baseline. When she woke up this morning she had chills. She did take some Tylenol at about 0900 hours this morning (approximately 6 hours ago). She currently states that she is feeling much better now that her fevers improved. She did have a fever this morning. States she got up to use the restroom. She stated that she fell. Did not hit her head. No loss of consciousness. No injuries from the fall. She could not stand up because of her weakness. She would to call a neighbor to come over and help her up. At baseline she uses a walker. She also has a wheelchair. This is because of balance issues. She denies chest pain, shortness of breath, headache, sore throat, abdominal pain, nausea vomiting, urinary symptoms, diarrhea, skin rashes. Related Data Home Medications Medication Instructions Recorded Confirmed ascorbate calcium (vitamin C) 500 500 mg PO BID 09/20/21 03/11/24 mg tablet melatonin 5 mg capsule mg PO BEDTIME 01/17/22 03/11/24 nebivolol 5 mg tablet 5 mg PO DAILY 08/13/23 03/11/24 cranberry 500 mg capsule See Rx Instructions PO .COMPLEX 11/11/23 03/11/24 d-mannose 500 mg capsule mg PO 11/11/23 03/11/24 magnesium PO 11/11/23 03/11/24 furosemide 20 mg tablet 20 mg PO Q OTHER DAY 01/01/24 03/11/24 Estradiol Perles See Rx Instructions .Route .COMPLEX 02/18/24 03/11/24 Previous Rx's Medication Instructions Recorded In step wheeled walker with seat #1 ea 05/12/19 walker with out wheels #1 ea 06/04/22 Disabled Parking Permit See Rx Instructions .Route 06/18/22 .COMPLEX #1 unit spironolactone 25 mg tablet 12.5 mg (1/2 x 25 mg) PO DAILY 90 02/12/23 days #90 tabs atorvastatin 40 mg tablet 40 mg PO ONCE PM #90 tabs 11/11/23 aspirin 81 mg tablet,delayed 81 mg PO DAILY #90 tabs 12/23/23 release cholecalciferol (vitamin D3) 50 2,000 unit PO 3XW #36 caps 01/01/24 mcg (2,000 unit) capsule methenamine hippurate 1 gram tablet 1 g PO BID #90 tabs 02/12/24 vibegron 75 mg tablet (Gemtesa) 75 mg PO DAILY #90 tabs 03/11/24 Allergies Allergy/AdvReac Type Severity Reaction Status Date / Time ciprofloxacin [From Cipro] Allergy Severe Weakness Verified 04/01/24 14:57 estradiol Allergy Intermediate burning Verified 04/01/24 14:57 sulfamethoxazole AdvReac Intermediate Weakness Verified 04/01/24 14:57 [From Septra] trimethoprim [From Septra] AdvReac Intermediate Weakness Verified 04/01/24 14:57 cherries Allergy Mild itching/swe Uncoded 04/01/24 14:57 lling Review of Systems Review of Systems Narrative: See HPI Patient History Medical History CKD (chronic kidney disease) stage 3, GFR 30-59 ml/min Pulmonary hypertension Pulmonary fibrosis History of fall within past 90 days History of UTI Postmenopausal atrophic vaginitis Hyperlipidemia Hypertension Hoarseness or changing voice Difficulty swallowing liquids Fatigue Edema of both lower legs Premature ventricular contraction Mixed incontinence Recurrent UTI (urinary tract infection) Postmenopausal atrophic vaginitis Rectal leakage Urinary tract infection Family history of colon cancer Hx of colonic polyp Skin rash Chicken pox Colon polyps (2013) Frequent UTI (2011) Ulcerative colitis Fractures (1966) Cataract (2014) Anemia (1979) Fibroids (1974) History of heavy periods (1972) Urinary incontinence (2009) Rubella Measles Mumps Mononucleosis (1958) Cardiac arrhythmia (05/08/16) Shingles outbreak Herpes zoster acute retinal necrosis Facial cellulitis Surgical History H/O: hysterectomy H/O tubal ligation H/O breast biopsy History of knee replacement History of appendectomy Anesthesia History of bilateral tubal ligation (1962) Status post appendectomy (1962) Status post right oophorectomy (1979) History of cataract removal with insertion of prosthetic lens (2014) Status post colonoscopy (08/26/14) Status post breast biopsy Status post vaginal hysterectomy (1979) Family History Brother Renal cancer Father Heart disease Hypertension Grandfather Stroke Mother Colon cancer Grandmother Cancer Stroke Sister Parkinson's disease Grandmother Pneumonia Family/Other Leukemia Son Blood disease Daughter Frontotemporal dementia Social History marital status: details: Only 5 living children number of children: 6 household members: children Smoking Status: Never smoker alcohol intake: current caffeine: No Smoking Status: Never smoker alcohol intake frequency: holidays/special occasions only Substance Use Type: does not use Exam Initial Vital Signs Initial Vital Signs: Vital Signs Temperature 98.3 F 04/01/24 14:55 Pulse Rate 72 04/01/24 14:55 Respiratory Rate 16 04/01/24 14:55 Blood Pressure 123/59 L 04/01/24 14:55 Pulse Oximetry 93 04/01/24 14:55 Oxygen Delivery Method Room Air 04/01/24 14:55 Const General: cooperative, comfortable and No ill appearing HENNM Head: normal to inspection and normocephalic Resp Effort & Inspection: normal respiratory effort Auscultation: clear to auscultation bilaterally Cardio Rate: regular rate Rhythm: regular rhythm GI Inspection: normal to inspection and non-distended Skin General: no rashes or lesions noted Neuro General: patient alert, patient awake and moves all extremities Extrem General: capillary refill normal Course Orders Ordered: ED Orders 04/01/24 15:02 Complete Blood Count AUTO DIFF Stat Comprehensive Metabolic Panel Stat Lipase Stat Respiratory Panel (Film Array) Stat Vital Signs Vital signs: Vital Signs - 8 hr 04/01/24 14:55 04/01/24 14:56 04/01/24 15:00 Temperature 98.3 F Pulse Rate 72 73 68 Respiratory Rate 16 28 H Blood Pressure 123/59 L Pulse Oximetry 93 94 97 Oxygen Delivery Method Room Air 04/01/24 15:09 04/01/24 15:09 04/01/24 15:30 Temperature Pulse Rate 69 69 Respiratory Rate 28 H 25 H Blood Pressure 112/54 L Pulse Oximetry 96 92 Oxygen Delivery Method 04/01/24 15:30 04/01/24 16:00 04/01/24 16:01 Temperature Pulse Rate 64 65 Respiratory Rate 24 24 Blood Pressure 128/58 L Pulse Oximetry 96 95 Oxygen Delivery Method 04/01/24 16:01 Temperature Pulse Rate Respiratory Rate Blood Pressure 114/61 Pulse Oximetry Oxygen Delivery Method Medical Decision Making Lab Data 04/01/24 15:02 04/01/24 15:02 Labs: Lab Results 04/01/24 Range/Units 15:02 WBC 19.8 H (4.5-11.0) X10^3/uL RBC 3.76 L (4.0-5.2) X10^6/uL Hgb 11.8 L (12.0-16.0) g/dL Hct 35.3 L (36-46) % MCV 94.0 (80-100) fL MCH 31.5 (26-34) PG MCHC 33.5 (30-36) % RDW 13.4 (11.6-14.8) % Plt Count 238 (150-400) X10^3/uL Neut % (Auto) 88.9 H (50-75) % Lymph % (Auto) 6.3 L (25-40) % [place] % (Auto) 4.5 (3-14) % Eos % (Auto) 0.0 L (2-4) % Baso % (Auto) 0.3 (0-2) % Neut # (Auto) 24682 H (5165-4991) /uL Lymph # (Auto) 1200 (2555-7261) /uL [place] # (Auto) 900 (0-900) /uL Eos # (Auto) 0 (0-450) /uL Baso # (Auto) 100 (0-100) /uL Sodium 132 L (137-145) mmol/L Potassium 4.1 (3.4-5.1) mmol/L Chloride 98 (98-107) mmol/L Carbon Dioxide 26 (22-32) mmol/L BUN 28 H (7-17) mg/dL Creatinine 1.25 H (0.52-1.04) mg/dL Estimated GFR 41 L (>60) mL/min BUN/Creatinine Ratio 22.4 H (6-22) Glucose 190 H (80-110) mg/dL Calcium 9.1 (8.4-10.2) mg/dL Total Bilirubin 1.3 (0.2-1.3) mg/dL AST 31 (14-36) IU/L ALT 27 (<35) IU/L Alkaline Phosphatase 107 (38-126) U/L Total Protein 7.6 (6.3-8.2) g/dL Albumin 4.3 (3.5-5.0) g/dL Globulin 3.3 (1.7-4.1) g/dL Albumin/Globulin Ratio 1.3 (1.0-2.8) Lipase 160 (23-300) U/L Chlamy pneumoniae PCR Not detected (Not Detect) Adenovirus (PCR) Not detected (Not Detect) B.parapertussis DNA PCR Not detected (Not Detecte) Coronavirus OC43 (PCR) Not detected (Not Detect) Coronavirus HKU1 (PCR) Not detected (Not Detect) Coronavirus 229E (PCR) Not detected (Not Detect) SARS-CoV-2 (PCR) Not detected (Not Detecte) Coronavirus NL63 (PCR) Not detected (Not Detect) Human Metapneumovir PCR Not detected (Not Detect) Influenza Type A (PCR) Not detected (Not Detect) Influenza Type B (PCR) Not detected (Not Detect) M. pneumoniae (PCR) Not detected (Not Detect) Parainfluenza 1 (PCR) Not detected (Not Detect) Parainfluenza 2 (PCR) Not detected (Not Detect) Parainfluenza 3 (PCR) Not detected (Not Detect) Parainfluenza 4 (PCR) Not detected (Not Detect) RSV (PCR) Not detected (Not Detect) Entero/Rhino (PCR) Not detected (Not Detect) Urine Dip Bedside Urine Glucose Negative Bedside Urine Bilirubin - Negative Bedside Urine Ketone - Negative Urine Specific [place] 1.010 Bedside Urine Occult Blood - Negative Bedside Urine pH 6 Bedside Urine Protein - Negative Bedside Urine Urobilinogen - Negative Bedside Urine Nitrite - Negative Bedside Urine Leukocytes - Negative Esterase Point of care testing: Urine Dip Bedside Urine Glucose Negative Bedside Urine Bilirubin - Negative Bedside Urine Ketone - Negative Urine Specific [place] 1.010 Bedside Urine Occult Blood - Negative Bedside Urine pH 6 Bedside Urine Protein - Negative Bedside Urine Urobilinogen - Negative Bedside Urine Nitrite - Negative Bedside Urine Leukocytes - Negative Esterase [facility] Narrative Medical decision making narrative: It has been greater than 8 hours since her dose of Tylenol and she does not have a fever. She states she was feeling at baseline. There was no signs of pneumonia, meningitis, cellulitis, intra-abdominal issue, urinary tract infection. She has no chest pain. No sinus congestion. No sore throat. There was no indication for antibiotics. Patient understands this. Will discharge home. She can take Tylenol if the fever returns and returns to emergency department if she develops more specific symptoms. Discharge Plan Departure Patient Disposition: Home Clinical Impression: Fever Instructions: DI for Fever (Symptom) -- Adult Activity Restrictions/Additional Instructions: Continue to take all of your medications as directed. You can take another dose of Tylenol if your fever returns and please return to the emergency department for new symptoms like we discussed. Prescriptions: No Action (DME) In step wheeled walker with seat Qty: 1 0RF Dose Instruction: As directed Rx Instructions: Use wheeled walker with ambulation. (DME) walker with out wheels See Rx Instructions .Route .MEDSUPPLY Qty: 1 0RF Rx Instructions: As directed Disabled Parking Permit See Rx Instructions .ROUTE .COMPLEX Qty: 1 0RF Rx Instructions: I find this patient to be medically disabled and qualify for disabled parking as indicated and signed on the accompanying disabled parking application for individuals. spironolactone 25 mg tablet 12.5 mg PO DAILY 90 Days Qty: 90 3RF atorvastatin 40 mg tablet 40 mg PO ONCE PM Qty: 90 1RF aspirin 81 mg tablet,delayed release (DR/EC) 81 mg PO DAILY Qty: 90 3RF methenamine hippurate 1 gram tablet 1 g PO BID Qty: 90 3RF Rx Instructions: take 1 tab with 500mg Vitamin-C magnesium PO Rx Instructions: 225mg daily cholecalciferol (vitamin D3) 50 mcg (2,000 unit) capsule 2,000 unit PO 3XW Qty: 36 3RF furosemide 20 mg tablet 20 mg PO Q OTHER DAY Estradiol Perles See Rx Instructions .ROUTE .COMPLEX Rx Instructions: Insert 1 tab every night with some surgilube on your finger, x14 days, then 2-3 times per week therafter; melatonin 5 mg capsule PO BEDTIME nebivolol 5 mg tablet 5 mg PO DAILY Gemtesa 75 mg tablet 75 mg PO DAILY Qty: 90 3RF ascorbate calcium (vitamin C) 500 mg tablet 500 mg PO BID cranberry 500 mg capsule See Rx Instructions PO .COMPLEX Rx Instructions: 400mg, take one in the morning and 2 in the evening d-mannose 500 mg capsule PO Rx Instructions: 2 in the morning and 2 in the evening Referrals: Zoe Parker ARNP [Primary Care Provider] - Stand Alone Forms: Patient Portal/API
[2024-04-01 15:30] LABS: Alanine Aminotransferase 27 IU/L (<35); Albumin 4.3 g/dL (3.5-5.0); Albumin Globulin Ratio 1.3 (1.0-2.8); Alkaline Phosphatase 107 U/L (38-126); Aspartate Aminotransferase 31 IU/L (14-36); BUN Creatinine Ratio 22.4 (6-22); Bilirubin Total 1.3 mg/dL (0.2-1.3); Blood Urea Nitrogen 28 mg/dL (7-17); Calcium 9.1 mg/dL (8.4-10.2); Carbon Dioxide 26 mmol/L (22-32); Chloride 98 mmol/L (98-107); Estimated Glomerular Filt Rate 41 mL/min (>60); Globulin 3.3 g/dL (1.7-4.1); Glucose 190 mg/dL (80-110); HEMOLYSIS < 15 (0-50); Lipase 160 U/L (23-300); Potassium 4.1 mmol/L (3.4-5.1); Sodium 132 mmol/L (137-145); Total Protein 7.6 g/dL (6.3-8.2)
[2024-04-01 16:05] LABS: Adenovirus Not Detected (Not Detect); B. parapertussis Not Detected (Not Detecte); Bordetella pertussis Not Detected (Not Detect); Chlamydophila pneumoniae Not Detected (Not Detect); Coronavirus 229E Not Detected (Not Detect); Coronavirus HKU1 Not Detected (Not Detect); Coronavirus NL 63 Not Detected (Not Detect); Coronavirus OC43 Not Detected (Not Detect); Human Metapneumovirus Not Detected (Not Detect); Human Rhinovirus/Enterovirus Not Detected (Not Detect); Influenza A Not Detected (Not Detect); Influenza B Not Detected (Not Detect); Mycoplasma pneumoniae Not Detected (Not Detect); Parainfluenza Virus 1 Not Detected (Not Detect); Parainfluenza Virus 2 Not Detected (Not Detect); Parainfluenza Virus 3 Not Detected (Not Detect); Parainfluenza Virus 4 Not Detected (Not Detect); Respiratory Syncytial Virus Not Detected (Not Detect); SARS- CoV-2 Not Detected (Not Detecte)
== END 2024-04-01 17:09 | disposition home or self-care (01) ==
PROVIDERS: Emergency Provider Emergency Medicine; PCP Nurse Practitioner
DX: R50.9 Fever, unspecified (principal); R79.89 Other specified abnormal findings of blood chemistry; Z11.52 Encounter for screening for COVID-19
CPT/HCPCS: 36415; 80053; 81003; 83690; 85025; 87633; 99283

== ENCOUNTER → 2024-05-29 12:20 | Outpatient (CLI) | payer OTHER, SELFPAY ==
[2023-03-06 12:55] VITALS: BMI 31.0
[2024-05-29 13:14] LABS: Alanine Aminotransferase 28 IU/L (<35); Albumin 4.1 g/dL (3.5-5.0); Albumin Globulin Ratio 1.3 (1.0-2.8); Alkaline Phosphatase 105 U/L (38-126); Aspartate Aminotransferase 26 IU/L (14-36); BUN Creatinine Ratio 24.4 (6-22); Bilirubin Total 0.8 mg/dL (0.2-1.3); Blood Urea Nitrogen 33 mg/dL (7-17); Calcium 9.5 mg/dL (8.4-10.2); Carbon Dioxide 27 mmol/L (22-32); Chloride 107 mmol/L (98-107); Estimated Glomerular Filt Rate 38 mL/min (>60); Globulin 3.1 g/dL (1.7-4.1); Glucose 115 mg/dL (80-110); HEMOLYSIS < 15 (0-50); Potassium 4.5 mmol/L (3.4-5.1); Sodium 143 mmol/L (137-145); Total Protein 7.2 g/dL (6.3-8.2)
[2024-05-29 13:29] LABS: Free T3, Triiodothyronine Free 2.89 pg/mL (2.77-5.27)
[2024-05-29 13:42] LABS: Thyroid Stimulating Hormone 2.53 uIU/mL (0.47-4.68)
== END ==
PROVIDERS: PCP Nurse Practitioner; Referring Provider Nurse Practitioner; Visit Provider Nurse Practitioner
DX: R00.1 Bradycardia, unspecified (principal); I45.5 Other specified heart block
CPT/HCPCS: 36415; 80053; 83735; 84439; 84443; 84481

== ENCOUNTER 2024-07-17 12:54 | Emergency (ER) | payer OTHER, SELFPAY ==
[2023-03-06 12:55] VITALS: BMI 31.0
[2024-07-17 13:32] VITALS: BP 120/64; PULSE 58; RESP 18; TEMP 36.7; O2SAT 96; BMI 30.4
--- NOTE | 2024-07-17 13:36 | DI.RAD.S_ITS ---
PROCEDURE: XR SHOULDER LT MIN 2V INDICATIONS: Fall with limited range of motion TECHNIQUE: 3 views of the shoulder were acquired. COMPARISON: [facility], CR, XR SHOULDER LT MIN 2V, 08/29/2018, 15:05. FINDINGS: Bones: No fractures or dislocations. No suspicious bony lesions. Visualized ribs appear intact. Soft tissues: No suspicious soft tissue calcifications. IMPRESSION: No visualized acute fracture or dislocation. However, if clinical concern and/or pain persist, short interval imaging followup in 7-10 days is recommended, as occult injury cannot be definitively excluded. Dictated by: Georgie Uribe M.D. on 07/17/2024 at 14:03 Approved by: Georgie Uribe M.D. on 07/17/2024 at 14:06
--- NOTE | 2024-07-17 13:38 | DI.RAD.S_ITS ---
PROCEDURE: XR FINGER LT MIN 2V INDICATIONS: limited range of motion post fall TECHNIQUE: AP hand, 2 views of the 1st finger(s) acquired. COMPARISON: None. FINDINGS: Bones: No fractures or dislocations. No suspicious bony lesions. Prominent 1st CMC arthritic change. Soft tissues: No suspicious soft tissue calcifications. IMPRESSION: No visualized acute fracture or dislocation. However, if clinical concern and/or pain persist, short interval imaging followup in 7-10 days is recommended, as occult injury cannot be definitively excluded. Dictated by: Georgie Uribe M.D. on 07/17/2024 at 14:07 Approved by: Georgie Uribe M.D. on 07/17/2024 at 14:09
--- NOTE | 2024-07-17 14:35 | ED.FALL ---
HPI - Fall <Mell Andrade PA-C - Last Filed: 07/17/24 16:12> General Chief Complaint: Fall Stated Complaint: GLF, L Arm Injury Time Seen by Provider: 07/17/24 14:35 Source: patient Mode of arrival: Ambulatory History of Present Illness HPI Narrative: Patient is a very pleasant 88-year-old female that presents to the emergency room department today with her daughter, on Saturday of this week the patient was up attempting to use the bathroom, after using the bathroom she was headed back to her bedroom. She usually uses her cell phone flashlight to visualize the pathway to her bedroom, she had not turn on the flashlight, and unfortunately due to her balance issue she fell landing on the left side of her body, she jammed her shoulder and her left thumb into the wall. This set off her Apple watch, 911 was called, the ambulance did not come out because she told 911 that she is fine. She was able to get up underneath her own power and get herself to bed without any issues or problems. Since Saturday she has had no pain but she has had some limited range of motion of the left thumb and left shoulder. Currently not complaining of pain only limited range of motion, brought into the emergency room department today by her daughter for limited range of motion. Previous history of a clavicle fracture as a young woman to the left upper extremity. No other physical complaints currently at this time. Patient is ambidextrous, writes with her right hand as well as her left. But left-hand dominant. No other further complaints currently at this time. Related Data Home Medications Medication Instructions Recorded Confirmed ascorbate calcium (vitamin C) 500 500 mg PO BID 09/20/21 05/27/24 mg tablet melatonin 5 mg capsule mg PO BEDTIME 01/17/22 05/27/24 nebivolol 5 mg tablet 5 mg PO DAILY 08/13/23 05/27/24 cranberry 500 mg capsule See Rx Instructions PO .COMPLEX 11/11/23 05/27/24 d-mannose 500 mg capsule mg PO 11/11/23 05/27/24 magnesium PO 11/11/23 05/27/24 furosemide 20 mg tablet 20 mg PO Q OTHER DAY 01/01/24 05/27/24 Estradiol [place] See Rx Instructions .Route .COMPLEX 02/18/24 05/27/24 carbidopa 10 mg-levodopa 100 mg 1 tab PO 3XD 05/27/24 05/27/24 tablet Previous Rx's Medication Instructions Recorded In step wheeled walker with seat #1 ea 05/12/19 walker with out wheels #1 ea 06/04/22 Disabled Parking Permit See Rx Instructions .Route 06/18/22 .COMPLEX #1 unit aspirin 81 mg tablet,delayed 81 mg PO DAILY #90 tabs 12/23/23 release cholecalciferol (vitamin D3) 50 2,000 unit PO 3XW #36 caps 01/01/24 mcg (2,000 unit) capsule methenamine hippurate 1 gram tablet 1 g PO BID #90 tabs 02/12/24 vibegron 75 mg tablet (Gemtesa) 75 mg PO DAILY #90 tabs 03/11/24 spironolactone 25 mg tablet 12.5 mg (1/2 x 25 mg) PO DAILY #90 04/15/24 tabs nitrofurantoin macrocrystal 100 mg 100 mg PO BID #10 caps 05/08/24 capsule atorvastatin 40 mg tablet 40 mg PO ONCE PM #90 tabs 06/12/24 Allergies Allergy/AdvReac Type Severity Reaction Status Date / Time ciprofloxacin [From Cipro] Allergy Severe Weakness Verified 04/22/24 14:54 estradiol Allergy Intermediate burning Verified 04/22/24 14:54 sulfamethoxazole AdvReac Intermediate Weakness Verified 04/22/24 14:54 [From Septra] trimethoprim [From Septra] AdvReac Intermediate Weakness Verified 04/22/24 14:54 cherries Allergy Mild itching/swe Uncoded 04/22/24 14:54 lling Review of Systems <Mell Andrade PA-C - Last Filed: 07/17/24 16:12> Review of Systems Narrative: Negative except as above Musculoskeletal Comments: Left thumb and left shoulder range of motion issues, currently no pain. Patient History <Mell Andrade PA-C - Last Filed: 07/17/24 16:12> Medical History Bradycardia Urinary incontinence due to severe physical disability Lower urinary tract symptoms (LUTS) CKD (chronic kidney disease) stage 3, GFR 30-59 ml/min Pulmonary hypertension Pulmonary fibrosis History of fall within past 90 days History of UTI Postmenopausal atrophic vaginitis Hyperlipidemia Hypertension Hoarseness or changing voice Difficulty swallowing liquids Fatigue Edema of both lower legs Premature ventricular contraction Mixed incontinence Recurrent UTI (urinary tract infection) Postmenopausal atrophic vaginitis Rectal leakage Urinary tract infection Family history of colon cancer Hx of colonic polyp Skin rash Chicken pox Colon polyps (2013) Frequent UTI (2011) Ulcerative colitis Fractures (1966) Cataract (2014) Anemia (1979) Fibroids (1974) History of heavy periods (1972) Urinary incontinence (2009) Rubella Measles Mumps Mononucleosis (1958) Cardiac arrhythmia (05/08/16) Shingles outbreak Herpes zoster acute retinal necrosis Facial cellulitis Surgical History H/O: hysterectomy H/O tubal ligation H/O breast biopsy History of knee replacement History of appendectomy Anesthesia History of bilateral tubal ligation (1962) Status post appendectomy (1962) Status post right oophorectomy (1979) History of cataract removal with insertion of prosthetic lens (2014) Status post colonoscopy (08/26/14) Status post breast biopsy Status post vaginal hysterectomy (1979) Family History Brother Renal cancer Father Heart disease Hypertension Grandfather Stroke Mother Colon cancer Grandmother Cancer Stroke Sister Parkinson's disease Grandmother Pneumonia Family/Other Leukemia Son Blood disease Daughter Frontotemporal dementia Social History marital status: details: Only 5 living children number of children: 6 household members: children Smoking Status: Never smoker alcohol intake: current caffeine: No Smoking Status: Never smoker alcohol intake frequency: holidays/special occasions only Substance Use Type: does not use Exam <Mell Andrade PA-C - Last Filed: 07/17/24 16:12> Initial Vital Signs Initial Vital Signs: Vital Signs Temperature 98.0 F 07/17/24 13:32 Pulse Rate 58 L 07/17/24 13:32 Respiratory Rate 18 07/17/24 13:32 Blood Pressure 120/64 07/17/24 13:32 Pulse Oximetry 96 07/17/24 13:32 Oxygen Delivery Method Room Air 07/17/24 13:32 Reviewed Const General: cooperative, healthy appearing, comfortable, well developed, well groomed, No acute distress, No in distress and No anxious Nutritional Appearance: average body habitus and well nourished Eyes General: Yes appearance normal, both eyes and all related structures Pupils: PERRL EOM: EOM intact bilaterally Skin Other: Warm pink and dry Neuro General: patient alert, patient awake, patient oriented x3, oriented and gait normal (Gait not tested she has a history of being unstable, in a wheelchair) Cognition: normal cognition Speech: speech normal Extrem Other: Patient uses a wheelchair, she is balance issues cap refill is preserved, pulses are present. Left upper extremity exam. No signs of deformity, no bruising, no ecchymosis is noted, no obvious injury. Cap refill is preserved. She does not have any pain with examination. She has limited range of motion with extension of the left thumb. But no pain over the metacarpal joint. She is limited range of motion extension and abduction of the left shoulder. She does not have any pain over the rotator cuff or over the humeral head. No pain along the humerus, elbow, forearm or wrist on exam. <Kushal Rodriguez MD - Last Filed: 07/17/24 21:06> Initial Vital Signs Initial Vital Signs: Vital Signs Temperature 98.0 F 07/17/24 13:32 Pulse Rate 58 L 07/17/24 13:32 Respiratory Rate 18 07/17/24 13:32 Blood Pressure 120/64 07/17/24 13:32 Pulse Oximetry 96 07/17/24 13:32 Oxygen Delivery Method Room Air 07/17/24 13:32 Scores <Mell Andrade PA-C - Last Filed: 07/17/24 16:12> GCS Citation: 15 Course <Mell Andrade PA-C - Last Filed: 07/17/24 16:12> Orders Ordered: ED Orders 07/17/24 13:36 XR shoulder LT min 2V Stat 07/17/24 13:38 XR finger LT min 2V Stat Vital Signs Vital signs: Vital Signs - 8 hr 07/17/24 13:32 07/17/24 16:07 Temperature 98.0 F Pulse Rate 58 L 57 L Respiratory Rate 18 18 Blood Pressure 120/64 118/69 Pulse Oximetry 96 97 Oxygen Delivery Method Room Air Room Air Reviewed <Kushal Rodriguez MD - Last Filed: 07/17/24 21:06> Orders Ordered: ED Orders 07/17/24 13:36 XR shoulder LT min 2V Stat 07/17/24 13:38 XR finger LT min 2V Stat Vital Signs Vital signs: Vital Signs - 8 hr 07/17/24 13:32 07/17/24 16:07 Temperature 98.0 F Pulse Rate 58 L 57 L Respiratory Rate 18 18 Blood Pressure 120/64 118/69 Pulse Oximetry 96 97 Oxygen Delivery Method Room Air Room Air MDM - Fall <Mell Andrade PA-C - Last Filed: 07/17/24 16:12> Imaging Data Extremity x-ray #1: Radiologist's Impression: [address] [address] XRay Report Signed Patient: Katherin Parker MR#: [id number] : 1935 Acct:[id number] Age/Sex: 88 / F Date of Service: 07/17/24 Loc: ED Accession Number: [id number] Procedure: XR shoulder LT min 2V Ordering Provider: Mell Andrade PA-C PROCEDURE: XR SHOULDER LT MIN 2V INDICATIONS: Fall with limited range of motion TECHNIQUE: 3 views of the shoulder were acquired. [facility]. FINDINGS: Bones: No fractures or dislocations. No suspicious bony lesions. Visualized ribs appear intact. Soft tissues: No suspicious soft tissue calcifications. IMPRESSION: No visualized acute fracture or dislocation. However, if clinical concern and/or pain persist, short interval imaging followup in 7-10 days is recommended, as occult injury cannot be definitively excluded. Dictated by: Georgie Uribe M.D. on 07/17/2024 at 14:03 Approved by: Georgie Uribe M.D. on 07/17/2024 at 14:06 Extremity x-ray #2: Radiologist's Impression: [address] [address] XRay Report Signed Patient: Katherin Parker MR#: [id number] : 1935 Acct:[id number] Age/Sex: 88 / F Date of Service: 07/17/24 Loc: ED Accession Number: [id number] Procedure: XR finger LT min 2V Ordering Provider: Mell Andrade PA-C PROCEDURE: XR FINGER LT MIN 2V INDICATIONS: limited range of motion post fall TECHNIQUE: AP hand, 2 views of the 1st finger(s) acquired. COMPARISON: None. FINDINGS: Bones: No fractures or dislocations. No suspicious bony lesions. Prominent 1st CMC arthritic change. Soft tissues: No suspicious soft tissue calcifications. IMPRESSION: No visualized acute fracture or dislocation. However, if clinical concern and/or pain persist, short interval imaging followup in 7-10 days is recommended, as occult injury cannot be definitively excluded. Dictated by: Georgie Uribe M.D. on 07/17/2024 at 14:07 Approved by: Georgie Uribe M.D. on 07/17/2024 at 14:09 [facility] Narrative Medical decision making narrative: Very pleasant 88-year-old female presents to the emergency room department today with her daughter, fall on Saturday due to balance issues. Landed on her left side. Presents to the emergency room department not with pain but decreased range of motion of the left shoulder and left thumb. X-rays of the left hand/thumb and left shoulder negative for any acute fractures. Exam does not delineate any type of discomfort or pain but limited range of motion Discussed with the patient that currently at this time due to her balance issues the daughter has suggested no sling, and no wrist splint. Suggested they follow up with the primary care doctor in 7-10 days for repeat x-rays if needed, further evaluation, and if the primary care doctor feels that an MRI is warranted an MRI can be ordered as an outpatient. If any ligament or tendon damage is found and the patient is needed they can be referred to an orthopedist for further evaluation, and treatment plan. If PT is the treatment plan than their primary care doctor can refer them for outpatient physical therapy. The patient currently is not having any discomfort and pain. She states she has a high pain tolerance and does not need anything for pain. The patient is discharged in stable condition with a family member. Differential diagnosis; fall, shoulder contusion, possible internal derangement of the shoulder, possible rotator cuff tear, possible labral tear, possible supraspinatus tear. Possible left gamekeeper's thumb, possible thumb sprain. Discharge Plan Departure Patient Disposition: Home Clinical Impression: Contusion of left shoulder Qualifiers: Encounter type: initial encounter Qualified Code(s): S40.012A - Contusion of left shoulder, initial encounter Left thumb sprain Qualifiers: Encounter type: initial encounter Sprain of finger site: metacarpophalangeal joint Qualified Code(s): S63.642A - Sprain of metacarpophalangeal joint of left thumb, initial encounter Activity Restrictions/Additional Instructions: X-rays are negative for any acute fracture We have decided against a sling or any type of splint on the hand because it limits her ability to stablize herself or use her walker We have decided that she will do some slow range of motion of the left shoulder and hand Tylenol as needed currently she has not having any discomfort or pain Make arrangements to follow up with her primary care doctor in about 7-10 days and if she is continued to have issues or problems with range of motion if her primary care doctor wants to an order an outpatient MRI to evaluate the tendons and ligaments that would be the best option Depending on the results of the MRI if ordered she can be referred to an orthopedic surgeon if needed or primary care doctor to can just order outpatient physical therapy for the patient Return to the emergency department as needed Please be careful home Prescriptions: No Action (DME) In step wheeled walker with seat Qty: 1 0RF Dose Instruction: As directed Rx Instructions: Use wheeled walker with ambulation. (DME) walker with out wheels See Rx Instructions .Route .MEDSUPPLY Qty: 1 0RF Rx Instructions: As directed Disabled Parking Permit See Rx Instructions .ROUTE .COMPLEX Qty: 1 0RF Rx Instructions: I find this patient to be medically disabled and qualify for disabled parking as indicated and signed on the accompanying disabled parking application for individuals. aspirin 81 mg tablet,delayed release (DR/EC) 81 mg PO DAILY Qty: 90 3RF methenamine hippurate 1 gram tablet 1 g PO BID Qty: 90 3RF Rx Instructions: take 1 tab with 500mg Vitamin-C spironolactone 25 mg tablet 12.5 mg PO DAILY Qty: 90 3RF Rx Instructions: PLEASE CUT TABS IN HALF- DOSE IS 12.5 Take one half tablet daily nitrofurantoin macrocrystal 100 mg capsule 100 mg PO BID Qty: 10 0RF Rx Instructions: must administer with a meal/food atorvastatin 40 mg tablet 40 mg PO ONCE PM Qty: 90 1RF magnesium PO Rx Instructions: 225mg daily cholecalciferol (vitamin D3) 50 mcg (2,000 unit) capsule 2,000 unit PO 3XW Qty: 36 3RF furosemide 20 mg tablet 20 mg PO Q OTHER DAY Estradiol [place] See Rx Instructions .ROUTE .COMPLEX Rx Instructions: Insert 1 tab every night with some surgilube on your finger, x14 days, then 2-3 times per week therafter; carbidopa-levodopa 10-100 mg tablet 1 tab PO 3XD Patient Comments: Patient is taking 1/2 tab TID melatonin 5 mg capsule PO BEDTIME nebivolol 5 mg tablet 5 mg PO DAILY Gemtesa 75 mg tablet 75 mg PO DAILY Qty: 90 3RF ascorbate calcium (vitamin C) 500 mg tablet 500 mg PO BID cranberry 500 mg capsule See Rx Instructions PO .COMPLEX Rx Instructions: 400mg, take one in the morning and 2 in the evening d-mannose 500 mg capsule PO Rx Instructions: 2 in the morning and 2 in the evening Referrals: Zoe Parker ARNP [Primary Care Provider] - Stand Alone Forms: Patient Portal/API ED Sign-out <Kushal Rodriguez MD - Last Filed: 07/17/24 21:06> Cosign ED Attending Cosignature Attestation: I was immediately available in the department for consultation. This documentation has been reviewed. Kushal Rodriguez MD
[2024-07-17 16:07] VITALS: BP 118/69; PULSE 57; RESP 18; O2SAT 97
== END 2024-07-17 16:08 | disposition home or self-care (01) ==
PROVIDERS: Emergency Provider Physician Assistant; PCP Nurse Practitioner
DX: S40.012A Contusion of left shoulder, initial encounter (principal); S63.642A Sprain of metacarpophalangeal joint of left thumb, initial encounter; W18.30XA Fall on same level, unspecified, initial encounter
CPT/HCPCS: 73030; 73140; 99281; 99283

== ENCOUNTER 2024-08-31 10:55 | Emergency (ER) | payer OTHER, SELFPAY ==
[2023-03-06 12:55] VITALS: BMI 31.0
[2024-08-31 11:06] VITALS: BP 157/71; PULSE 64; RESP 16; TEMP 36; O2SAT 98; BMI 30.1
--- NOTE | 2024-08-31 11:09 | DI.RAD.S_ITS ---
PROCEDURE: XR HUMERUS RT 2V INDICATIONS: fall yesterday, Pain with ROM TECHNIQUE: 2 views of the humerus were acquired. COMPARISON: None. FINDINGS: Bones: No fractures or dislocations. No suspicious bony lesions. Soft tissues: No suspicious soft tissue calcifications. IMPRESSION: No acute bony abnormality. Dictated by: Michael Hathaway M.D. on 08/31/2024 at 12:12 Approved by: Michael Hathaway M.D. on 08/31/2024 at 12:12
--- NOTE | 2024-08-31 11:09 | DI.RAD.S_ITS ---
PROCEDURE: XR SHOULDER RT MIN 2V INDICATIONS: fall pain with ROM TECHNIQUE: 3 views of the shoulder were acquired. COMPARISON: [facility], CR, XR SHOULDER LT MIN 2V, 07/17/2024, 13:33. FINDINGS: Bones: No fractures or dislocations. No suspicious bony lesions. Visualized ribs appear intact. Soft tissues: No suspicious soft tissue calcifications. IMPRESSION: No acute bony abnormality. Dictated by: Michael Hathaway M.D. on 08/31/2024 at 12:12 Approved by: Michael Hathaway M.D. on 08/31/2024 at 12:13
--- NOTE | 2024-08-31 11:38 | DI.CT.S_ITS ---
PROCEDURE: CT HEAD/BRAIN WO CON INDICATIONS: Fall TECHNIQUE: Noncontrast 4.5 mm thick angled axial sections acquired from the foramen magnum to the vertex, with coronal and sagittal reformats. For radiation dose reduction, the following was used: automated exposure control, adjustment of mA and/or kV according to patient size. COMPARISON: [facility], CT, CT HEAD/BRAIN WO CON, 02/07/2023, 2:33. FINDINGS: Image quality: Diagnostic. CSF spaces: Basal cisterns are patent. No extra-axial fluid collections. The ventricles are symmetric in size and shape. Brain: No intracranial bleeds or masses. There is cerebral volume loss for age, with resultant ventricular and sulcal prominence. There are periventricular and deep white matter chronic small vessel ischemic changes. There is intracranial internal carotid artery atherosclerosis. Skull and face: Calvarium and visualized facial bones appear intact, without suspicious lesions. Sinuses: Visualized sinuses and mastoids are clear. IMPRESSION: No acute intracranial pathology. Dictated by: Michael Hathaway M.D. on 08/31/2024 at 13:04 Approved by: Michael Hathaway M.D. on 08/31/2024 at 13:06
--- NOTE | 2024-08-31 11:38 | DI.CT.S_ITS ---
PROCEDURE: CT CERVICAL SPINE WO CON INDICATIONS: Fall TECHNIQUE: Noncontrast 3 mm thick sections acquired from the skull base to the T4 level. Sagittal and coronal reformats were then constructed. For radiation dose reduction, the following was used: automated exposure control, adjustment of mA and/or kV according to patient size. COMPARISON: [facility], CT, CT CERVICAL SPINE WO CON, 02/07/2023, 2:33. FINDINGS: Image quality: Excellent. Bones: No fractures or dislocations. Visualized superior ribs are intact. Diffuse cervical spondylitic change. Multilevel facet arthropathy with resultant trace anterolisthesis of C6 on C7, C7 on T1, T1 on T2, and T2 on T3. There is multilevel bony foraminal narrowing. Soft tissues: Prevertebral soft tissues are normal in thickness. No paravertebral hematomas. No apical pneumothoraces. Chronic interstitial pulmonary fibrosis. IMPRESSION: No displaced fracture or traumatic subluxation. 2. Cervical spondylosis. 3. Biapical chronic idiopathic pulmonary fibrosis. Dictated by: Michael Hathaway M.D. on 08/31/2024 at 12:53 Approved by: Michael Hathaway M.D. on 08/31/2024 at 13:03
--- NOTE | 2024-08-31 11:44 | PC.NURSE ---
This patient was supposed to have an appointment with Dr. Jones at [facility] and asked if this RN could call and let them know and see if they could come in after their visit today at the emergency department. This RN was advised that they could come at 14:30. This RN informed the patient and her granddaughter.
[2024-08-31] MEDS: ACETAMINOPHEN 325 MG TABLET 975 MG PO (11:57)
[2024-08-31 13:43] VITALS: BP 148/70; PULSE 70; RESP 18; TEMP 36.4; O2SAT 97
--- NOTE | 2024-09-01 18:40 | ED_ITS ---
HPI - Fall <Rusty Mcdowell PA-C - Last Filed: 09/01/24 18:47> General Chief Complaint: Fall Stated Complaint: Fell and hit head and right shoulder pain Time Seen by Provider: 08/31/24 11:29 Mode of arrival: Wheelchair History of Present Illness HPI Narrative: 88-year-old female presents to the ED with right-sided shoulder and upper arm pain following a mechanical fall yesterday. Patient walks with a walker at baseline. Patient states that she was reaching forward to get a saw span in an unusual spot, fell back, hitting her left forehead with a saw span and bumping her right shoulder against a cabinet. Patient did not lose consciousness. Patient is not on blood thinners. Patient takes baby aspirin daily. No numbness, tingling, weakness. No chest pain, shortness of breath, lightheadedness, dizziness, syncope. Related Data Home Medications Medication Instructions Recorded Confirmed ascorbate calcium (vitamin C) 500 500 mg PO BID 09/20/21 09/10/24 mg tablet melatonin 5 mg capsule mg PO BEDTIME 01/17/22 09/10/24 nebivolol 5 mg tablet 5 mg PO DAILY 08/13/23 09/10/24 cranberry 500 mg capsule See Rx Instructions PO .COMPLEX 11/11/23 09/10/24 d-mannose 500 mg capsule mg PO 11/11/23 09/10/24 magnesium PO 11/11/23 09/10/24 furosemide 20 mg tablet 20 mg PO Q OTHER DAY 01/01/24 09/10/24 Estradiol Perles See Rx Instructions .Route .COMPLEX 02/18/24 09/10/24 Previous Rx's Medication Instructions Recorded In step wheeled walker with seat #1 ea 05/12/19 walker with out wheels #1 ea 06/04/22 Disabled Parking Permit See Rx Instructions .Route 06/18/22 .COMPLEX #1 unit aspirin 81 mg tablet,delayed 81 mg PO DAILY #90 tabs 12/23/23 release cholecalciferol (vitamin D3) 50 2,000 unit PO 3XW #36 caps 01/01/24 mcg (2,000 unit) capsule methenamine hippurate 1 gram tablet 1 g PO BID #90 tabs 02/12/24 vibegron 75 mg tablet (Gemtesa) 75 mg PO DAILY #90 tabs 03/11/24 spironolactone 25 mg tablet 12.5 mg (1/2 x 25 mg) PO DAILY #90 04/15/24 tabs atorvastatin 40 mg tablet 40 mg PO ONCE PM #90 tabs 07/27/24 Allergies Allergy/AdvReac Type Severity Reaction Status Date / Time ciprofloxacin [From Cipro] Allergy Severe Weakness Verified 09/10/24 11:43 estradiol Allergy Intermediate burning Verified 09/10/24 11:43 sulfamethoxazole AdvReac Intermediate Weakness Verified 09/10/24 11:43 [From Septra] trimethoprim [From Septra] AdvReac Intermediate Weakness Verified 09/10/24 11:43 cherries Allergy Mild itching/swe Uncoded 09/20/24 00:46 lling Review of Systems <Rusty Mcdowell PA-C - Last Filed: 09/01/24 18:47> Constitutional Constitutional: Denies chills, Denies fatigue, Denies fever(s), Denies frequent falls, Denies lethargy and Denies weakness Eyes Eyes: Denies change in vision, Denies eye discharge, Denies irritation and Denies loss of vision Comments: Left forehead bruising, injury ENT Ears, Nose, Mouth, and Throat: Denies change in voice, Denies dizziness, Denies neck pain, Denies sore throat and Denies throat swelling Cardiovascular Cardiovascular: Denies chest pain, Denies irregular heart rhythm, Denies lightheadedness, Denies palpitations, Denies dyspnea, Denies dyspnea on exertion and Denies orthopnea Respiratory Respiratory: Denies cough, Denies dyspnea, Denies dyspnea on exertion and Denies wheezing Gastrointestinal Gastrointestinal: Denies abdominal pain, Denies change in bowel habits, Denies diarrhea, Denies nausea and Denies vomiting Musculoskeletal Musculoskeletal: Denies neck pain and Denies numbness Comments: Right shoulder and right upper arm pain. Integumentary/Breasts Skin/Breast: Denies pruritus, Denies erythema, Denies rash and Denies wounds Neurologic Neurologic: Denies behavioral changes, Denies confusion, Denies dizziness, Denies frequent falls, Denies loss of vision, Denies numbness and Denies weakness Psychiatric Psychiatric: Denies anxiety, Denies behavioral changes, Denies confusion, Denies depression, Denies homicidal ideation and Denies suicidal ideation Endocrine Endocrine: Denies fatigue, Denies flushing and Denies palpitations Hematologic/Lymphatic Hematologic/Lymphatic: Denies easy bruising Allergic/Immunologic Allergic/Immunologic: Denies urticaria, Denies throat swelling and Denies wheezing Patient History <Rusty Mcdowell PA-C - Last Filed: 09/01/24 18:47> Medical History Bradycardia Urinary incontinence due to severe physical disability Lower urinary tract symptoms (LUTS) CKD (chronic kidney disease) stage 3, GFR 30-59 ml/min Pulmonary hypertension Pulmonary fibrosis History of fall within past 90 days History of UTI Postmenopausal atrophic vaginitis Hyperlipidemia Hypertension Hoarseness or changing voice Difficulty swallowing liquids Fatigue Edema of both lower legs Premature ventricular contraction Mixed incontinence Recurrent UTI (urinary tract infection) Postmenopausal atrophic vaginitis Rectal leakage Urinary tract infection Family history of colon cancer Hx of colonic polyp Skin rash Chicken pox Colon polyps (2013) Frequent UTI (2011) Ulcerative colitis Fractures (1966) Cataract (2014) Anemia (1979) Fibroids (1974) History of heavy periods (1972) Urinary incontinence (2009) Rubella Measles Mumps Mononucleosis (1958) Cardiac arrhythmia (05/08/16) Shingles outbreak Herpes zoster acute retinal necrosis Facial cellulitis Surgical History H/O: hysterectomy H/O tubal ligation H/O breast biopsy History of knee replacement History of appendectomy Anesthesia History of bilateral tubal ligation (1962) Status post appendectomy (1962) Status post right oophorectomy (1979) History of cataract removal with insertion of prosthetic lens (2014) Status post colonoscopy (08/26/14) Status post breast biopsy Status post vaginal hysterectomy (1979) Family History Brother Renal cancer Father Heart disease Hypertension Grandfather Stroke Mother Colon cancer Grandmother Cancer Stroke Sister Parkinson's disease Grandmother Pneumonia Family/Other Leukemia Son Blood disease Daughter Frontotemporal dementia Social History marital status: details: Only 5 living children number of children: 6 household members: children Smoking Status: Never smoker alcohol intake: current caffeine: No Smoking Status: Never smoker alcohol intake frequency: holidays/special occasions only Substance Use Type: does not use Exam <Rusty Mcdowell PA-C - Last Filed: 09/01/24 18:47> Narrative Exam Narrative: Const General:?cooperative, healthy appearing and comfortable [facility] Head:? There is a small left frontal hematoma and bruising. Skin is intact. No skull depressions. Ears:?hearing grossly normal bilaterally Nose:?external nose normal Face and sinus:?normal facial exam and sinuses nontender Mouth:?oral mucosae normal Throat:?posterior oropharynx normal Eyes General:?appearance normal, both eyes and all related structures Neck Neck:?normal visual inspection and no lymphadenopathy noted Resp Effort & Inspection:?normal respiratory effort Auscultation:?clear to auscultation bilaterally Cardio Rate:?regular rate Rhythm:?regular rhythm Musculoskeletal No bony tenderness to palpation of right shoulder or right upper arm. There is full range of motion. Patient does complain of pain when moving her arm. Strength and sensation is intact. Neurovascularly intact. Neuro General:?patient alert, patient awake and patient oriented x3 Initial Vital Signs Initial Vital Signs: Vital Signs Temperature 96.8 F L 08/31/24 11:06 Pulse Rate 64 08/31/24 11:06 Respiratory Rate 16 08/31/24 11:06 Blood Pressure 157/71 H 08/31/24 11:06 Pulse Oximetry 98 08/31/24 11:06 Oxygen Delivery Method Room Air 08/31/24 11:06 <Suzy Randolph DO - Last Filed: 09/20/24 07:32> Initial Vital Signs Initial Vital Signs: Vital Signs Temperature 96.8 F L 08/31/24 11:06 Pulse Rate 64 08/31/24 11:06 Respiratory Rate 16 08/31/24 11:06 Blood Pressure 157/71 H 08/31/24 11:06 Pulse Oximetry 98 08/31/24 11:06 Oxygen Delivery Method Room Air 08/31/24 11:06 Course <Rusty Mcdowell PA-C - Last Filed: 09/01/24 18:47> Orders Ordered: Discontinued Medications Acetaminophen (Acetaminophen 325 Mg Tablet) 975 mg PO NOW ONE Stop: 08/31/24 11:39 Last Admin: 08/31/24 11:57 Dose: 975 mg Documented By: RB <Suzy Randolph DO - Last Filed: 09/20/24 07:32> Orders Ordered: Discontinued Medications Acetaminophen (Acetaminophen 325 Mg Tablet) 975 mg PO NOW ONE Stop: 08/31/24 11:39 Last Admin: 08/31/24 11:57 Dose: 975 mg Documented By: HERI MDM - Fall <Rusty Mcdowell PA-C - Last Filed: 09/01/24 18:47> [facility] Narrative Medical decision making narrative: 88-year-old female presents to the ED with right-sided shoulder and upper arm pain following a mechanical fall yesterday. Concern for fracture/dislocation versus musculoskeletal sprain/strain versus intracerebral hemorrhage versus other. X-rays of the right shoulder and humerus without acute abnormalities. CT C-spine with no displaced fractures or traumatic subluxation. CT head with no acute intracranial pathology. Discussed findings with patient. Patient is able to ambulate in the ED with a walker. Recommend Tylenol, ibuprofen, lidocaine patches, ice/heat for symptom relief. Recommend follow-up with PCP as soon as possible. ED return precautions discussed with patient. Patient verbalized understanding. Medical records reviewed: Yes Discharge Plan Departure Patient Disposition: Home Clinical Impression: Fall Instructions: How to Prevent Falls Activity Restrictions/Additional Instructions: You were evaluated in the ED today for shoulder pain after a fall. Your x- rays were normal. We also did CT scans of your head and neck, which were also normal. It is also reassuring that you were able to walk with a walker. It appears you might have bruised your shoulder from the fall. You may continue to take Tylenol at home, apply lidocaine patches, apply ice/heat for comfort. Please follow-up with your PCP as soon as possible. Return to the ED if you have worsening symptoms, Numbness, tingling, weakness. Prescriptions: No Action (DME) In step wheeled walker with seat Qty: 1 0RF Dose Instruction: As directed Rx Instructions: Use wheeled walker with ambulation. (DME) walker with out wheels See Rx Instructions .Route .MEDSUPPLY Qty: 1 0RF Rx Instructions: As directed Disabled Parking Permit See Rx Instructions .ROUTE .COMPLEX Qty: 1 0RF Rx Instructions: I find this patient to be medically disabled and qualify for disabled parking as indicated and signed on the accompanying disabled parking application for individuals. aspirin 81 mg tablet,delayed release (DR/EC) 81 mg PO DAILY Qty: 90 3RF methenamine hippurate 1 gram tablet 1 g PO BID Qty: 90 3RF Rx Instructions: take 1 tab with 500mg Vitamin-C spironolactone 25 mg tablet 12.5 mg PO DAILY Qty: 90 3RF Rx Instructions: PLEASE CUT TABS IN HALF- DOSE IS 12.5 Take one half tablet daily magnesium PO Rx Instructions: 225mg daily cholecalciferol (vitamin D3) 50 mcg (2,000 unit) capsule 2,000 unit PO 3XW Qty: 36 3RF furosemide 20 mg tablet 20 mg PO Q OTHER DAY Estradiol Perles See Rx Instructions .ROUTE .COMPLEX Rx Instructions: Insert 1 tab every night with some surgilube on your finger, x14 days, then 2-3 times per week therafter; melatonin 5 mg capsule PO BEDTIME nebivolol 5 mg tablet 5 mg PO DAILY atorvastatin 40 mg tablet 40 mg PO ONCE PM Qty: 90 3RF Gemtesa 75 mg tablet 75 mg PO DAILY Qty: 90 3RF ascorbate calcium (vitamin C) 500 mg tablet 500 mg PO BID cranberry 500 mg capsule See Rx Instructions PO .COMPLEX Rx Instructions: 400mg, take one in the morning and 2 in the evening d-mannose 500 mg capsule PO Rx Instructions: 2 in the morning and 2 in the evening Referrals: Ketan Rosenthal MD [Primary Care Provider] - Stand Alone Forms: Patient Portal/API/Survey ED Sign-out <Suzy Randolph DO - Last Filed: 09/20/24 07:32> Cosign ED Attending Alessandra Attestation: I was available for consultation.
== END 2024-08-31 13:44 | disposition home or self-care (01) ==
PROVIDERS: Emergency Provider Student in an Organized Health Care Education/Training Program; PCP Family Medicine
DX: S09.90XA Unspecified injury of head, initial encounter (principal); M25.511 Pain in right shoulder; W18.00XA Striking against unspecified object with subsequent fall, initial encounter
CPT/HCPCS: 70450; 72125; 73030; 73060; 99283; 99284

== ENCOUNTER 2024-09-20 00:37 | Emergency (ER) | payer OTHER, SELFPAY ==
[2023-03-06 12:55] VITALS: BMI 31.0
[2024-09-20 00:41] VITALS: PULSE 66; O2SAT 95
[2024-09-20 00:42] VITALS: BP 158/72; PULSE 64; O2SAT 96
--- NOTE | 2024-09-20 00:43 | ED_ITS ---
HPI - General Adult General Chief complaint: Extremity Problem,Nontraumatic Stated complaint: Left foot red/swelling Time Seen by Provider: 09/20/24 00:42 Source: patient Mode of arrival: EMS Limitations: no limitations History of Present Illness HPI narrative: Patient was an 88-year-old female who is here for evaluation of swelling and redness to her left foot. She states that approximately 24 hours ago she initially noticed some swelling and redness to her foot. She was not having any pain. No trauma. It occurred when she took her shoes off. She did not think much of it because she was really having no symptoms. When she woke up this morning she like there was still some swelling but it was much better than the night before. Today when she took her shoe off once again she noticed that the redness was once again present. She was on spironolactone. She also took an extra dose of furosemide. Once again states that the redness seems to be improving. She was not having any fevers. No trauma. No sensory changes. Related Data Home Medications Medication Instructions Recorded Confirmed ascorbate calcium (vitamin C) 500 500 mg PO BID 09/20/21 09/10/24 mg tablet melatonin 5 mg capsule mg PO BEDTIME 01/17/22 09/10/24 nebivolol 5 mg tablet 5 mg PO DAILY 08/13/23 09/10/24 cranberry 500 mg capsule See Rx Instructions PO .COMPLEX 11/11/23 09/10/24 d-mannose 500 mg capsule mg PO 11/11/23 09/10/24 magnesium PO 11/11/23 09/10/24 furosemide 20 mg tablet 20 mg PO Q OTHER DAY 01/01/24 09/10/24 Estradiol Perles See Rx Instructions .Route .COMPLEX 02/18/24 09/10/24 Previous Rx's Medication Instructions Recorded In step wheeled walker with seat #1 ea 05/12/19 walker with out wheels #1 ea 06/04/22 Disabled Parking Permit See Rx Instructions .Route 06/18/22 .COMPLEX #1 unit aspirin 81 mg tablet,delayed 81 mg PO DAILY #90 tabs 12/23/23 release cholecalciferol (vitamin D3) 50 2,000 unit PO 3XW #36 caps 01/01/24 mcg (2,000 unit) capsule methenamine hippurate 1 gram tablet 1 g PO BID #90 tabs 02/12/24 vibegron 75 mg tablet (Gemtesa) 75 mg PO DAILY #90 tabs 03/11/24 spironolactone 25 mg tablet 12.5 mg (1/2 x 25 mg) PO DAILY #90 04/15/24 tabs atorvastatin 40 mg tablet 40 mg PO ONCE PM #90 tabs 07/27/24 Allergies Allergy/AdvReac Type Severity Reaction Status Date / Time ciprofloxacin [From Cipro] Allergy Severe Weakness Verified 09/10/24 11:43 estradiol Allergy Intermediate burning Verified 09/10/24 11:43 sulfamethoxazole AdvReac Intermediate Weakness Verified 09/10/24 11:43 [From Septra] trimethoprim [From Septra] AdvReac Intermediate Weakness Verified 09/10/24 11:43 cherries Allergy Mild itching/swe Uncoded 09/20/24 00:46 lling Review of Systems Review of Systems ROS Unobtainable: All systems reviewed & are unremarkable except as noted in HPI and below Patient History Medical History Bradycardia Urinary incontinence due to severe physical disability Lower urinary tract symptoms (LUTS) CKD (chronic kidney disease) stage 3, GFR 30-59 ml/min Pulmonary hypertension Pulmonary fibrosis History of fall within past 90 days History of UTI Postmenopausal atrophic vaginitis Hyperlipidemia Hypertension Hoarseness or changing voice Difficulty swallowing liquids Fatigue Edema of both lower legs Premature ventricular contraction Mixed incontinence Recurrent UTI (urinary tract infection) Postmenopausal atrophic vaginitis Rectal leakage Urinary tract infection Family history of colon cancer Hx of colonic polyp Skin rash Chicken pox Colon polyps (2013) Frequent UTI (2011) Ulcerative colitis Fractures (1966) Cataract (2014) Anemia (1979) Fibroids (1974) History of heavy periods (1972) Urinary incontinence (2009) Rubella Measles Mumps Mononucleosis (1958) Cardiac arrhythmia (05/08/16) Shingles outbreak Herpes zoster acute retinal necrosis Facial cellulitis Surgical History H/O: hysterectomy H/O tubal ligation H/O breast biopsy History of knee replacement History of appendectomy Anesthesia History of bilateral tubal ligation (1962) Status post appendectomy (1962) Status post right oophorectomy (1979) History of cataract removal with insertion of prosthetic lens (2014) Status post colonoscopy (08/26/14) Status post breast biopsy Status post vaginal hysterectomy (1979) Family History Brother Renal cancer Father Heart disease Hypertension Grandfather Stroke Mother Colon cancer Grandmother Cancer Stroke Sister Parkinson's disease Grandmother Pneumonia Family/Other Leukemia Son Blood disease Daughter Frontotemporal dementia Social History marital status: details: Only 5 living children number of children: 6 household members: children Smoking Status: Never smoker alcohol intake: current caffeine: No Smoking Status: Never smoker alcohol intake frequency: holidays/special occasions only Exam Initial Vital Signs Initial Vital Signs: Vital Signs Temperature 97 F L 09/20/24 00:46 Pulse Rate 64 09/20/24 00:46 Respiratory Rate 14 09/20/24 00:46 Blood Pressure 158/72 H 09/20/24 00:46 Pulse Oximetry 95 09/20/24 00:46 Oxygen Delivery Method Room Air 09/20/24 00:46 Const General: cooperative and comfortable HENMT Head: normal to inspection and normocephalic Cardio Pulses: dorsalis pedis present bilaterally Skin Other: Potentially very minimal redness to the toes of the left foot compared to the right. Neuro Sensory Exam: no sensory deficits noted Extrem Other: Mild swelling to bilateral lower extremities but it is equal bilateral. Course Orders Ordered: ED Orders 09/20/24 00:58 Basic Metabolic Panel Stat Complete Blood Count AUTO DIFF Stat Vital Signs Vital signs: Vital Signs - 8 hr 09/20/24 00:46 Temperature 97 F L Pulse Rate 64 Respiratory Rate 14 Blood Pressure 158/72 H Pulse Oximetry 95 Oxygen Delivery Method Room Air Medical Decision Making Lab Data Lab results reviewed: Yes I reviewed the patient's lab results. 09/20/24 00:58 09/20/24 00:58 Labs: Lab Results 09/20/24 Range/Units 00:58 WBC 7.8 (4.5-11.0) X10^3/uL RBC 3.91 L (4.0-5.2) X10^6/uL Hgb 12.6 (12.0-16.0) g/dL Hct 36.9 (36-46) % MCV 94.4 (80-100) fL MCH 32.1 (26-34) PG MCHC 34.0 (30-36) % RDW 13.1 (11.6-14.8) % Plt Count 261 (150-400) X10^3/uL Neut % (Auto) 52.4 (50-75) % Lymph % (Auto) 33.7 (25-40) % Jones % (Auto) 10.8 (3-14) % Eos % (Auto) 2.6 (2-4) % Baso % (Auto) 0.5 (0-2) % Neut # (Auto) 4100 (7797-0684) /uL Lymph # (Auto) 2600 (5434-3074) /uL Jones # (Auto) 800 (0-900) /uL Eos # (Auto) 200 (0-450) /uL Baso # (Auto) 0 (0-100) /uL Sodium 140 (137-145) mmol/L Potassium 4.2 (3.4-5.1) mmol/L Chloride 105 (98-107) mmol/L Carbon Dioxide 26 (22-32) mmol/L BUN 37 H (7-17) mg/dL Creatinine 1.22 H (0.52-1.04) mg/dL Estimated GFR 42 L (>60) mL/min BUN/Creatinine Ratio 30.3 H (6-22) Glucose 111 H (80-110) mg/dL Calcium 9.6 (8.4-10.2) mg/dL MDM Narrative Medical decision making narrative: No trauma. We will hold on radiologic studies for now. She was afebrile. She was neurovascularly intact. There are no signs that this is cellulitis. She does not have leukocytosis. Provided reassurance to the patient. I did inform her that if she develops more redness over the next 24-48 hours or develops fevers that she does need to be re-evaluated however we will hold on any antibiotics for now. She expressed understanding and agreement with plan. Discharge Plan Departure Patient Disposition: Home Clinical Impression: Feared complaint without diagnosis Activity Restrictions/Additional Instructions: Your labs today are very reassuring. I have very low suspicion that there is any infection located in your foot. Continue to take all of your medications as directed. Contact your primary doctor for a follow-up. Return to the emergency department for new or worsening symptoms. Prescriptions: No Action (DME) In step wheeled walker with seat Qty: 1 0RF Dose Instruction: As directed Rx Instructions: Use wheeled walker with ambulation. (DME) walker with out wheels See Rx Instructions .Route .MEDSUPPLY Qty: 1 0RF Rx Instructions: As directed Disabled Parking Permit See Rx Instructions .ROUTE .COMPLEX Qty: 1 0RF Rx Instructions: I find this patient to be medically disabled and qualify for disabled parking as indicated and signed on the accompanying disabled parking application for individuals. aspirin 81 mg tablet,delayed release (DR/EC) 81 mg PO DAILY Qty: 90 3RF methenamine hippurate 1 gram tablet 1 g PO BID Qty: 90 3RF Rx Instructions: take 1 tab with 500mg Vitamin-C spironolactone 25 mg tablet 12.5 mg PO DAILY Qty: 90 3RF Rx Instructions: PLEASE CUT TABS IN HALF- DOSE IS 12.5 Take one half tablet daily magnesium PO Rx Instructions: 225mg daily cholecalciferol (vitamin D3) 50 mcg (2,000 unit) capsule 2,000 unit PO 3XW Qty: 36 3RF furosemide 20 mg tablet 20 mg PO Q OTHER DAY Estradiol Perles See Rx Instructions .ROUTE .COMPLEX Rx Instructions: Insert 1 tab every night with some surgilube on your finger, x14 days, then 2-3 times per week therafter; melatonin 5 mg capsule PO BEDTIME nebivolol 5 mg tablet 5 mg PO DAILY atorvastatin 40 mg tablet 40 mg PO ONCE PM Qty: 90 3RF Gemtesa 75 mg tablet 75 mg PO DAILY Qty: 90 3RF ascorbate calcium (vitamin C) 500 mg tablet 500 mg PO BID cranberry 500 mg capsule See Rx Instructions PO .COMPLEX Rx Instructions: 400mg, take one in the morning and 2 in the evening d-mannose 500 mg capsule PO Rx Instructions: 2 in the morning and 2 in the evening Referrals: Ketan Rosenthal MD [Primary Care Provider] - Stand Alone Forms: Patient Portal/API/Survey
[2024-09-20 00:46] VITALS: BP 158/72; PULSE 64; RESP 14; TEMP 36.1; O2SAT 95; BMI 30.1
--- NOTE | 2024-09-20 00:50 | PC.NURSE ---
Pt states that she does not ambulate much. She can stand and transfer herself independently, has a home care 20 hours a month from [facility].
[2024-09-20 01:00] VITALS: PULSE 61; O2SAT 95
[2024-09-20 01:01] VITALS: BP 134/62; PULSE 61; O2SAT 94
[2024-09-20 01:10] LABS: Add Manual Diff / Slide Review NO; Basophils Absolute Auto 0 /uL (0-100); Basophils Percent Auto 0.5 % (0-2); Eosinophils Absolute Auto 200 /uL (0-450); Eosinophils Percent Auto 2.6 % (2-4); Hematocrit 36.9 % (36-46); Hemoglobin 12.6 g/dL (12.0-16.0); Lymphocytes Absolute Auto 2600 /uL (1100-4500); Lymphocytes Percent Auto 33.7 % (25-40); Mean Corpuscular Hemoglobin 32.1 PG (26-34); Mean Corpuscular Volume 94.4 fL (80-100); Monocytes Absolute Auto 800 /uL (0-900); Monocytes Percent Auto 10.8 % (3-14); Neutrophils Absolute Auto 4100 /uL (1500-7000); Neutrophils Percent Auto 52.4 % (50-75); Platelet Count 261 X10^3/uL (150-400); Red Blood Cell Count 3.91 X10^6/uL (4.0-5.2); Red Cell Distribution Width 13.1 % (11.6-14.8); White Blood Cell Count 7.8 X10^3/uL (4.5-11.0)
[2024-09-20 01:22] LABS: BUN Creatinine Ratio 30.3 (6-22); Blood Urea Nitrogen 37 mg/dL (7-17); Calcium 9.6 mg/dL (8.4-10.2); Carbon Dioxide 26 mmol/L (22-32); Chloride 105 mmol/L (98-107); Estimated Glomerular Filt Rate 42 mL/min (>60); Glucose 111 mg/dL (80-110); HEMOLYSIS < 15 (0-50); Potassium 4.2 mmol/L (3.4-5.1); Sodium 140 mmol/L (137-145)
[2024-09-20 01:30] VITALS: BP 132/63; PULSE 55; RESP 18; O2SAT 94
== END 2024-09-20 01:56 | disposition home or self-care (01) ==
PROVIDERS: Emergency Provider Emergency Medicine; PCP Family Medicine
DX: L53.9 Erythematous condition, unspecified (principal); Z71.1 Person with feared health complaint in whom no diagnosis is made
CPT/HCPCS: 80048; 85025; 99281; 99283

== ENCOUNTER → 2024-10-16 12:52 | Outpatient (CLI) | payer OTHER, SELFPAY ==
[2023-03-06 12:55] VITALS: BMI 31.0
[2024-10-16 14:29] LABS: Microalbumin Urine Random < 0.6 mg/dL (0-1.6)
[2024-10-16 14:36] LABS: BUN Creatinine Ratio 27.5 (6-22); Blood Urea Nitrogen 36 mg/dL (7-17); Carbon Dioxide 26 mmol/L (22-32); Chloride 102 mmol/L (98-107); Estimated Glomerular Filt Rate 39 mL/min (>60); Glucose 108 mg/dL (80-110); HEMOLYSIS 16 (0-50); Potassium 4.7 mmol/L (3.4-5.1); Sodium 137 mmol/L (137-145)
== END ==
PROVIDERS: PCP Family Medicine; Referring Provider Student in an Organized Health Care Education/Training Program; Visit Provider Student in an Organized Health Care Education/Training Program
DX: N05.9 Unspecified nephritic syndrome with unspecified morphologic changes (principal); D70.9 Neutropenia, unspecified; D63.1 Anemia in chronic kidney disease; R80.9 Proteinuria, unspecified
CPT/HCPCS: 36415; 80048; 82043; 82570